=== PATIENT | male | born 1955 | race Caucasian/White ===

== ENCOUNTER 2024-07-17 09:21 | Outpatient (AMB) | payer MEDICARE, MEDICAID, SELFPAY ==
--- NOTE | 2024-07-17 09:32 | A.OFFVIS_ITS ---
Vital Signs 07/17/24 09:33 Height 6 ft Weight 195 lb BMI 26.4 Pulse 67 Pulse Source Pulse Oximeter Pulse Oximetry (%) 98 Oxygen Delivery Method Room Air Intake Visit Reasons: arthritis Intake Note: Patient presents for follow up with Radha Allergies olanzapine [From Zyprexa] Allergy (Unknown, Verified 07/17/24 09:38) Unknown HPI HPI arthritis: Details: He has been doing well since being off of Actemra 01/23/2024. He reports that he only experiencing headache 2-3 days ago lasting an hour. He did not self medicate. He denies jaw pain, vision changes, new joint pain, scalp tenderness. No recent infections. Physical Exam Vital Signs: Last Vital Signs Pulse 67 07/17/24 09:33 Pulse Ox 98 07/17/24 09:33 Oxygen Delivery Method Room Air 07/17/24 09:33 BMI result Body Mass Index 26.4 Const Other: General: Comfortable CVS: RRR Respiratory: clear to auscultation bilaterally. Good respiratory effort Skin: No lesions seen MSK: No tenderness of any joint. Right arm range of motion is normal. 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 He is able to abduct left shoulder 60 degrees. Limited full extension of right knee with crepitus and bony hypertrophy noted. He has right knee flexion 120 degrees. Left knee flexion 90 degrees with increase muscle tone due to stroke. Assessment & Plan Assessment & Plan (1) Temporal giant cell arteritis: Comment: Presenting with cerebrovascular occlusive disease and stroke 06/2021 to [facility] with headaches, right temporal pain and scalp tenderness 10/2021. Bilateral temporal artery biopsy with vascular inflammation suggesting GCA. Axillary artery inflammation on CTA chest at [facility] 2021. 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 Subsequently, he developed right eye blindness detected on eye exam 05/[address] Ospina. He developed jaw claudication 07/2022 and prednisone was increased. Actemra subcutaneous injection 01/2022 was changed to IV monthly infusion 10/19/2022 then back to subcutaneous injection for convenience being administered at patient's residents at [facility] with last dose administered 01/2024. Clinically he has remained in remission off of Actemra. He had headache 2-3 days ago lasting it hour, self-limited without recurrence. I am checking inflammatory markers this visit. He has had chronic mild elevation of ESR last year with most recent labs from December 2023 showing normal CRP. Code(s): M31.6 - Other giant cell arteritis Category: Medical Plan: Inflammatory markers ordered Monitor clinically off of Actemra Follow-up with Dr. Ospina support specialist Return to clinic in 3 months (2) Compression fx, lumbar spine: Comment: He had presented to [facility] 11/2022 with back pain and found to have lumbar spine compression fracture, which healed on its own. Likely related to glue corticosteroid use at the time for treatment of GCA. Code(s): S32.000A - Wedge compression fracture of unspecified lumbar vertebra, initial encounter for closed fracture Category: Medical Qualifiers: Encounter type: initial encounter Lumbar vertebra fracture level: unspecified lumbar vertebra Qualified Code(s): S32.000A - Wedge compression fracture of unspecified lumbar vertebra, initial encounter for closed fracture Plan: Requesting lumbar spine x-ray report 11/22/2022 from [facility] Bone density ordered (3) Osteoarthritis of right knee: Comment: Clinical diagnosis. Limiting mobility. We discussed conservative management with physical therapy to improve range of motion and lower extremity strengthening. Code(s): M17.11 - Unilateral primary osteoarthritis, right knee Category: Medical Qualifiers: Osteoarthritis type: primary Qualified Code(s): M17.11 - Unilateral primary osteoarthritis, right knee Plan: X-ray right knee report requested from [facility] PT ordered for patient to have done at care home facility [facility] Return to clinic in 3 months Orders: Orders XR DEXA appendicular skeleton Today S32.000A - Wedge compression fracture of unspecified lumbar vertebra, initial encounter for closed fracture XR DEXA axial skeleton Today S32.000A - Wedge compression fracture of unspecified lumbar vertebra, initial encounter for closed fracture Erythrocyte Sedimentation Rate Today M31.6 - Other giant cell arteritis C Reactive Protein Today M31.6 - Other giant cell arteritis PT Evaluation and Treatment Today M17.11 - Unilateral primary osteoarthritis, right knee Coding Level of Care Code Est Pt Level 4 (29322) Complex EM visit Add On G2211 Diagnoses Temporal giant cell arteritis M31.6 Compression fracture of lumbar vertebra, unspecified lumbar vertebral level, initial encounter S32.000A Encounter type: initial encounter Lumbar vertebra fracture level: unspecified lumbar vertebra Primary osteoarthritis of right knee M17.11 Osteoarthritis type: primary
[2024-07-17 09:33] VITALS: PULSE 67; O2SAT 98; BMI 26.4
--- OUTSIDE RECORDS SUMMARY | 2024-07-17 10:30 | XMS_ITS | Continuity of Care Document ---
[facility] Address [address] [place] [address] Care Team Providers Care Bingo Attendant Name Role Phone MARLENE PISANO Primary Care Provider [facility] Assessment Encounter Date Assessment Date Assessment LastModified by Organization Details LastModified Time 06/26/2024 06/26/2024 Labs 04/21- wbc 3.2, hb 11.1, hct 35.3, plt 172, na 142, k 3.7, chl 106, co2 28, bun 9, creat 0.6 Labs 10/03- wbc 4.3, hb 11.3, hct 36.1, plt 184, na 142, k 4.3, chl 105, co2 30, bun 19, creat 0.7, TSH 0.79 Labs 12/05- ESR 49, CRP 0.5, TC 128, trig 137, HDL 43, LDL 57 Labs 02/26- wbc 4.1, hb 11.5, hct 35.4, plt 151, CRP 0.7, ESR 26, creat 0.7 [place] Not available 06/26/2024 10:38:11 Plan of Treatment Reminders Order Date Submit Date Provider Last Modified By Organization Details Last Modified Time Details Appointments None record ed. Lab None record ed. Referral None record ed. Procedures None record ed. Surgeries None record ed. Imaging None record ed. Medication Orders None record ed. Patient TargetsNo targets recorded. Patient InstructionsNo instructions recorded. Reason for Referral None Reported. Problems Name Problem SNOMED Code Status Onset Date Resolution Date Notes Provider Name and Address Organization Details Recorded Time Cerebrovas cular accident 393856384 Active 2021 Not Available [facility] 4 02:39:41 Aphasia 47446963 Active 2021 Not Available [facility] 4 02:39:43 Left hemiparesi s 589313621 Active 2021 Not Available [facility] 4 02:39:42 Chronic obstructiv e pulmonary disease 67136962 Active 2021 Not Available [facility] 4 02:39:41 Dysphagia 41536535 Active 2021 Not Available [facility] 4 02:39:42 Glaucoma 62585889 Active 2021 Not Available [facility] 4 02:39:41 Essential hypertensi on 88997027 Active 2021 Not Available [facility] 4 02:39:43 Alcohol dependence 61713747 Active 2021 Not Available [facility] 4 02:39:43 Wernicke's disease 49331261 Active 2021 Not Available [facility] 4 02:39:41 Pain of bilateral knee regions 4826712922476 02 Active 2021 Not Available [facility] 4 02:39:42 Gastroesop hageal reflux disease without esophagiti s 408513009 Active 2021 Not Available [facility] 4 02:39:41 Anemia 642885521 Active 2021 Not Available [facility] 4 02:39:41 SARS-CoV-2 Active 2021 Not Available [facility] 4 02:39:43 History of cerebrovas cular accident 214132536 Active 2021 Not Available [facility] 4 02:39:41 Glaucoma 46473999 Active 2021 Not Available [facility] 4 02:39:41 Nonalcohol ic steatohepa titis 241166846 Active 2021 Not Available [facility] 4 02:39:42 History of giant cell arteritis 2580644882051 09 Active 2021 Not Available [facility] 4 02:39:42 Recurrent falls 774265782 Active 2021 Not Available [facility] 4 02:39:42 Edema of foot 632017769 Active 2021 Not Available [facility] 4 02:39:41 Insomnia 992678881 Active 2021 Not Available [facility] 4 02:39:41 Sinusitis 12293672 Active 2021 Not Available [facility] 4 02:39:42 Seborrheic dermatitis 60595373 Active 2022 Not Available [facility] 4 02:39:42 Swelling 05146746 Active 2022 Not Available [facility] 4 02:39:43 Cough 20744254 Active 2022 Not Available [facility] 4 02:39:42 Candidiasi s of mouth 67262648 Active 2022 Not Available [facility] 4 02:39:43 Chronic pain 42357497 Active 2022 Not Available [facility] 4 02:39:43 Cerebellar ataxia 44638770 Active 2022 Not Available [facility] 4 02:39:43 Asthenia 43831643 Active 2022 Not Available [facility] 4 02:39:41 Bacteremia 6214425 Active 2022 Not Available [facility] 4 02:39:42 Sepsis due to urinary tract infection 554285749 Active 2022 Not Available [facility] 4 02:39:43 Thyroid stimulatin g hormone level below reference range 088235322 Active 2022 Not Available [facility] 4 02:39:41 Swollen abdomen 63330621 Active 2022 Not Available [facility] 4 02:39:43 Urinary tract infectious disease 11027277 Active 2022 Not Available [facility] 4 02:39:43 Compressio n fracture Active 2022 Not Available [facility] 4 02:39:41 Itching of skin 899749665 Active 2022 Not Available [facility] 4 02:39:42 Forgetful 66162731 Active 2022 Not Available [facility] 4 02:39:42 Conjunctiv itis 0905176 Active 2022 Not Available [facility] 4 02:39:43 Subconjunc tival hemorrhage 59868271 Active 2022 Not Available [facility] 4 02:39:43 Impaired cognition 787543116 Active 2022 Not Available [facility] 4 02:39:42 Swelling of left upper limb 1892287381469 9109 Active 2022 Not Available [facility] 4 02:39:41 Toothache 13460428 Active 2022 Not Available [facility] 4 02:39:41 Pain of right shoulder region Active 2023 KOMAL Olsen [address] , [address], [place], [address] , [facility] 4 10:03:50 Dementia with behavioral disturbanc e 0523800203421 Active 2023 Maricel Bearden MD [address] , [address], [place], [address] , [facility] 4 10:56:57 Fall Active 2023 KOMAL Olsen [address], [address], [place], [address] , [facility] 4 09:55:12 Subconjunc tival hemorrhage 78100104 Active 2024 KOMAL Olsen [address], [address], [place], [address] , [facility] 5 10:43:28 Problem Notes None recorded. Medical Equipment None Reported. Allergies Allergen ID Allergen Name Allergen Category Reaction Reaction Severity Criticality Documentation Date Start Date Code Code System Note Provider Name and Address Organization Details Recorded Time 71480 Zyprexa medicatio n Not available Not available Not available 01/14/2022 31988 3 RxNorm Not Available Not Available Not Available Medications Name Sig Start Date Stop Date Status Note LastModified by Organization Details LastModified Time tramadol 50 mg tablet 2 tab PO BID; 1 tab PO q 6 hours PRN 025 active Not Available Not Available Not Avai lable Vitals Date Recorded Body height Heart rate Systolic blood pressure Diastolic blood pressure Provider Name and Address Organization Details Last Updated DateTime 06/26/2024 185.42 cm 62 /min 126 mm[Hg] 72 mm[Hg] PHUONG OlsenC [address] [facility], [address], [place], [address] , [facility] 06/26/2024 10:32:43 Social History Question Answer Notes LastModified by Organizat ion Details LastModified Time Tobacco Smoking Status Former Smoker Aguila Villegas MD [address] [facility], [address], [place], [address], [facility] 08/23/2021 13:07:17 Do You Have An Advance Directive? Yes Information not available 08/23/2021 What Is Your Level Of Alcohol Consumption? None Heavy In Past Information not available 09/15/2022 What Is Your Code Status? Full Code Information not available 08/23/2021 Where Do You Live? [facility] Information not available 09/15/2022 Legal Guardian? No Informati on not available 09/15/2022 Do You Have A Medical Power Of Figure Clerk? Yes Information not available 09/15/2022 What Was The Date Of Your Most Recent Tobacco Screening? 09/15/2022 Information not available 09/15/2022 Do You Have An Out Of Hospital DNR? No Information not available 09/15/2022 What Is Your Relationship Status? Information not available 09/15/2022 Has Tobacco Cessation Counseling Been Provided? No N/a As Pt No Longer Smokes Information not available 09/15/2022 Do You Or Have You Ever Used Any Other Forms Of Tobacco Or Nicotine? No Information not available 09/15/2022 Sex: Unknown Functional Status None recorded. Mental Status None recorded. Family History Nothing Reported Notes:N/C Medical History No medical history recorded. Immunizations Vaccine Type Date Status Note Provider Nam e and Address Organization Details Recorded Time COVID-19, mRNA, LNP-S, PF, 100 mcg/0.5mL dose or 50 mcg/0.25mL dose 2 completed Not Available [facility] 06/27/2023 02:39:44 COVID-19, mRNA, LNP-S, PF, 30 mcg/0.3 mL dose 1 completed Not Available [facility] 06/27/2023 02:39:44 COVID-19, mRNA, LNP-S, PF, 30 mcg/0.3 mL dose 1 completed Not Available [facility] 06/27/2023 02:39:44 pneumococcal polysaccharide PPV23 7 completed Not Available [facility] 06/27/2023 02:39:44 Tdap 0 completed Not Available [facility] 06/27/2023 02:39:44 COVID-19, mRNA, LNP-S, PF, 30 mcg/0.3 mL dose 2 completed Not Available [facility] 06/27/2023 02:39:44 Influenza, adjuvanted, quadrivalent, PF 3 completed Misty carver [place] - [facility] 07/04/2023 12:25:04 Past Encounters Encounter ID Performer Location Encounter Start Date Encounter Closed Date Diagnosis/Indication Diagnosis SNOMED-CT Code Diagnosis ICD10 Code Diagnosis Note [id number] [place] [address] 06/17/2024 10:41:05 06/18/2024 13:32:46 Subconjunctival hemorrhage 24173680 H11.31 No pain, or change in vision. Monitor to resolution . [id number] [place] [address] 06/26/2024 10:32:06 06/27/2024 15:12:42 Vascular dementia 615197813 F01.53 On seroquel 25 mg at - GDR underway. Supportive care. Expect decline. History of cerebrovascular accident 565509927 I63.89 I69.354 With left hemiparesi s, expressive aphagia, ataxia. Followed by neuro. On ASA, statin. Compression fracture 219 37587 T14.8XXD On tramadol 50 mg TID and PRN. History of giant cell arteritis 8903230090 60902 M31.6 Presumed diagnosis October 2021. Followed by Dr. Curtis at [facility]. Followed by neurology and rheum. Essential hypertension 38105910 I10 On amlodipine . SBPs 120s. Follow BP and labs. Insomnia 497274526 G47.0 9 On melatonin 3 mg daily at . Wernicke's disease 56596 002 E51.2 On depakote, melatonin, lexapro, seroquel- GDR. Psych following here. Alcohol dependence 17335 003 F10.20 Hx of. Anemia 211794431 D64.89 Stable. Follow labs. Chronic ob structive pulmonary disease 89899974 J44.9 Stable. Gastroesop hageal reflux disease without esophagitis 161894981 K21.9 Monitor for symptoms. Glaucoma 04858823 H40.9 Gtts as ordered. Nonalcohol ic steatohepatitis 914169671 K75.81 Added to hx. Health Concerns Section Related Observation LastModified by Organization Detai ls LastModified Time None Recorded Concern Status LastModified by Organization Details LastModified Time None Recorded Payers Encounter Date Sequence Insurance Name Policy Number Policy Bocanegra Covered Member ID Bocanegra Member ID Guarantor Name 06/26/2024 1 [place] [employer] Elías Matute [id number] Elías Matute 06/26/2024 2 [place] [facility] Dimitrios Matute [id number] Elías Matute Notes Date Note Type Note Provider Name and Address Organization Details Recorded Time 06/26/2024 text/html 68-year-old male with PMH of glaucoma, anemia, COPD, GERD, HTN, ETOH use disorder, Wernicke's syndrome, PERSAUD, 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 Patient seen today for routine 60-day visit. No concerns per nursing. DorysPHUONG PeralesC [address] [facility], [address], [place], [address], [facility] - [facility] 06/26/2024 10:40:18
--- OUTSIDE RECORDS SUMMARY | 2024-07-17 10:30 | XMS_ITS | Data Portability ---
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 During his rehabilitation stay the following medical conditions were managed: Giant Cell Arteritis (per d/c summary he was scheduled to see Dr. 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 Has fair VNA, ST OT wants ativan PRN for agitation wants handicap preet alarcon Not available 12/24/2021 12:21:57 Plan of Treatment Reminders Order Date Submit Date Provider Last Modified By Organization Details Last Modified Time Details Appointments None recorded. Lab None recorded. Referral psychiatri st referral 2021 022 JUAN CARLOS Dhaliwal MD, [address] [place] [address], [id number], 11:11:06 Procedures None recorded. Surgeries None recorded. Imaging CT, chest, w/ contrast - follow cavitary lesion seen on CT chest performed [facility] [place] October [id number] 022 JUAN CARLOS Not available 2 15:21:07 Medication Orders sildenafil 100 mg tablet 2019 020 [id number], [address] [place] [address], [address], 0 11:15:32 Advair Diskus 500 mcg-50 mcg/dose powder for inhalation 2020 021 [id number], [address] [place] [address], [address], 2 11:34:36 ibuprofen 600 mg tablet 2020 021 [facility] #[id number], [address] [place] [address], [address], 1 13:01:13 escitalopr am 10 mg tablet 2021 022 [facility] #[id number], [address] [place], [address], 2 12:17:49 lorazepam 0.5 mg tablet 2021 022 [facility] #[id number], [address] [place], [address], 2 12:17:50 Patient TargetsNo targets recorded. Patient Instructions Encounter Date Encounter Id Patient Instructions Last Modified By Organization Details Last Modified Time 08/13/2019 [id number] Counseling done Pmoved by surgery or radiation treatments and 60-70 of those will suffer incontinence or impotence. There is also ow up visit {{adding exercise regular meals stress management improv ing sleep therapist identifying sponsor}} {{adding exercise regular meals stress management improv ing sleep therapist identifying sponsor}} {{adding exercise regular meals stress management improv ing sleep therapist identifying sponsor}} My Health To Do List {{go to Startupi or call si gn up for natan text 2 quit or other stop smoking natan contact [employer].gov}} {{go to quitNetviewer or call si gn up for natan text 2 quit or other stop smoking natan contact smokeHMT Technology.gov}} {{go to quitNetviewer or call si gn up for natan text 2 quit or other stop smoking natan contact [employer].gov}} dorian Not available 08/13/2019 11:14:34 11/04/2020 [id number] Counseling done {{Patient not ready to quit Contemplatin g quitting Tapering Cigarettes signed up for support prescript ion for stop smoking medication given}} {{Patient not ready to quit Contemplatin g quitting Tapering Cigarettes signed up for support prescript ion for stop smoking medication given}} Goal for follow up visit {{adding exercise regular meals stress management improv ing sleep therapist identifying sponsor}} {{adding exercise regular meals stress management improv ing sleep therapist identifying sponsor}} {{adding exercise regular meals stress management improv ing sleep therapist identifying sponsor}} My Health To Do List {{go to quitNetviewer or call si gn up for natan text 2 quit or other stop smoking natan contact [employer].gov}} {{go to quitNetviewer or call si gn up for natan text 2 quit or other stop smoking natan contact smokeHMT [employer].gov}} {{go to quitNetviewer or call si gn up for natan text 2 quit or other stop smoking natan contact [employer].gov}} Counseling done Pmoved by surgery or radiation treatments and 60-70 of those will suffer incontinence or impotence. There is also ow up visit {{adding exercise regular meals stress management improv ing sleep therapist identifying sponsor}} {{adding exercise regular meals stress management improv ing sleep therapist identifying sponsor}} {{adding exercise regular meals stress management improv ing sleep therapist identifying sponsor}} My Health To Do List {{go to Startupi or call si gn up for natan text 2 quit or other stop smoking natan contact [employer].gov}} {{go to quitNetviewer or call si gn up for natan text 2 quit or other stop smoking natan contact smokeH[employer].gov}} {{go to quitNetviewer or call si gn up for natan text 2 quit or other stop smoking natan contact [employer].gov}} [email or web address] Not available 11/04/2020 09:40:08 02/23/2021 [id number] Counseling done {{Patient not ready to quit Contemplatin g quitting Tapering Cigarettes signed up for support prescript ion for stop smoking medication given}} {{Patient not ready to quit Contemplatin g quitting Tapering Cigarettes signed up for support prescript ion for stop smoking medication given}} Goal for follow up visit {{adding exercise regular meals stress management improv ing sleep therapist identifying sponsor}} {{adding exercise regular meals stress management improv ing sleep therapist identifying sponsor}} {{adding exercise regular meals stress management improv ing sleep therapist identifying sponsor}} My Health To Do List {{go to quitNetviewer or call si gn up for natan text 2 quit or other stop smoking natan contact smokeHMT [employer].gov}} {{go to quitNetviewer or call si gn up for natan text 2 quit or other stop smoking natan contact [employer].gov}} {{go to Startupi or call si gn up for natan text 2 quit or other stop smoking natan contact [employer]}} Counseling done Pmoved by surgery or radiation treatments and 60-70 of those will suffer incontinence or impotence. There is also ow up visit {{adding exercise regular meals stress management improv ing sleep therapist identifying sponsor}} {{adding exercise regular meals stress management improv ing sleep therapist identifying sponsor}} {{adding exercise regular meals stress management improv ing sleep therapist identifying sponsor}} My Health To Do List {{go to Startupi or call si gn up for natan text 2 quit or other stop smoking natan contact [employer]}} {{go to Startupi or call si gn up for natan text 2 quit or other stop smoking natan contact [employer].gov}} {{go to Startupi or call si gn up for natan text 2 quit or other stop smoking natan contact [employer].gov}} [email or web address] Not available 02/23/2021 12:52:46 12/24/2021 [id number] I am aware of [facility] inpatient facility discharge medications, the medication list above has been reconciled with those medications and reflects my understanding of an up to date medication list for this patient. [email or web address] Not available 12/24/2021 12:04:10 Reason for Referral Psychiatrist Referral for Maggy abdul depression, melancholic type Referring Physician: Marlene Villa, Family Medicine, Encounter Date: 12/24/2021 Results Created Date Observation Date Name Description Value Unit Range Abnormal Flag Note LastModifiedBy Organization Detail LastModifiedTime 08/06/19 20 08/06/2019 BMP, serum or plasm a glucose 112 mg/dL 70-100 high Not Available [address], [address], 08/06/2019 11:24:11 08/06/19 20 08/06/2019 BMP, serum or plasm a BUN 23 mg/dL 7-18 high Not Available [address], [address], 08/06/2019 11:24:11 08/06/19 20 08/06/2019 BMP, serum or plasm a creatinine 1.1 mg/dL 0.8-1. 3 Not Available [address], [address], 08/06/2019 11:24:11 08/06/19 20 08/06/2019 BMP, serum or plasm a B/C 20.9 ratio Not Available [address], [address], 08/06/2019 11:24:11 08/06/19 20 08/06/2019 BMP, serum or plasm a GFR -non 71.6 mL/mi n Recom maría d GFR by the Natio nal Kidne y Found ation >60 mL/mi n/1.7 3m2 - Mary Grace l <60 mL/mi n/1.7 3m2 - Chron ic Kidne y Disea se <15 mL/mi n/1.7 3m2 - Kidne y Failu re Not Available [address], [address], 08/06/2019 11:24:11 08/06/19 20 08/06/2019 BMP, serum or plasm a GFR - if 86.7 mL/mi n For Afric an Ameri can patie nts: Resul ts Multi plied by 1.21 Not Available [address], [address], 08/06/2019 11:24:11 08/06/19 20 08/06/2019 BMP, serum or plasm a sodium 140 mmol/ L 136-14 5 Not Available [address], [address], 08/06/2019 11:24:11 08/06/19 20 08/06/2019 BMP, serum or plasm a potassium 4.2 mmol/ L 3.5-5. 1 Not Available [address], [address], 08/06/2019 11:24:11 08/06/19 20 08/06/2019 BMP, serum or plasm a chloride 99 mmol/ L 96-107 Not Available [address], [address], 08/06/2019 11:24:11 08/06/19 20 08/06/2019 BMP, serum or plasm a anion gap 9.7 5.0-15 .0 Not Available [address], [address], 08/06/2019 11:24:11 08/06/19 20 08/06/2019 BMP, serum or plasm a CO2 31 mmol/ L 21-32 Not Available [address], [address], 08/06/2019 11:24:11 08/06/19 20 08/06/2019 BMP, serum or plasm a calcium 9.1 mg/dL 8.5-10 .3 Not Available [address], [address], 08/06/2019 11:24:11 02/13/20 20 02/13/2020 BMP, serum or plasm a glucose 103 mg/dL 70-100 high Not Available [address], [address], 02/13/2020 13:11:35 02/13/20 20 02/13/2020 BMP, serum or plasm a BUN 22 mg/dL 7-18 high Not Available [address], [address], 02/13/2020 13:11:35 02/13/20 20 02/13/2020 BMP, serum or plasm a creatinine 1.2 mg/dL 0.8-1. 3 Not Available [address], [address], 02/13/2020 13:11:35 02/13/20 20 02/13/2020 BMP, serum or plasm a B/C 18.3 ratio Not Available [address], [address], 02/13/2020 13:11:35 02/13/20 20 02/13/2020 BMP, serum or plasm a GFR -non 64.6 mL/mi n Recom maría d GFR by the Natio nal Kidne y Found ation >60 mL/mi n/1.7 3m2 - Mary Grace l <60 mL/mi n/1.7 3m2 - Chron ic Kidne y Disea se <15 mL/mi n/1.7 3m2 - Kidne y Failu re Not Available [address], [address], 02/13/2020 13:11:35 02/13/20 20 02/13/2020 BMP, serum or plasm a GFR - if 78.1 mL/mi n For Afric an Ameri can patie nts: Resul ts Multi plied by 1.21 Not Available [address], [address], 02/13/2020 13:11:35 02/13/20 20 02/13/2020 BMP, serum or plasm a sodium 141 mmol/ L 136-14 5 Not Available [address], [address], 02/13/2020 13:11:35 02/13/20 20 02/13/2020 BMP, serum or plasm a potassium 4.2 mmol/ L 3.5-5. 1 Not Available [address], [address], 02/13/2020 13:11:35 02/13/2002/13/2020 BMP, serum or plasm a chloride 100 mmol/ L 96-107 Not Available [address], [address], 02/13/2020 13:11:35 02/13/2002/13/2020 BMP, serum or plasm a anion gap 9.7 5.0-15 .0 Not Available [address], [address], 02/13/2020 13:11:35 02/13/20 20 02/13/2020 BMP, serum or plasm a CO2 31 mmol/ L 21-32 Not Available [address], [address], 02/13/2020 13:11:35 02/13/20 20 02/13/2020 BMP, serum or plasm a calcium 8.7 mg/dL 8.5-10 .3 Not Available [address], [address], 02/13/2020 13:11:35 08/31/19 22 08/30/2021 CBC AND DIFFE RENTI AL WBC 7.94 K/uL 4.00-1 1.00 Not Available [facility] (Out[facility] [address] [place] [address], [address], 08/30/2021 12:26:15 08/31/19 22 08/30/2021 CBC AND DIFFE RENTI AL RBC 3.71 M/uL 3.90-5 .69 low Not Available [facility] ([facility]) [address] [place] [address], [address], 08/30/2021 12:26:15 08/31/19 22 08/30/2021 CBC AND DIFFE RENTI AL HGB 11.9 g/dL 12.4-1 7.3 low Not Available [facility] (Out[facility]) [address] [place] [address], [address], 08/30/2021 12:26:15 08/31/19 22 08/30/2021 CBC AND DIFFE RENTI AL HCT 35.6 % 37.0-5 1.0 low Not Available [facility] ([facility]) [address] [place] [address], [address], 08/30/2021 12:26:15 08/31/19 22 08/30/2021 CBC AND DIFFE RENTI AL plt 357 K/uL 140-43 0 Not Available [facility] ([facility]) [address] [place], [address], 08/30/2021 12:26:15 08/31/19 22 08/30/2021 CBC AND DIFFE RENTI AL MCV 96.0 fL 78.0-9 7.0 Not Available [facility] ([facility]) [address] [place], [address], 08/30/2021 12:26:15 08/31/19 22 08/30/2021 CBC AND DIFFE RENTI AL MCH 32.1 pg 25.0-3 3.0 Not Available [facility] ([facility]) [address] [place], [address], 08/30/2021 12:26:15 08/31/19 22 08/30/2021 CBC AND DIFFE RENTI AL MCHC 33.4 g/dL 32.0-3 6.0 Not Available [facility] ([facility]) [address] [place], [address], 08/30/2021 12:26:15 08/31/19 22 08/30/2021 CBC AND DIFFE RENTI AL RDW 12.8 % 11.0-1 5.0 Not Available [facility] ([facility] [address] [place], [address], 08/30/2021 12:26:15 08/31/19 22 08/30/2021 CBC AND DIFFE RENTI AL MPV 10.8 fL 8.4-12 .8 Not Available [facility] ([facility] [address] [place], [address], 08/30/2021 12:26:15 08/31/19 22 08/30/2021 CBC AND DIFFE RENTI AL NRBC 0.00 /100_ WBCs 0 Not Available [facility] ([facility] [address] [place], [address], 08/30/2021 12:26:15 08/31/19 22 08/30/2021 CBC AND DIFFE RENTI AL absolute NRBC 0.00 K/uL 0 Not Available [facility] ([facility] [address] [place], [address], 08/30/2021 12:26:15 08/31/19 22 08/30/2021 CBC AND DIFFE RENTI AL diff method AUTO Not Available [facility] [address] [place], [address], 08/30/2021 12:26:15 08/31/19 22 08/30/2021 CBC AND DIFFE RENTI AL neuts 75.3 % 43.0-7 5.0 high Not Available [facility] ([facility]) [address] [place] [address], [address], 08/30/2021 12:26:15 08/31/19 22 08/30/2021 CBC AND DIFFE RENTI AL lymphs 10.3 % 18.2-4 7.4 low Not Available [facility] [address] [place], [address], 08/30/2021 12:26:15 08/31/19 22 08/30/2021 CBC AND DIFFE RENTI AL monos 10.8 % 4.00-1 1.00 Not Available [facility] ([facility] [address] [place], [address], 08/30/2021 12:26:15 08/31/19 22 08/30/2021 CBC AND DIFFE RENTI AL eos 3.0 % 0.0-8. 0 Not Available [facility] ([facility] [address] [place], [address], 08/30/2021 12:26:15 08/31/19 22 08/30/2021 CBC AND DIFFE RENTI AL basos 0.3 % 0.0-2. 0 Not Available [facility] ([facility] [address] [place], [address], 08/30/2021 12:26:15 08/31/19 22 08/30/2021 CBC AND DIFFE RENTI AL granulocytes , immature (%) 0.3 % 0.0-0. 9 Not Available [facility] ([facility] [address] [place], [address], 08/30/2021 12:26:15 08/31/19 22 08/30/2021 CBC AND DIFFE RENTI AL absolute neuts 5.98 K/uL 1.80-7 .70 Not Available [facility] [address] [place], [address], 08/30/2021 12:26:15 08/31/19 22 08/30/2021 CBC AND DIFFE RENTI AL absolute lymphs 0.82 K/uL 1.00-3 .10 low Not Available [facility] [address] [place], [address], 08/30/2021 12:26:15 08/31/19 22 08/30/2021 CBC AND DIFFE RENTI AL absolute monos 0.86 K/uL 0.20-0 .80 high Not Available [facility] [address] [place], [address], 08/30/2021 12:26:15 08/31/19 22 08/30/2021 CBC AND DIFFE RENTI AL absolute eos 0.24 K/uL 0.00-0 .80 Not Available [facility] [address] [place], [address], 08/30/2021 12:26:15 08/31/19 22 08/30/2021 CBC AND DIFFE RENTI AL absolute basos 0.02 K/uL 0.00-0 .09 Not Available [facility] [address] [place], [address], 08/30/2021 12:26:15 08/31/19 22 08/30/2021 CBC AND DIFFE RENTI AL granulocytes , immature 0.02 K/uL 0.00-0 .05 Not Available [facility] [address] [place], [address], 08/30/2021 12:26:15 08/31/19 22 08/30/2021 URINA LYSIS W/REF FLORIN URINE CULTU RE color YELLOW yellow Not Available [facility] [address] [place], [address], 08/30/2021 12:30:14 08/31/19 22 08/30/2021 URINA LYSIS W/REF FLORIN URINE CULTU RE clarity HAZY Not Available [facility] [address] [place], [address], 08/30/2021 12:30:14 08/31/19 22 08/30/2021 URINA LYSIS W/REF FLORIN URINE CULTU RE glucose NEGATI VE negati ve Not Available [facility] [address] [place], [address], 08/30/2021 12:30:14 08/31/19 22 08/30/2021 URINA LYSIS W/REF FLORIN URINE CULTU RE bili NEGATI VE negati ve Not Available [facility] [address] [place], [address], 08/30/2021 12:30:14 08/31/19 22 08/30/2021 URINA LYSIS W/REF FLORIN URINE CULTU RE ketones NEGATI VE negati ve Not Available [facility] [address] [place], [address], 08/30/2021 12:30:14 08/31/19 22 08/30/2021 URINA LYSIS W/REF FLORIN URINE CULTU RE specific gravity 1.015 1.005- 1.030 Not Available [facility] [address] [place], [address], 08/30/2021 12:30:14 08/31/19 22 08/30/2021 URINA LYSIS W/REF FLORIN URINE CULTU RE blood NEGATI VE negati ve Not Available [facility] ([facility] [address] [place], [address], 08/30/2021 12:30:14 08/31/19 22 08/30/2021 URINA LYSIS W/REF FLORIN URINE CULTU RE pH 8.0 5.0-8. 0 Not Available [facility] [address] [place], [address], 08/30/2021 12:30:14 08/31/19 22 08/30/2021 URINA LYSIS W/REF FLORIN URINE CULTU RE protein NEGATI VE negati ve Not Available [facility] [address] [place], [address], 08/30/2021 12:30:14 08/31/19 22 08/30/2021 URINA LYSIS W/REF FLORIN URINE CULTU RE nitrite NEGATI VE negati ve Not Available [facility] [address] [place], [address], 08/30/2021 12:30:14 08/31/19 22 08/30/2021 URINA LYSIS W/REF FLORIN URINE CULTU RE leukocyte esterase, ur NEGATI VE negati ve Not Available [facility] ([facility] [address] [place], [address], 08/30/2021 12:30:14 08/31/19 22 08/30/2021 TROPO DEVAN troponin-T, hs gen5 8 NG/L 0-14 Not Available [facility] ([facility] [address] [place], [address], 08/30/2021 12:37:31 08/31/19 22 08/30/2021 PT-IN R PT 11.4 sec 10.2-1 2.9 Not Available [facility] ([facility] [address] [place], [address], 08/30/2021 12:45:46 08/31/19 22 08/30/2021 PT-IN R INR 1.0 0.9-1. 1 Thera peuti c range for oral Vitam in K antag onist s: 2.0-3 .5 Not Available [facility] ([facility] [address] [place], [address], 08/30/2021 12:45:46 08/31/19 22 08/30/2021 COVID JOSELUIS SIVAKUMAR RESPI RATOR Y VIRAL ORDER (PRO) test ordered RAPID COVID, FLU HAS BEEN ORDERE D Not Available [facility] [address] [place], [address], 08/30/2021 12:49:12 08/31/19 22 08/30/2021 COVID JOSELUIS SIVAKUMAR RESPI RATOR Y VIRAL ORDER (PRO) specimen source/descr iption NASOPH ARYNGE AL SWAB Not Available [facility] ([facility] [address] [place], [address], 08/30/2021 12:49:12 08/31/19 22 08/30/2021 COVID JOSELUIS SIVAKUMAR RESPI RATOR Y VIRAL ORDER (PRO) influenza A PCR NOT DETECT ED not detect ed Not Available [facility] ([facility] [address] [place], [address], 08/30/2021 12:49:12 08/31/19 22 08/30/2021 COVID JOSELUIS SIVAKUMAR RESPI RATOR Y VIRAL ORDER (PRO) influenza B PCR NOT DETECT ED not detect ed Not Available [facility] [address] [place], [address], 08/30/2021 12:49:12 08/31/19 22 08/30/2021 COVID JOSELUIS SIVAKUMAR RESPI RATOR Y VIRAL ORDER (PRO) sars-cov 2 (covid-19) PCR NOT DETECT ED not detect ed SARS- CoV-2 not detec geovanna Negat marbin resul ts do not precl ude SARS- CoV-2 infec tion and shoul d not be used as the sole basis for patie nt manag ement decis ions. Negat marbin resul ts must be combi yana with clini nidia obser vatio ns, patie nt histo ry, and epide miolo gical infor matio n. This test has been autho rized by the FDA under an Emerg ency Use Autho rizat ion (EUA) for use by autho rized labor atori es. Not Available [facility] [address] [place], [address], 08/30/2021 12:49:12 08/31/19 22 08/30/2021 BASIC METAB OLIC PANEL sodium 139 mmol/ L 133-14 6 Not Available [facility] ([facility] [address] [place], [address], 08/30/2021 12:56:07 08/31/19 22 08/30/2021 BASIC METAB OLIC PANEL chloride 100 mmol/ L 96-108 Not Available [facility] ([facility] [address] [place], [address], 08/30/2021 12:56:07 08/31/19 22 08/30/2021 BASIC METAB OLIC PANEL potassium 4.0 mmol/ L 3.3-5. 1 Not Available [facility] ([facility] [address] [place], [address], 08/30/2021 12:56:07 08/31/19 22 08/30/2021 BASIC METAB OLIC PANEL CO2 28 mmol/ L 21-35 Not Available [facility] ([facility] [address] [place], [address], 08/30/2021 12:56:07 08/31/19 22 08/30/2021 BASIC METAB OLIC PANEL BUN 12 mg/dL 6-19 Not Available [facility] ([facility]) [address] [place] [address], [address], 08/30/2021 12:56:07 08/31/19 22 08/30/2021 BASIC METAB OLIC PANEL creatinine 0.60 mg/dL 0.5-1. 5 Not Available [facility] ([facility]) [address] [place] [address], [address], 08/30/2021 12:56:07 08/31/19 22 08/30/2021 BASIC METAB OLIC PANEL glucose 141 mg/dL 70-99 high Not Available [facility] [address] [place] [address], [address], 08/30/2021 12:56:07 08/31/19 22 08/30/2021 BASIC METAB OLIC PANEL calcium 10.1 mg/dL 8.4-10 .3 Not Available [facility] [address] [place] [address], [address], 08/30/2021 12:56:07 08/31/19 22 08/30/2021 BASIC METAB OLIC PANEL eGFR 106 mL/mi n/1.7 3m2 >59 Estim ated glome rular filtr ation rate calcu lated using the CKD-E PI refit equat ion. Not Available [facility] ([facility]) [address] [place] [address], [address], 08/30/2021 12:56:07 08/31/19 22 08/30/2021 BASIC METAB OLIC PANEL anion gap 15 mmol/ L 10-20 Not Available [facility] [address] [place] [address], [address], 08/30/2021 12:56:07 08/31/19 22 08/30/2021 LFTS (HEPA TIC PANEL ) alkaline phosphatase 106 U/L 39-117 Not Available [facility] ([facility] [address] [place], [address], 08/30/2021 12:56:09 08/31/19 22 08/30/2021 LFTS (HEPA TIC PANEL ) total bilirubin 0.3 mg/dL 0.0-1. 2 Not Available [facility] [address] [place], [address], 08/30/2021 12:56:09 08/31/19 22 08/30/2021 LFTS (HEPA TIC PANEL ) direct bilirubin <0.2 mg/dL 0-0.3 Not Available [facility] [address] [place], [address], 08/30/2021 12:56:09 08/31/19 22 08/30/2021 LFTS (HEPA TIC PANEL ) bilirubin (indirect) NOT CALCUL ATED mg/dL 0-1.5 Not Available [facility] ([facility] [address] [place], [address], 08/30/2021 12:56:09 08/31/19 22 08/30/2021 LFTS (HEPA TIC PANEL ) AST 21 U/L 0-37 Not Available [facility] [address] [place], [address], 08/30/2021 12:56:09 08/31/19 22 08/30/2021 LFTS (HEPA TIC PANEL ) ALT 25 U/L 0-40 Not Available [facility] [address] [place], [address], 08/30/2021 12:56:09 08/31/19 22 08/30/2021 LFTS (HEPA TIC PANEL ) total protein 8.4 g/dL 6.5-8. 0 high Not Available [facility] (Outpatient) [address] [place], [address], 08/30/2021 12:56:09 08/31/19 22 08/30/2021 LFTS (HEPA TIC PANEL ) albumin 3.9 g/dL 3.9-4. 8 Not Available [facility] (Outpatient) [address] [place], [address], 08/30/2021 12:56:09 08/31/19 22 08/30/2021 LFTS (HEPA TIC PANEL ) globulin 4.5 g/dL 1-4.8 Not Available [facility] (Outpatient) [address] [place], [address], 08/30/2021 12:56:09 08/31/19 22 08/30/2021 LFTS (HEPA TIC PANEL ) A/G ratio 0.87 ratio 1.00-4 .80 low Not Available [facility] (Outpatient) [address] [place], [address], 08/30/2021 12:56:09 08/31/19 22 08/30/2021 MAGNE SIUM magnesium 2.0 mg/dL 1.6-2. 6 Not Available [facility] (Outpatient) [address] [place], [address], 08/30/2021 12:56:10 08/31/19 22 08/30/2021 VALPR OIC ACID valproic acid <2.8 ug/mL 50.0-1 00.0 low Not Available [facility] (Outpatient) [address] [place], [address], 08/30/2021 13:01:59 08/31/19 22 08/30/2021 TROPO DEVAN troponin-T, hs gen5 8 NG/L 0-14 Not Available [facility] (Outpatient) [address] [place], [address], 08/30/2021 13:31:01 09/04/19 22 09/03/2021 CBC WBC 6.08 K/uL 4.00-1 1.00 Not Available [facility] (Outpatient) [address] [place], [address], 09/03/2021 08:34:43 09/04/19 22 09/03/2021 CBC RBC 3.35 M/uL 3.90-5 .69 low Not Available [facility] (Outpatient) [address] [place] [address], [address], 09/03/2021 08:34:43 09/04/19 22 09/03/2021 CBC HGB 10.3 g/dL 12.4-1 7.3 low Not Available [facility] (Outpatient) [address] [place] [address], [address], 09/03/2021 08:34:43 09/04/19 22 09/03/2021 CBC HCT 31.9 % 37.0-5 1.0 low Not Available [facility] (Outpatient) [address] [place] [address], [id number], 09/03/2021 08:34:43 09/04/19 22 09/03/2021 CBC plt 309 K/uL 140-43 0 Not Available [facility] (Outpatient) [address] [place] [address], [address], 09/03/2021 08:34:43 09/04/19 22 09/03/2021 CBC MCV 95.2 fL 78.0-9 7.0 Not Available [facility] (Outpatient) [address] [place] [address], [id number], 09/03/2021 08:34:43 09/04/19 22 09/03/2021 CBC MCH 30.7 pg 25.0-3 3.0 Not Available [facility] (Outpatient) [address] [place] [address], [id number], 09/03/2021 08:34:43 09/04/19 22 09/03/2021 CBC MCHC 32.3 g/dL 32.0-3 6.0 Not Available [facility] (Out[facility]) [address] [place], [address], 09/03/2021 08:34:43 09/04/19 22 09/03/2021 CBC RDW 12.7 % 11.0-1 5.0 Not Available [facility] (Outpatient) [address] [place], [address], 09/03/2021 08:34:43 09/04/19 22 09/03/2021 CBC MPV 11.5 fL 8.4-12 .8 Not Available [facility] (Outpatient) [address] [place], [address], 09/03/2021 08:34:43 09/04/19 22 09/03/2021 CBC NRBC 0.00 /100_ WBCs 0 Not Available [facility] (Outpatient) [address] [place], [address], 09/03/2021 08:34:43 09/04/19 22 09/03/2021 CBC absolute NRBC 0.00 K/uL 0 Not Available [facility] (Outpatient) [address] [place], [address], 09/03/2021 08:34:43 09/04/19 22 09/03/2021 BASIC METAB OLIC PANEL sodium 137 mmol/ L 133-14 6 Not Available [facility] (Out[facility]) [address] [place], [address], 09/03/2021 09:31:10 09/04/19 22 09/03/2021 BASIC METAB OLIC PANEL chloride 98 mmol/ L 96-108 Not Available [facility] (Outpatient) [address] [place], [address], 09/03/2021 09:31:10 09/04/19 22 09/03/2021 BASIC METAB OLIC PANEL potassium 4.6 mmol/ L 3.3-5. 1 Speci men sligh tly hemol yzed, resul t may be false ly eleva geovanna. Not Available [facility] (Outpatient) [address] [place], [address], 09/03/2021 09:31:10 09/04/19 22 09/03/2021 BASIC METAB OLIC PANEL CO2 25 mmol/ L 21-35 Not Available [facility] ([facility]) [address] [place], [address], 09/03/2021 09:31:10 09/04/19 22 09/03/2021 BASIC METAB OLIC PANEL BUN 17 mg/dL 6-19 Not Available [facility] ([facility]) [address] [place], [address], 09/03/2021 09:31:10 09/04/19 22 09/03/2021 BASIC METAB OLIC PANEL creatinine 0.60 mg/dL 0.5-1. 5 Not Available [facility] (Out[facility]) [address] [place], [address], 09/03/2021 09:31:10 09/04/19 22 09/03/2021 BASIC METAB OLIC PANEL glucose 127 mg/dL 70-99 high Not Available [facility] (Outpatient) [address] [place], [address], 09/03/2021 09:31:10 09/04/19 22 09/03/2021 BASIC METAB OLIC PANEL calcium 9.2 mg/dL 8.4-10 .3 Not Available [facility] (Outpatient) [address] [place], [address], 09/03/2021 09:31:10 09/04/19 22 09/03/2021 BASIC METAB OLIC PANEL eGFR 106 mL/mi n/1.7 3m2 >59 Estim ated glome rular filtr ation rate calcu lated using the CKD-E PI refit equat ion. Not Available [facility] (Outpatient) [address] [place], [address], 09/03/2021 09:31:10 09/04/19 22 09/03/2021 BASIC METAB OLIC PANEL anion gap 19 mmol/ L 10-20 Not Available [facility] (Out[facility]) [address] [place], [address], 09/03/2021 09:31:10 09/09/19 22 09/08/2021 CBC WBC 6.48 K/uL 4.00-1 1.00 Not Available [facility] ([facility]) [address] [place], [address], 09/08/2021 09:36:20 09/09/19 22 09/08/2021 CBC RBC 3.33 M/uL 3.90-5 .69 low Not Available [facility] (Out[facility]) [address] [place], [address], 09/08/2021 09:36:20 09/09/19 22 09/08/2021 CBC HGB 10.3 g/dL 12.4-1 7.3 low Not Available [facility] ([facility]) [address] [place], [address], 09/08/2021 09:36:20 09/09/19 22 09/08/2021 CBC HCT 31.6 % 37.0-5 1.0 low Not Available [facility] (Out[facility]) [address] [place], [address], 09/08/2021 09:36:20 09/09/19 22 09/08/2021 CBC plt 312 K/uL 140-43 0 Not Available [facility] ([facility]) [address] [place], [address], 09/08/2021 09:36:20 09/09/19 22 09/08/2021 CBC MCV 94.9 fL 78.0-9 7.0 Not Available [facility] ([facility]) [address] [place], [address], 09/08/2021 09:36:20 09/09/19 22 09/08/2021 CBC MCH 30.9 pg 25.0-3 3.0 Not Available [facility] ([facility]) [address] [place], [address], 09/08/2021 09:36:20 09/09/19 22 09/08/2021 CBC MCHC 32.6 g/dL 32.0-3 6.0 Not Available [facility] ([facility]) [address] [place] [address], [address], 09/08/2021 09:36:20 09/09/19 22 09/08/2021 CBC RDW 12.6 % 11.0-1 5.0 Not Available [facility] ([facility]) [address] [place] [address], [address], 09/08/2021 09:36:20 09/09/19 22 09/08/2021 CBC MPV 11.3 fL 8.4-12 .8 Not Available [facility] ([facility]) [address] [place] [address], [address], 09/08/2021 09:36:20 09/09/19 22 09/08/2021 CBC NRBC 0.00 /100_ WBCs 0 Not Available [facility] (Out[facility]) [address] [place] [address], [address], 09/08/2021 09:36:20 09/09/19 22 09/08/2021 CBC absolute NRBC 0.00 K/uL 0 Not Available [facility] (Outpatient) [address] [place] [address], [address], 09/08/2021 09:36:20 09/09/19 22 09/08/2021 COMPR EHENS MARBIN METAB OLIC PANEL sodium 136 mmol/ L 133-14 6 Not Available [facility] (Out[facility]) [address] [place], [address], 09/08/2021 10:14:53 09/09/19 22 09/08/2021 COMPR EHENS MARBIN METAB OLIC PANEL potassium 4.1 mmol/ L 3.3-5. 1 Not Available [facility] (Out[facility]) [address] [place], [address], 09/08/2021 10:14:53 09/09/19 22 09/08/2021 COMPR EHENS MARBIN METAB OLIC PANEL chloride 97 mmol/ L 96-108 Not Available [facility] (Outpatient) [address] [place], [address], 09/08/2021 10:14:53 09/09/19 22 09/08/2021 COMPR EHENS MARBIN METAB OLIC PANEL CO2 26 mmol/ L 21-35 Not Available [facility] (Out[facility]) [address] [place], [address], 09/08/2021 10:14:53 09/09/19 22 09/08/2021 COMPR EHENS MARBIN METAB OLIC PANEL BUN 13 mg/dL 6-19 Not Available [facility] (Outpatient) [address] [place], [address], 09/08/2021 10:14:53 09/09/19 22 09/08/2021 COMPR EHENS MARBIN METAB OLIC PANEL creatinine 0.60 mg/dL 0.5-1. 5 Not Available [facility] (Outpatient) [address] [place], [address], 09/08/2021 10:14:53 09/09/19 22 09/08/2021 COMPR EHENS MARBIN METAB OLIC PANEL glucose 126 mg/dL 70-99 high Not Available [facility] (Outpatient) [address] [place], [address], 09/08/2021 10:14:53 09/09/19 22 09/08/2021 COMPR EHENS MARBIN METAB OLIC PANEL albumin 3.6 g/dL 3.9-4. 8 low Not Available [facility] (Out[facility]) [address] [place], [address], 09/08/2021 10:14:53 09/09/19 22 09/08/2021 COMPR EHENS MARBIN METAB OLIC PANEL total protein 6.8 g/dL 6.5-8. 0 Not Available [facility] (Outpatient) [address] [place], [address], 09/08/2021 10:14:53 09/09/19 22 09/08/2021 COMPR EHENS MARBIN METAB OLIC PANEL calcium 9.4 mg/dL 8.4-10 .3 Not Available [facility] (Outpatient) [address] [place], [address], 09/08/2021 10:14:53 09/09/19 22 09/08/2021 COMPR EHENS MARBIN METAB OLIC PANEL alkaline phosphatase 87 U/L 39-117 Not Available [facility] (Outpatient) [address] [place], [address], 09/08/2021 10:14:53 09/09/19 22 09/08/2021 COMPR EHENS MARBIN METAB OLIC PANEL total bilirubin 0.4 mg/dL 0.0-1. 2 Not Available [facility] (Outpatient) [address] [place], [address], 09/08/2021 10:14:53 09/09/19 22 09/08/2021 COMPR EHENS MARBIN METAB OLIC PANEL AST 17 U/L 0-37 Not Available [facility] (Outpatient) [address] [place], [address], 09/08/2021 10:14:53 09/09/19 22 09/08/2021 COMPR EHENS MARBIN METAB OLIC PANEL ALT 20 U/L 0-40 Not Available [facility] (Outpatient) [address] [place], [address], 09/08/2021 10:14:53 09/09/19 22 09/08/2021 COMPR EHENS MARBIN METAB OLIC PANEL globulin 3.2 g/dL 1-4.8 Not Available [facility] (Outpatient) [address] [place], [address], 09/08/2021 10:14:53 09/09/19 22 09/08/2021 COMPR EHENS MARBIN METAB OLIC PANEL eGFR 106 mL/mi n/1.7 3m2 >59 Estim ated glome rular filtr ation rate calcu lated using the CKD-E PI refit equat ion. Not Available [facility] (Outpatient) [address] [place], [address], 09/08/2021 10:14:53 09/09/19 22 09/08/2021 COMPR EHENS MARBIN METAB OLIC PANEL anion gap 17 mmol/ L 10-20 Not Available [facility] (Out[facility]) [address] [place], [address], 09/08/2021 10:14:53 09/14/19 22 09/13/2021 CBC AND DIFFE RENTI AL WBC 7.59 K/uL 4.00-1 1.00 Not Available [facility] (Out[facility]) [address] [place], [address], 09/13/2021 09:07:06 09/14/19 22 09/13/2021 CBC AND DIFFE RENTI AL RBC 3.84 M/uL 3.90-5 .69 low Not Available [facility] (Outpatient) [address] [place], [address], 09/13/2021 09:07:06 09/14/19 22 09/13/2021 CBC AND DIFFE RENTI AL HGB 11.7 g/dL 12.4-1 7.3 low Not Available [facility] (Outpatient) [address] [place], [address], 09/13/2021 09:07:06 09/14/19 22 09/13/2021 CBC AND DIFFE RENTI AL HCT 36.9 % 37.0-5 1.0 low Not Available [facility] (Outpatient) [address] [place], [address], 09/13/2021 09:07:06 09/14/19 22 09/13/2021 CBC AND DIFFE RENTI AL plt 349 K/uL 140-43 0 Not Available [facility] (Outpatient) [address] [place], [address], 09/13/2021 09:07:06 09/14/19 22 09/13/2021 CBC AND DIFFE RENTI AL MCV 96.1 fL 78.0-9 7.0 Not Available [facility] (Outpatient) [address] [place], [address], 09/13/2021 09:07:06 09/14/19 22 09/13/2021 CBC AND DIFFE RENTI AL MCH 30.5 pg 25.0-3 3.0 Not Available [facility] (Outpatient) [address] [place], [address], 09/13/2021 09:07:06 09/14/19 22 09/13/2021 CBC AND DIFFE RENTI AL MCHC 31.7 g/dL 32.0-3 6.0 low Not Available [facility] (Outpatient) [address] [place], [address], 09/13/2021 09:07:06 09/14/19 22 09/13/2021 CBC AND DIFFE RENTI AL RDW 12.5 % 11.0-1 5.0 Not Available [facility] (Outpatient) [address] [place], [address], 09/13/2021 09:07:06 09/14/19 22 09/13/2021 CBC AND DIFFE RENTI AL MPV 11.3 fL 8.4-12 .8 Not Available [facility] (Outpatient) [address] [place], [address], 09/13/2021 09:07:06 09/14/19 22 09/13/2021 CBC AND DIFFE RENTI AL NRBC 0.00 /100_ WBCs 0 Not Available [facility] (Outpatient) [address] [place], [address], 09/13/2021 09:07:06 09/14/19 22 09/13/2021 CBC AND DIFFE RENTI AL absolute NRBC 0.00 K/uL 0 Not Available [facility] (Outpatient) [address] [place], [address], 09/13/2021 09:07:06 09/14/19 22 09/13/2021 CBC AND DIFFE RENTI AL diff method AUTO Not Available [facility] (Outpatient) [address] [place], [address], 09/13/2021 09:07:06 09/14/19 22 09/13/2021 CBC AND DIFFE RENTI AL neuts 69.0 % 43.0-7 5.0 Not Available [facility] ([facility]) [address] [place], [address], 09/13/2021 09:07:06 09/14/19 22 09/13/2021 CBC AND DIFFE RENTI AL lymphs 14.0 % 18.2-4 7.4 low Not Available [facility] (Outpatient) [address] [place], [address], 09/13/2021 09:07:06 09/14/19 22 09/13/2021 CBC AND DIFFE RENTI AL monos 10.9 % 4.00-1 1.00 Not Available [facility] ([facility]) [address] [place], [address], 09/13/2021 09:07:06 09/14/19 22 09/13/2021 CBC AND DIFFE RENTI AL eos 5.3 % 0.0-8. 0 Not Available [facility] (Outpatient) [address] [place], [address], 09/13/2021 09:07:06 09/14/19 22 09/13/2021 CBC AND DIFFE RENTI AL basos 0.5 % 0.0-2. 0 Not Available [facility] (Outpatient) [address] [place], [address], 09/13/2021 09:07:06 09/14/19 22 09/13/2021 CBC AND DIFFE RENTI AL granulocytes , immature (%) 0.3 % 0.0-0. 9 Not Available [facility] (Outpatient) [address] [place], [address], 09/13/2021 09:07:06 09/14/19 22 09/13/2021 CBC AND DIFFE RENTI AL absolute neuts 5.24 K/uL 1.80-7 .70 Not Available [facility] (Outpatient) [address] [place], [address], 09/13/2021 09:07:06 09/14/19 22 09/13/2021 CBC AND DIFFE RENTI AL absolute lymphs 1.06 K/uL 1.00-3 .10 Not Available [facility] (Outpatient) [address] [place], [address], 09/13/2021 09:07:06 09/14/19 22 09/13/2021 CBC AND DIFFE RENTI AL absolute monos 0.83 K/uL 0.20-0 .80 high Not Available [facility] (Outpatient) [address] [place], [address], 09/13/2021 09:07:06 09/14/19 22 09/13/2021 CBC AND DIFFE RENTI AL absolute eos 0.40 K/uL 0.00-0 .80 Not Available [facility] (Outpatient) [address] [place], [address], 09/13/2021 09:07:06 09/14/19 22 09/13/2021 CBC AND DIFFE RENTI AL absolute basos 0.04 K/uL 0.00-0 .09 Not Available [facility] (Outpatient) [address] [place], [address], 09/13/2021 09:07:06 09/14/19 22 09/13/2021 CBC AND DIFFE RENTI AL granulocytes , immature 0.02 K/uL 0.00-0 .05 Not Available [facility] ([facility]) [address] [place], [address], 09/13/2021 09:07:06 09/14/19 22 09/13/2021 COMPR EHENS MARBIN METAB OLIC PANEL sodium 139 mmol/ L 133-14 6 Not Available [facility] (Outpatient) [address] [place], [address], 09/13/2021 09:36:49 09/14/19 22 09/13/2021 COMPR EHENS MARBIN METAB OLIC PANEL potassium 4.7 mmol/ L 3.3-5. 1 Not Available [facility] (Outpatient) [address] [place], [address], 09/13/2021 09:36:49 09/14/19 22 09/13/2021 COMPR EHENS MARBIN METAB OLIC PANEL chloride 98 mmol/ L 96-108 Not Available [facility] (Outpatient) [address] [place], [address], 09/13/2021 09:36:49 09/14/19 22 09/13/2021 COMPR EHENS MARBIN METAB OLIC PANEL CO2 28 mmol/ L 21-35 Not Available [facility] (Outpatient) [address] [place], [address], 09/13/2021 09:36:49 09/14/19 22 09/13/2021 COMPR EHENS MARBIN METAB OLIC PANEL BUN 11 mg/dL 6-19 Not Available [facility] (Outpatient) [address] [place], [address], 09/13/2021 09:36:49 09/14/19 22 09/13/2021 COMPR EHENS MARBIN METAB OLIC PANEL creatinine 0.50 mg/dL 0.5-1. 5 Not Available [facility] (Outpatient) [address] [place], [address], 09/13/2021 09:36:49 09/14/19 22 09/13/2021 COMPR EHENS MARBIN METAB OLIC PANEL glucose 106 mg/dL 70-99 high Not Available [facility] (Outpatient) [address] [place], [address], 09/13/2021 09:36:49 09/14/19 22 09/13/2021 COMPR EHENS MARBIN METAB OLIC PANEL albumin 3.9 g/dL 3.9-4. 8 Not Available [facility] (Outpatient) [address] [place], [address], 09/13/2021 09:36:49 09/14/19 22 09/13/2021 COMPR EHENS MARBIN METAB OLIC PANEL total protein 7.3 g/dL 6.5-8. 0 Not Available [facility] (Outpatient) [address] [place], [address], 09/13/2021 09:36:49 09/14/19 22 09/13/2021 COMPR EHENS MARBIN METAB OLIC PANEL calcium 9.6 mg/dL 8.4-10 .3 Not Available [facility] (Outpatient) [address] [place], [address], 09/13/2021 09:36:49 09/14/19 22 09/13/2021 COMPR EHENS MARBIN METAB OLIC PANEL alkaline phosphatase 91 U/L 39-117 Not Available [facility] (Outpatient) [address] [place], [address], 09/13/2021 09:36:49 09/14/19 22 09/13/2021 COMPR EHENS MARBIN METAB OLIC PANEL total bilirubin 0.3 mg/dL 0.0-1. 2 Not Available [facility] (Outpatient) [address] [place] [address], [address], 09/13/2021 09:36:49 09/14/19 22 09/13/2021 COMPR EHENS MARBIN METAB OLIC PANEL AST 25 U/L 0-37 Not Available [facility] (Outpatient) [address] [place] [address], [address], 09/13/2021 09:36:49 09/14/19 22 09/13/2021 COMPR EHENS MARBIN METAB OLIC PANEL ALT 32 U/L 0-40 Not Available [facility] (Outpatient) [address] [place] [address], [address], 09/13/2021 09:36:49 09/14/19 22 09/13/2021 COMPR EHENS MARBIN METAB OLIC PANEL globulin 3.4 g/dL 1-4.8 Not Available [facility] (Outpatient) [address] [place] [address], [address], 09/13/2021 09:36:49 09/14/19 22 09/13/2021 COMPR EHENS MARBIN METAB OLIC PANEL eGFR 112 mL/mi n/1.7 3m2 >59 Estim ated glome rular filtr ation rate calcu lated using the CKD-E PI refit equat ion. Not Available [facility] (Outpatient) [address] [place] [address], [address], 09/13/2021 09:36:49 09/14/19 22 09/13/2021 COMPR EHENS MARBIN METAB OLIC PANEL anion gap 18 mmol/ L 10-20 Not Available [facility] (Outpatient) [address] [place], [address], 09/13/2021 09:36:49 09/22/19 22 09/21/2021 CBC WBC 6.44 K/uL 4.00-1 1.00 Not Available [facility] (Outpatient) [address] [place], [address], 09/21/2021 09:07:51 09/22/19 22 09/21/2021 CBC RBC 3.81 M/uL 3.90-5 .69 low Not Available [facility] (Outpatient) [address] [place] [address], [address], 09/21/2021 09:07:51 09/22/19 22 09/21/2021 CBC HGB 11.4 g/dL 12.4-1 7.3 low Not Available [facility] (Outpatient) [address] [place] [address], [address], 09/21/2021 09:07:51 09/22/19 22 09/21/2021 CBC HCT 35.7 % 37.0-5 1.0 low Not Available [facility] (Outpatient) [address] [place] [address], [id number], 09/21/2021 09:07:51 09/22/19 22 09/21/2021 CBC plt 354 K/uL 140-43 0 Not Available [facility] (Outpatient) [address] [place] [address], [id number], 09/21/2021 09:07:51 09/22/19 22 09/21/2021 CBC MCV 93.7 fL 78.0-9 7.0 Not Available [facility] (Outpatient) [address] [place] [address], [id number], 09/21/2021 09:07:51 09/22/19 22 09/21/2021 CBC MCH 29.9 pg 25.0-3 3.0 Not Available [facility] (Outpatient) [address] [place], [address], 09/21/2021 09:07:51 09/22/19 22 09/21/2021 CBC MCHC 31.9 g/dL 32.0-3 6.0 low Not Available [facility] (Outpatient) [address] [place], [address], 09/21/2021 09:07:51 09/22/19 22 09/21/2021 CBC RDW 12.7 % 11.0-1 5.0 Not Available [facility] (Outpatient) [address] [place], [address], 09/21/2021 09:07:51 09/22/19 22 09/21/2021 CBC MPV 11.5 fL 8.4-12 .8 Not Available [facility] (Outpatient) [address] [place], [address], 09/21/2021 09:07:51 09/22/19 22 09/21/2021 CBC NRBC 0.00 /100_ WBCs 0 Not Available [facility] (Outpatient) [address] [place], [address], 09/21/2021 09:07:51 09/22/19 22 09/21/2021 CBC absolute NRBC 0.00 K/uL 0 Not Available [facility] (Outpatient) [address] [place], [address], 09/21/2021 09:07:51 09/22/19 22 09/21/2021 BASIC METAB OLIC PANEL sodium 135 mmol/ L 133-14 6 Not Available [facility] (Outpatient) [address] [place], [address], 09/21/2021 09:37:35 09/22/19 22 09/21/2021 BASIC METAB OLIC PANEL chloride 97 mmol/ L 96-108 Not Available [facility] (Outpatient) [address] [place], [address], 09/21/2021 09:37:35 09/22/19 22 09/21/2021 BASIC METAB OLIC PANEL potassium 4.5 mmol/ L 3.3-5. 1 Not Available [facility] (Outpatient) [address] [place], [address], 09/21/2021 09:37:35 09/22/19 22 09/21/2021 BASIC METAB OLIC PANEL CO2 25 mmol/ L 21-35 Not Available [facility] (Outpatient) [address] [place], [address], 09/21/2021 09:37:35 09/22/19 22 09/21/2021 BASIC METAB OLIC PANEL BUN 14 mg/dL 6-19 Not Available [facility] (Outpatient) [address] [place], [address], 09/21/2021 09:37:35 09/22/19 22 09/21/2021 BASIC METAB OLIC PANEL creatinine 0.50 mg/dL 0.5-1. 5 Not Available [facility] (Outpatient) [address] [place], [address], 09/21/2021 09:37:35 09/22/19 22 09/21/2021 BASIC METAB OLIC PANEL glucose 110 mg/dL 70-99 high Not Available [facility] (Outpatient) [address] [place], [address], 09/21/2021 09:37:35 09/22/19 22 09/21/2021 BASIC METAB OLIC PANEL calcium 9.4 mg/dL 8.4-10 .3 Not Available [facility] (Outpatient) [address] [place], [address], 09/21/2021 09:37:35 09/22/19 22 09/21/2021 BASIC METAB OLIC PANEL eGFR 112 mL/mi n/1.7 3m2 >59 Estim ated glome rular filtr ation rate calcu lated using the CKD-E PI refit equat ion. Not Available [facility] (Outpatient) [address] [place] [address], [id number], 09/21/2021 09:37:35 09/22/19 22 09/21/2021 BASIC METAB OLIC PANEL anion gap 18 mmol/ L 10-20 Not Available [facility] (Outpatient) [address] [place] [address], [id number], 09/21/2021 09:37:35 09/29/19 22 09/28/2021 CBC WBC 6.66 K/uL 4.00-1 1.00 Not Available [facility] (Out[facility]) [address] [place], [address], 09/28/2021 08:26:46 09/29/19 22 09/28/2021 CBC RBC 3.87 M/uL 3.90-5 .69 low Not Available [facility] (Outpatient) [address] [place] [address], [id number], 09/28/2021 08:26:46 09/29/19 22 09/28/2021 CBC HGB 11.5 g/dL 12.4-1 7.3 low Not Available [facility] (Out[facility]) [address] [place] [address], [id number], 09/28/2021 08:26:46 09/29/19 22 09/28/2021 CBC HCT 36.1 % 37.0-5 1.0 low Not Available [facility] (Outpatient) [address] [place], [address], 09/28/2021 08:26:46 09/29/19 22 09/28/2021 CBC plt 311 K/uL 140-43 0 Not Available [facility] (Outpatient) [address] [place], [address], 09/28/2021 08:26:46 09/29/19 22 09/28/2021 CBC MCV 93.3 fL 78.0-9 7.0 Not Available [facility] (Out[facility]) [address] [place], [address], 09/28/2021 08:26:46 09/29/19 22 09/28/2021 CBC MCH 29.7 pg 25.0-3 3.0 Not Available [facility] (Outpatient) [address] [place], [address], 09/28/2021 08:26:46 09/29/19 22 09/28/2021 CBC MCHC 31.9 g/dL 32.0-3 6.0 low Not Available [facility] (Outpatient) [address] [place], [address], 09/28/2021 08:26:46 09/29/19 22 09/28/2021 CBC RDW 12.7 % 11.0-1 5.0 Not Available [facility] (Outpatient) [address] [place], [address], 09/28/2021 08:26:46 09/29/19 22 09/28/2021 CBC MPV 11.7 fL 8.4-12 .8 Not Available [facility] (Outpatient) [address] [place], [address], 09/28/2021 08:26:46 09/29/19 22 09/28/2021 CBC NRBC 0.00 /100_ WBCs 0 Not Available [facility] (Outpatient) [address] [place], [address], 09/28/2021 08:26:46 09/29/19 22 09/28/2021 CBC absolute NRBC 0.00 K/uL 0 Not Available [facility] (Outpatient) [address] [place], [address], 09/28/2021 08:26:46 09/29/19 22 09/28/2021 BASIC METAB OLIC PANEL sodium 138 mmol/ L 133-14 6 Not Available [facility] (Outpatient) [address] [place], [address], 09/28/2021 11:33:25 09/29/19 22 09/28/2021 BASIC METAB OLIC PANEL chloride 98 mmol/ L 96-108 Not Available [facility] (Outpatient) [address] [place], [address], 09/28/2021 11:33:25 09/29/19 22 09/28/2021 BASIC METAB OLIC PANEL potassium 4.8 mmol/ L 3.3-5. 1 Not Available [facility] (Outpatient) [address] [place], [address], 09/28/2021 11:33:25 09/29/19 22 09/28/2021 BASIC METAB OLIC PANEL CO2 28 mmol/ L 21-35 Not Available [facility] (Outpatient) [address] [place], [address], 09/28/2021 11:33:25 09/29/19 22 09/28/2021 BASIC METAB OLIC PANEL BUN 14 mg/dL 6-19 Not Available [facility] (Outpatient) [address] [place], [address], 09/28/2021 11:33:25 09/29/19 22 09/28/2021 BASIC METAB OLIC PANEL creatinine 0.60 mg/dL 0.5-1. 5 Not Available [facility] (Outpatient) [address] [place], [address], 09/28/2021 11:33:25 09/29/19 22 09/28/2021 BASIC METAB OLIC PANEL glucose 95 mg/dL 70-99 Not Available [facility] (Outpatient) [address] [place], [address], 09/28/2021 11:33:25 09/29/19 22 09/28/2021 BASIC METAB OLIC PANEL calcium 9.7 mg/dL 8.4-10 .3 Not Available [facility] (Out[facility]) [address] [place] [address], [address], 09/28/2021 11:33:25 09/29/19 22 09/28/2021 BASIC METAB OLIC PANEL eGFR 106 mL/mi n/1.7 3m2 >59 Estim ated glome rular filtr ation rate calcu lated using the CKD-E PI refit equat ion. Not Available [facility] (Outpatient) [address] [place], [address], 09/28/2021 11:33:25 09/29/19 22 09/28/2021 BASIC METAB OLIC PANEL anion gap 17 mmol/ L 10-20 Not Available [facility] (Outpatient) [address] [place] [address], [address], 09/28/2021 11:33:25 10/05/19 22 10/04/2021 CBC WBC 6.85 K/uL 4.00-1 1.00 Not Available [facility] (Out[facility]) [address] [place] [address], [address], 10/04/2021 09:55:49 10/05/19 22 10/04/2021 CBC RBC 3.70 M/uL 3.90-5 .69 low Not Available [facility] (Outpatient) [address] [place] [address], [address], 10/04/2021 09:55:49 10/05/19 22 10/04/2021 CBC HGB 11.2 g/dL 12.4-1 7.3 low Not Available [facility] (Outpatient) [address] [place], [address], 10/04/2021 09:55:49 10/05/19 22 10/04/2021 CBC HCT 34.8 % 37.0-5 1.0 low Not Available [facility] (Outpatient) [address] [place], [address], 10/04/2021 09:55:49 10/05/19 22 10/04/2021 CBC plt 288 K/uL 140-43 0 Not Available [facility] (Out[facility]) [address] [place], [address], 10/04/2021 09:55:49 10/05/19 22 10/04/2021 CBC MCV 94.1 fL 78.0-9 7.0 Not Available [facility] (Outpatient) [address] [place], [address], 10/04/2021 09:55:49 10/05/19 22 10/04/2021 CBC MCH 30.3 pg 25.0-3 3.0 Not Available [facility] (Outpatient) [address] [place], [address], 10/04/2021 09:55:49 10/05/19 22 10/04/2021 CBC MCHC 32.2 g/dL 32.0-3 6.0 Not Available [facility] ([facility]) [address] [place], [address], 10/04/2021 09:55:49 10/05/19 22 10/04/2021 CBC RDW 13.1 % 11.0-1 5.0 Not Available [facility] ([facility]) [address] [place], [address], 10/04/2021 09:55:49 10/05/19 22 10/04/2021 CBC MPV 11.8 fL 8.4-12 .8 Not Available [facility] (Out[facility]) [address] [place], [address], 10/04/2021 09:55:49 10/05/19 22 10/04/2021 CBC NRBC 0.00 /100_ WBCs 0 Not Available [facility] ([facility]) [address] [place], [address], 10/04/2021 09:55:49 10/05/19 22 10/04/2021 CBC absolute NRBC 0.00 K/uL 0 Not Available [facility] ([facility]) [address] [place], [address], 10/04/2021 09:55:49 10/05/19 22 10/04/2021 BASIC METAB OLIC PANEL sodium 136 mmol/ L 133-14 6 Not Available [facility] ([facility]) [address] [place], [address], 10/04/2021 11:14:40 10/05/19 22 10/04/2021 BASIC METAB OLIC PANEL chloride 97 mmol/ L 96-108 Not Available [facility] ([facility]) [address] [place], [address], 10/04/2021 11:14:40 10/05/19 22 10/04/2021 BASIC METAB OLIC PANEL potassium 4.3 mmol/ L 3.3-5. 1 Not Available [facility] ([facility]) [address] [place], [address], 10/04/2021 11:14:40 10/05/19 22 10/04/2021 BASIC METAB OLIC PANEL CO2 25 mmol/ L 21-35 Not Available [facility] ([facility]) [address] [place], [address], 10/04/2021 11:14:40 10/05/19 22 10/04/2021 BASIC METAB OLIC PANEL BUN 15 mg/dL 6-19 Not Available [facility] ([facility]) [address] [place], [address], 10/04/2021 11:14:40 10/05/19 22 10/04/2021 BASIC METAB OLIC PANEL creatinine 0.50 mg/dL 0.5-1. 5 Not Available [facility] ([facility]) [address] [place], [address], 10/04/2021 11:14:40 10/05/19 22 10/04/2021 BASIC METAB OLIC PANEL glucose 100 mg/dL 70-99 high Not Available [facility] ([facility]) [address] [place], [address], 10/04/2021 11:14:40 10/05/19 22 10/04/2021 BASIC METAB OLIC PANEL calcium 9.0 mg/dL 8.4-10 .3 Not Available [facility] (Out[facility]) [address] [place], [address], 10/04/2021 11:14:40 10/05/19 22 10/04/2021 BASIC METAB OLIC PANEL eGFR 112 mL/mi n/1.7 3m2 >59 Estim ated glome rular filtr ation rate calcu lated using the CKD-E PI refit equat ion. Not Available [facility] (Out[facility]) [address] [place], [address], 10/04/2021 11:14:40 10/05/19 22 10/04/2021 BASIC METAB OLIC PANEL anion gap 18 mmol/ L 10-20 Not Available [facility] ([facility]) [address] [place], [address], 10/04/2021 11:14:40 10/13/19 22 10/12/2021 CBC WBC 6.24 K/uL 4.00-1 1.00 Not Available [facility] ([facility]) [address] [place], [address], 10/12/2021 08:32:50 10/13/19 22 10/12/2021 CBC RBC 3.67 M/uL 3.90-5 .69 low Not Available [facility] ([facility]) [address] [place], [address], 10/12/2021 08:32:50 10/13/19 22 10/12/2021 CBC HGB 10.8 g/dL 12.4-1 7.3 low Not Available [facility] ([facility]) [address] [place], [address], 10/12/2021 08:32:50 10/13/19 22 10/12/2021 CBC HCT 34.5 % 37.0-5 1.0 low Not Available [facility] ([facility]) [address] [place], [address], 10/12/2021 08:32:50 10/13/19 22 10/12/2021 CBC plt 298 K/uL 140-43 0 Not Available [facility] ([facility]) [address] [place], [address], 10/12/2021 08:32:50 10/13/19 22 10/12/2021 CBC MCV 94.0 fL 78.0-9 7.0 Not Available [facility] ([facility]) [address] [place], [address], 10/12/2021 08:32:50 10/13/19 22 10/12/2021 CBC MCH 29.4 pg 25.0-3 3.0 Not Available [facility] ([facility]) [address] [place], [address], 10/12/2021 08:32:50 10/13/19 22 10/12/2021 CBC MCHC 31.3 g/dL 32.0-3 6.0 low Not Available [facility] ([facility]) [address] [place], [address], 10/12/2021 08:32:50 10/13/19 22 10/12/2021 CBC RDW 13.0 % 11.0-1 5.0 Not Available [facility] ([facility]) [address] [place], [address], 10/12/2021 08:32:50 10/13/19 22 10/12/2021 CBC MPV 11.6 fL 8.4-12 .8 Not Available [facility] ([facility]) [address] [place], [address], 10/12/2021 08:32:50 10/13/19 22 10/12/2021 CBC NRBC 0.00 /100_ WBCs 0 Not Available [facility] ([facility]) [address] [place], [address], 10/12/2021 08:32:50 10/13/19 22 10/12/2021 CBC absolute NRBC 0.00 K/uL 0 Not Available [facility] ([facility]) [address] [place], [address], 10/12/2021 08:32:50 10/13/19 22 10/12/2021 COMPR EHENS MARBIN METAB OLIC PANEL sodium 139 mmol/ L 133-14 6 Not Available [facility] ([facility]) [address] [place], [address], 10/12/2021 08:41:11 10/13/19 22 10/12/2021 COMPR EHENS MARBIN METAB OLIC PANEL potassium 4.6 mmol/ L 3.3-5. 1 Not Available [facility] ([facility]) [address] [place], [address], 10/12/2021 08:41:11 10/13/19 22 10/12/2021 COMPR EHENS MARBIN METAB OLIC PANEL chloride 101 mmol/ L 96-108 Not Available [facility] (Out[facility]) [address] [place] [address], [address], 10/12/2021 08:41:11 10/13/19 22 10/12/2021 COMPR EHENS MARBIN METAB OLIC PANEL CO2 27 mmol/ L 21-35 Not Available [facility] ([facility]) [address] [place], [address], 10/12/2021 08:41:11 10/13/19 22 10/12/2021 COMPR EHENS MARBIN METAB OLIC PANEL BUN 10 mg/dL 6-19 Not Available [facility] ([facility]) [address] [place], [address], 10/12/2021 08:41:11 10/13/19 22 10/12/2021 COMPR EHENS MARBIN METAB OLIC PANEL creatinine 0.60 mg/dL 0.5-1. 5 Not Available [facility] (Outpatient) [address] [place], [address], 10/12/2021 08:41:11 10/13/19 22 10/12/2021 COMPR EHENS MARBIN METAB OLIC PANEL glucose 79 mg/dL 70-99 Not Available [facility] ([facility]) [address] [place] [address], [address], 10/12/2021 08:41:11 10/13/19 22 10/12/2021 COMPR EHENS MARBIN METAB OLIC PANEL albumin 3.7 g/dL 3.9-4. 8 low Not Available [facility] (Outpatient) [address] [place], [address], 10/12/2021 08:41:11 10/13/19 22 10/12/2021 COMPR EHENS MARBIN METAB OLIC PANEL total protein 6.7 g/dL 6.5-8. 0 Not Available [facility] ([facility]) [address] [place] [address], [address], 10/12/2021 08:41:11 10/13/19 22 10/12/2021 COMPR EHENS MARBIN METAB OLIC PANEL calcium 9.3 mg/dL 8.4-10 .3 Not Available [facility] ([facility]) [address] [place], [address], 10/12/2021 08:41:11 10/13/19 22 10/12/2021 COMPR EHENS MARBIN METAB OLIC PANEL alkaline phosphatase 67 U/L 39-117 Not Available [facility] (Outpatient) [address] [place] [address], [address], 10/12/2021 08:41:11 10/13/19 22 10/12/2021 COMPR EHENS MARBIN METAB OLIC PANEL total bilirubin 0.3 mg/dL 0.0-1. 2 Not Available [facility] (Outpatient) [address] [place] [address], [address], 10/12/2021 08:41:11 10/13/19 22 10/12/2021 COMPR EHENS MARBIN METAB OLIC PANEL AST 15 U/L 0-37 Not Available [facility] ([facility]) [address] [place], [address], 10/12/2021 08:41:11 10/13/19 22 10/12/2021 COMPR EHENS MARBIN METAB OLIC PANEL ALT 17 U/L 0-40 Not Available [facility] ([facility]) [address] [place] [address], [address], 10/12/2021 08:41:11 10/13/19 22 10/12/2021 COMPR EHENS MARBIN METAB OLIC PANEL globulin 3.0 g/dL 1-4.8 Not Available [facility] (Out[facility]) [address] [place] [address], [address], 10/12/2021 08:41:11 10/13/19 22 10/12/2021 COMPR EHENS MARBIN METAB OLIC PANEL eGFR 106 mL/mi n/1.7 3m2 >59 Estim ated glome rular filtr ation rate calcu lated using the CKD-E PI refit equat ion. Not Available [facility] (Outpatient) [address] [place], [address], 10/12/2021 08:41:11 10/13/19 22 10/12/2021 COMPR EHENS MARBIN METAB OLIC PANEL anion gap 16 mmol/ L 10-20 Not Available [facility] ([facility]) [address] [place], [address], 10/12/2021 08:41:11 10/27/19 22 10/26/2021 CBC WBC 7.83 K/uL 4.00-1 1.00 Not Available [facility] ([facility]) [address] [place] [address], [address], 10/26/2021 09:50:15 10/27/19 22 10/26/2021 CBC RBC 3.79 M/uL 3.90-5 .69 low Not Available [facility] ([facility]) [address] [place] [address], [address], 10/26/2021 09:50:15 10/27/19 22 10/26/2021 CBC HGB 11.1 g/dL 12.4-1 7.3 low Not Available [facility] ([facility]) [address] [place], [address], 10/26/2021 09:50:15 10/27/19 22 10/26/2021 CBC HCT 34.9 % 37.0-5 1.0 low Not Available [facility] ([facility]) [address] [place] [address], [address], 10/26/2021 09:50:15 10/27/19 22 10/26/2021 CBC plt 324 K/uL 140-43 0 Not Available [facility] ([facility]patient) [address] [place] [address], [address], 10/26/2021 09:50:15 10/27/19 22 10/26/2021 CBC MCV 92.1 fL 78.0-9 7.0 Not Available [facility] ([facility]) [address] [place], [address], 10/26/2021 09:50:15 10/27/19 22 10/26/2021 CBC MCH 29.3 pg 25.0-3 3.0 Not Available [facility] ([facility]) [address] [place], [address], 10/26/2021 09:50:15 10/27/19 22 10/26/2021 CBC MCHC 31.8 g/dL 32.0-3 6.0 low Not Available [facility] ([facility]) [address] [place], [address], 10/26/2021 09:50:15 10/27/19 22 10/26/2021 CBC RDW 12.6 % 11.0-1 5.0 Not Available [facility] ([facility]) [address] [place] [address], [address], 10/26/2021 09:50:15 10/27/19 22 10/26/2021 CBC MPV 11.6 fL 8.4-12 .8 Not Available [facility] ([facility]) [address] [place], [address], 10/26/2021 09:50:15 10/27/19 22 10/26/2021 CBC NRBC 0.00 /100_ WBCs 0 Not Available [facility] ([facility]) [address] [place], [address], 10/26/2021 09:50:15 10/27/19 22 10/26/2021 CBC absolute NRBC 0.00 K/uL 0 Not Available [facility] ([facility]) [address] [place], [address], 10/26/2021 09:50:15 10/27/19 22 10/26/2021 COMPR EHENS MARBIN METAB OLIC PANEL sodium 135 mmol/ L 133-14 6 Not Available [facility] ([facility]) [address] [place], [address], 10/26/2021 10:21:27 10/27/19 22 10/26/2021 COMPR EHENS MARBIN METAB OLIC PANEL potassium 4.5 mmol/ L 3.3-5. 1 Not Available [facility] ([facility]) [address] [place], [address], 10/26/2021 10:21:27 10/27/19 22 10/26/2021 COMPR EHENS MARBIN METAB OLIC PANEL chloride 99 mmol/ L 96-108 Not Available [facility] ([facility]) [address] [place], [address], 10/26/2021 10:21:27 10/27/19 22 10/26/2021 COMPR EHENS MARBIN METAB OLIC PANEL CO2 29 mmol/ L 21-35 Not Available [facility] ([facility]) [address] [place], [address], 10/26/2021 10:21:27 10/27/19 22 10/26/2021 COMPR EHENS MARBIN METAB OLIC PANEL BUN 14 mg/dL 6-19 Not Available [facility] ([facility]) [address] [place], [address], 10/26/2021 10:21:27 10/27/19 22 10/26/2021 COMPR EHENS MARBIN METAB OLIC PANEL creatinine 0.50 mg/dL 0.5-1. 5 Not Available [facility] ([facility]) [address] [place], [address], 10/26/2021 10:21:27 10/27/19 22 10/26/2021 COMPR EHENS MARBIN METAB OLIC PANEL glucose 67 mg/dL 70-99 low Not Available [facility] ([facility]) [address] [place], [address], 10/26/2021 10:21:27 10/27/19 22 10/26/2021 COMPR EHENS MARBIN METAB OLIC PANEL albumin 3.7 g/dL 3.9-4. 8 low Not Available [facility] ([facility]patient) [address] [place], [address], 10/26/2021 10:21:27 10/27/19 22 10/26/2021 COMPR EHENS MARBIN METAB OLIC PANEL total protein 6.8 g/dL 6.5-8. 0 Not Available [facility] ([facility]) [address] [place], [address], 10/26/2021 10:21:27 10/27/19 22 10/26/2021 COMPR EHENS MARBIN METAB OLIC PANEL calcium 8.7 mg/dL 8.4-10 .3 Not Available [facility] ([facility]) [address] [place], [address], 10/26/2021 10:21:27 10/27/19 22 10/26/2021 COMPR EHENS MARBIN METAB OLIC PANEL alkaline phosphatase 83 U/L 39-117 Not Available [facility] (Outpatient) [address] [place], [address], 10/26/2021 10:21:27 10/27/19 22 10/26/2021 COMPR EHENS MARBIN METAB OLIC PANEL total bilirubin 0.2 mg/dL 0.0-1. 2 Not Available [facility] ([facility]) [address] [place], [address], 10/26/2021 10:21:27 10/27/19 22 10/26/2021 COMPR EHENS MARBIN METAB OLIC PANEL AST 17 U/L 0-37 Not Available [facility] ([facility]) [address] [place], [address], 10/26/2021 10:21:27 10/27/19 22 10/26/2021 COMPR EHENS MARBIN METAB OLIC PANEL ALT 14 U/L 0-40 Not Available [facility] ([facility]) [address] [place], [address], 10/26/2021 10:21:27 10/27/19 22 10/26/2021 COMPR EHENS MARBIN METAB OLIC PANEL globulin 3.1 g/dL 1-4.8 Not Available [facility] (Outpatient) [address] [place] [address], [address], 10/26/2021 10:21:27 10/27/19 22 10/26/2021 COMPR EHENS MARBIN METAB OLIC PANEL eGFR 112 mL/mi n/1.7 3m2 >59 Estim ated glome rular filtr ation rate calcu lated using the CKD-E PI refit equat ion. Not Available [facility] (Out[facility]) [address] [place], [address], 10/26/2021 10:21:27 10/27/19 22 10/26/2021 COMPR EHENS MARBIN METAB OLIC PANEL anion gap 12 mmol/ L 10-20 Not Available [facility] ([facility]) [address] [place], [address], 10/26/2021 10:21:27 10/29/19 22 10/28/2021 VITAM IN B12 vitamin B12 890 pg/mL 232-12 45 Not Available [facility] ([facility]) [address] [place], [address], 10/28/2021 17:08:11 10/29/19 22 10/28/2021 FOLAT E folic acid 19.3 NG/mL 4.2-19 .9 Not Available [facility] ([facility]) [address] [place], [address], 10/28/2021 17:08:13 10/29/19 22 10/28/2021 DANIEL TIN ferritin 87 ug/L 30-400 Not Available [facility] ([facility]) [address] [place], [address], 10/28/2021 17:48:28 10/29/19 22 10/28/2021 IRON AND IRON DINORA NG CAPAC ITY iron 21 ug/dL 45-160 low Not Available [facility] ([facility]) [address] [place], [address], 10/28/2021 17:48:30 10/29/19 22 10/28/2021 IRON AND IRON DINORA NG CAPAC ITY iron binding capacity 330 ug/dL 228-42 8 Not Available [facility] (Out[facility]) [address] [place] [address], [address], 10/28/2021 17:48:30 10/29/19 22 10/28/2021 IRON AND IRON DINORA NG CAPAC ITY transferrin saturat. 6 % 20-55 low Not Available [facility] ([facility]) [address] [place], [address], 10/28/2021 17:48:30 10/30/19 22 10/29/2021 POCT GLUCO SE whole blood glucose 87 mg/dL 70-99 Not Available [facility] ([facility]) [address] [place], [address], 10/29/2021 14:30:57 10/30/19 22 10/29/2021 CBC AND DIFFE RENTI AL WBC 13.47 K/uL 4.00-1 1.00 high Not Available [facility] (Outpatient) [address] [place] [address], [address], 10/29/2021 15:52:55 10/30/19 22 10/29/2021 CBC AND DIFFE RENTI AL RBC 3.85 M/uL 3.90-5 .69 low Not Available [facility] (Outpatient) [address] [place] [address], [address], 10/29/2021 15:52:55 10/30/19 22 10/29/2021 CBC AND DIFFE RENTI AL HGB 11.2 g/dL 12.4-1 7.3 low Not Available [facility] (Out[facility]) [address] [place], [address], 10/29/2021 15:52:55 10/30/19 22 10/29/2021 CBC AND DIFFE RENTI AL HCT 35.1 % 37.0-5 1.0 low Not Available [facility] ([facility]) [address] [place], [address], 10/29/2021 15:52:55 10/30/19 22 10/29/2021 CBC AND DIFFE RENTI AL plt 355 K/uL 140-43 0 Not Available [facility] ([facility]) [address] [place], [address], 10/29/2021 15:52:55 10/30/19 22 10/29/2021 CBC AND DIFFE RENTI AL MCV 91.2 fL 78.0-9 7.0 Not Available [facility] (Outpatient) [address] [place], [address], 10/29/2021 15:52:55 10/30/19 22 10/29/2021 CBC AND DIFFE RENTI AL MCH 29.1 pg 25.0-3 3.0 Not Available [facility] (Outpatient) [address] [place], [address], 10/29/2021 15:52:55 10/30/19 22 10/29/2021 CBC AND DIFFE RENTI AL MCHC 31.9 g/dL 32.0-3 6.0 low Not Available [facility] (Outpatient) [address] [place], [address], 10/29/2021 15:52:55 10/30/19 22 10/29/2021 CBC AND DIFFE RENTI AL RDW 12.8 % 11.0-1 5.0 Not Available [facility] ([facility]) [address] [place], [address], 10/29/2021 15:52:55 10/30/19 22 10/29/2021 CBC AND DIFFE RENTI AL MPV 11.3 fL 8.4-12 .8 Not Available [facility] ([facility]) [address] [place], [address], 10/29/2021 15:52:55 10/30/19 22 10/29/2021 CBC AND DIFFE RENTI AL NRBC 0.00 /100_ WBCs 0 Not Available [facility] ([facility]) [address] [place], [address], 10/29/2021 15:52:55 10/30/19 22 10/29/2021 CBC AND DIFFE RENTI AL absolute NRBC 0.00 K/uL 0 Not Available [facility] (Out[facility]) [address] [place], [address], 10/29/2021 15:52:55 10/30/19 22 10/29/2021 CBC AND DIFFE RENTI AL diff method AUTO Not Available [facility] ([facility]) [address] [place], [address], 10/29/2021 15:52:55 10/30/19 22 10/29/2021 CBC AND DIFFE RENTI AL neuts 74.8 % 43.0-7 5.0 Not Available [facility] ([facility]) [address] [place], [address], 10/29/2021 15:52:55 10/30/19 22 10/29/2021 CBC AND DIFFE RENTI AL lymphs 9.4 % 18.2-4 7.4 low Not Available [facility] (Out[facility]) [address] [place], [address], 10/29/2021 15:52:55 10/30/19 22 10/29/2021 CBC AND DIFFE RENTI AL monos 13.7 % 4.00-1 1.00 high Not Available [facility] (Outpatient) [address] [place] [address], [id number], 10/29/2021 15:52:55 10/30/19 22 10/29/2021 CBC AND DIFFE RENTI AL eos 1.6 % 0.0-8. 0 Not Available [facility] (Outpatient) [address] [place] [address], [id number], 10/29/2021 15:52:55 10/30/19 22 10/29/2021 CBC AND DIFFE RENTI AL basos 0.1 % 0.0-2. 0 Not Available [facility] (Outpatient) [address] [place] [address], [id number], 10/29/2021 15:52:55 10/30/19 22 10/29/2021 CBC AND DIFFE RENTI AL granulocytes , immature (%) 0.4 % 0.0-0. 9 Not Available [facility] (Outpatient) [address] [place] [address], [id number], 10/29/2021 15:52:55 10/30/19 22 10/29/2021 CBC AND DIFFE RENTI AL absolute neuts 10.08 K/uL 1.80-7 .70 high Not Available [facility] (Outpatient) [address] [place] [address], [id number], 10/29/2021 15:52:55 10/30/19 22 10/29/2021 CBC AND DIFFE RENTI AL absolute lymphs 1.26 K/uL 1.00-3 .10 Not Available [facility] (Outpatient) [address] [place] [address], [id number], 10/29/2021 15:52:55 10/30/19 22 10/29/2021 CBC AND DIFFE RENTI AL absolute monos 1.84 K/uL 0.20-0 .80 high Not Available [facility] (Outpatient) [address] [place], [id number], 10/29/2021 15:52:55 10/30/19 22 10/29/2021 CBC AND DIFFE RENTI AL absolute eos 0.21 K/uL 0.00-0 .80 Not Available [facility] (Out[facility]) [address] [place], [id number], 10/29/2021 15:52:55 10/30/19 22 10/29/2021 CBC AND DIFFE RENTI AL absolute basos 0.02 K/uL 0.00-0 .09 Not Available [facility] (Out[facility]) [address] [place], [id number], 10/29/2021 15:52:55 10/30/19 22 10/29/2021 CBC AND DIFFE RENTI AL granulocytes , immature 0.06 K/uL 0.00-0 .05 high Not Available [facility] (Out[facility]) [address] [place], [id number], 10/29/2021 15:52:55 10/30/19 22 10/29/2021 PT-IN R PT 11.5 sec 10.2-1 2.9 Not Available [facility] (Out[facility]) [address] [place], [id number], 10/29/2021 15:59:24 10/30/19 22 10/29/2021 PT-IN R INR 1.0 0.9-1. 1 Thera peuti c range for oral Vitam in K antag onist s: 2.0-3 .5 Not Available [facility] (Out[facility]) [address] [place], [address], 10/29/2021 15:59:24 10/30/19 22 10/29/2021 ERIN OL, BLOOD ethanol <10 mg/dL <10 Not Available [facility] [facility] [address] [place], [address], 10/29/2021 16:08:02 10/30/19 22 10/29/2021 BASIC METAB OLIC PANEL sodium 135 mmol/ L 133-14 6 Not Available [facility] [address] [place], [address], 10/29/2021 16:14:34 10/30/19 22 10/29/2021 BASIC METAB OLIC PANEL chloride 98 mmol/ L 96-108 Not Available [facility] [address] [place], [address], 10/29/2021 16:14:34 10/30/19 22 10/29/2021 BASIC METAB OLIC PANEL potassium 4.3 mmol/ L 3.3-5. 1 Not Available [facility] [address] [place], [address], 10/29/2021 16:14:34 10/30/19 22 10/29/2021 BASIC METAB OLIC PANEL CO2 26 mmol/ L 21-35 Not Available [facility] [address] [place], [address], 10/29/2021 16:14:34 10/30/19 22 10/29/2021 BASIC METAB OLIC PANEL BUN 13 mg/dL 6-19 Not Available [facility] [address] [place], [address], 10/29/2021 16:14:34 10/30/19 22 10/29/2021 BASIC METAB OLIC PANEL creatinine 0.50 mg/dL 0.5-1. 5 Not Available [facility] [address] [place], [address], 10/29/2021 16:14:34 10/30/19 22 10/29/2021 BASIC METAB OLIC PANEL glucose 91 mg/dL 70-99 Not Available [facility] [address] [place], [address], 10/29/2021 16:14:34 10/30/19 22 10/29/2021 BASIC METAB OLIC PANEL calcium 9.2 mg/dL 8.4-10 .3 Not Available [facility] [address] [place], [address], 10/29/2021 16:14:34 10/30/19 22 10/29/2021 BASIC METAB OLIC PANEL eGFR 112 mL/mi n/1.7 3m2 >59 Estim ated glome rular filtr ation rate calcu lated using the CKD-E PI refit equat ion. Not Available [facility] [address] [place], [address], 10/29/2021 16:14:34 10/30/19 22 10/29/2021 BASIC METAB OLIC PANEL anion gap 15 mmol/ L 10-20 Not Available [facility] [address] [place], [address], 10/29/2021 16:14:34 10/30/19 22 10/29/2021 LFTS (HEPA TIC PANEL ) alkaline phosphatase 82 U/L 39-117 Not Available [facility] [address] [place], [address], 10/29/2021 16:14:35 10/30/19 22 10/29/2021 LFTS (HEPA TIC PANEL ) total bilirubin 0.3 mg/dL 0.0-1. 2 Not Available [facility] [address] [place], [address], 10/29/2021 16:14:35 10/30/19 22 10/29/2021 LFTS (HEPA TIC PANEL ) direct bilirubin <0.2 mg/dL 0-0.3 Not Available [facility] [address] [place], [address], 10/29/2021 16:14:35 10/30/19 22 10/29/2021 LFTS (HEPA TIC PANEL ) bilirubin (indirect) NOT CALCUL ATED mg/dL 0-1.5 Not Available [facility] [address] [place], [address], 10/29/2021 16:14:35 10/30/19 22 10/29/2021 LFTS (HEPA TIC PANEL ) AST 14 U/L 0-37 Not Available [facility] [address] [place], [address], 10/29/2021 16:14:35 10/30/19 22 10/29/2021 LFTS (HEPA TIC PANEL ) ALT 13 U/L 0-40 Not Available [facility] [address] [place], [address], 10/29/2021 16:14:35 10/30/19 22 10/29/2021 LFTS (HEPA TIC PANEL ) total protein 7.9 g/dL 6.5-8. 0 Not Available [facility] [address] [place], [address], 10/29/2021 16:14:35 10/30/19 22 10/29/2021 LFTS (HEPA TIC PANEL ) albumin 3.8 g/dL 3.9-4. 8 low Not Available [facility] [address] [place], [address], 10/29/2021 16:14:35 10/30/19 22 10/29/2021 LFTS (HEPA TIC PANEL ) globulin 4.1 g/dL 1-4.8 Not Available [facility] [address] [place] [address], [address], 10/29/2021 16:14:35 10/30/19 22 10/29/2021 LFTS (HEPA TIC PANEL ) A/G ratio 0.93 ratio 1.00-4 .80 low Not Available [facility] [address] [place], [address], 10/29/2021 16:14:35 10/30/19 22 10/29/2021 MAGNE SIUM magnesium 1.9 mg/dL 1.6-2. 6 Not Available [facility] [address] [place], [address], 10/29/2021 16:14:37 10/30/19 22 10/29/2021 COVID JOSELUIS SIVAKUMAR RESPI RATOR Y VIRAL ORDER (PRO) test ordered RAPID COVID HAS BEEN ORDERE D Not Available [facility] [address] [place], [address], 10/29/2021 19:34:35 10/30/19 22 10/29/2021 COVID JOSELUIS SIVAKUMAR RESPI RATOR Y VIRAL ORDER (PRO) specimen source/descr iption NEGATI VE Not Available [facility] [address] [place], [address], 10/29/2021 19:34:35 10/30/19 22 10/29/2021 COVID JOSELUIS SIVAKUMAR RESPI RATOR Y VIRAL ORDER (PRO) sars-cov 2 (covid-19) PCR NOT DETECT ED not detect ed SARS- CoV-2 not detec geovanna Negat marbin resul ts do not precl ude SARS- CoV-2 infec tion and shoul d not be used as the sole basis for patie nt manag ement decis ions. Negat marbin resul ts must be combi yana with clini nidia obser vatio ns, patie nt histo ry, and epide miolo gical infor matio n. This test has been autho rized by the FDA under an Emerg ency Use Autho rizat ion (EUA) for use by autho rized labor atori es. Not Available [facility] [address] [place], [address], 10/29/2021 19:34:35 10/31/19 22 10/30/2021 LIPID PANEL HDL 42 mg/dL Inter preta tion <40 mg/dL : Low HDL holly stero l (aaron r risk facto r for CHD) Great er than or equal to 60 mg/dL : High HDL holly stero l ( neg ative risk facto r for CHD) HDL - holly stero l is affec geovanna by a numbe r of facto rs, e.g. chantal allen, danieler ismarleny, hormo melony, sex and age. Not Available [facility] [address] [place], [address], 10/30/2021 08:15:04 10/31/19 22 10/30/2021 LIPID PANEL cholesterol 104 mg/dL 0-240 Not Available [facility] [address] [place] [address], [address], 10/30/2021 08:15:04 10/31/19 22 10/30/2021 LIPID PANEL triglyceride s 95 mg/dL 30-160 Not Available [facility] [address] [place], [address], 10/30/2021 08:15:04 10/31/19 22 10/30/2021 LIPID PANEL LDL 43 mg/dL 50-129 low LDL level s in terms of risk for coron shannon heart disea se: <100 mg/dL : Optim al 100-1 29 mg/dL : Near or above optim al 130-1 59 mg/dL : Borde darienine high 160-1 89 mg/dL : High >190 mg/dL : Very High Not Available [facility] [address] [place], [address], 10/30/2021 08:15:04 10/31/19 22 10/30/2021 LIPID PANEL cardiac risk ratio 2.5 3.4-5. 0 low Not Available [facility] [address] [place], [address], 10/30/2021 08:15:04 10/31/19 22 10/30/2021 PT-IN R PT 12.0 sec 10.2-1 2.9 Not Available [facility] [address] [place], [address], 10/30/2021 08:18:13 10/31/19 22 10/30/2021 PT-IN R INR 1.0 0.9-1. 1 Thera peuti c range for oral Vitam in K antag onist s: 2.0-3 .5 Not Available [facility] [address] [place], [address], 10/30/2021 08:18:13 10/31/19 22 10/30/2021 PTT APTT 32.5 sec 25.1-3 6.5 APTT respo nse to unfra ction ated hepar in live ntrat ions betwe en 0.3 and 0.7 IU/mL is typic ally 54.0- 94.0 secon ds in uncom plica geovanna cases . The Anti- Xa assay is the prefe raquel hanson Not Available [facility] [address] [place], [address], 10/30/2021 08:18:15 10/31/1910/30/2021 TSH TSH 0.11 uIU/m L 0.27-4 .20 low Not Available [facility] [address] [place], [address], 10/30/2021 08:23:39 10/31/1910/30/2021 HEMOG LOBIN A1C hemoglobin A1C 5.5 % 4.3-5. 8 Not Available [facility] [address] [place], [address], 10/30/2021 08:32:11 10/31/1910/30/2021 CBC AND DIFFE RENTI AL WBC 11.29 K/uL 4.00-1 1.00 high Not Available [facility] [address] [place] [address], [address], 10/30/2021 08:40:56 10/31/19 22 10/30/2021 CBC AND DIFFE RENTI AL RBC 3.67 M/uL 3.90-5 .69 low Not Available [facility] [address] [place] [address], [address], 10/30/2021 08:40:56 10/31/19 22 10/30/2021 CBC AND DIFFE RENTI AL HGB 10.8 g/dL 12.4-1 7.3 low Not Available [facility] [address] [place] [address], [address], 10/30/2021 08:40:56 10/31/19 22 10/30/2021 CBC AND DIFFE RENTI AL HCT 33.2 % 37.0-5 1.0 low Not Available [facility] [address] [place] [address], [address], 10/30/2021 08:40:56 10/31/19 22 10/30/2021 CBC AND DIFFE RENTI AL plt 326 K/uL 140-43 0 Not Available [facility] [address] [place] [address], [address], 10/30/2021 08:40:56 10/31/19 22 10/30/2021 CBC AND DIFFE RENTI AL MCV 90.5 fL 78.0-9 7.0 Not Available [facility] [address] [place] [address], [address], 10/30/2021 08:40:56 10/31/19 22 10/30/2021 CBC AND DIFFE RENTI AL MCH 29.4 pg 25.0-3 3.0 Not Available [facility] [address] [place], [address], 10/30/2021 08:40:56 10/31/19 22 10/30/2021 CBC AND DIFFE RENTI AL MCHC 32.5 g/dL 32.0-3 6.0 Not Available [facility] [address] [place], [address], 10/30/2021 08:40:56 10/31/19 22 10/30/2021 CBC AND DIFFE RENTI AL RDW 13.1 % 11.0-1 5.0 Not Available [facility] [address] [place] [address], [address], 10/30/2021 08:40:56 10/31/19 22 10/30/2021 CBC AND DIFFE RENTI AL MPV 11.7 fL 8.4-12 .8 Not Available [facility] [address] [place] [address], [address], 10/30/2021 08:40:56 10/31/19 22 10/30/2021 CBC AND DIFFE RENTI AL NRBC 0.00 /100_ WBCs 0 Not Available [facility] [address] [place], [address], 10/30/2021 08:40:56 10/31/19 22 10/30/2021 CBC AND DIFFE RENTI AL absolute NRBC 0.00 K/uL 0 Not Available [facility] [address] [place] [address], [address], 10/30/2021 08:40:56 10/31/19 22 10/30/2021 CBC AND DIFFE RENTI AL diff method AUTO Not Available [facility] [address] [place], [address], 10/30/2021 08:40:56 10/31/19 22 10/30/2021 CBC AND DIFFE RENTI AL neuts 72.9 % 43.0-7 5.0 Not Available [facility] [address] [place], [address], 10/30/2021 08:40:56 10/31/19 22 10/30/2021 CBC AND DIFFE RENTI AL lymphs 9.6 % 18.2-4 7.4 low Not Available [facility] [address] [place] [address], [address], 10/30/2021 08:40:56 10/31/19 22 10/30/2021 CBC AND DIFFE RENTI AL monos 15.7 % 4.00-1 1.00 high Not Available [facility] [address] [place] [address], [address], 10/30/2021 08:40:56 10/31/19 22 10/30/2021 CBC AND DIFFE RENTI AL eos 1.1 % 0.0-8. 0 Not Available [facility] [address] [place], [address], 10/30/2021 08:40:56 10/31/19 22 10/30/2021 CBC AND DIFFE RENTI AL basos 0.2 % 0.0-2. 0 Not Available [facility] [address] [place] [address], [address], 10/30/2021 08:40:56 10/31/19 22 10/30/2021 CBC AND DIFFE RENTI AL granulocytes , immature (%) 0.5 % 0.0-0. 9 Not Available [facility] [address] [place] [address], [address], 10/30/2021 08:40:56 10/31/19 22 10/30/2021 CBC AND DIFFE RENTI AL absolute neuts 8.24 K/uL 1.80-7 .70 high Not Available [facility] [address] [place], [address], 10/30/2021 08:40:56 10/31/19 22 10/30/2021 CBC AND DIFFE RENTI AL absolute lymphs 1.08 K/uL 1.00-3 .10 Not Available [facility] [address] [place], [address], 10/30/2021 08:40:56 10/31/19 22 10/30/2021 CBC AND DIFFE RENTI AL absolute monos 1.77 K/uL 0.20-0 .80 high Not Available [facility] [address] [place], [address], 10/30/2021 08:40:56 10/31/19 22 10/30/2021 CBC AND DIFFE RENTI AL absolute eos 0.12 K/uL 0.00-0 .80 Not Available [facility] [address] [place], [address], 10/30/2021 08:40:56 10/31/19 22 10/30/2021 CBC AND DIFFE RENTI AL absolute basos 0.02 K/uL 0.00-0 .09 Not Available [facility] [address] [place], [address], 10/30/2021 08:40:56 10/31/19 22 10/30/2021 CBC AND DIFFE RENTI AL granulocytes , immature 0.06 K/uL 0.00-0 .05 high Not Available [facility] [address] [place], [address], 10/30/2021 08:40:56 10/31/19 22 10/30/2021 SEDIM ENTAT ION RATE (ESR) ESR 116 mm/h 0-20 high Not Available [facility] [address] [place], [address], 10/30/2021 09:43:56 10/31/19 22 10/30/2021 C-WALKER CTIVE PROTE IN, HIGH SENSI TIVIT Y CRP, high sensitivity 121.7 mg/L 0.0-5. 0 high Inter preta tion: hsCRP level (mg/L ) Relat marbin Risk <1.0 Low 1.0 - 3.0 [place] >3.0 High Neona jhon (0-3 weeks ): 0.1 - 4.1 mg/L Child mauri (2 month s - 15 years ): 0.1 - 2.8 mg/L Not Available [facility] [address] [place], [address], 10/30/2021 10:55:30 10/31/19 22 10/30/2021 URINA LYSIS color YELLOW yellow Not Available [facility] [address] [place], [address], 10/30/2021 20:59:10 10/31/19 22 10/30/2021 URINA LYSIS clarity CLEAR Not Available [facility] [address] [place], [address], 10/30/2021 20:59:10 10/31/19 22 10/30/2021 URINA LYSIS glucose NEGATI VE negati ve Not Available [facility] [address] [place], [address], 10/30/2021 20:59:10 10/31/19 22 10/30/2021 URINA LYSIS bili NEGATI VE negati ve Not Available [facility] [address] [place], [address], 10/30/2021 20:59:10 10/31/19 22 10/30/2021 URINA LYSIS ketones TRACE negati ve abnormal Not Available [facility] [address] [place], [address], 10/30/2021 20:59:10 10/31/19 22 10/30/2021 URINA LYSIS specific gravity 1.015 1.005- 1.030 Not Available [facility] [address] [place], [address], 10/30/2021 20:59:10 10/31/19 22 10/30/2021 URINA LYSIS blood NEGATI VE negati ve Not Available [facility] [address] [place], [address], 10/30/2021 20:59:10 10/31/19 22 10/30/2021 URINA LYSIS pH 6.0 5.0-8. 0 Not Available [facility] [address] [place], [address], 10/30/2021 20:59:10 10/31/19 22 10/30/2021 URINA LYSIS protein NEGATI VE negati ve Not Available [facility] [address] [place], [address], 10/30/2021 20:59:10 10/31/19 22 10/30/2021 URINA LYSIS nitrite NEGATI VE negati ve Not Available [facility] [address] [place], [address], 10/30/2021 20:59:10 10/31/19 22 10/30/2021 URINA LYSIS leukocyte esterase, ur NEGATI VE negati ve Not Available [facility] [address] [place], [address], 10/30/2021 20:59:10 10/31/19 22 10/30/2021 TOXIC OLOGY SCREE N, URINE urine cannabinoids NONE DETECT ED none detect ed Cutof f: 50 ng/mL Not Available [facility] [address] [place], [address], 10/30/2021 21:31:21 10/31/19 22 10/30/2021 TOXIC OLOGY SCREE N, URINE urine cocaine metab NONE DETECT ED none detect ed Cutof f: 300 ng/mL Not Available [facility] [address] [place], [address], 10/30/2021 21:31:21 10/31/19 22 10/30/2021 TOXIC OLOGY SCREE N, URINE urine amphetamines NONE DETECT ED none detect ed Cutof f: 1000 ng/mL Not Available [facility] [address] [place], [address], 10/30/2021 21:31:21 10/31/19 22 10/30/2021 TOXIC OLOGY SCREE N, URINE urine methadone NONE DETECT ED none detect ed Cutof f: 300 ng/mL Not Available [facility] [address] [place], [address], 10/30/2021 21:31:21 10/31/19 22 10/30/2021 TOXIC OLOGY SCREE N, URINE urine opiates NONE DETECT ED none detect ed Cutof f: 300 ng/mL Not Available [facility] ([facility] [address] [place], [address], 10/30/2021 21:31:21 10/31/19 22 10/30/2021 TOXIC OLOGY SCREE N, URINE urine phencyclidin e NONE DETECT ED none detect ed Cutof f: 25 ng/mL Not Available [facility] ([facility] [address] [place], [address], 10/30/2021 21:31:21 10/31/19 22 10/30/2021 TOXIC OLOGY SCREE N, URINE urine oxycodone NONE DETECT ED none detect ed Cutof f: 300 ng/ml Not Available [facility] ([facility] [address] [place], [address], 10/30/2021 21:31:21 10/31/19 22 10/30/2021 TOXIC OLOGY SCREE N, URINE urine barbiturates NONE DETECT ED none detect ed Cutof f: 200 ng/mL Not Available [facility] ([facility] [address] [place], [address], 10/30/2021 21:31:21 10/31/19 22 10/30/2021 TOXIC OLOGY SCREE N, URINE urine benzodiazepi ne NONE DETECT ED none detect ed Cutof f: 200 ng/mL Not Available [facility] ([facility] [address] [place], [address], 10/30/2021 21:31:21 10/31/19 22 10/30/2021 TOXIC OLOGY SCREE N, URINE urine buprenorphin e NONE DETECT ED none detect ed Cutof f: 5 ng/mL INTER PRETA TION FOR TOXIC OLOGY PANEL : Thes e resul ts are uncon firme d and shoul d be used for Medic al Treat ment purpo ses only. Not Available [facility] ([facility] [address] [place], [address], 10/30/2021 21:31:21 11/12/19 22 11/11/2021 BASIC METAB OLIC PANEL sodium 136 mmol/ L 133-14 6 Not Available [facility] ([facility] [address] [place], [address], 11/11/2021 07:44:04 11/12/19 22 11/11/2021 BASIC METAB OLIC PANEL chloride 99 mmol/ L 96-108 Not Available [facility] ([facility] [address] [place], [address], 11/11/2021 07:44:04 11/12/19 22 11/11/2021 BASIC METAB OLIC PANEL potassium 4.2 mmol/ L 3.3-5. 1 Not Available [facility] ([facility] [address] [place], [address], 11/11/2021 07:44:04 11/12/19 22 11/11/2021 BASIC METAB OLIC PANEL CO2 28 mmol/ L 21-35 Not Available [facility] ([facility] [address] [place], [address], 11/11/2021 07:44:04 11/12/19 22 11/11/2021 BASIC METAB OLIC PANEL BUN 15 mg/dL 6-19 Not Available [facility] ([facility] [address] [place], [address], 11/11/2021 07:44:04 11/12/19 22 11/11/2021 BASIC METAB OLIC PANEL creatinine 0.50 mg/dL 0.5-1. 5 Not Available [facility] ([facility] [address] [place], [address], 11/11/2021 07:44:04 11/12/19 22 11/11/2021 BASIC METAB OLIC PANEL glucose 75 mg/dL 70-99 Not Available [facility] ([facility] [address] [place], [address], 11/11/2021 07:44:04 11/12/19 22 11/11/2021 BASIC METAB OLIC PANEL calcium 9.5 mg/dL 8.4-10 .3 Not Available [facility] ([facility] [address] [place], [address], 11/11/2021 07:44:04 11/12/19 22 11/11/2021 BASIC METAB OLIC PANEL eGFR 112 mL/mi n/1.7 3m2 >59 Estim ated glome rular filtr ation rate calcu lated using the CKD-E PI refit equat ion. Not Available [facility] ([facility] [address] [place], [address], 11/11/2021 07:44:04 11/12/19 22 11/11/2021 BASIC METAB OLIC PANEL anion gap 13 mmol/ L 10-20 Not Available [facility] ([facility] [address] [place], [address], 11/11/2021 07:44:04 11/12/19 22 11/11/2021 MAGNE SIUM magnesium 2.1 mg/dL 1.6-2. 6 Not Available [facility] ([facility] [address] [place], [address], 11/11/2021 07:44:06 11/12/19 22 11/11/2021 PHOSP HORUS phosphorus 3.5 mg/dL 2.7-4. 5 Not Available [facility] ([facility] [address] [place], [address], 11/11/2021 07:44:07 11/12/19 22 11/11/2021 COVID JOSELUIS SIVAKUMAR RESPI RATOR Y VIRAL ORDER (PRO) test ordered COVID HAS BEEN ORDERE D Not Available [facility] [address] [place], [address], 11/11/2021 19:00:56 11/12/19 22 11/11/2021 COVID JOSELUIS SIVAKUMAR RESPI RATOR Y VIRAL ORDER (PRO) specimen source/descr iption NASAL Not Available [facility] ([facility] [address] [place], [address], 11/11/2021 19:00:56 11/12/19 22 11/11/2021 COVID JOSELUIS SIVAKUMAR RESPI RATOR Y VIRAL ORDER (PRO) sars-cov 2 (covid-19) PCR POSITI VE negati ve abnormal SARS- CoV-2 detec geovanna This test has been autho rized by the FDA under an Emerg ency Use Autho rizat ion (EUA) for use by autho rized labor atori es. Not Available [facility] ([facility] [address] [place], [address], 11/11/2021 19:00:56 11/12/19 22 11/11/2021 COVID JOSELUIS SIVAKUMAR RESPI RATOR Y VIRAL ORDER (PRO) test ordered COVID HAS BEEN ORDERE D Not Available [facility] ([facility] [address] [place], [address], 11/11/2021 19:01:37 11/12/19 22 11/11/2021 COVID JOSELUIS SIVAKUMAR RESPI RATOR Y VIRAL ORDER (PRO) specimen source/descr iption NASAL (NOTE ) Bety sorto to Judy Hanson N3. 1901. TJG Not Available [facility] ([facility] [address] [place], [address], 11/11/2021 19:01:37 11/12/19 22 11/11/2021 COVID JOSELUIS SIVAKUMAR RESPI RATOR Y VIRAL ORDER (PRO) sars-cov 2 (covid-19) PCR POSITI VE negati ve abnormal SARS- CoV-2 detec geovanna This test has been autho rized by the FDA under an Emerg ency Use Autho rizat ion (EUA) for use by autho rized labor atori es. Not Available [facility] ([facility] [address] [place], [address], 11/11/2021 19:01:37 11/13/19 22 11/12/2021 CBC WBC 11.53 K/uL 4.00-1 1.00 high Not Available [facility] ([facility] [address] [place], [address], 11/12/2021 07:02:18 11/13/19 22 11/12/2021 CBC RBC 3.90 M/uL 3.90-5 .69 Not Available [facility] ([facility]) [address] [place] [address], [address], 11/12/2021 07:02:18 11/13/19 22 11/12/2021 CBC HGB 11.5 g/dL 12.4-1 7.3 low Not Available [facility] ([facility] [address] [place], [address], 11/12/2021 07:02:18 11/13/19 22 11/12/2021 CBC HCT 35.1 % 37.0-5 1.0 low Not Available [facility] (Outpatient) [address] [place], [address], 11/12/2021 07:02:18 11/13/19 22 11/12/2021 CBC plt 439 K/uL 140-43 0 high Not Available [facility] (Outpatient) [address] [place], [address], 11/12/2021 07:02:18 11/13/19 22 11/12/2021 CBC MCV 90.0 fL 78.0-9 7.0 Not Available [facility] (Outpatient) [address] [place], [address], 11/12/2021 07:02:18 11/13/19 22 11/12/2021 CBC MCH 29.5 pg 25.0-3 3.0 Not Available [facility] (Outpatient) [address] [place], [address], 11/12/2021 07:02:18 11/13/19 22 11/12/2021 CBC MCHC 32.8 g/dL 32.0-3 6.0 Not Available [facility] (Outpatient) [address] [place], [address], 11/12/2021 07:02:18 11/13/19 22 11/12/2021 CBC RDW 14.3 % 11.0-1 5.0 Not Available [facility] (Outpatient) [address] [place], [address], 11/12/2021 07:02:18 11/13/19 22 11/12/2021 CBC MPV 10.6 fL 8.4-12 .8 Not Available [facility] (Outpatient) [address] [place], [address], 11/12/2021 07:02:18 11/13/19 22 11/12/2021 CBC NRBC 0.00 /100_ WBCs 0 Not Available [facility] (Outpatient) [address] [place], [address], 11/12/2021 07:02:18 11/13/19 22 11/12/2021 CBC absolute NRBC 0.00 K/uL 0 Not Available [facility] (Outpatient) [address] [place], [address], 11/12/2021 07:02:18 11/15/19 22 11/14/2021 BASIC METAB OLIC PANEL sodium 138 mmol/ L 133-14 6 Not Available [facility] (Out[facility]) [address] [place], [address], 11/14/2021 07:15:29 11/15/19 22 11/14/2021 BASIC METAB OLIC PANEL chloride 99 mmol/ L 96-108 Not Available [facility] (Outpatient) [address] [place], [address], 11/14/2021 07:15:29 11/15/19 22 11/14/2021 BASIC METAB OLIC PANEL potassium 4.3 mmol/ L 3.3-5. 1 Not Available [facility] (Outpatient) [address] [place], [address], 11/14/2021 07:15:29 11/15/19 22 11/14/2021 BASIC METAB OLIC PANEL CO2 27 mmol/ L 21-35 Not Available [facility] (Outpatient) [address] [place], [address], 11/14/2021 07:15:29 11/15/19 22 11/14/2021 BASIC METAB OLIC PANEL BUN 14 mg/dL 6-19 Not Available [facility] (Outpatient) [address] [place], [address], 11/14/2021 07:15:29 11/15/19 22 11/14/2021 BASIC METAB OLIC PANEL creatinine 0.50 mg/dL 0.5-1. 5 Not Available [facility] (Outpatient) [address] [place], [address], 11/14/2021 07:15:29 11/15/19 22 11/14/2021 BASIC METAB OLIC PANEL glucose 70 mg/dL 70-99 Not Available [facility] (Outpatient) [address] [place], [address], 11/14/2021 07:15:29 11/15/19 22 11/14/2021 BASIC METAB OLIC PANEL calcium 9.9 mg/dL 8.4-10 .3 Not Available [facility] (Outpatient) [address] [place], [address], 11/14/2021 07:15:29 11/15/19 22 11/14/2021 BASIC METAB OLIC PANEL eGFR 112 mL/mi n/1.7 3m2 >59 Estim ated glome rular filtr ation rate calcu lated using the CKD-E PI refit equat ion. Not Available [facility] (Outpatient) [address] [place], [address], 11/14/2021 07:15:29 11/15/19 22 11/14/2021 BASIC METAB OLIC PANEL anion gap 16 mmol/ L 10-20 Not Available [facility] (Outpatient) [address] [place], [address], 11/14/2021 07:15:29 11/15/19 22 11/14/2021 MAGNE SIUM magnesium 2.1 mg/dL 1.6-2. 6 Not Available [facility] (Outpatient) [address] [place], [address], 11/14/2021 07:15:31 06/12/20 22 11/14/2021 PHOSP HORUS phosphorus 3.9 mg/dL 2.7-4. 5 Not Available [facility] (Outpatient) [address] [place], [address], 11/14/2021 07:15:32 11/17/19 22 11/16/2021 CBC WBC 11.73 K/uL 4.00-1 1.00 high Not Available [facility] (Outpatient) [address] [place], [address], 11/16/2021 08:33:22 11/17/19 22 11/16/2021 CBC RBC 4.50 M/uL 3.90-5 .69 Not Available [facility] (Outpatient) [address] [place], [address], 11/16/2021 08:33:22 11/17/19 22 11/16/2021 CBC HGB 12.9 g/dL 12.4-1 7.3 Not Available [facility] (Outpatient) [address] [place], [address], 11/16/2021 08:33:22 11/17/19 22 11/16/2021 CBC HCT 39.9 % 37.0-5 1.0 Not Available [facility] (Outpatient) [address] [place], [address], 11/16/2021 08:33:22 11/17/19 22 11/16/2021 CBC plt 378 K/uL 140-43 0 Not Available [facility] (Outpatient) [address] [place], [address], 11/16/2021 08:33:22 11/17/19 22 11/16/2021 CBC MCV 88.7 fL 78.0-9 7.0 Not Available [facility] (Outpatient) [address] [place], [address], 11/16/2021 08:33:22 11/17/19 22 11/16/2021 CBC MCH 28.7 pg 25.0-3 3.0 Not Available [facility] (Outpatient) [address] [place], [address], 11/16/2021 08:33:22 11/17/19 22 11/16/2021 CBC MCHC 32.3 g/dL 32.0-3 6.0 Not Available [facility] (Outpatient) [address] [place], [address], 11/16/2021 08:33:22 11/17/19 22 11/16/2021 CBC RDW 14.3 % 11.0-1 5.0 Not Available [facility] (Outpatient) [address] [place], [address], 11/16/2021 08:33:22 11/17/19 22 11/16/2021 CBC MPV 11.7 fL 8.4-12 .8 Not Available [facility] (Outpatient) [address] [place], [address], 11/16/2021 08:33:22 11/17/19 22 11/16/2021 CBC NRBC 0.00 /100_ WBCs 0 Not Available [facility] (Outpatient) [address] [place], [address], 11/16/2021 08:33:22 11/17/19 22 11/16/2021 CBC absolute NRBC 0.00 K/uL 0 Not Available [facility] (Out[facility]) [address] [place], [address], 11/16/2021 08:33:22 11/17/19 22 11/16/2021 BASIC METAB OLIC PANEL sodium 136 mmol/ L 133-14 6 Not Available [facility] ([facility]) [address] [place], [address], 11/16/2021 08:56:09 11/17/19 22 11/16/2021 BASIC METAB OLIC PANEL chloride 98 mmol/ L 96-108 Not Available [facility] (Outpatient) [address] [place], [address], 11/16/2021 08:56:09 11/17/19 22 11/16/2021 BASIC METAB OLIC PANEL potassium 4.2 mmol/ L 3.3-5. 1 Not Available [facility] (Out[facility]) [address] [place], [address], 11/16/2021 08:56:09 11/17/19 22 11/16/2021 BASIC METAB OLIC PANEL CO2 25 mmol/ L 21-35 Not Available [facility] (Outpatient) [address] [place], [address], 11/16/2021 08:56:09 11/17/19 22 11/16/2021 BASIC METAB OLIC PANEL BUN 15 mg/dL 6-19 Not Available [facility] (Outpatient) [address] [place], [address], 11/16/2021 08:56:09 11/17/19 22 11/16/2021 BASIC METAB OLIC PANEL creatinine 0.50 mg/dL 0.5-1. 5 Not Available [facility] (Outpatient) [address] [place], [address], 11/16/2021 08:56:09 11/17/19 22 11/16/2021 BASIC METAB OLIC PANEL glucose 66 mg/dL 70-99 low Not Available [facility] (Outpatient) [address] [place], [address], 11/16/2021 08:56:09 11/17/19 22 11/16/2021 BASIC METAB OLIC PANEL calcium 9.5 mg/dL 8.4-10 .3 Not Available [facility] (Out[facility]) [address] [place], [address], 11/16/2021 08:56:09 11/17/19 22 11/16/2021 BASIC METAB OLIC PANEL eGFR 112 mL/mi n/1.7 3m2 >59 Estim ated glome rular filtr ation rate calcu lated using the CKD-E PI refit equat ion. Not Available [facility] (Outpatient) [address] [place], [address], 11/16/2021 08:56:09 11/17/19 22 11/16/2021 BASIC METAB OLIC PANEL anion gap 17 mmol/ L 10-20 Not Available [facility] (Outpatient) [address] [place], [address], 11/16/2021 08:56:09 11/17/19 22 11/16/2021 MAGNE SIUM magnesium 2.1 mg/dL 1.6-2. 6 Not Available [facility] (Outpatient) [address] [place], [address], 11/16/2021 08:56:11 11/17/19 22 11/16/2021 PHOSP HORUS phosphorus 4.0 mg/dL 2.7-4. 5 Not Available [facility] ([facility]patient) [address] [place], [address], 11/16/2021 08:56:13 11/19/19 22 11/18/2021 CBC WBC 10.33 K/uL 4.00-1 1.00 Not Available [facility] ([facility]) [address] [place], [address], 11/18/2021 06:55:55 11/19/19 22 11/18/2021 CBC RBC 4.12 M/uL 3.90-5 .69 Not Available [facility] ([facility]) [address] [place], [address], 11/18/2021 06:55:55 11/19/19 22 11/18/2021 CBC HGB 11.9 g/dL 12.4-1 7.3 low Not Available [facility] ([facility]) [address] [place], [address], 11/18/2021 06:55:55 11/19/19 22 11/18/2021 CBC HCT 37.3 % 37.0-5 1.0 Not Available [facility] ([facility]) [address] [place], [address], 11/18/2021 06:55:55 11/19/19 22 11/18/2021 CBC plt 339 K/uL 140-43 0 Not Available [facility] ([facility]) [address] [place], [address], 11/18/2021 06:55:55 11/19/19 22 11/18/2021 CBC MCV 90.5 fL 78.0-9 7.0 Not Available [facility] ([facility]) [address] [place], [address], 11/18/2021 06:55:55 11/19/19 22 11/18/2021 CBC MCH 28.9 pg 25.0-3 3.0 Not Available [facility] ([facility]patient) [address] [place], [address], 11/18/2021 06:55:55 11/19/19 22 11/18/2021 CBC MCHC 31.9 g/dL 32.0-3 6.0 low Not Available [facility] (Out[facility]) [address] [place], [address], 11/18/2021 06:55:55 11/19/19 22 11/18/2021 CBC RDW 14.8 % 11.0-1 5.0 Not Available [facility] (Outpatient) [address] [place], [address], 11/18/2021 06:55:55 11/19/19 22 11/18/2021 CBC MPV 11.5 fL 8.4-12 .8 Not Available [facility] ([facility]) [address] [place], [address], 11/18/2021 06:55:55 11/19/19 22 11/18/2021 CBC NRBC 0.00 /100_ WBCs 0 Not Available [facility] ([facility]) [address] [place], [address], 11/18/2021 06:55:55 11/19/19 22 11/18/2021 CBC absolute NRBC 0.00 K/uL 0 Not Available [facility] ([facility]) [address] [place], [address], 11/18/2021 06:55:55 11/19/19 22 11/18/2021 BASIC METAB OLIC PANEL sodium 140 mmol/ L 133-14 6 Not Available [facility] (Out[facility]) [address] [place], [address], 11/18/2021 07:32:04 11/19/19 22 11/18/2021 BASIC METAB OLIC PANEL chloride 101 mmol/ L 96-108 Not Available [facility] (Outpatient) [address] [place], [address], 11/18/2021 07:32:04 11/19/19 22 11/18/2021 BASIC METAB OLIC PANEL potassium 3.9 mmol/ L 3.3-5. 1 Not Available [facility] (Outpatient) [address] [place], [address], 11/18/2021 07:32:04 11/19/19 22 11/18/2021 BASIC METAB OLIC PANEL CO2 30 mmol/ L 21-35 Not Available [facility] (Outpatient) [address] [place], [address], 11/18/2021 07:32:04 11/19/19 22 11/18/2021 BASIC METAB OLIC PANEL BUN 13 mg/dL 6-19 Not Available [facility] (Out[facility]) [address] [place], [address], 11/18/2021 07:32:04 11/19/19 22 11/18/2021 BASIC METAB OLIC PANEL creatinine 0.70 mg/dL 0.5-1. 5 Not Available [facility] (Outpatient) [address] [place], [address], 11/18/2021 07:32:04 11/19/19 22 11/18/2021 BASIC METAB OLIC PANEL glucose 78 mg/dL 70-99 Not Available [facility] (Outpatient) [address] [place], [address], 11/18/2021 07:32:04 11/19/19 22 11/18/2021 BASIC METAB OLIC PANEL calcium 9.7 mg/dL 8.4-10 .3 Not Available [facility] (Outpatient) [address] [place], [address], 11/18/2021 07:32:04 11/19/19 22 11/18/2021 BASIC METAB OLIC PANEL eGFR 101 mL/mi n/1.7 3m2 >59 Estim ated glome rular filtr ation rate calcu lated using the CKD-E PI refit equat ion. Not Available [facility] (Outpatient) [address] [place], [address], 11/18/2021 07:32:04 11/19/19 22 11/18/2021 BASIC METAB OLIC PANEL anion gap 13 mmol/ L 10-20 Not Available [facility] ([facility]) [address] [place], [address], 11/18/2021 07:32:04 11/21/19 22 11/20/2021 BASIC METAB OLIC PANEL sodium 139 mmol/ L 133-14 6 Not Available [facility] (Outpatient) [address] [place], [address], 11/20/2021 10:12:41 11/21/19 22 11/20/2021 BASIC METAB OLIC PANEL chloride 99 mmol/ L 96-108 Not Available [facility] (Outpatient) [address] [place], [address], 11/20/2021 10:12:41 11/21/19 22 11/20/2021 BASIC METAB OLIC PANEL potassium 3.9 mmol/ L 3.3-5. 1 Not Available [facility] (Outpatient) [address] [place], [address], 11/20/2021 10:12:41 11/21/19 22 11/20/2021 BASIC METAB OLIC PANEL CO2 31 mmol/ L 21-35 Not Available [facility] (Outpatient) [address] [place], [address], 11/20/2021 10:12:41 11/21/19 22 11/20/2021 BASIC METAB OLIC PANEL BUN 14 mg/dL 6-19 Not Available [facility] (Outpatient) [address] [place], [address], 11/20/2021 10:12:41 11/21/19 22 11/20/2021 BASIC METAB OLIC PANEL creatinine 0.60 mg/dL 0.5-1. 5 Not Available [facility] (Out[facility]) [address] [place], [address], 11/20/2021 10:12:41 11/21/19 22 11/20/2021 BASIC METAB OLIC PANEL glucose 76 mg/dL 70-99 Not Available [facility] (Outpatient) [address] [place], [address], 11/20/2021 10:12:41 11/21/19 22 11/20/2021 BASIC METAB OLIC PANEL calcium 9.7 mg/dL 8.4-10 .3 Not Available [facility] (Out[facility]) [address] [place], [address], 11/20/2021 10:12:41 11/21/19 22 11/20/2021 BASIC METAB OLIC PANEL eGFR 106 mL/mi n/1.7 3m2 >59 Estim ated glome rular filtr ation rate calcu lated using the CKD-E PI refit equat ion. Not Available [facility] (Outpatient) [address] [place], [address], 11/20/2021 10:12:41 11/21/19 22 11/20/2021 BASIC METAB OLIC PANEL anion gap 13 mmol/ L 10-20 Not Available [facility] (Outpatient) [address] [place], [address], 11/20/2021 10:12:41 11/21/19 22 11/20/2021 MAGNE SIUM magnesium 2.2 mg/dL 1.6-2. 6 Not Available [facility] (Outpatient) [address] [place], [address], 11/20/2021 10:12:44 11/21/19 22 11/20/2021 PHOSP HORUS phosphorus 3.9 mg/dL 2.7-4. 5 Not Available [facility] (Outpatient) [address] [place], [address], 11/20/2021 10:12:50 11/22/19 22 11/21/2021 BASIC METAB OLIC PANEL sodium 137 mmol/ L 133-14 6 Not Available [facility] (Outpatient) [address] [place], [address], 11/21/2021 06:21:10 11/22/19 22 11/21/2021 BASIC METAB OLIC PANEL chloride 98 mmol/ L 96-108 Not Available [facility] (Out[facility]) [address] [place], [address], 11/21/2021 06:21:10 11/22/19 22 11/21/2021 BASIC METAB OLIC PANEL potassium 4.0 mmol/ L 3.3-5. 1 Not Available [facility] (Out[facility]) [address] [place], [address], 11/21/2021 06:21:10 11/22/19 22 11/21/2021 BASIC METAB OLIC PANEL CO2 31 mmol/ L 21-35 Not Available [facility] (Outpatient) [address] [place], [address], 11/21/2021 06:21:10 11/22/19 22 11/21/2021 BASIC METAB OLIC PANEL BUN 16 mg/dL 6-19 Not Available [facility] (Outpatient) [address] [place], [address], 11/21/2021 06:21:10 11/22/19 22 11/21/2021 BASIC METAB OLIC PANEL creatinine 0.60 mg/dL 0.5-1. 5 Not Available [facility] (Outpatient) [address] [place], [address], 11/21/2021 06:21:10 11/22/19 22 11/21/2021 BASIC METAB OLIC PANEL glucose 81 mg/dL 70-99 Not Available [facility] (Outpatient) [address] [place], [address], 11/21/2021 06:21:10 11/22/19 22 11/21/2021 BASIC METAB OLIC PANEL calcium 9.6 mg/dL 8.4-10 .3 Not Available [facility] ([facility]) [address] [place], [address], 11/21/2021 06:21:10 11/22/19 22 11/21/2021 BASIC METAB OLIC PANEL eGFR 106 mL/mi n/1.7 3m2 >59 Estim ated glome rular filtr ation rate calcu lated using the CKD-E PI refit equat ion. Not Available [facility] (Outpatient) [address] [place], [address], 11/21/2021 06:21:10 11/22/19 22 11/21/2021 BASIC METAB OLIC PANEL anion gap 12 mmol/ L 10-20 Not Available [facility] (Outpatient) [address] [place], [address], 11/21/2021 06:21:10 11/22/19 22 11/21/2021 MAGNE SIUM magnesium 2.1 mg/dL 1.6-2. 6 Not Available [facility] (Out[facility]) [address] [place], [address], 11/21/2021 06:21:13 11/22/19 22 11/21/2021 PHOSP HORUS phosphorus 4.0 mg/dL 2.7-4. 5 Not Available [facility] (Outpatient) [address] [place], [address], 11/21/2021 06:21:14 11/22/19 22 11/21/2021 CBC AND DIFFE RENTI AL WBC 8.39 K/uL 4.00-1 1.00 Not Available [facility] ([facility]) [address] [place], [address], 11/21/2021 15:50:27 11/22/19 22 11/21/2021 CBC AND DIFFE RENTI AL RBC 4.48 M/uL 3.90-5 .69 Not Available [facility] (Outpatient) [address] [place], [address], 11/21/2021 15:50:27 11/22/19 22 11/21/2021 CBC AND DIFFE RENTI AL HGB 12.8 g/dL 12.4-1 7.3 Not Available [facility] (Outpatient) [address] [place], [address], 11/21/2021 15:50:27 11/22/19 22 11/21/2021 CBC AND DIFFE RENTI AL HCT 40.4 % 37.0-5 1.0 Not Available [facility] (Out[facility]) [address] [place], [address], 11/21/2021 15:50:27 11/22/19 22 11/21/2021 CBC AND DIFFE RENTI AL plt 282 K/uL 140-43 0 Not Available [facility] (Outpatient) [address] [place], [address], 11/21/2021 15:50:27 11/22/19 22 11/21/2021 CBC AND DIFFE RENTI AL MCV 90.2 fL 78.0-9 7.0 Not Available [facility] ([facility]) [address] [place], [address], 11/21/2021 15:50:27 11/22/19 22 11/21/2021 CBC AND DIFFE RENTI AL MCH 28.6 pg 25.0-3 3.0 Not Available [facility] (Outpatient) [address] [place], [address], 11/21/2021 15:50:27 11/22/19 22 11/21/2021 CBC AND DIFFE RENTI AL MCHC 31.7 g/dL 32.0-3 6.0 low Not Available [facility] (Outpatient) [address] [place], [address], 11/21/2021 15:50:27 11/22/19 22 11/21/2021 CBC AND DIFFE RENTI AL RDW 15.2 % 11.0-1 5.0 high Not Available [facility] (Outpatient) [address] [place], [address], 11/21/2021 15:50:27 11/22/19 22 11/21/2021 CBC AND DIFFE RENTI AL MPV 11.3 fL 8.4-12 .8 Not Available [facility] (Outpatient) [address] [place], [address], 11/21/2021 15:50:27 11/22/19 22 11/21/2021 CBC AND DIFFE RENTI AL NRBC 0.00 /100_ WBCs 0 Not Available [facility] (Outpatient) [address] [place], [address], 11/21/2021 15:50:27 11/22/19 22 11/21/2021 CBC AND DIFFE RENTI AL absolute NRBC 0.00 K/uL 0 Not Available [facility] ([facility]) [address] [place], [address], 11/21/2021 15:50:27 11/22/19 22 11/21/2021 CBC AND DIFFE RENTI AL diff method AUTO Not Available [facility] (Outpatient) [address] [place], [address], 11/21/2021 15:50:27 11/22/19 22 11/21/2021 CBC AND DIFFE RENTI AL neuts 88.5 % 43.0-7 5.0 high Not Available [facility] (Outpatient) [address] [place], [address], 11/21/2021 15:50:27 11/22/19 22 11/21/2021 CBC AND DIFFE RENTI AL lymphs 7.9 % 18.2-4 7.4 low Not Available [facility] (Outpatient) [address] [place], [address], 11/21/2021 15:50:27 11/22/19 22 11/21/2021 CBC AND DIFFE RENTI AL monos 3.0 % 4.00-1 1.00 low Not Available [facility] (Outpatient) [address] [place], [address], 11/21/2021 15:50:27 11/22/19 22 11/21/2021 CBC AND DIFFE RENTI AL eos 0.0 % 0.0-8. 0 Not Available [facility] (Outpatient) [address] [place], [address], 11/21/2021 15:50:27 11/22/19 22 11/21/2021 CBC AND DIFFE RENTI AL basos 0.0 % 0.0-2. 0 Not Available [facility] (Outpatient) [address] [place], [address], 11/21/2021 15:50:27 11/22/19 22 11/21/2021 CBC AND DIFFE RENTI AL granulocytes , immature (%) 0.6 % 0.0-0. 9 Not Available [facility] (Outpatient) [address] [place], [address], 11/21/2021 15:50:27 11/22/19 22 11/21/2021 CBC AND DIFFE RENTI AL absolute neuts 7.43 K/uL 1.80-7 .70 Not Available [facility] (Outpatient) [address] [place], [address], 11/21/2021 15:50:27 11/22/19 22 11/21/2021 CBC AND DIFFE RENTI AL absolute lymphs 0.66 K/uL 1.00-3 .10 low Not Available [facility] (Outpatient) [address] [place] [address], [address], 11/21/2021 15:50:27 11/22/19 22 11/21/2021 CBC AND DIFFE RENTI AL absolute monos 0.25 K/uL 0.20-0 .80 Not Available [facility] (Outpatient) [address] [place] [address], [address], 11/21/2021 15:50:27 11/22/19 22 11/21/2021 CBC AND DIFFE RENTI AL absolute eos 0.00 K/uL 0.00-0 .80 Not Available [facility] (Outpatient) [address] [place], [address], 11/21/2021 15:50:27 11/22/19 22 11/21/2021 CBC AND DIFFE RENTI AL absolute basos 0.00 K/uL 0.00-0 .09 Not Available [facility] (Outpatient) [address] [place], [address], 11/21/2021 15:50:27 11/22/19 22 11/21/2021 CBC AND DIFFE RENTI AL granulocytes , immature 0.05 K/uL 0.00-0 .05 Not Available [facility] (Outpatient) [address] [place], [address], 11/21/2021 15:50:27 11/23/19 22 11/22/2021 CBC WBC 7.89 K/uL 4.00-1 1.00 Not Available [facility] (Outpatient) [address] [place], [address], 11/22/2021 06:00:44 11/23/19 22 11/22/2021 CBC RBC 4.22 M/uL 3.90-5 .69 Not Available [facility] (Outpatient) [address] [place], [address], 11/22/2021 06:00:44 11/23/19 22 11/22/2021 CBC HGB 12.3 g/dL 12.4-1 7.3 low Not Available [facility] (Outpatient) [address] [place], [address], 11/22/2021 06:00:44 11/23/19 22 11/22/2021 CBC HCT 37.8 % 37.0-5 1.0 Not Available [facility] (Outpatient) [address] [place], [address], 11/22/2021 06:00:44 11/23/19 22 11/22/2021 CBC plt 258 K/uL 140-43 0 Not Available [facility] (Outpatient) [address] [place], [address], 11/22/2021 06:00:44 11/23/19 22 11/22/2021 CBC MCV 89.6 fL 78.0-9 7.0 Not Available [facility] (Outpatient) [address] [place], [address], 11/22/2021 06:00:44 11/23/19 22 11/22/2021 CBC MCH 29.1 pg 25.0-3 3.0 Not Available [facility] (Outpatient) [address] [place], [address], 11/22/2021 06:00:44 11/23/19 22 11/22/2021 CBC MCHC 32.5 g/dL 32.0-3 6.0 Not Available [facility] (Outpatient) [address] [place], [address], 11/22/2021 06:00:44 11/23/19 22 11/22/2021 CBC RDW 15.3 % 11.0-1 5.0 high Not Available [facility] (Outpatient) [address] [place], [address], 11/22/2021 06:00:44 11/23/19 22 11/22/2021 CBC MPV 11.2 fL 8.4-12 .8 Not Available [facility] (Outpatient) [address] [place], [address], 11/22/2021 06:00:44 11/23/19 22 11/22/2021 CBC NRBC 0.00 /100_ WBCs 0 Not Available [facility] (Outpatient) [address] [place], [address], 11/22/2021 06:00:44 11/23/19 22 11/22/2021 CBC absolute NRBC 0.00 K/uL 0 Not Available [facility] (Outpatient) [address] [place], [address], 11/22/2021 06:00:44 11/23/19 22 11/22/2021 BASIC METAB OLIC PANEL sodium 137 mmol/ L 133-14 6 Not Available [facility] (Outpatient) [address] [place], [address], 11/22/2021 06:26:40 11/23/19 22 11/22/2021 BASIC METAB OLIC PANEL chloride 98 mmol/ L 96-108 Not Available [facility] (Outpatient) [address] [place], [address], 11/22/2021 06:26:40 11/23/19 22 11/22/2021 BASIC METAB OLIC PANEL potassium 3.8 mmol/ L 3.3-5. 1 Speci men sligh tly hemol yzed, resul t may be false ly eleva geovanna. Not Available [facility] (Outpatient) [address] [place], [address], 11/22/2021 06:26:40 11/23/19 22 11/22/2021 BASIC METAB OLIC PANEL CO2 29 mmol/ L 21-35 Not Available [facility] (Outpatient) [address] [place], [address], 11/22/2021 06:26:40 11/23/19 22 11/22/2021 BASIC METAB OLIC PANEL BUN 16 mg/dL 6-19 Not Available [facility] (Outpatient) [address] [place], [address], 11/22/2021 06:26:40 11/23/19 22 11/22/2021 BASIC METAB OLIC PANEL creatinine 0.60 mg/dL 0.5-1. 5 Not Available [facility] (Outpatient) [address] [place], [id number], 11/22/2021 06:26:40 11/23/19 22 11/22/2021 BASIC METAB OLIC PANEL glucose 80 mg/dL 70-99 Not Available [facility] (Outpatient) [address] [place] [address], [id number], 11/22/2021 06:26:40 11/23/19 22 11/22/2021 BASIC METAB OLIC PANEL calcium 9.6 mg/dL 8.4-10 .3 Not Available [facility] (Outpatient) [address] [place] [address], [id number], 11/22/2021 06:26:40 11/23/19 22 11/22/2021 BASIC METAB OLIC PANEL eGFR 106 mL/mi n/1.7 3m2 >59 Estim ated glome rular filtr ation rate calcu lated using the CKD-E PI refit equat ion. Not Available [facility] (Outpatient) [address] [place] [address], [id number], 11/22/2021 06:26:40 11/23/19 22 11/22/2021 BASIC METAB OLIC PANEL anion gap 14 mmol/ L 10-20 Not Available [facility] (Outpatient) [address] [place] [address], [id number], 11/22/2021 06:26:40 11/23/19 22 11/22/2021 MAGNE SIUM magnesium 2.0 mg/dL 1.6-2. 6 Not Available [facility] (Out[facility]) [address] [place], [address], 11/22/2021 06:26:42 11/23/19 22 11/22/2021 PHOSP HORUS phosphorus 3.8 mg/dL 2.7-4. 5 Not Available [facility] (Out[facility]) [address] [place] [address], [id number], 11/22/2021 06:26:43 11/24/19 22 11/23/2021 CBC AND DIFFE RENTI AL WBC 7.65 K/uL 4.00-1 1.00 Not Available [facility] (Out[facility]) [address] [place] [address], [id number], 11/23/2021 06:44:55 11/24/19 22 11/23/2021 CBC AND DIFFE RENTI AL RBC 4.41 M/uL 3.90-5 .69 Not Available [facility] (Outpatient) [address] [place] [address], [id number], 11/23/2021 06:44:55 11/24/19 22 11/23/2021 CBC AND DIFFE RENTI AL HGB 12.9 g/dL 12.4-1 7.3 Not Available [facility] (Outpatient) [address] [place] [address], [id number], 11/23/2021 06:44:55 11/24/19 22 11/23/2021 CBC AND DIFFE RENTI AL HCT 39.6 % 37.0-5 1.0 Not Available [facility] (Outpatient) [address] [place] [address], [id number], 11/23/2021 06:44:55 11/24/19 22 11/23/2021 CBC AND DIFFE RENTI AL plt 239 K/uL 140-43 0 Not Available [facility] (Outpatient) [address] [place] [address], [id number], 11/23/2021 06:44:55 11/24/19 22 11/23/2021 CBC AND DIFFE RENTI AL MCV 89.8 fL 78.0-9 7.0 Not Available [facility] (Outpatient) [address] [place] [address], [id number], 11/23/2021 06:44:55 11/24/19 22 11/23/2021 CBC AND DIFFE RENTI AL MCH 29.3 pg 25.0-3 3.0 Not Available [facility] (Outpatient) [address] [place] [address], [address], 11/23/2021 06:44:55 11/24/19 22 11/23/2021 CBC AND DIFFE RENTI AL MCHC 32.6 g/dL 32.0-3 6.0 Not Available [facility] (Outpatient) [address] [place], [address], 11/23/2021 06:44:55 11/24/19 22 11/23/2021 CBC AND DIFFE RENTI AL RDW 15.3 % 11.0-1 5.0 high Not Available [facility] (Outpatient) [address] [place] [address], [address], 11/23/2021 06:44:55 11/24/19 22 11/23/2021 CBC AND DIFFE RENTI AL MPV 11.1 fL 8.4-12 .8 Not Available [facility] (Outpatient) [address] [place] [address], [address], 11/23/2021 06:44:55 11/24/19 22 11/23/2021 CBC AND DIFFE RENTI AL NRBC 0.00 /100_ WBCs 0 Not Available [facility] (Outpatient) [address] [place] [address], [address], 11/23/2021 06:44:55 11/24/19 22 11/23/2021 CBC AND DIFFE RENTI AL absolute NRBC 0.00 K/uL 0 Not Available [facility] (Outpatient) [address] [place] [address], [address], 11/23/2021 06:44:55 11/24/19 22 11/23/2021 CBC AND DIFFE RENTI AL diff method AUTO Not Available [facility] (Outpatient) [address] [place] [address], [address], 11/23/2021 06:44:55 11/24/19 22 11/23/2021 CBC AND DIFFE RENTI AL neuts 61.0 % 43.0-7 5.0 Not Available [facility] (Outpatient) [address] [place], [address], 11/23/2021 06:44:55 11/24/19 22 11/23/2021 CBC AND DIFFE RENTI AL lymphs 26.5 % 18.2-4 7.4 Not Available [facility] (Outpatient) [address] [place] [address], [address], 11/23/2021 06:44:55 11/24/19 22 11/23/2021 CBC AND DIFFE RENTI AL monos 11.6 % 4.00-1 1.00 high Not Available [facility] (Outpatient) [address] [place] [address], [address], 11/23/2021 06:44:55 11/24/19 22 11/23/2021 CBC AND DIFFE RENTI AL eos 0.5 % 0.0-8. 0 Not Available [facility] (Outpatient) [address] [place], [address], 11/23/2021 06:44:55 11/24/19 22 11/23/2021 CBC AND DIFFE RENTI AL basos 0.0 % 0.0-2. 0 Not Available [facility] (Outpatient) [address] [place] [address], [address], 11/23/2021 06:44:55 11/24/19 22 11/23/2021 CBC AND DIFFE RENTI AL granulocytes , immature (%) 0.4 % 0.0-0. 9 Not Available [facility] (Outpatient) [address] [place] [address], [address], 11/23/2021 06:44:55 11/24/19 22 11/23/2021 CBC AND DIFFE RENTI AL absolute neuts 4.66 K/uL 1.80-7 .70 Not Available [facility] (Outpatient) [address] [place] [address], [address], 11/23/2021 06:44:55 11/24/19 22 11/23/2021 CBC AND DIFFE RENTI AL absolute lymphs 2.03 K/uL 1.00-3 .10 Not Available [facility] (Outpatient) [address] [place], [address], 11/23/2021 06:44:55 11/24/19 22 11/23/2021 CBC AND DIFFE RENTI AL absolute monos 0.89 K/uL 0.20-0 .80 high Not Available [facility] (Outpatient) [address] [place], [address], 11/23/2021 06:44:55 11/24/19 22 11/23/2021 CBC AND DIFFE RENTI AL absolute eos 0.04 K/uL 0.00-0 .80 Not Available [facility] (Outpatient) [address] [place], [address], 11/23/2021 06:44:55 11/24/19 22 11/23/2021 CBC AND DIFFE RENTI AL absolute basos 0.00 K/uL 0.00-0 .09 Not Available [facility] (Outpatient) [address] [place], [address], 11/23/2021 06:44:55 11/24/19 22 11/23/2021 CBC AND DIFFE RENTI AL granulocytes , immature 0.03 K/uL 0.00-0 .05 Not Available [facility] (Outpatient) [address] [place], [address], 11/23/2021 06:44:55 11/24/19 22 11/23/2021 BASIC METAB OLIC PANEL sodium 130 mmol/ L 133-14 6 low Not Available [facility] (Outpatient) [address] [place], [address], 11/23/2021 06:58:31 11/24/19 22 11/23/2021 BASIC METAB OLIC PANEL chloride 93 mmol/ L 96-108 low Not Available [facility] (Outpatient) [address] [place], [address], 11/23/2021 06:58:31 11/24/19 22 11/23/2021 BASIC METAB OLIC PANEL potassium 4.2 mmol/ L 3.3-5. 1 Speci men sligh tly hemol yzed, resul t may be false ly eleva geovanna. Not Available [facility] (Outpatient) [address] [place], [address], 11/23/2021 06:58:31 11/24/19 22 11/23/2021 BASIC METAB OLIC PANEL CO2 28 mmol/ L 21-35 Not Available [facility] (Outpatient) [address] [place], [address], 11/23/2021 06:58:31 11/24/19 22 11/23/2021 BASIC METAB OLIC PANEL BUN 15 mg/dL 6-19 Not Available [facility] (Outpatient) [address] [place], [address], 11/23/2021 06:58:31 11/24/19 22 11/23/2021 BASIC METAB OLIC PANEL creatinine 0.60 mg/dL 0.5-1. 5 Not Available [facility] (Outpatient) [address] [place], [address], 11/23/2021 06:58:31 11/24/19 22 11/23/2021 BASIC METAB OLIC PANEL glucose 90 mg/dL 70-99 Not Available [facility] (Outpatient) [address] [place], [address], 11/23/2021 06:58:31 11/24/19 22 11/23/2021 BASIC METAB OLIC PANEL calcium 9.5 mg/dL 8.4-10 .3 Not Available [facility] (Outpatient) [address] [place], [address], 11/23/2021 06:58:31 11/24/19 22 11/23/2021 BASIC METAB OLIC PANEL eGFR 106 mL/mi n/1.7 3m2 >59 Estim ated glome rular filtr ation rate calcu lated using the CKD-E PI refit equat ion. Not Available [facility] (Outpatient) [address] [place], [address], 11/23/2021 06:58:31 11/24/19 22 11/23/2021 BASIC METAB OLIC PANEL anion gap 13 mmol/ L 10-20 Not Available [facility] (Outpatient) [address] [place], [address], 11/23/2021 06:58:31 11/24/19 22 11/23/2021 C. DIFFI CILE PCR C.difficile PCR NEGATI VE negati ve Not Available [facility] (Outpatient) [address] [place], [address], 11/23/2021 07:20:56 11/24/19 22 11/23/2021 C. DIFFI CILE PCR C.difficile strain PRESUM PTIVE NEGATI VE presum ptive negati ve Not Available [facility] (Outpatient) [address] [place], [address], 11/23/2021 07:20:56 11/25/19 22 11/24/2021 BASIC METAB OLIC PANEL sodium 138 mmol/ L 133-14 6 Not Available [facility] (Outpatient) [address] [place], [address], 11/24/2021 07:00:23 11/25/19 22 11/24/2021 BASIC METAB OLIC PANEL chloride 99 mmol/ L 96-108 Not Available [facility] (Outpatient) [address] [place], [address], 11/24/2021 07:00:23 11/25/1924 1111/24/2021 BASIC METAB OLIC PANEL potassium 4.0 mmol/ L 3.3-5. 1 Not Available [facility] (Outpatient) [address] [place], [address], 11/24/2021 07:00:23 11/25/19 22 11/24/2021 BASIC METAB OLIC PANEL CO2 30 mmol/ L 21-35 Not Available [facility] (Outpatient) [address] [place], [address], 11/24/2021 07:00:23 11/25/19 22 11/24/2021 BASIC METAB OLIC PANEL BUN 13 mg/dL 6-19 Not Available [facility] (Outpatient) [address] [place] [address], [address], 11/24/2021 07:00:23 11/25/19 22 11/24/2021 BASIC METAB OLIC PANEL creatinine 0.60 mg/dL 0.5-1. 5 Not Available [facility] (Outpatient) [address] [place], [address], 11/24/2021 07:00:23 11/25/19 22 11/24/2021 BASIC METAB OLIC PANEL glucose 88 mg/dL 70-99 Not Available [facility] (Outpatient) [address] [place] [address], [address], 11/24/2021 07:00:23 11/25/19 22 11/24/2021 BASIC METAB OLIC PANEL calcium 9.2 mg/dL 8.4-10 .3 Not Available [facility] (Outpatient) [address] [place] [address], [address], 11/24/2021 07:00:23 11/25/19 22 11/24/2021 BASIC METAB OLIC PANEL eGFR 106 mL/mi n/1.7 3m2 >59 Estim ated glome rular filtr ation rate calcu lated using the CKD-E PI refit equat ion. Not Available [facility] (Outpatient) [address] [place], [address], 11/24/2021 07:00:23 11/25/19 22 11/24/2021 BASIC METAB OLIC PANEL anion gap 13 mmol/ L 10-20 Not Available [facility] (Outpatient) [address] [place], [address], 11/24/2021 07:00:23 11/25/19 22 11/24/2021 MAGNE SIUM magnesium 2.1 mg/dL 1.6-2. 6 Not Available [facility] (Outpatient) [address] [place], [address], 11/24/2021 07:00:25 11/25/19 22 11/24/2021 PHOSP HORUS phosphorus 3.5 mg/dL 2.7-4. 5 Not Available [facility] (Outpatient) [address] [place], [address], 11/24/2021 07:00:26 11/27/19 22 11/26/2021 CBC WBC 7.74 K/uL 4.00-1 1.00 Not Available [facility] (Outpatient) [address] [place], [address], 11/26/2021 06:51:00 11/27/19 22 11/26/2021 CBC RBC 4.31 M/uL 3.90-5 .69 Not Available [facility] (Outpatient) [address] [place], [address], 11/26/2021 06:51:00 11/27/19 22 11/26/2021 CBC HGB 12.8 g/dL 12.4-1 7.3 Not Available [facility] (Outpatient) [address] [place], [address], 11/26/2021 06:51:00 11/27/19 22 11/26/2021 CBC HCT 39.1 % 37.0-5 1.0 Not Available [facility] (Outpatient) [address] [place], [address], 11/26/2021 06:51:00 11/27/19 22 11/26/2021 CBC plt 199 K/uL 140-43 0 Not Available [facility] (Outpatient) [address] [place], [address], 11/26/2021 06:51:00 11/27/19 22 11/26/2021 CBC MCV 90.7 fL 78.0-9 7.0 Not Available [facility] (Outpatient) [address] [place], [address], 11/26/2021 06:51:00 11/27/19 22 11/26/2021 CBC MCH 29.7 pg 25.0-3 3.0 Not Available [facility] (Outpatient) [address] [place] [address], [address], 11/26/2021 06:51:00 11/27/19 22 11/26/2021 CBC MCHC 32.7 g/dL 32.0-3 6.0 Not Available [facility] (Outpatient) [address] [place] [address], [address], 11/26/2021 06:51:00 11/27/19 22 11/26/2021 CBC RDW 16.2 % 11.0-1 5.0 high Not Available [facility] (Outpatient) [address] [place], [address], 11/26/2021 06:51:00 11/27/19 22 11/26/2021 CBC MPV 12.1 fL 8.4-12 .8 Not Available [facility] (Outpatient) [address] [place] [address], [address], 11/26/2021 06:51:00 11/27/19 22 11/26/2021 CBC NRBC 0.00 /100_ WBCs 0 Not Available [facility] (Outpatient) [address] [place], [address], 11/26/2021 06:51:00 11/27/19 22 11/26/2021 CBC absolute NRBC 0.00 K/uL 0 Not Available [facility] (Outpatient) [address] [place], [address], 11/26/2021 06:51:00 11/27/19 22 11/26/2021 BASIC METAB OLIC PANEL sodium 139 mmol/ L 133-14 6 Not Available [facility] (Outpatient) [address] [place], [address], 11/26/2021 08:42:44 11/27/19 22 11/26/2021 BASIC METAB OLIC PANEL chloride 101 mmol/ L 96-108 Not Available [facility] (Outpatient) [address] [place], [address], 11/26/2021 08:42:44 11/27/19 22 11/26/2021 BASIC METAB OLIC PANEL potassium 4.2 mmol/ L 3.3-5. 1 Not Available [facility] (Outpatient) [address] [place], [address], 11/26/2021 08:42:44 11/27/19 22 11/26/2021 BASIC METAB OLIC PANEL CO2 31 mmol/ L 21-35 Not Available [facility] (Outpatient) [address] [place], [address], 11/26/2021 08:42:44 11/27/19 22 11/26/2021 BASIC METAB OLIC PANEL BUN 14 mg/dL 6-19 Not Available [facility] (Outpatient) [address] [place], [address], 11/26/2021 08:42:44 11/27/19 22 11/26/2021 BASIC METAB OLIC PANEL creatinine 0.50 mg/dL 0.5-1. 5 Not Available [facility] (Outpatient) [address] [place], [address], 11/26/2021 08:42:44 11/27/19 22 11/26/2021 BASIC METAB OLIC PANEL glucose 112 mg/dL 70-99 high Not Available [facility] (Outpatient) [address] [place], [address], 11/26/2021 08:42:44 11/27/19 22 11/26/2021 BASIC METAB OLIC PANEL calcium 9.3 mg/dL 8.4-10 .3 Not Available [facility] (Outpatient) [address] [place], [address], 11/26/2021 08:42:44 11/27/19 22 11/26/2021 BASIC METAB OLIC PANEL eGFR 112 mL/mi n/1.7 3m2 >59 Estim ated glome rular filtr ation rate calcu lated using the CKD-E PI refit equat ion. Not Available [facility] (Outpatient) [address] [place], [address], 11/26/2021 08:42:44 11/27/19 22 11/26/2021 BASIC METAB OLIC PANEL anion gap 11 mmol/ L 10-20 Not Available [facility] (Outpatient) [address] [place], [address], 11/26/2021 08:42:44 12/01/19 22 11/30/2021 BASIC METAB OLIC PANEL sodium 139 mmol/ L 133-14 6 Not Available [facility] (Outpatient) [address] [place], [address], 11/30/2021 07:19:26 12/01/19 22 11/30/2021 BASIC METAB OLIC PANEL chloride 102 mmol/ L 96-108 Not Available [facility] (Outpatient) [address] [place], [address], 11/30/2021 07:19:26 12/01/19 22 11/30/2021 BASIC METAB OLIC PANEL potassium 4.2 mmol/ L 3.3-5. 1 Not Available [facility] (Outpatient) [address] [place], [address], 11/30/2021 07:19:26 12/01/19 22 11/30/2021 BASIC METAB OLIC PANEL CO2 30 mmol/ L 21-35 Not Available [facility] (Outpatient) [address] [place], [address], 11/30/2021 07:19:26 12/01/19 22 11/30/2021 BASIC METAB OLIC PANEL BUN 15 mg/dL 6-19 Not Available [facility] (Outpatient) [address] [place], [address], 11/30/2021 07:19:26 12/01/19 22 11/30/2021 BASIC METAB OLIC PANEL creatinine 0.50 mg/dL 0.5-1. 5 Not Available [facility] (Outpatient) [address] [place], [address], 11/30/2021 07:19:26 12/01/19 22 11/30/2021 BASIC METAB OLIC PANEL glucose 84 mg/dL 70-99 Not Available [facility] (Outpatient) [address] [place], [address], 11/30/2021 07:19:26 12/01/19 22 11/30/2021 BASIC METAB OLIC PANEL calcium 9.3 mg/dL 8.4-10 .3 Not Available [facility] (Outpatient) [address] [place], [address], 11/30/2021 07:19:26 12/01/19 22 11/30/2021 BASIC METAB OLIC PANEL eGFR 112 mL/mi n/1.7 3m2 >59 Estim ated glome rular filtr ation rate calcu lated using the CKD-E PI refit equat ion. Not Available [facility] (Outpatient) [address] [place], [address], 11/30/2021 07:19:26 12/01/19 22 11/30/2021 BASIC METAB OLIC PANEL anion gap 11 mmol/ L 10-20 Not Available [facility] (Outpatient) [address] [place], [address], 11/30/2021 07:19:26 12/01/19 22 11/30/2021 MAGNE SIUM magnesium 2.0 mg/dL 1.6-2. 6 Not Available [facility] (Outpatient) [address] [place], [address], 11/30/2021 07:19:28 12/01/19 22 11/30/2021 PHOSP HORUS phosphorus 3.6 mg/dL 2.7-4. 5 Not Available [facility] (Outpatient) [address] [place], [address], 11/30/2021 07:19:29 12/02/19 22 12/01/2021 CBC WBC 7.33 K/uL 4.00-1 1.00 Not Available [facility] (Outpatient) [address] [place], [address], 12/01/2021 06:02:39 12/02/19 22 12/01/2021 CBC RBC 3.88 M/uL 3.90-5 .69 low Not Available [facility] (Outpatient) [address] [place], [address], 12/01/2021 06:02:39 12/02/19 22 12/01/2021 CBC HGB 11.4 g/dL 12.4-1 7.3 low Not Available [facility] (Outpatient) [address] [place], [address], 12/01/2021 06:02:39 12/02/19 22 12/01/2021 CBC HCT 36.0 % 37.0-5 1.0 low Not Available [facility] (Outpatient) [address] [place] [address], [address], 12/01/2021 06:02:39 12/02/19 22 12/01/2021 CBC plt 160 K/uL 140-43 0 Not Available [facility] (Outpatient) [address] [place], [address], 12/01/2021 06:02:39 12/02/19 22 12/01/2021 CBC MCV 92.8 fL 78.0-9 7.0 Not Available [facility] (Outpatient) [address] [place] [address], [address], 12/01/2021 06:02:39 12/02/19 22 12/01/2021 CBC MCH 29.4 pg 25.0-3 3.0 Not Available [facility] (Outpatient) [address] [place] [address], [address], 12/01/2021 06:02:39 12/02/19 22 12/01/2021 CBC MCHC 31.7 g/dL 32.0-3 6.0 low Not Available [facility] (Outpatient) [address] [place] [address], [address], 12/01/2021 06:02:39 12/02/19 22 12/01/2021 CBC RDW 17.2 % 11.0-1 5.0 high Not Available [facility] (Outpatient) [address] [place] [address], [address], 12/01/2021 06:02:39 12/02/19 22 12/01/2021 CBC MPV 11.4 fL 8.4-12 .8 Not Available [facility] (Outpatient) [address] [place] [address], [address], 12/01/2021 06:02:39 12/02/19 22 12/01/2021 CBC NRBC 0.00 /100_ WBCs 0 Not Available [facility] (Outpatient) [address] [place] [address], [address], 12/01/2021 06:02:39 12/02/19 22 12/01/2021 CBC absolute NRBC 0.00 K/uL 0 Not Available [facility] (Outpatient) [address] [place] [address], [address], 12/01/2021 06:02:39 12/27/19 22 12/26/2021 CBC AND DIFFE RENTI AL WBC 9.32 K/uL 4.00-1 1.00 Not Available [facility] (Outpatient) [address] [place] [address], [address], 12/26/2021 16:02:15 12/27/19 22 12/26/2021 CBC AND DIFFE RENTI AL RBC 3.82 M/uL 3.90-5 .69 low Not Available [facility] (Outpatient) [address] [place] [address], [address], 12/26/2021 16:02:15 12/27/19 22 12/26/2021 CBC AND DIFFE RENTI AL HGB 11.2 g/dL 12.4-1 7.3 low Not Available [facility] (Outpatient) [address] [place] [address], [address], 12/26/2021 16:02:15 12/27/19 22 12/26/2021 CBC AND DIFFE RENTI AL HCT 36.6 % 37.0-5 1.0 low Not Available [facility] (Outpatient) [address] [place] [address], [address], 12/26/2021 16:02:15 12/27/19 22 12/26/2021 CBC AND DIFFE RENTI AL plt 277 K/uL 140-43 0 Not Available [facility] (Outpatient) [address] [place] [address], [address], 12/26/2021 16:02:15 12/27/19 22 12/26/2021 CBC AND DIFFE RENTI AL MCV 95.8 fL 78.0-9 7.0 Not Available [facility] (Outpatient) [address] [place], [address], 12/26/2021 16:02:15 12/27/19 22 12/26/2021 CBC AND DIFFE RENTI AL MCH 29.3 pg 25.0-3 3.0 Not Available [facility] (Outpatient) [address] [place], [address], 12/26/2021 16:02:15 12/27/19 22 12/26/2021 CBC AND DIFFE RENTI AL MCHC 30.6 g/dL 32.0-3 6.0 low Not Available [facility] (Outpatient) [address] [place] [address], [address], 12/26/2021 16:02:15 12/27/19 22 12/26/2021 CBC AND DIFFE RENTI AL RDW 17.2 % 11.0-1 5.0 high Not Available [facility] (Outpatient) [address] [place] [address], [address], 12/26/2021 16:02:15 12/27/19 22 12/26/2021 CBC AND DIFFE RENTI AL MPV 10.0 fL 8.4-12 .8 Not Available [facility] (Outpatient) [address] [place], [address], 12/26/2021 16:02:15 12/27/19 22 12/26/2021 CBC AND DIFFE RENTI AL NRBC 0.00 /100_ WBCs 0 Not Available [facility] (Outpatient) [address] [place], [address], 12/26/2021 16:02:15 12/27/19 22 12/26/2021 CBC AND DIFFE RENTI AL absolute NRBC 0.00 K/uL 0 Not Available [facility] (Outpatient) [address] [place], [address], 12/26/2021 16:02:15 12/27/19 22 12/26/2021 CBC AND DIFFE RENTI AL diff method AUTO Not Available [facility] (Outpatient) [address] [place], [address], 12/26/2021 16:02:15 12/27/19 22 12/26/2021 CBC AND DIFFE RENTI AL neuts 84.1 % 43.0-7 5.0 high Not Available [facility] (Outpatient) [address] [place], [address], 12/26/2021 16:02:15 12/27/19 22 12/26/2021 CBC AND DIFFE RENTI AL lymphs 11.5 % 18.2-4 7.4 low Not Available [facility] (Outpatient) [address] [place], [address], 12/26/2021 16:02:15 12/27/19 22 12/26/2021 CBC AND DIFFE RENTI AL monos 2.8 % 4.00-1 1.00 low Not Available [facility] (Outpatient) [address] [place], [address], 12/26/2021 16:02:15 12/27/19 22 12/26/2021 CBC AND DIFFE RENTI AL eos 0.0 % 0.0-8. 0 Not Available [facility] (Outpatient) [address] [place], [address], 12/26/2021 16:02:15 12/27/19 22 12/26/2021 CBC AND DIFFE RENTI AL basos 0.1 % 0.0-2. 0 Not Available [facility] (Outpatient) [address] [place], [address], 12/26/2021 16:02:15 12/27/19 22 12/26/2021 CBC AND DIFFE RENTI AL granulocytes , immature (%) 1.5 % 0.0-0. 9 high Not Available [facility] (Outpatient) [address] [place], [address], 12/26/2021 16:02:15 12/27/19 22 12/26/2021 CBC AND DIFFE RENTI AL absolute neuts 7.84 K/uL 1.80-7 .70 high Not Available [facility] (Outpatient) [address] [place], [address], 12/26/2021 16:02:15 12/27/19 22 12/26/2021 CBC AND DIFFE RENTI AL absolute lymphs 1.07 K/uL 1.00-3 .10 Not Available [facility] (Outpatient) [address] [place], [address], 12/26/2021 16:02:15 12/27/19 22 12/26/2021 CBC AND DIFFE RENTI AL absolute monos 0.26 K/uL 0.20-0 .80 Not Available [facility] (Outpatient) [address] [place], [address], 12/26/2021 16:02:15 12/27/19 22 12/26/2021 CBC AND DIFFE RENTI AL absolute eos 0.00 K/uL 0.00-0 .80 Not Available [facility] (Outpatient) [address] [place], [address], 12/26/2021 16:02:15 12/27/19 22 12/26/2021 CBC AND DIFFE RENTI AL absolute basos 0.01 K/uL 0.00-0 .09 Not Available [facility] (Outpatient) [address] [place], [address], 12/26/2021 16:02:15 12/27/19 22 12/26/2021 CBC AND DIFFE RENTI AL granulocytes , immature 0.14 K/uL 0.00-0 .05 high Not Available [facility] (Outpatient) [address] [place], [address], 12/26/2021 16:02:15 12/27/19 22 12/26/2021 BASIC METAB OLIC PANEL sodium 139 mmol/ L 133-14 6 Not Available [facility] (Outpatient) [address] [place], [address], 12/26/2021 16:25:04 12/27/19 22 12/26/2021 BASIC METAB OLIC PANEL chloride 102 mmol/ L 96-108 Not Available [facility] (Outpatient) [address] [place], [address], 12/26/2021 16:25:04 12/27/19 22 12/26/2021 BASIC METAB OLIC PANEL potassium 3.9 mmol/ L 3.3-5. 1 Not Available [facility] (Outpatient) [address] [place], [address], 12/26/2021 16:25:04 12/27/19 22 12/26/2021 BASIC METAB OLIC PANEL CO2 26 mmol/ L 21-35 Not Available [facility] (Outpatient) [address] [place], [address], 12/26/2021 16:25:04 12/27/19 22 12/26/2021 BASIC METAB OLIC PANEL BUN 17 mg/dL 6-19 Not Available [facility] (Outpatient) [address] [place], [address], 12/26/2021 16:25:04 12/27/19 22 12/26/2021 BASIC METAB OLIC PANEL creatinine 0.60 mg/dL 0.5-1. 5 Not Available [facility] (Outpatient) [address] [place], [address], 12/26/2021 16:25:04 12/27/19 22 12/26/2021 BASIC METAB OLIC PANEL glucose 178 mg/dL 70-99 high Not Available [facility] (Outpatient) [address] [place], [address], 12/26/2021 16:25:04 12/27/19 22 12/26/2021 BASIC METAB OLIC PANEL calcium 8.8 mg/dL 8.4-10 .3 Not Available [facility] (Out[facility]) [address] [place], [address], 12/26/2021 16:25:04 12/27/19 22 12/26/2021 BASIC METAB OLIC PANEL eGFR 106 mL/mi n/1.7 3m2 >59 Estim ated glome rular filtr ation rate calcu lated using the CKD-E PI refit equat ion. Not Available [facility] (Outpatient) [address] [place], [address], 12/26/2021 16:25:04 12/27/19 22 12/26/2021 BASIC METAB OLIC PANEL anion gap 15 mmol/ L 10-20 Not Available [facility] (Out[facility]) [address] [place], [address], 12/26/2021 16:25:04 12/27/19 22 12/26/2021 LFTS (HEPA TIC PANEL ) alkaline phosphatase 65 U/L 39-117 Not Available [facility] (Outpatient) [address] [place], [address], 12/26/2021 16:25:06 12/27/19 22 12/26/2021 LFTS (HEPA TIC PANEL ) total bilirubin 0.3 mg/dL 0.0-1. 2 Not Available [facility] (Outpatient) [address] [place], [address], 12/26/2021 16:25:06 12/27/19 22 12/26/2021 LFTS (HEPA TIC PANEL ) direct bilirubin <0.2 mg/dL 0-0.3 Not Available [facility] (Outpatient) [address] [place], [address], 12/26/2021 16:25:06 12/27/19 22 12/26/2021 LFTS (HEPA TIC PANEL ) bilirubin (indirect) NOT CALCUL ATED mg/dL 0-1.5 Not Available [facility] (Outpatient) [address] [place], [address], 12/26/2021 16:25:06 12/27/19 22 12/26/2021 LFTS (HEPA TIC PANEL ) AST 17 U/L 0-37 Not Available [facility] (Outpatient) [address] [place], [address], 12/26/2021 16:25:06 12/27/19 22 12/26/2021 LFTS (HEPA TIC PANEL ) ALT 23 U/L 0-40 Not Available [facility] (Outpatient) [address] [place], [address], 12/26/2021 16:25:06 12/27/19 22 12/26/2021 LFTS (HEPA TIC PANEL ) total protein 7.2 g/dL 6.5-8. 0 Not Available [facility] (Outpatient) [address] [place], [address], 12/26/2021 16:25:06 12/27/19 22 12/26/2021 LFTS (HEPA TIC PANEL ) albumin 3.4 g/dL 3.9-4. 8 low Not Available [facility] (Outpatient) [address] [place], [address], 12/26/2021 16:25:06 12/27/19 22 12/26/2021 LFTS (HEPA TIC PANEL ) globulin 3.8 g/dL 1-4.8 Not Available [facility] (Outpatient) [address] [place], [address], 12/26/2021 16:25:06 12/27/19 22 12/26/2021 LFTS (HEPA TIC PANEL ) A/G ratio 0.89 ratio 1.00-4 .80 low Not Available [facility] (Outpatient) [address] [place], [address], 12/26/2021 16:25:06 12/27/19 22 12/26/2021 MAGNE SIUM magnesium 1.9 mg/dL 1.6-2. 6 Not Available [facility] (Outpatient) [address] [place], [address], 12/26/2021 16:25:07 12/27/19 22 12/26/2021 URINA LYSIS W/REF FLORIN URINE CULTU RE color YELLOW yellow Not Available [facility] (Outpatient) [address] [place], [address], 12/26/2021 19:09:51 12/27/19 22 12/26/2021 URINA LYSIS W/REF FLORIN URINE CULTU RE clarity HAZY Not Available [facility] (Outpatient) [address] [place], [address], 12/26/2021 19:09:51 12/27/19 22 12/26/2021 URINA LYSIS W/REF FLORIN URINE CULTU RE glucose NEGATI VE negati ve Not Available [facility] (Outpatient) [address] [place], [address], 12/26/2021 19:09:51 12/27/19 22 12/26/2021 URINA LYSIS W/REF FLORIN URINE CULTU RE bili NEGATI VE negati ve Not Available [facility] (Outpatient) [address] [place], [address], 12/26/2021 19:09:51 12/27/19 22 12/26/2021 URINA LYSIS W/REF FLORIN URINE CULTU RE ketones TRACE negati ve abnormal Not Available [facility] (Outpatient) [address] [place], [address], 12/26/2021 19:09:51 12/27/19 22 12/26/2021 URINA LYSIS W/REF FLORIN URINE CULTU RE specific gravity >1.030 1.005- 1.030 Not Available [facility] (Outpatient) [address] [place], [address], 12/26/2021 19:09:51 12/27/19 22 12/26/2021 URINA LYSIS W/REF FLORIN URINE CULTU RE blood TRACE negati ve abnormal Not Available [facility] (Outpatient) [address] [place], [address], 12/26/2021 19:09:51 12/27/19 22 12/26/2021 URINA LYSIS W/REF FLORIN URINE CULTU RE pH 6.0 5.0-8. 0 Not Available [facility] (Outpatient) [address] [place], [address], 12/26/2021 19:09:51 12/27/19 22 12/26/2021 URINA LYSIS W/REF FLORIN URINE CULTU RE protein TRACE negati ve abnormal Not Available [facility] (Outpatient) [address] [place], [address], 12/26/2021 19:09:51 12/27/19 22 12/26/2021 URINA LYSIS W/REF FLORIN URINE CULTU RE nitrite NEGATI VE negati ve Not Available [facility] (Outpatient) [address] [place], [address], 12/26/2021 19:09:51 12/27/19 22 12/26/2021 URINA LYSIS W/REF FLORIN URINE CULTU RE leukocyte esterase, ur NEGATI VE negati ve Not Available [facility] (Outpatient) [address] [place], [address], 12/26/2021 19:09:51 12/29/19 22 12/28/2021 CBC WBC 8.14 K/uL 4.00-1 1.00 Not Available [facility] (Outpatient) [address] [place], [address], 12/28/2021 06:07:43 12/29/19 22 12/28/2021 CBC RBC 3.81 M/uL 3.90-5 .69 low Not Available [facility] (Outpatient) [address] [place], [address], 12/28/2021 06:07:43 12/29/19 22 12/28/2021 CBC HGB 11.1 g/dL 12.4-1 7.3 low Not Available [facility] (Out[facility]) [address] [place] [address], [id number], 12/28/2021 06:07:43 12/29/19 22 12/28/2021 CBC HCT 35.6 % 37.0-5 1.0 low Not Available [facility] (Outpatient) [address] [place] [address], [address], 12/28/2021 06:07:43 12/29/19 22 12/28/2021 CBC plt 264 K/uL 140-43 0 Not Available [facility] (Outpatient) [address] [place] [address], [address], 12/28/2021 06:07:43 12/29/19 22 12/28/2021 CBC MCV 93.4 fL 78.0-9 7.0 Not Available [facility] (Outpatient) [address] [place] [address], [address], 12/28/2021 06:07:43 12/29/19 22 12/28/2021 CBC MCH 29.1 pg 25.0-3 3.0 Not Available [facility] (Outpatient) [address] [place], [address], 12/28/2021 06:07:43 12/29/19 22 12/28/2021 CBC MCHC 31.2 g/dL 32.0-3 6.0 low Not Available [facility] (Outpatient) [address] [place], [address], 12/28/2021 06:07:43 12/29/19 22 12/28/2021 CBC RDW 17.2 % 11.0-1 5.0 high Not Available [facility] (Outpatient) [address] [place], [address], 12/28/2021 06:07:43 12/29/19 22 12/28/2021 CBC MPV 10.2 fL 8.4-12 .8 Not Available [facility] (Outpatient) [address] [place] [address], [address], 12/28/2021 06:07:43 12/29/19 22 12/28/2021 CBC NRBC 0.00 /100_ WBCs 0 Not Available [facility] ([facility]) [address] [place] [address], [address], 12/28/2021 06:07:43 12/29/19 22 12/28/2021 CBC absolute NRBC 0.00 K/uL 0 Not Available [facility] ([facility]) [address] [place] [address], [address], 12/28/2021 06:07:43 12/29/19 22 12/28/2021 COMPR EHENS MRABIN METAB OLIC PANEL sodium 141 mmol/ L 133-14 6 Not Available [facility] ([facility]) [address] [place] [address], [address], 12/28/2021 06:20:26 12/29/19 22 12/28/2021 COMPR EHENS MARBIN METAB OLIC PANEL potassium 3.7 mmol/ L 3.3-5. 1 Not Available [facility] (Outpatient) [address] [place], [address], 12/28/2021 06:20:26 12/29/19 22 12/28/2021 COMPR EHENS MARBIN METAB OLIC PANEL chloride 105 mmol/ L 96-108 Not Available [facility] (Outpatient) [address] [place], [address], 12/28/2021 06:20:26 12/29/19 22 12/28/2021 COMPR EHENS MARBIN METAB OLIC PANEL CO2 26 mmol/ L 21-35 Not Available [facility] (Outpatient) [address] [place], [address], 12/28/2021 06:20:26 12/29/19 22 12/28/2021 COMPR EHENS MARBIN METAB OLIC PANEL BUN 12 mg/dL 6-19 Not Available [facility] (Outpatient) [address] [place], [address], 12/28/2021 06:20:26 12/29/19 22 12/28/2021 COMPR EHENS MARBIN METAB OLIC PANEL creatinine 0.50 mg/dL 0.5-1. 5 Not Available [facility] (Outpatient) [address] [place], [address], 12/28/2021 06:20:26 12/29/19 22 12/28/2021 COMPR EHENS MARBIN METAB OLIC PANEL glucose 100 mg/dL 70-99 high Not Available [facility] (Outpatient) [address] [place], [address], 12/28/2021 06:20:26 12/29/19 22 12/28/2021 COMPR EHENS MARBIN METAB OLIC PANEL albumin 3.2 g/dL 3.9-4. 8 low Not Available [facility] (Outpatient) [address] [place], [address], 12/28/2021 06:20:26 12/29/19 22 12/28/2021 COMPR EHENS MARBIN METAB OLIC PANEL total protein 7.0 g/dL 6.5-8. 0 Not Available [facility] (Outpatient) [address] [place], [address], 12/28/2021 06:20:26 12/29/19 22 12/28/2021 COMPR EHENS MARBIN METAB OLIC PANEL calcium 8.6 mg/dL 8.4-10 .3 Not Available [facility] (Outpatient) [address] [place], [address], 12/28/2021 06:20:26 12/29/19 22 12/28/2021 COMPR EHENS MARBIN METAB OLIC PANEL alkaline phosphatase 62 U/L 39-117 Not Available [facility] (Outpatient) [address] [place] [address], [address], 12/28/2021 06:20:26 12/29/19 22 12/28/2021 COMPR EHENS MARBIN METAB OLIC PANEL total bilirubin 0.3 mg/dL 0.0-1. 2 Not Available [facility] (Outpatient) [address] [place], [address], 12/28/2021 06:20:26 12/29/19 22 12/28/2021 COMPR EHENS MARBIN METAB OLIC PANEL AST 12 U/L 0-37 Not Available [facility] (Outpatient) [address] [place], [address], 12/28/2021 06:20:26 12/29/19 22 12/28/2021 COMPR EHENS MARBIN METAB OLIC PANEL ALT 21 U/L 0-40 Not Available [facility] (Outpatient) [address] [place] [address], [address], 12/28/2021 06:20:26 12/29/19 22 12/28/2021 COMPR EHENS MARBIN METAB OLIC PANEL globulin 3.8 g/dL 1-4.8 Not Available [facility] (Outpatient) [address] [place], [address], 12/28/2021 06:20:26 12/29/19 22 12/28/2021 COMPR EHENS MARBIN METAB OLIC PANEL eGFR 112 mL/mi n/1.7 3m2 >59 Estim ated glome rular filtr ation rate calcu lated using the CKD-E PI refit equat ion. Not Available [facility] (Outpatient) [address] [place], [address], 12/28/2021 06:20:26 12/29/19 22 12/28/2021 COMPR EHENS MARBIN METAB OLIC PANEL anion gap 14 mmol/ L 10-20 Not Available [facility] (Outpatient) [address] [place], [address], 12/28/2021 06:20:26 12/29/19 22 12/28/2021 MAGNE SIUM magnesium 2.1 mg/dL 1.6-2. 6 Not Available [facility] (Outpatient) [address] [place], [address], 12/28/2021 06:20:28 12/29/19 22 12/28/2021 PHOSP HORUS phosphorus 3.7 mg/dL 2.7-4. 5 Not Available [facility] (Outpatient) [address] [place], [address], 12/28/2021 06:20:29 01/01/20 22 12/31/2021 CBC WBC 7.84 K/uL 4.00-1 1.00 Not Available [facility] (Outpatient) [address] [place], [address], 12/31/2021 07:06:31 01/01/20 22 12/31/2021 CBC RBC 4.13 M/uL 3.90-5 .69 Not Available [facility] (Outpatient) [address] [place], [address], 12/31/2021 07:06:31 01/01/20 22 12/31/2021 CBC HGB 12.3 g/dL 12.4-1 7.3 low Not Available [facility] (Outpatient) [address] [place], [address], 12/31/2021 07:06:31 01/01/20 22 12/31/2021 CBC HCT 39.0 % 37.0-5 1.0 Not Available [facility] (Outpatient) [address] [place], [address], 12/31/2021 07:06:31 01/01/20 22 12/31/2021 CBC plt 237 K/uL 140-43 0 Not Available [facility] (Outpatient) [address] [place], [address], 12/31/2021 07:06:31 01/01/20 22 12/31/2021 CBC MCV 94.4 fL 78.0-9 7.0 Not Available [facility] (Outpatient) [address] [place], [address], 12/31/2021 07:06:31 01/01/20 22 12/31/2021 CBC MCH 29.8 pg 25.0-3 3.0 Not Available [facility] ([facility]patient) [address] [place], [address], 12/31/2021 07:06:31 01/01/20 22 12/31/2021 CBC MCHC 31.5 g/dL 32.0-3 6.0 low Not Available [facility] (Outpatient) [address] [place], [address], 12/31/2021 07:06:31 01/01/20 22 12/31/2021 CBC RDW 17.1 % 11.0-1 5.0 high Not Available [facility] (Outpatient) [address] [place], [address], 12/31/2021 07:06:31 01/01/20 22 12/31/2021 CBC MPV 10.9 fL 8.4-12 .8 Not Available [facility] (Outpatient) [address] [place], [address], 12/31/2021 07:06:31 01/01/20 22 12/31/2021 CBC NRBC 0.00 /100_ WBCs 0 Not Available [facility] ([facility]) [address] [place], [address], 12/31/2021 07:06:31 01/01/20 22 12/31/2021 CBC absolute NRBC 0.00 K/uL 0 Not Available [facility] (Outpatient) [address] [place], [address], 12/31/2021 07:06:31 01/01/20 22 12/31/2021 BASIC METAB OLIC PANEL sodium 142 mmol/ L 133-14 6 Not Available [facility] ([facility]patient) [address] [place], [address], 12/31/2021 07:27:45 01/01/20 22 12/31/2021 BASIC METAB OLIC PANEL chloride 101 mmol/ L 96-108 Not Available [facility] (Outpatient) [address] [place], [address], 12/31/2021 07:27:45 01/01/20 22 12/31/2021 BASIC METAB OLIC PANEL potassium 4.1 mmol/ L 3.3-5. 1 Not Available [facility] (Outpatient) [address] [place], [address], 12/31/2021 07:27:45 01/01/20 22 12/31/2021 BASIC METAB OLIC PANEL CO2 31 mmol/ L 21-35 Not Available [facility] ([facility]patient) [address] [place], [address], 12/31/2021 07:27:45 01/01/20 22 12/31/2021 BASIC METAB OLIC PANEL BUN 19 mg/dL 6-19 Not Available [facility] (Outpatient) [address] [place], [address], 12/31/2021 07:27:45 01/01/20 22 12/31/2021 BASIC METAB OLIC PANEL creatinine 0.70 mg/dL 0.5-1. 5 Not Available [facility] (Outpatient) [address] [place], [address], 12/31/2021 07:27:45 01/01/20 22 12/31/2021 BASIC METAB OLIC PANEL glucose 91 mg/dL 70-99 Not Available [facility] (Outpatient) [address] [place], [address], 12/31/2021 07:27:45 01/01/20 22 12/31/2021 BASIC METAB OLIC PANEL calcium 9.3 mg/dL 8.4-10 .3 Not Available [facility] (Outpatient) [address] [place], [address], 12/31/2021 07:27:45 01/01/20 22 12/31/2021 BASIC METAB OLIC PANEL eGFR 101 mL/mi n/1.7 3m2 >59 Estim ated glome rular filtr ation rate calcu lated using the CKD-E PI refit equat ion. Not Available [facility] (Outpatient) [address] [place], [address], 12/31/2021 07:27:45 01/01/20 22 12/31/2021 BASIC METAB OLIC PANEL anion gap 14 mmol/ L 10-20 Not Available [facility] (Outpatient) [address] [place], [address], 12/31/2021 07:27:45 01/03/20 22 01/02/2022 COMPR EHENS MARBIN METAB OLIC PANEL sodium 139 mmol/ L 133-14 6 Not Available [facility] ([facility]) [address] [place], [address], 01/02/2022 06:34:21 01/03/20 22 01/02/2022 COMPR EHENS MARBIN METAB OLIC PANEL potassium 4.3 mmol/ L 3.3-5. 1 Not Available [facility] (Outpatient) [address] [place], [address], 01/02/2022 06:34:21 01/03/20 22 01/02/2022 COMPR EHENS MARBIN METAB OLIC PANEL chloride 101 mmol/ L 96-108 Not Available [facility] ([facility]patient) [address] [place], [address], 01/02/2022 06:34:21 01/03/20 22 01/02/2022 COMPR EHENS MARBIN METAB OLIC PANEL CO2 28 mmol/ L 21-35 Not Available [facility] ([facility]patient) [address] [place], [address], 01/02/2022 06:34:21 01/03/20 22 01/02/2022 COMPR EHENS MARBIN METAB OLIC PANEL BUN 18 mg/dL 6-19 Not Available [facility] ([facility]patient) [address] [place], [address], 01/02/2022 06:34:21 01/03/20 22 01/02/2022 COMPR EHENS MARBIN METAB OLIC PANEL creatinine 0.60 mg/dL 0.5-1. 5 Not Available [facility] (Outpatient) [address] [place], [address], 01/02/2022 06:34:21 01/03/20 22 01/02/2022 COMPR EHENS MARBIN METAB OLIC PANEL glucose 114 mg/dL 70-99 high Not Available [facility] (Outpatient) [address] [place], [address], 01/02/2022 06:34:21 01/03/20 22 01/02/2022 COMPR EHENS MARBIN METAB OLIC PANEL albumin 3.4 g/dL 3.9-4. 8 low Not Available [facility] (Outpatient) [address] [place], [address], 01/02/2022 06:34:21 01/03/20 22 01/02/2022 COMPR EHENS MARBIN METAB OLIC PANEL total protein 7.5 g/dL 6.5-8. 0 Not Available [facility] (Outpatient) [address] [place], [address], 01/02/2022 06:34:21 01/03/20 22 01/02/2022 COMPR EHENS MARBIN METAB OLIC PANEL calcium 9.5 mg/dL 8.4-10 .3 Not Available [facility] ([facility]patient) [address] [place], [address], 01/02/2022 06:34:21 01/03/20 22 01/02/2022 COMPR EHENS MARBIN METAB OLIC PANEL alkaline phosphatase 64 U/L 39-117 Not Available [facility] (Outpatient) [address] [place], [address], 01/02/2022 06:34:21 01/03/20 22 01/02/2022 COMPR EHENS MARBIN METAB OLIC PANEL total bilirubin 0.4 mg/dL 0.0-1. 2 Not Available [facility] (Outpatient) [address] [place], [address], 01/02/2022 06:34:21 01/03/20 22 01/02/2022 COMPR EHENS MARBIN METAB OLIC PANEL AST 10 U/L 0-37 Not Available [facility] (Outpatient) [address] [place], [address], 01/02/2022 06:34:21 01/03/20 22 01/02/2022 COMPR EHENS MARBIN METAB OLIC PANEL ALT 15 U/L 0-40 Not Available [facility] (Outpatient) [address] [place], [address], 01/02/2022 06:34:21 01/03/20 22 01/02/2022 COMPR EHENS MARBIN METAB OLIC PANEL globulin 4.1 g/dL 1-4.8 Not Available [facility] (Outpatient) [address] [place], [address], 01/02/2022 06:34:21 01/03/20 22 01/02/2022 COMPR EHENS MARBIN METAB OLIC PANEL eGFR 106 mL/mi n/1.7 3m2 >59 Estim ated glome rular filtr ation rate calcu lated using the CKD-E PI refit equat ion. Not Available [facility] (Outpatient) [address] [place], [address], 01/02/2022 06:34:21 01/03/20 22 01/02/2022 COMPR EHENS MARBIN METAB OLIC PANEL anion gap 14 mmol/ L 10-20 Not Available [facility] (Outpatient) [address] [place], [address], 01/02/2022 06:34:21 01/05/20 22 01/04/2022 CBC WBC 8.34 K/uL 4.00-1 1.00 Not Available [facility] ([facility]) [address] [place], [address], 01/04/2022 06:59:31 01/05/20 22 01/04/2022 CBC RBC 3.85 M/uL 3.90-5 .69 low Not Available [facility] (Outpatient) [address] [place], [address], 01/04/2022 06:59:31 01/05/20 22 01/04/2022 CBC HGB 11.4 g/dL 12.4-1 7.3 low Not Available [facility] ([facility]) [address] [place], [address], 01/04/2022 06:59:31 01/05/20 22 01/04/2022 CBC HCT 36.6 % 37.0-5 1.0 low Not Available [facility] (Outpatient) [address] [place], [address], 01/04/2022 06:59:31 01/05/20 22 01/04/2022 CBC plt 223 K/uL 140-43 0 Not Available [facility] ([facility]) [address] [place], [address], 01/04/2022 06:59:31 01/05/20 22 01/04/2022 CBC MCV 95.1 fL 78.0-9 7.0 Not Available [facility] (Outpatient) [address] [place], [address], 01/04/2022 06:59:31 01/05/20 22 01/04/2022 CBC MCH 29.6 pg 25.0-3 3.0 Not Available [facility] (Outpatient) [address] [place], [address], 01/04/2022 06:59:31 01/05/20 22 01/04/2022 CBC MCHC 31.1 g/dL 32.0-3 6.0 low Not Available [facility] (Outpatient) [address] [place], [address], 01/04/2022 06:59:31 01/05/20 22 01/04/2022 CBC RDW 16.7 % 11.0-1 5.0 high Not Available [facility] (Outpatient) [address] [place], [address], 01/04/2022 06:59:31 01/05/20 22 01/04/2022 CBC MPV 11.3 fL 8.4-12 .8 Not Available [facility] (Outpatient) [address] [place], [address], 01/04/2022 06:59:31 01/05/20 22 01/04/2022 CBC NRBC 0.00 /100_ WBCs 0 Not Available [facility] (Outpatient) [address] [place], [address], 01/04/2022 06:59:31 01/05/20 22 01/04/2022 CBC absolute NRBC 0.00 K/uL 0 Not Available [facility] (Outpatient) [address] [place], [address], 01/04/2022 06:59:31 01/05/20 22 01/04/2022 BASIC METAB OLIC PANEL sodium 142 mmol/ L 133-14 6 Not Available [facility] (Outpatient) [address] [place], [address], 01/04/2022 07:08:43 01/05/20 22 01/04/2022 BASIC METAB OLIC PANEL chloride 102 mmol/ L 96-108 Not Available [facility] (Outpatient) [address] [place], [address], 01/04/2022 07:08:43 01/05/20 22 01/04/2022 BASIC METAB OLIC PANEL potassium 4.6 mmol/ L 3.3-5. 1 Not Available [facility] (Outpatient) [address] [place], [address], 01/04/2022 07:08:43 01/05/20 22 01/04/2022 BASIC METAB OLIC PANEL CO2 31 mmol/ L 21-35 Not Available [facility] (Outpatient) [address] [place], [address], 01/04/2022 07:08:43 01/05/20 22 01/04/2022 BASIC METAB OLIC PANEL BUN 21 mg/dL 6-19 high Not Available [facility] (Outpatient) [address] [place], [address], 01/04/2022 07:08:43 01/05/20 22 01/04/2022 BASIC METAB OLIC PANEL creatinine 0.70 mg/dL 0.5-1. 5 Not Available [facility] (Outpatient) [address] [place], [address], 01/04/2022 07:08:43 01/05/20 22 01/04/2022 BASIC METAB OLIC PANEL glucose 79 mg/dL 70-99 Not Available [facility] (Outpatient) [address] [place], [address], 01/04/2022 07:08:43 01/05/20 22 01/04/2022 BASIC METAB OLIC PANEL calcium 9.6 mg/dL 8.4-10 .3 Not Available [facility] (Outpatient) [address] [place], [address], 01/04/2022 07:08:43 01/05/20 22 01/04/2022 BASIC METAB OLIC PANEL eGFR 101 mL/mi n/1.7 3m2 >59 Estim ated glome rular filtr ation rate calcu lated using the CKD-E PI refit equat ion. Not Available [facility] (Outpatient) [address] [place], [address], 01/04/2022 07:08:43 01/05/20 22 01/04/2022 BASIC METAB OLIC PANEL anion gap 14 mmol/ L 10-20 Not Available [facility] (Outpatient) [address] [place], [address], 01/04/2022 07:08:43 01/11/20 22 01/10/2022 CBC WBC 7.59 K/uL 4.00-1 1.00 Not Available [facility] (Outpatient) [address] [place], [address], 01/10/2022 09:13:40 01/11/20 22 01/10/2022 CBC RBC 3.78 M/uL 3.90-5 .69 low Not Available [facility] (Outpatient) [address] [place], [address], 01/10/2022 09:13:40 01/11/20 22 01/10/2022 CBC HGB 11.5 g/dL 12.4-1 7.3 low Not Available [facility] (Outpatient) [address] [place], [address], 01/10/2022 09:13:40 01/11/20 22 01/10/2022 CBC HCT 36.3 % 37.0-5 1.0 low Not Available [facility] (Outpatient) [address] [place], [address], 01/10/2022 09:13:40 01/11/20 22 01/10/2022 CBC plt 221 K/uL 140-43 0 Not Available [facility] (Outpatient) [address] [place], [address], 01/10/2022 09:13:40 01/11/20 22 01/10/2022 CBC MCV 96.0 fL 78.0-9 7.0 Not Available [facility] (Outpatient) [address] [place], [address], 01/10/2022 09:13:40 01/11/20 22 01/10/2022 CBC MCH 30.4 pg 25.0-3 3.0 Not Available [facility] (Outpatient) [address] [place], [address], 01/10/2022 09:13:40 01/11/20 22 01/10/2022 CBC MCHC 31.7 g/dL 32.0-3 6.0 low Not Available [facility] (Outpatient) [address] [place], [address], 01/10/2022 09:13:40 01/11/20 22 01/10/2022 CBC RDW 16.6 % 11.0-1 5.0 high Not Available [facility] (Outpatient) [address] [place], [address], 01/10/2022 09:13:40 01/11/20 22 01/10/2022 CBC MPV 11.3 fL 8.4-12 .8 Not Available [facility] (Outpatient) [address] [place], [address], 01/10/2022 09:13:40 01/11/20 22 01/10/2022 CBC NRBC 0.00 /100_ WBCs 0 Not Available [facility] (Outpatient) [address] [place], [address], 01/10/2022 09:13:40 01/11/20 22 01/10/2022 CBC absolute NRBC 0.00 K/uL 0 Not Available [facility] (Outpatient) [address] [place], [address], 01/10/2022 09:13:40 01/11/20 22 01/10/2022 CREAT ININE /EGFR creatinine 0.70 mg/dL 0.5-1. 5 Not Available [facility] (Outpatient) [address] [place], [address], 01/10/2022 09:21:15 01/11/20 22 01/10/2022 CREAT ININE /EGFR eGFR 101 mL/mi n/1.7 3m2 >59 Estim ated glome rular filtr ation rate calcu lated using the CKD-E PI refit equat ion. Not Available [facility] (Outpatient) [address] [place], [address], 01/10/2022 09:21:15 07/02/19 22 07/02/2021 trans -thor acic echoc ardio gram (TTE) (PROC ) No observ ation record ed. [facility] (Pulmonary Lab) [address] [place], [address], 07/11/2021 15:07:57 07/05/19 22 07/02/2021 elect ridge ephal ogram No observ ation record ed. [place] [id number] Not Available 07/06 12:05:35 07/05/19 22 07/05/2021 left ventr icula r eject ion fract ion No observ ation record ed. [email or web address] (Pulmonary Lab) [address] [place], [address], 07/06/2021 12:05:35 07/24/19 22 07/24/2021 CT, brain , w/o contr ast No observ ation record ed. [facility] [address] [place], [address], 07/26/2021 17:09:56 07/24/19 22 07/24/2021 CT, brain , w/wo contr ast No observ ation record ed. [facility] [address] [place], [address], 07/26/2021 17:09:57 07/24/19 CT, angio gram, head No observ ation [facility] ed. [email or web address] 07/26 17:09:57 07/24/19 22 07/24/2021 MRI, brain , w/wo contr ast No observ ation record ed. [facility] Diagnosit Imaging Dept [address] [place], [address], 07/26/2021 17:09:57 07/29/19 22 07/29/2021 XR, knee, 1 or 2 view No observ ation record ed. [email or web address] [facility] Diagnosit Imaging Dept [address] [place], [address], 07/29/2021 15:27:06 07/29/19 22 07/29/2021 US, duple x, venou s, extre mity No observ ation record ed. [address] Diagnosit Imaging Dept [address] [place], [address], 07/30/2021 10:07:57 08/05/19 22 08/04/2021 CT, brain , w/o contr ast No observ ation record ed. [address] Diagnosit Imaging Dept [address] [place], [address], 08/05/2021 13:45:40 08/10/19 22 08/09/2021 XR, chest , 2 view No observ ation record ed. [address] Diagnosit Imaging Dept [address] [place], [address], 08/10/2021 08:48:06 08/31/19 22 08/30/2021 XR, chest XR CHEST PORTAB LE COMPAR DAVIAN: None. FINDIN GS: Device s/Tube s/Line s: Cathet er/christina in is seen over the heart. Lungs: Patien t is lordot ic. No focal consol idatio n or pulmon shannon edema. Pleura : No pleura l effusi on or pneumo thorax . Heart/ Medias tinum: Normal heart and medias tinum. IMPRES JANE: No acute proces s. Electr onical ly Signed by: Dieter Perez on 022 1:13 PM Interp reted by: Dieter Perez MD Signed by: Dieter Perez MD 2 Final result PT c/o fatigu e MARLENE MEDEL [facility] Diagnostic Imaging [address] [facility], [place], [address], 08/30/2021 16:05:57 08/31/19 22 08/30/2021 CT, head, w/o contr ast CT HEAD WITHOU T CONTRA ST TECHNI QUE: Multid etecto r-row CT of the head was perfor med withou t intrav enous contra st using tailor ed dose modula tion techni ques. Images were recons tructe d in the axial, briscoe l, and sagitt al planes . COMPAR DAVIAN: None FINDIN GS: Brain Parenc hyma: No midlin e shift, mass effect , parenc hymal hemorr vivien, or eviden ce of acute territ orial infarc t. There are areas of hypode nsity in the perive ntricu lar white matter , likely a manife statio n of chroni c small vessel diseas e. Ventri cular System and Extra- Axial Spaces : The ventri cles and sulci are enlarg ed propor tional to involu tional change . No extra- axial fluid collec tions. Basila r cister ns are patent . No hydroc ephalu s. Osseou s and Extrac ranial Struct ures: Right maxill shannon sinus mucus retent ion cysts. Frothy secret ions in the left spheno id sinus. No orbita l abnorm ality. IMPRES JANE: 1.No acute intrac ranial findin gs. ATTEST ATION: I, Melody vitale as teachi ng physic kevin, have review ed the images for this case and if necess shannon edited the report origin praanv guan d by Pepito Rivera . Electr onical ly Signed by: Melody vitale on 022 1:36 PM Interp reted by: Tyrone vitale MD, MPH Pepito Rivera MD Signed by: Tyrone vitale MD, MPH 2 Final result MARLENE [email or web address] [facility] Diagnostic Imaging [address] [facility], [place], [address], 08/31/2021 12:26:08 10/30/19 22 10/29/2021 XR, chest , 1 view XR CHEST 1 VIEW COMPAR DAVIAN: XR CHEST PORTAB LE FINDIN GS: Lines/ tubes: None. Lungs: The lungs are well inflat ed and clear. There is no eviden ce of pneumo jeff or pulmon shannon edema. Pleura : There is no pleura l effusi on or pneumo thorax . Heart and medias tinum: The heart and the medias tinum are unchan ged. Bones: The thorac ic skelet on is unchan ged. IMPRES JANE: No radiog raphic eviden ce of pneumo jeff or pulmon shannon edema. Electr onical ly Signed by: Dr. Silvia Shirley on 022 3:21 PM Interp reted by: Silvia Shirley MD Signed by: Silvia Shirley MD 2 Final result P.S. COUGH MARLENE MEDEL MAN [facility] Diagnostic Imaging [address] [facility], [place], [address], 10/29/2021 17:49:32 10/30/19 22 10/29/2021 CT angio head with contr ast, CT angio neck with contr ast CT HEAD WITHOU T CONTRA ST, CT ANGIO HEAD WITH CONTRA ST, CT ANGIO NECK WITH CONTRA ST TECHNI QUE: Multid etecto r-row CTA of the head was perfor med with admini strati on of intrav enous contra st using tailor ed dose modula tion techni ques. Images were recons tructe d in the axial, briscoe l, and sagitt al planes , includ ing angiog raphic image post-p rocess ing. 3D angiog raphic images with reform atting and post-p rocess ing recons tructi ons were perfor med and interp reted. Multid etecto r-row CTA of neck was also perfor med after admini strati on of intrav enous contra st using tailor ed dose modula tion techni ques. Images were recons tructe d in the axial, briscoe l, and sagitt al planes . 3D angiog raphic images with reform atting and post-p rocess ing recons tructi ons were perfor med and interp reted. COMPAR DAVIAN: CT HEAD WITHOU T CONTRA ST - FINDIN GS: HEAD CT: Brain Parenc hyma: No midlin e shift, mass effect , parenc hymal hemorr vivien, or eviden ce of acute territ orial infarc t. No enhanc ing abnorm ality. There are areas of hypode nsity in the perive ntricu lar white matter , likely a manife statio n of chroni c small vessel diseas e. Simila r areas of hypode nsity within the bilate ral cerebe llar hemisp heres, right middle cerebe llar pedunc le, right nataliia and right cerebr al pedunc le, likely reflec ting sequel a of prior infarc tion. Intrac ranial vascul ar calcif icatio ns. Ventri cular System and Extra- Axial Spaces : No extra- axial fluid collec tions. Basal cister ns are patent . No hydroc ephalu s. Osseou s and Extrac ranial Struct ures: Mild mucosa l thicke cullen of parana mike sinuse s. Bilate ral maxill shannon sinuse s retent ion cysts. No orbita l abnorm ality. No calvar ial lesion is identi fied. Bilate ral TMJ degene ration , right greate r than left. CTA HEAD: Anteri or Circul ation: No aneury sm, arteri ovenou s malfor mation or thromb osis. The intrac ranial internet consultant al caroti d arteri es are patent . The anteri or and middle cerebr al arteri es are patent . An anteri or commun icatin g artery is presen t. Modera te to severe stenos is along the cavern ous and suprac linoid along the bilate ral ICAs, right greate r than left. Soils Engineer ior Circul ation: No aneury sm, arteri ovenou s malfor mation or thromb osis. The intrac ranial verteb ral arteri es and the basila r are patent . The auction block clerk ior cerebr al arteri es are patent bilate rally. Soils Engineer ior commun icatin g arteri es are presen t bilate rally. Long segmen t severe stenos is and subtot al occlus ion of the intrad ural left verteb ral artery with the sugges tion of wall thicke cullen (3; 253). Diminu tive and irregu lar appear ance of the V3 and proxim al intrad ural right verteb ral artery with severe stenos is and the sugges tion of wall thicke cullen (3; 254) Venous Struct ures: No thromb osis. CTA NECK: Aortic arch was exclud ed from the field of imagin g. Right Common Caroti d Artery : No stenos is, occlus ion or dissec tion. Right Granite Polisher al Caroti d Artery : No occlus ion or dissec tion. Left Common Caroti d Artery : No stenos is, occlus ion or dissec tion. Left Granite Polisher al Caroti d Artery : No occlus ion or dissec tion. Elevator Adjuster al Caroti d Arteri es: No stenos is, occlus ion or dissec tion. Right Verteb ral Artery : No stenos is, occlus ion or dissec tion. Left Verteb ral Artery : No stenos is, occlus ion or dissec tion. NON-VA SCULAR FINDIN GS Thyroi d: No thyroi d nodule s. Lines/ tubes: None. Lungs and Airway s: No mass in the imaged lung apices and centra l airway s. Soft tissue s: No adenop athy. Bones: Straig htenin g of normal cervic al lordos is. Multil evel degene rative change s. IMPRES JANE: 1.No acute intrac ranial abnorm ality. Multif ocal auction block clerk ior fossa enceph alomal acia, likely repres enting sequel a of prior infarc tion. 2.Long segmen t subtot al occlus ion of the left intrad ural verteb ral artery with distal recons tituti on at the level of the verteb robasi lar conflu ence, likely retrog rade from the right. Diminu tive and irregu lar appear ance of the V3/V4 segmen t right verteb ral artery with severe stenos is. Appare nt associ ated wall thicke cullen of both distal verteb ral arteri es may reflec t sequel a of prior dissec tion or underl irene vascul itis/v asculo mary. 3.Mode rate to severe stenos is of the bilate ral cavern ous and suprac linoid ICAs, right greate r than left. Findin gs may be relate d to athero sclero sis, Brown-m oya or an underl irene vascul itis/v asculo mary. 4.Aort ic arch was exclud ed from the field of imagin g. A clinic ally signif icant result was commun icated and docume nted via a closed loop commun icatio n system . ATTEST ATION: I, Lucho Collazo as teachi ng physic kevin, have review ed the images for this case and if necess shannon edited the report origin pranav guan d by Ye light . Electr onical ly Signed by: Lucho Collazo on 022 4:24 PM Interp reted by: Lucho Collazo, DO Ye light MD, MPH Signed by: Lucho Collazo, 2 Final result [id number] Open Critic al AARON LIGHT [id number] MARLENE CROW [facility] Diagnostic Imaging [address] [place], [address], 10/29/2021 17:49:33 10/30/19 22 10/29/2021 CT, head, w/o contr ast CT HEAD WITHOU T CONTRA ST, CT ANGIO HEAD WITH CONTRA ST, CT ANGIO NECK WITH CONTRA ST TECHNI QUE: Multid etecto r-row CTA of the head was perfor med with admini strati on of intrav enous contra st using tailor ed dose modula tion techni ques. Images were recons tructe d in the axial, briscoe l, and sagitt al planes , includ ing angiog raphic image post-p rocess ing. 3D angiog raphic images with reform atting and post-p rocess ing recons tructi ons were perfor med and interp reted. Multid etecto r-row CTA of neck was also perfor med after admini strati on of intrav enous contra st using tailor ed dose modula tion techni ques. Images were recons tructe d in the axial, briscoe l, and sagitt al planes . 3D angiog raphic images with reform atting and post-p rocess ing recons tructi ons were perfor med and interp reted. COMPAR DAVIAN: CT HEAD WITHOU T CONTRA ST ar-28 FINDIN GS: HEAD CT: Brain Parenc hyma: No midlin e shift, mass effect , parenc hymal hemorr vivien, or eviden ce of acute territ orial infarc t. No enhanc ing abnorm ality. There are areas of hypode nsity in the perive ntricu lar white matter , likely a manife statio n of chroni c small vessel diseas e. Simila r areas of hypode nsity within the bilate ral cerebe llar hemisp heres, right middle cerebe llar pedunc le, right nataliia and right cerebr al pedunc le, likely reflec ting sequel a of prior infarc tion. Intrac ranial vascul ar calcif icatio ns. Ventri cular System and Extra- Axial Spaces : No extra- axial fluid collec tions. Basal cister ns are patent . No hydroc ephalu s. Osseou s and Extrac ranial Struct ures: Mild mucosa l thicke cullen of parana mike sinuse s. Bilate ral maxill shannon sinuse s retent ion cysts. No orbita l abnorm ality. No calvar ial lesion is identi fied. Bilate ral TMJ degene ration , right greate r than left. CTA HEAD: Anteri or Circul ation: No aneury sm, arteri ovenou s malfor mation or thromb osis. The intrac ranial internet consultant al caroti d arteri es are patent . The anteri or and middle cerebr al arteri es are patent . An anteri or commun icatin g artery is presen t. Modera te to severe stenos is along the cavern ous and suprac linoid along the bilate ral ICAs, right greate r than left. Soils Engineer ior Circul ation: No aneury sm, arteri ovenou s malfor mation or thromb osis. The intrac ranial verteb ral arteri es and the basila r are patent . The auction block clerk ior cerebr al arteri es are patent bilate rally. Soils Engineer ior commun icatin g arteri es are presen t bilate rally. Long segmen t severe stenos is and subtot al occlus ion of the intrad ural left verteb ral artery with the sugges tion of wall thicke cullen (3; 253). Diminu tive and irregu lar appear ance of the V3 and proxim al intrad ural right verteb ral artery with severe stenos is and the sugges tion of wall thicke cullen (3; 254) Venous Struct ures: No thromb osis. CTA NECK: Aortic arch was exclud ed from the field of lian ho. Right Common Caroti d Artery : No stenos is, occlus ion or dissec tion. Right Granite Polisher al Caroti d Artery : No occlus ion or dissec tion. Left Common Caroti d Artery : No stenos is, occlus ion or dissec tion. Left Granite Polisher al Caroti d Artery : No occlus ion or dissec tion. Elevator Adjuster al Caroti d Arteri es: No stenos is, occlus ion or dissec tion. Right Verteb ral Artery : No stenos is, occlus ion or dissec tion. Left Verteb ral Artery : No stenos is, occlus ion or dissec tion. NON-VA SCULAR FINDIN GS Thyroi d: No thyroi d nodule s. Lines/ tubes: None. Lungs and Airway s: No mass in the imaged lung apices and centra l airway s. Soft tissue s: No adenop athy. Bones: Straig htenin g of normal cervic al lordos is. Multil evel degene rative change s. IMPRES JANE: 1.No acute intrac ranial abnorm ality. Multif ocal auction block clerk ior fossa enceph alomal acia, likely repres enting sequel a of prior infarc tion. 2.Long segmen t subtot al occlus ion of the left intrad ural verteb ral artery with distal recons tituti on at the level of the verteb robasi lar conflu ence, likely retrog rade from the right. Diminu tive and irregu lar appear ance of the V3/V4 segmen t right verteb ral artery with severe stenos is. Appare nt associ ated wall thicke cullen of both distal verteb ral arteri es may reflec t sequel a of prior dissec tion or underl irene vascul itis/v asculo mary. 3.Mode rate to severe stenos is of the bilate ral cavern ous and suprac linoid ICAs, right greate r than left. Findin gs may be relate d to athero sclero sis, Brown-m oya or an underl irene vascul itis/v asculo mary. 4.Aort ic arch was exclud ed from the field of lian ho. A clinic ally signif icant result was commun icated and docume nted via a closed loop commun icatio n system . ATTEST ATION: Smith Terrell as teachi alejandro physic kevin, have review ed the images for this case and if necess shannon edited the report origin ally create d by Ye light . Electr onical ly Signed by: Lucho Collazo on 4:24 PM Interp reted by: Lucho Collazo, DO Ye light MD, MPH Signed by: Lucho Collazo DO Final result MARLENE CROW [facility] Diagnostic Imaging [address] [facility] [place], [address], 10/29/2021 17:49:33 11/01/19 22 10/31/2021 XR, chest XR CHEST PORTAB LE COMPAR DAVIAN: chest radiog raph. FINDIN GS: Device s/Tube s/Line s: None. Lungs: Ill-de fined nodula r opacit y is seen projec ting over the left hilum, better seen on curren t examin ation. Otherw ise, no focal consol idatio n or pulmon shannon edema. Pleura : No pleura l effusi on or pneumo thorax . Heart/ Medias tinum: Unchan ged in appear ance. Bones/ Soft Tissue s: Degene rative change s of the thorac ic spine. Healed fractu re of the left sixth left rib. Healed mid clavic le fractu re. IMPRES JANE: 1. Ill-de fined nodula r opacit y in the left perihi lar region . CT is recomm ended to exclud e underl irene neopla sm. 2. No signs overt edema. A clinic ally signif icant result was commun icated and docume nted via a closed loop commun icatio n system . Electr onical ly Signed by: Walter Holbrook uti on 10:23 AM Interp reted by: Estefany goncalves MD Signed by: Estefany goncalves MD Final result PT s/p worsen ing cough, fever; Cough [id number] Open Critic al TOREY HOLBROOK UTI [email or web address] [place] [address] Diagnostic Imaging [address] [facility], [place], [address], 11/01/2021 15:52:07 11/01/1910/31/2021 MRI, brain , w/o contr ast MRI BRAIN WITHOU T CONTRA ST TECHNI QUE: Multi- sequen ce, multi- planar MRI of the brain was perfor med withou t intrav enous contra st. COMPAR DAVIAN: CT October 29, 2021 FINDIN GS: Study is degrad ed due to motion artifa ct. Brain Parenc hyma: No eviden ce of acute infarc t, mass or hemorr vivien. There are scatte red foci of T2 hyperi ntensi ty in the white matter , likely a manife statio n of chroni c small vessel diseas e. Multif ocal enceph alomal acia involv ing both cerebe llar as well as right anteri or mid brain and nataliia; sequel ae of remote infarc ts. Ventri cular System and Extra- Axial Spaces : The ventri cles and cortic al sulci are promin ent, as common ly seen in patien ts of this age. No eviden ce of midlin e shift or hydroc ephalu s. Extrac ranial Struct ures: Arteri al flow voids in the skull base are presen t. IMPRES JANE: 1.No acute infarc t, mass lesion or hemorr vivien. 2.Mult ifocal enceph alomal acia involv ing both cerebe llar as well as right anteri or mid brain and ntaaliia; sequel ae of remote infarc ts. 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 Concer n for new stroke . Patien t was uncoop erativ e - utiliz ed PROPEL LER motion insens itive sequen cedric and repeat ed most sequen cedric - sent the best ones to PACS. MARLENE Sadia MEDEL TRISTIN [email or web address] [facility] Diagnostic Imaging [address] [facility], [place], [address], 11/01/2021 15:52:08 12/25/19 22 11/01/2021 XR, chest No observ ation record ed. [email or web address] Not Available 2021 12:39:42 12/27/19 22 12/26/2021 CT, cervi nidia spine , w/o contr ast CT HEAD WITHOU T CONTRA ST, CT CERVIC AL SPINE WITHOU T CONTRA ST Reason for exam (per EHR order) : * Head trauma , minor (Age >= 65y) TECHNI QUE: 1.Nonc ontras t head CT, includ ing multip lanar reform ations . 2.Nonc ontras t cervic al spine CT, includ ing multip lanar reform ations . COMPAR DAVIAN: October 2021 FINDIN GS: HEAD: Brain Parenc hyma: There are areas of hypode nsity in the perive ntricu lar white matter likely a manife statio n of chroni c small vessel diseas e. No midlin e shift, mass effect , parenc hymal hemorr vivien, or eviden ce of acute territ orial infarc t. Chroni c infarc ts involv ing the bilate ral cerebe llum and brains tem redemo nstrat ed. Mass Ventri cular System and Extra- Axial Spaces : The ventri cles and sulci are promin ent. No extra- axial fluid collec tions. Basila r cister ns are patent . No hydroc ephalu s. Calvar ium, Skull Base, and Sella: No calvar ial fractu re. No signif icant soft tissue hemato ma. Parana mike Sinuse s and Mastoi d Air Cells: Normal . Orbits : Normal . CERVIC AL SPINE: Cranio cervic al Juncti on: Normal atlant o-occi pital and atlant o-axia l relati onship s. Alignm ent and Curvat ure: No trauma tic malali gnment or pulmon shannon. Verteb barbara and disc spaces : No acute fractu re. Multil evel degene rative change s. Malign ant arteri al normal . Diffus e urinar y bladde r wall thicke cullen likely relate d to chroni c bladde r outlet obstru ction from enlarg ed prosta te versus cystit is. Sugges t correl ation with urinal ysis. Soft Tissue s: No prever tebral soft tissue swelli ng. Lung Apices : Normal . IMPRES JANE: 1.No acute intrac ranial abnorm ality. 2.No acute fractu re or trauma tic malali gnment involv ing the cervic al spine. Electr onical ly Signed by: Sanjana sorensen on 022 4:07 PM Interp reted by: Sanjana sorensen MD Signed by: Sanjana sorensen MD 2 Final result MARLENE CROW [email or web address] [facility] Diagnostic Imaging [address] [facility], [place], [address], 12/27/2021 10:46:20 12/27/19 22 12/26/2021 CT, head, w/o contr ast CT HEAD WITHOU T CONTRA ST, CT CERVIC AL SPINE WITHOU T CONTRA ST Reason for exam (per EHR order) : * Head trauma , minor (Age >= 65y) TECHNI QUE: 1.Nonc ontras t head CT, includ ing multip lanar reform ations . 2.Nonc ontras t cervic al spine CT, includ ing multip lanar reform ations . COMPAR DAVIAN: October 2021 FINDIN GS: HEAD: Brain Parenc hyma: There are areas of hypode nsity in the perive ntricu lar white matter likely a manife statio n of chroni c small vessel diseas e. No midlin e shift, mass effect , parenc hymal hemorr vivien, or eviden ce of acute territ orial infarc t. Chroni c infarc ts involv ing the bilate ral cerebe llum and brains tem redemo nstrat ed. Mass Ventri cular System and Extra- Axial Spaces : The ventri cles and sulci are promin ent. No extra- axial fluid collec tions. Basila r cister ns are patent . No hydroc ephalu s. Calvar ium, Skull Base, and Sella: No calvar ial fractu re. No signif icant soft tissue hemato ma. Parana mike Sinuse s and Mastoi d Air Cells: Normal . Orbits : Normal . CERVIC AL SPINE: Cranio cervic al Juncti on: Normal atlant o-occi pital and atlant o-axia l relati onship s. Alignm ent and Curvat ure: No trauma tic malali gnment or pulmon shannon. Verteb barbara and disc spaces : No acute fractu re. Multil evel degene rative change s. Malign ant arteri al normal . Diffus e urinar y bladde r wall thicke cullen likely relate d to chroni c bladde r outlet obstru ction from enlarg ed prosta te versus cystit is. Sugges t correl ation with urinal ysis. Soft Tissue s: No prever tebral soft tissue swelli ng. Lung Apices : Normal . IMPRES JANE: 1.No acute intrac ranial abnorm ality. 2.No acute fractu re or trauma tic malali gnment involv ing the cervic al spine. Electr onical ly Signed by: Sanjana sorensen on 022 4:07 PM Interp reted by: Sanjana sorensen MD Signed by: Sanjana sorensen MD 2 Final result MARLENE CROW [email or web address] [facility] Diagnostic Imaging [address] , [place], [address], 12/27/2021 10:46:20 12/28/19 22 12/26/2021 CT, cervi nidia spine , w/o contr ast ADDEND UM: The addend um was create d to jenifer t typogr aphica l errors in the body of report due to inadve rtent activa tion of dictat ion device . Please read the report as follow . CT HEAD WITHOU T CONTRA ST, CT CERVIC AL SPINE WITHOU T CONTRA ST Reason for exam (per EHR order) : * Head trauma , minor (Age >= 65y) TECHNI QUE: 1.Nonc ontras t head CT, includ ing multip lanar reform ations . 2.Nonc ontras t cervic al spine CT, includ ing multip lanar reform ations . COMPAR DAVIAN: October 2021 FINDIN GS: HEAD: Brain Parenc hyma: There are areas of hypode nsity in the perive ntricu lar white matter likely a manife statio n of chroni c small vessel diseas e. No midlin e shift, mass effect , parenc hymal hemorr vivien, or eviden ce of acute territ orial infarc t. Chroni c infarc ts involv ing the bilate ral cerebe llum and brains tem redemo nstrat ed. Ventri cular System and Extra- Axial Spaces : The ventri cles and sulci are promin ent. No extra- axial fluid collec tions. Basila r cister ns are patent . No hydroc ephalu s. Calvar ium, Skull Base, and Sella: No calvar ial fractu re. No signif icant soft tissue hemato ma. Parana mike Sinuse s and Mastoi d Air Cells: Normal . Orbits : Normal . CERVIC AL SPINE: Cranio cervic al Juncti on: Normal atlant o-occi pital and atlant o-axia l relati onship s. Alignm ent and Curvat ure: No trauma tic malali gnment or pulmon shannon. Verteb barbara and disc spaces : No acute fractu re. Multil evel degene rative change s. Soft Tissue s: No prever tebral soft tissue swelli ng. Lung Apices : Normal . IMPRES JANE: 1.No acute intrac ranial abnorm ality. 2.No acute fractu re or trauma tic malali gnment involv ing the cervic al spine. Electr onical ly Signed by: Sanjana sorensen on 022 7:21 AM Addend ed MonDec 27, 2021 7:21 AM by Sanjana sorensen MD CT HEAD WITHOU T CONTRA ST, CT CERVIC AL SPINE WITHOU T CONTRA ST Reason for exam (per EHR order) : * Head trauma , minor (Age >= 65y) TECHNI QUE: 1.Nonc ontras t head CT, includ ing multip lanar reform ations . 2.Nonc ontras t cervic al spine CT, includ ing multip lanar reform ations . COMPAR DAVIAN: October 2021 FINDIN GS: HEAD: Brain Parenc hyma: There are areas of hypode nsity in the perive ntricu lar white matter likely a manife statio n of chroni c small vessel diseas e. No midlin e shift, mass effect , parenc hymal hemorr vivien, or eviden ce of acute territ orial infarc t. Chroni c infarc ts involv ing the bilate ral cerebe llum and brains tem redemo nstrat ed. Mass Ventri cular System and Extra- Axial Spaces : The ventri cles and sulci are promin ent. No extra- axial fluid collec tions. Basila r cister ns are patent . No hydroc ephalu s. Calvar ium, Skull Base, and Sella: No calvar ial fractu re. No signif icant soft tissue hemato ma. Parana mike Sinuse s and Mastoi d Air Cells: Normal . Orbits : Normal . CERVIC AL SPINE: Cranio cervic al Juncti on: Normal atlant o-occi pital and atlant o-axia l relati onship s. Alignm ent and Curvat ure: No trauma tic malali gnment or pulmon shannon. Verteb barbara and disc spaces : No acute fractu re. Multil evel degene rative change s. Malign ant arteri al normal . Diffus e urinar y bladde r wall thicke cullen likely relate d to chroni c bladde r outlet obstru ction from enlarg ed prosta te versus cystit is. Sugges t correl ation with urinal ysis. Soft Tissue s: No prever tebral soft tissue swelli ng. Lung Apices : Normal . IMPRES JANE: 1.No acute intrac ranial abnorm ality. 2.No acute fractu re or trauma tic malali gnment involv ing the cervic al spine. Electr onical ly Signed by: Sanjana sorensen on 022 4:07 PM Interp reted by: Sanjana sorensen MD Signed by: Sanjana sorensen MD 2 Edited Result - FINAL MARLENE caicedo [facility] Diagnostic Imaging [address] [facility], [place], [address], 12/27/2021 10:46:21 12/28/19 22 12/26/2021 CT, head, w/o contr ast ADDEND UM: The addend um was create d to correc t typogr aphica l errors in the body of report due to inadve rtent activa tion of dictat ion device . Please read the report as follow . CT HEAD WITHOU T CONTRA ST, CT CERVIC AL SPINE WITHOU T CONTRA ST Reason for exam (per EHR order) : * Head trauma , minor (Age >= 65y) TECHNI QUE: 1.Nonc ontras t head CT, includ ing multip lanar reform ations . 2.Nonc ontras t cervic al spine CT, includ ing multip lanar reform ations . COMPAR DAVIAN: October 2021 FINDIN GS: HEAD: Brain Parenc hyma: There are areas of hypode nsity in the perive ntricu lar white matter likely a manife statio n of chroni c small vessel diseas e. No midlin e shift, mass effect , parenc hymal hemorr vivien, or eviden ce of acute territ orial infarc t. Chroni c infarc ts involv ing the bilate ral cerebe llum and brains tem redemo nstrat ed. Ventri cular System and Extra- Axial Spaces : The ventri cles and sulci are promin ent. No extra- axial fluid collec tions. Basila r cister ns are patent . No hydroc ephalu s. Calvar ium, Skull Base, and Sella: No calvar ial fractu re. No signif icant soft tissue hemato ma. Parana mike Sinuse s and Mastoi d Air Cells: Normal . Orbits : Normal . CERVIC AL SPINE: Cranio cervic al Juncti on: Normal atlant o-occi pital and atlant o-axia l relati onship s. Alignm ent and Curvat ure: No trauma tic malali gnment or pulmon shannon. Verteb barbara and disc spaces : No acute fractu re. Multil evel degene rative change s. Soft Tissue s: No prever tebral soft tissue swelli ng. Lung Apices : Normal . IMPRES JANE: 1.No acute intrac ranial abnorm ality. 2.No acute fractu re or trauma tic malali gnment involv ing the cervic al spine. Electr onical ly Signed by: Sanjana sorensen on 022 7:21 AM Addend ed MonDec 27, 2021 7:21 AM by Sanjana sorensen MD CT HEAD WITHOU T CONTRA ST, CT CERVIC AL SPINE WITHOU T CONTRA ST Reason for exam (per EHR order) : * Head trauma , minor (Age >= 65y) TECHNI QUE: 1.Nonc ontras t head CT, includ ing multip lanar reform ations . 2.Nonc ontras t cervic al spine CT, includ ing multip lanar reform ations . COMPAR DAVIAN: October 2021 FINDIN GS: HEAD: Brain Parenc hyma: There are areas of hypode nsity in the perive ntricu lar white matter likely a manife statio n of chroni c small vessel diseas e. No midlin e shift, mass effect , parenc hymal hemorr vivien, or eviden ce of acute territ orial infarc t. Chroni c infarc ts involv ing the bilate ral cerebe llum and brains tem redemo nstrat ed. Mass Ventri cular System and Extra- Axial Spaces : The ventri cles and sulci are promin ent. No extra- axial fluid collec tions. Basila r cister ns are patent . No hydroc ephalu s. Calvar ium, Skull Base, and Sella: No calvar ial fractu re. No signif icant soft tissue hemato ma. Parana mike Sinuse s and Mastoi d Air Cells: Normal . Orbits : Normal . CERVIC AL SPINE: Cranio cervic al Juncti on: Normal atlant o-occi pital and atlant o-axia l relati onship s. Alignm ent and Curvat ure: No trauma tic malali gnment or pulmon shannon. Verteb barbara and disc spaces : No acute fractu re. Multil evel degene rative change s. Malign ant arteri al normal . Diffus e urinar y bladde r wall thicke cullen likely relate d to chroni c bladde r outlet obstru ction from enlarg ed prosta te versus cystit is. Sugges t correl ation with urinal ysis. Soft Tissue s: No prever tebral soft tissue swelli ng. Lung Apices : Normal . IMPRES JANE: 1.No acute intrac ranial abnorm ality. 2.No acute fractu re or trauma tic malali gnment involv ing the cervic al spine. Electr onical ly Signed by: Sanjana sorensen on 022 4:07 PM Interp reted by: Sanjana sorensen MD Signed by: Sanjana sorensen MD 2 Edited Result - FINAL MARLENE [email or web address] [place] [address] Diagnostic Imaging [address] [facility], [place], [address], 12/27/2021 10:46:21 12/30/19 22 11/01/2021 CT, angio gram, chest , w/ contr ast No observ ation record ed. BARCODE Not Available 2021 12:44:34 12/31/19 22 12/30/2021 CT, chest , w/ contr ast CT CHEST WITH CONTRA ST TECHNI QUE: Multid etecto r CT of the chest was perfor med with intrav enous contra st using tailor ed dose modula tion techni ques. COMPAR DAVIAN: 022 FINDIN GS: Patien t respir atory motion artifa ct mildly degrad es severa l images . There is also streak artifa ct from the patien t's arms. Within these confin es: Device s/Tube s/Line s: None. Lungs: Resolu tion of the previo usly seen left lower lobe pneumo jeff with minima l residu al hazy depend ent opacit ies. No pulmon shannon masses or consol idatio n. 4 mm left lower lobe nodule is decrea sed in size (serie s 4, image 172), consid ered benign . No new or suspic ious nodule s The airway s are clear. Pleura : Trace right pleura l effusi on. Medias tinum: No thyroi d nodule s. Heart and perica rdium are normal . Mild amount of briscoe ry calcif icatio ns. Athero sclero tic calcif icatio ns of the thorac ic aorta are seen. Lymph Nodes: Normal . No enlarg ed suprac lavicu lar, axilla ry, medias tinal, or hilar lymph nodes. Upper Abdome n: Normal . No abnorm ality detect ed in the visual ized upper abdome n. Chest Wall: Normal . No chest wall mass. Bones: No suspic ious lytic or blasti c lesion s. Scatte red degene rative change s of the visual ized spine are noted. IMPRES JANE: 1.Reso lution of the previo usly seen left lower lobe pneumo jeff. 2.Trac e right pleura l effusi on. 3.Dory nary artery calcif icatio ns. Electr onical ly Signed by: Eligio farmer on 022 3:18 PM Interp reted by: Eliigo Joyce MD Signed by: Eligio Joyce MD 2 Final result MARLENE Sadia MEDEL TRISTIN [email or web address] Diagnostic Imaging [address] [facility], [place], [address], 12/31/2021 12:28:40 09/14/19 23 09/12/2022 CT angio head with and witho ut contr ast, CT angio neck with contr ast CT ANGIO HEAD WITH AND WITHOU T CONTRA ST, CT ANGIO NECK WITH CONTRA ST Histor y:*Oth er Anomal ies Or Syndro mes; GCA; WEAKNE SS AND WORSEN ING OF SPEECH TECHNI QUE: Multid etecto r-row CTA of the head was perfor med before and after admini strati on of intrav enous contra st using tailor ed dose modula tion techni ques. Images were recons tructe d in the axial, briscoe l, and sagitt al planes , includ ing angiog raphic image post-p rocess ing. 3D angiog raphic images with reform atting and post-p rocess ing recons tructi ons were perfor med and interp reted. Multid etecto r-row CTA of neck was also perfor med after admini strati on of intrav enous contra st using tailor ed dose modula tion techni ques. Images were recons tructe d in the axial, briscoe l, and sagitt al planes . 3D angiog raphic images with reform atting and post-p rocess ing recons tructi ons were perfor med and interp reted. COMPAR DAVIAN: Head CT on December 26, 2021.. CT angiog fadi of the head and neck on October 29, 2021 FINDIN GS: HEAD CT: Brain Parenc hyma: Multif ocal enceph alomal acia involv ing bilate ral cerebe llar hemisp heres, right middle cerebe llar pedunc le, right nataliia and the right cerebr al pedunc le, sequel a from prior infarc tions. No midlin e shift, mass effect , parenc hymal hemorr vivien, or eviden ce of acute territ orial infarc t. No enhanc ing abnorm ality. Ventri cular System and Extra- Axial Spaces : No extra- axial fluid collec tions. Basal cister ns are patent . No hydroc ephalu s. Osseou s and Extrac ranial Struct ures: Mucous retent ion cysts in the left maxill shannon sinus. No orbita l abnorm ality. No calvar ial lesion is identi fied. CTA HEAD: Ventri cular System and Extra- Axial Spaces : No extra- axial fluid collec tions. Basal cister ns are patent . No hydroc ephalu s. Osseou s and Extrac ranial Struct ures: Mild mucosa l thicke cullen of parana mike sinuse s. Bilate ral maxill shannon sinuse s retent ion cysts. No orbita l abnorm ality. No calvar ial lesion is identi fied. Bilate ral TMJ degene ration , right greate r than left. CTA HEAD: Anteri or Circul ation: No aneury sm, arteri ovenou s malfor mation or thromb osis. Athero sclero tic diseas e in bilate ral internet consultant al caroti d arteri es result ing in contou r irregu larity , multif ocal areas of modera te to severe stenos is, simila r to 2021. There is a focal area of appare nt long outpou steve along the auction block clerk ior wall of the right ICA (11:45 6), new from 2021. Severe stenos is at the origin of the A1 segmen t of the right interc erebra l artery , follow ed by long segmen t of the modera te lumina l narrow ing, simila r to 2021. The left anteri or and bilate ral middle cerebr al arteri es are patent . An anteri or commun icatin g artery is presen t. Soils Engineer ior Circul ation: No aneury sm, arteri ovenou s malfor mation or thromb osis. The intrac ranial verteb ral arteri es and the basila r are patent . The auction block clerk ior cerebr al arteri es are patent bilate rally. Soils Engineer ior commun icatin g arteri es are absent bilate rally. Long segmen t of contou r irregu larity and modera te narrow ing of the intrad ural left verteb ral artery , howeve r, with some improv ement of the lumina l contra st opacif icatio n compar ed to 2021 (16:25 ). Irregu lar appear ance and severe stenos is at the level of the V3 segmen t (11:27 6), simila r to 2021. Diminu tive and irregu lar appear ance of the V3 and proxim al intrad ural right verteb ral artery with severe stenos is, simila r to 2021 (11:27 0). Venous Struct ures: No thromb osis. CTA NECK: Aortic Arch and Origin of Major Cervic al Vessel s: Only partia lly includ ed. There is a left-s ided, three- vessel aortic arch. The brachi ocepha lic artery and bilate ral subcla vian arteri es are patent . Right Common Caroti d Artery : No stenos is, occlus ion or dissec tion. Right Granite Polisher al Caroti d Artery : No stenos is, occlus ion or dissec tion. Left Common Caroti d Artery : No stenos is, occlus ion or dissec tion. Left Granite Polisher al Caroti d Artery : No stenos is, occlus ion or dissec tion. Elevator Adjuster al Caroti d Arteri es: No stenos is, occlus ion or dissec tion. Right Verteb ral Artery : No stenos is, occlus ion or dissec tion. Left Verteb ral Artery : No stenos is, occlus ion or dissec tion. NON-VA SCULAR FINDIN GS Thyroi d: No thyroi d nodule s. Lines/ tubes: None. Lungs and Airway s: No mass in the imaged lung apices and centra l airway s. Soft tissue s: No adenop athy. Bones: Multil evel degene rative change s along the cervic al spine. ====== ====== ====== ====== ====== ==== CAROTI D STENOS IS REFERE NCE: -Dista l internet consultant al caroti d artery diamet er as the denomi nator for stenos is measur ement: MILD = <50% stenos is. MODERA TE = 50-69% stenos is. SEVERE = 70-89% stenos is. HAIRLI NE/CRI TICAL = 90-99% stenos is. OCCLUD ED = 100% stenos is. ====== ====== ====== ====== ====== ==== IMPRES JANE: 1. No acute intrac ranial abnorm ality. Simila r multif ocal areas of enceph alomal acia in the auction block clerk ior fossa, likely sequel a from prior infarc tions. 2. Multip le areas of modera te to severe narrow ing, includ ing bilate ral internet consultant al caroti d arteri es, right A1 segmen t, as well as V3 and V4 segmen ts of the bilate ral verteb ral arteri es, essent ially unchan ged from 2021. Howeve r, new short segmen t of abnorm ality involv ing the cavern ous right internet consultant al caroti d artery , most likely second shannon to progre ssive athero sclero tic diseas e, althou gh focal dissec tion not exclud ed. Recomm endati on: If clinic al concer n for acute stroke persis ts, consid er brain MRI study withou t intrav enous contra st if no contra indica tions. Neuros urgica l consul t or short- term follow -up CT angiog fadi of the head is recomm ended to reeval uate new area of vascul ar abnorm ality involv ing the right cavern ous internet consultant al caroti d artery . Electr onical ly Signed by: Stevenson narvaez on 023 3:42 PM Interp reted by: Stevenson narvaez MD Signed by: Stevenson narvaez MD 3 Final result GCA; WEAKNE SS AND WORSEN ING OF SPEECH ; Other Anomal ies Or Syndro mes MARLENE MEDEL [facility] [address] [place], [address], 10/05/2022 09:17:12 Result Notes None recorded. 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 Not Available [facility] 2 20:13:40 Contusio n 444924101 Completed 200304/24/2013 Not Available [facility] 3 02:02:46 Primary open angle glaucoma 56110285 Active 2006 Not Available [facility] 2 20:13:40 Sudden visual loss 14769182 Completed 200604/24/2013 Not Available [facility] 3 02:04:23 Precordi al pain 12548575 Completed 200504/24/2013 Not Available [facility] 3 02:02:30 Panic disorder without agorapho nikita 86425985 Active 2005 Not Available [facility] 2 20:13:40 Generali zed anxiety disorder 13987521 Completed 200603/16/2017 Larry Loco PA-C [address] [place], [address] , [facility] 7 08:47:52 Lumbar sprain 374682990 Completed 200304/24/2013 Not Available [facility] 3 02:03:36 Benign essentia l hyperten jane 7624533 Active 2005 Not Available [facility] 2 20:13:40 Low back pain 627764335 Completed 200303/16/2017 Larry Loco PA-C [address] [place], [address] , [facility] 7 08:47:57 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 Procedures Surgical History Date Name Laterality Status Provider Name and Address Organization Details Recorded Time 12/25/19 22 Post hospital/SNF follow-up/Trans itional Care completed Vida Bird CMA [facility] 12/24/2021 11:32:11 07/13/19 placement of gastrostomy tube completed Yoly Cannon LPN [facility] 12/23/2021 11:19:37 06/16/19 22 Asthma Control Test (12 + years old) cancelled Vida Bird [facility] 06/16/2021 13:15:17 02/25/20 21 Knee (Right) Injection completed Marlene Villa MD [address] [place] [address], [phone], [facility] 02/24/2021 10:56:23 08/13/19 20 Asthma Control Test (12 + years old) completed Vida Bird [facility] 08/13/2019 10:47:50 02/21/20 19 Asthma Control Test (12 + years old) completed Vida Bird [facility] 02/20/2019 10:47:31 11/29/19 19 Asthma Control Test (12 + years old) completed Marlene Villa MD [address] [place] [address], [phone], [facility] 11/28/2018 11:10:48 08/22/19 19 Asthma Control Test (12 + years old) completed Marlene Villa MD [address] [place] [address], [phone], [facility] 08/21/2018 11:00:28 02/09/20 18 20722: Therapeutic Exercise completed Misty Dykes [address] [place] [address], [address], [facility] 02/08/2018 11:41:58 01/17/20 18 16275: Therapeutic Exercise completed Misty Dykes [address] [place] [address], [phone], [facility] 01/16/2018 09:37:14 01/12/20 18 25154: Therapeutic Exercise completed Misty Dykes [address] [place] [address], [address], [facility] 01/11/2018 13:31:53 01/05/20 18 43209: Therapeutic Exercise completed Misty Dykes [address] [place] [address], [address], [facility] 01/04/2018 12:23:44 12/22/19 18 Physical Activity Counselling completed Misty Dykes [address] [place] [address], [address], [facility] 12/21/2017 08:44:30 12/22/19 18 94106: PT Eval, Moderate Complexity completed Misty Dykes [address] [place], [address], [facility] 12/21/2017 08:44:35 12/19/19 18 Smoking cessation counseling completed Sofia Sandhu MA [facility] 12/18/2017 15:20:56 12/19/19 18 Carbon Monoxide Testing completed Sofia Sandhu MA [facility] 12/18/2017 15:20:56 04/12/20 17 Smoking Cessation Counselling completed Bebeto Verma, PT [address] [place], [address], [facility] 04/12/2017 18:53:06 04/12/20 17 Physical Activity Counselling completed Bebeto Verma, PT [address] [place], [address], [facility] 04/12/2017 18:53:02 04/12/20 17 17441: PT Eval, Moderate Complexity completed Bebeto Verma, PT [address] [place], [address], [facility] 04/12/2017 18:52:58 03/16/20 17 Smoking cessation counseling completed Sofia Sandhu MA [facility] 03/16/2017 08:29:45 03/16/20 17 Carbon Monoxide Testing completed Sofia Sandhu MA [facility] 03/16/2017 08:29:45 03/16/20 17 Asthma Control Test (12 + years old) completed Sofia Sandhu MA [facility] 03/16/2017 08:37:33 04/22/20 14 Smoking cessation counseling completed Sfoia Sandhu MA [facility] 04/22/2014 09:17:47 07/06/19 13 Smoking cessation counseling completed Dalia Peraza MA [facility] 07/06/2012 08:01:35 06/07/19 13 Smoking cessation counseling completed Dalia Peraza MA [facility] 06/07/2012 15:21:17 10/19/19 12 Smoking cessation counseling completed Kristen Perera [facility] 10/19/2011 10:44:24 Imaging Results Imaging Date Name Status LastModified by Organization Details LastModified Time 07/02/2021 trans-thoracic echocardiogram (TTE) (PROC) completed [facility] (Pulmonary Lab) [address] [place], [address], 07/11/2021 15:07:57 07/02/2021 electroencephalogram [place] [id number] Info rmation not available 07/06/2021 12:05:35 07/05/2021 left ventricular ejection fraction completed [address] (Pulmonary Lab) [address] [place], [address], 07/06/2021 12:05:35 07/24/2021 CT[facility] w[facility] [address] [place] [address], [address], 07/26/2021 17:09:56 07/24/2021 CT, brain, w/wo [facility] [address] [place] [address], [address], 07/26/2021 17:09:57 07/24/2021 CT, angiogram, [facility] 07/26/2021 17:09:57 07/24/2021 MRI, brain, w/wo contrast completed [facility] Dept [address] [place] [address], [id number], 07/26/2021 17:09:57 07/29/2021 XR, knee, 1 or 2 view completed [address] [facility] [address] [place] [address], [address], 07/29/2021 15:27:06 07/29/2021 US, duplex, venous, extremity [facility] [address] [place] [address], [address], 07/30/2021 10:07:57 08/04/2021 CT, brain, w/o contrast completed [address] [facility] Imaging Dept [address] [place] [address], [address], 08/05/2021 13:45:40 08/09/2021 XR, chest, 2 view completed [address] [facility] Imaging Dept [address] [place] [address], [address], 08/10/2021 08:48:06 08/30/2021 XR, chest completed [facility] [address] [place] [address], [id number], 08/30/2021 16:05:57 08/30/2021 CT, head, w/o contrast completed [address] [facility] [address] [place] [address], [address], 08/31/2021 12:26:08 10/29/2021 XR, chest, 1 view completed [facility] [address] [place] [address], [address], 10/29/2021 17:49:32 10/29/2021 CT angio head with contrast, CT angio neck with contrast completed [facility] [address] [place] [address], [id number], 10/29/2021 17:49:33 10/29/2021 CT, head, w/o contrast completed [facility] [address] [place] [address], [id number], 10/29/2021 17:49:33 10/31/2021 XR, chest completed [address] [facility] [address] [place] [address], [id number], 11/01/2021 15:52:07 10/31/2021 MRI, brain, w/o contrast completed [address] [facility] [address] [place] [address], [address], 11/01/2021 15:52:08 11/01/2021 XR, chest completed [email or web address] Information not available 12/24/2021 12:39:42 12/26/2021 CT, cervical spine, w/o contrast completed [address] [facility] [address] [place] [address], [address], 12/27/2021 10:46:20 12/26/2021 CT, head, w/o contrast completed [address] [facility] [address] [place] [address], [id number], 12/27/2021 10:46:20 12/26/2021 CT, cervical spine, w/o contrast completed [address] [facility] [address] [place] [address], [address], 12/27/2021 10:46:21 12/26/2021 CT, head, w/o contrast completed [address] [facility] [address] [place] [address], [id number], 12/27/2021 10:46:21 11/01/2021 CT, angiogram, chest , w/ contrast completed [facility] Information not available 12/29/2021 12:44:34 12/30/2021 CT, chest, w/ contrast completed [address] [facility] [address] [place] [address], [id number], 12/31/2021 12:28:40 09/12/2022 CT angio head with a nd without contrast, CT angio neck with contrast completed [facility] [address] [place], [address], 10/05/2022 09:17:12 Procedure Notes None recorded. Medical Equipment None Reported. Allergies Allergen ID Allergen Name Allergen Category Reaction Reaction Severity Criticality Documentation Date Start Date Code Code System Note Provider Name and Address Organization Details Recorded Time 487993 olanzapin e medicatio n Not available Not available Not available 12/23/2021 94978 RxNorm Dysto jeff- per [facility] on rehab d/c summa ry Yoly Cannon LPN [facility] 2 10:07:08 Medications Name Sig Start Date Stop Date Status Note LastModified by Organization Details LastModified Time quetiapin e 25 mg tablet Take 0.5 tabet by mouth 2 times a day for 30 days to be given at 9 am and 3 pm. Addition al order to Take 12.5 mg (0.5 tablet) by mouth 3 times a day as needed. OK to give before shower (agitati on) active Not Available Not Available No t Available latanopro st 0.005 % eye drops INSTILL 1 DROP INTO RIGHT EYE BY OPHTHALM IC ROUTE ONCE DAILY INTHE EVENING active per [facility] d/c summary, not reconcil ed with patient 12/23/21 Not Available Not Available Not Available atorvasta tin 40 mg tablet Take 1 tablet every day by oral route. [facility] not reconcil [facility] with patient 12/23/21 Not Available Not Available Not Available prednison e 10 mg tablet Take 35 mg x 7 days and then decrease by 5 mg every 7 days (follow up with Rheumato logy for further recommen dations) [facility], not reconcil ed with patient 12/23/21 Not Available Not Available Not Available atenolol 100 mg-chlort halidone 25 mg tablet TAKE 1 TABLET BY MOUTH EVERY DAY 12/24 completed Not listed on [facility] summary, not reconcil ed with patient 12/23/21 Not Available Not Available Not Available ipratropi um 0.5 mg-albute rol 3 mg (2.5 mg base)/3 mL nebulizat ion soln INHALE 3 ML 4 TIMES A DAY NEEDED FOR WHEEZING /SHORTNE SS OF BREATH active Not Available Not Available No t Available albuterol sulfate 2.5 mg/3 mL (0.083 %) solution for nebulizat ion INHALE 1 VIAL VIA NEBULIZE R 3 TIMES A DAY NEEDED 02/20 completed Not Available Not Available Not Available trazodone 50 mg tablet Take 0.5 tablet (25 mg) by mouth daily at bedtime active per [facility] d/c summary, not reconcil ed with patient 12/23/21 Not Available Not Available Not Available azithromy lisette 250 mg tablet TAKE 2 TABLETS BY MOUTH TODAY, THEN TAKE 1 TABLET DAILY FOR 4 DAYS 03/16 completed Not Available Not Available Not Available atenolol 100 mg tablet TAKE 1 TABLET BY MOUTH EVERY DAY 03/16 completed Not Available Not Available Not Available cephalexi n 250 mg capsule TAKE ONE CAPSULE BY MOUTH 4 TIMES A DAY FOR 10 DAYS active Not Available Not Available No t Available senna 8.6 mg tablet TAKE 2 TABLETS (17.2 MG) BY ORAL ROUTE DAILY AT BEDTIME active per [facility] d/c summary, not reconcil ed with patient 12/23/21 Not Available Not Available Not Available prednison e 20 mg tablet TAKE 3 TABS ORALLY DAILY X 2 DAYS, 2 TABS X 2 DAYS, 1 TAB X 2 DAYS, 1/2 TAB X 2 DAYS 03/16 completed Not Available Not Available Not Available travopros t 0.004 % eye drops INSTILL 1 DROP INTO BOTH EYES AT BEDTIME 06/16 completed Not Available Not Available Not Available melatonin 3 mg tablet Take 1 tablet every day by oral route at bedtime. active per [facility] d/c summary, not reconcil ed with patient 12/23/21 Not Available Not Available Not Available chlorthal idone 25 mg tablet TAKE 1 TABLET BY MOUTH EVERY DAY 03/16 completed Not Available Not Available Not Available divalproe x 500 mg tablet,de layed release active Not Available Not Available Not Available sildenafi l 100 mg tablet TAKE 1 TABLET BY MOUTH EVERY DAY NEEDED active Not listed on [facility] summary, not reconcil ed with patient 12/23/21 Not Available Not Available Not Available lorazepam 0.5 mg tablet TAKE 1 TABLET BY MOUTH THREE TIMES A DAY NEEDED FOR AGITATIO N active Not Available Not Available No t Available codeine 10 mg-guaife nesin 100 mg/5 mL Syrup 5-10ml q4-6h prn 2013 active Not Available Not Available Not Avai lable Advair Diskus 500 mcg-50 mcg/dose powder for inhalatio n TAKE 1 PUFF BY MOUTH TWICE A DAY *RINSE MOUTH AFTER USE* 12/24 completed Not listed on [facility] summary, not reconcil ed with patient 12/23/21 Not Available Not Available Not Available Polytrim 10,000 unit-1 mg/mL eye drops Instill 1 drop every 6 hours by ophthalm ic route for 7 days. 02/14 completed Not Available Not Available Not Available docusate sodium 100 mg capsule 12/24 completed Not Available Not Available Not Available gabapenti n 300 mg capsule Take 1 capsule twice a day by oral route. active per [facility] d/c summary, not reconcil ed with patient 12/23/21 Not Available Not Available Not Available aspirin 81 mg chewable tablet Chew 1 tablet every day by oral route. active per [facility] d/c summary, not reconcil ed with patient 12/23/21 Not Available Not Available Not Available dorzolami de 22.3 mg-timolo l 6.8 mg/mL eye drops PUT 1 DROP INTO BOTH EYES TWICE A DAY 03/16 completed Not Available Not Available Not Available fluticaso ne 100 mcg-salme terol 50 mcg/dose blistr powdr for inhalatio n Please specify directio ns, refills and quantity active Not Available Not Available No t Available ibuprofen 600 mg tablet TAKE 1 TABLET 3 TIMES A DAY BY ORAL ROUTE. active Not listed on [facility] summary, not reconcil ed with patient 12/23/21 Not Available Not Available Not Available timolol maleate 0.5 % eye drops INSTILL 1 DROP INTO BOTH EYES TWICE A DAY active Not Available Not Available No t Available fluticaso ne propionat e 50 mcg/actua tion nasal spray,mundo pension 2 SPRAYS INTO EACH NOSTRIL DAILY active Not Available Not Available No t Available docusate sodium 100 mg tablet Take 1 tablet twice a day by oral route. active per [facility] d/c summary, not reconcil ed with patient 12/23/21 Not Available Not Available Not Available dorzolami de 2 % eye drops INSTILL 1 DROP INTO BOTH EYES BY OPHTHALM IC ROUTE 2 TIMES PER DAY active per [facility] d/c summary, not reconcil ed with patient 12/23/21 Not Available Not Available Not Available escitalop fadi 10 mg tablet TAKE 1 TABLET BY MOUTH EVERY DAY active Not Available Not Available No t Available quetiapin e Quetiapi ne 25 mg tablet. Take 2 tablets (50 mg) by mouth daily at bedtime 12/24 completed per [facility] d/c summary, not reconcil ed with patient 12/23/21 Not Available Not Available Not Available multivita min 1 daily active Not Available Not Available Not Available Divalproe x Sodium (Migraine ) Divalpro ex Sodium 500 mg enteric coated tablet. Take 500 mg by mouth 2 times a day active per [facility], not reconcil ed with patient 12/23/21 Not Available Not Available Not Available ProAir HFA 90 mcg/actua tion aerosol inhaler TAKE 2 PUFFS BY MOUTH 4 TIMES A DAY NEEDED FOR WHEEZE SHORTNES S OF BREATH active Not Available Not Available No t Available Simbrinza 1 %-0.2 % eye drops,mundo pension INSTILL 1 DROP IN BOTH EYES TWICE A DAY active Not Available Not Available No t Available Actemra 162 mg/0.9 mL subcutane ous syringe active Not Available Not Available Not Available Vitals Date Recorded Body height Body mass index (BMI) Body weight Heart rate Systolic blood pressure Diastolic blood pressure Provider Name and Address Organization Details Last Updated DateTime 0 178.44 cm 30.2 kg/m2 37931.5 8 g 72 /min 114 mm[Hg] 72 mm[Hg] Vida Bird [facility] 0 10:49:18 Date Recorded Body weight Body mass index (BMI) Body height Systolic blood pressure Diastolic blood pressure Provider Name and Address Organization Details Last Updated DateTime 11/04/2020 60239.84 g 31.1 kg/m2 178.44 cm 126 mm[Hg] 70 mm[Hg] Vida Bird [facility] 1 09:15:30 Date Recorded Body height Body mass index (BMI) Body weight Heart rate Systolic blood pressure Diastolic blood pressure Provider Name and Address Organization Details Last Updated DateTime 1 178.44 cm 29.9 kg/m2 24069.4 g 78 /min 130 mm[Hg] 80 mm[Hg] Vida Bird [facility] 1 12:39:39 Date Recorded Body height Body mass index (BMI) Body weight Systolic blood pressure Diastolic blood pressure Provider Name and Address Organization Details Last Updated DateTime 02/24/2021 178.44 cm 29.9 kg/m2 71133.4 g 124 mm[Hg] 74 mm[Hg] Vida Bird CMA [facility] 09:12:02 Date Recorded Body height Provider Name an d Address Organization Details Last Updated DateTime 06/16/2021 178.44 cm Vida Bird CMA [facility] 06/16/2021 13:17:59 Date Recorded Body height Systolic blood pressure Diastolic blood pressure Provider Name and Address Organization Details Last Updated DateTime 12/24/2021 178.44 cm 132 mm[Hg] 78 mm[Hg] Vida Bird [facility] 12/24/2021 11:38:31 Social History Question Answer Notes LastModified by Organizat ion Details LastModified Time Tobacco Smoking Status Former Smoker 2016 quit Maricel Le CMA [facility] 10/21/2010 14:02:41 Do You Have An Advance Directive? No Given At Visit 10/21/2010 [email or web address] Information not available 09/25/2009 What Is Your Level Of Alcohol Consumption? Heavy 4-5/day. Information not available 03/16/2017 Do You Wear A Helmet When Biking? No Information not available 03/16/2017 What Is Your Level Of Caffeine Consumption? Moderate 3/day Information not available 04/22/2014 How Much Tobacco Do You Chew? None Information not available 03/16/2017 What Type Of Diet Are You Following? REGULAR not Great . Lots Of Salty Food. 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 260 [email or web address] Information not available 02/07/2013 Are There Any Guns Present In Your Home? Yes Information not available 03/16/2017 Live Alone Or With Others? With Others /son- Autistic (23y/o [03/21]) At [facility]. Information not available 04/22/2014 Marital Status [id number] In formation not available 04/21/2011 Mosquito Repellent Used Routinely Yes Information not available 03/16/2017 What Was The Date Of Your Most Recent Tobacco Screening? 12/18/2017 [email or web address] Information n ot available 12/26/2018 How Many Children Do You Have? 2 1 Daughter 32y/o [03/21], 1 Son Information not available 04/22/2014 What Is Your Current Pack Years? 20-29packye ars [email or web address] Information not available 03/16/2017 Seat Belts Used Routinely Yes Information not available 04/22/2014 Are You Sexually Active? Yes [id number] Information n ot available 04/21/2011 Smoke Alarm In Home Yes [email or web address] Information not available 03/16/2017 At What Age Did You Start Smoking Tobacco? 18 Information not available 08/19/2014 General Stress Level Medium [email or web address] Information not available 02/20/2019 Do You Use Sunscreen Routinely? Yes [email or web address] Information not available 03/16/2017 Sex: Unknown Functional Status None recorded. Mental Status None recorded. Family History Nothing Reported Notes:MOM: d87y/o: fall-rela geovanna. vision problems/?alzheimers DAD: 95y/o: htn PGM: DM SIS: 0 BRO: 1: a&w RAFAL: 1: a&w SON: 1: autism Medical History No medical history recorded. Immunizations Vaccine Type Date Status Note Provider Nam e and Address Organization Details Recorded Time Influenza, split virus, quadrivalent, PF 4 completed Not Available [facility] 06/22/2019 02:19:21 Tdap 0 completed Not Available [facility] 06/22/2019 02:34:55 Influenza, split virus, quadrivalent, PF 7 completed Not Available [facility] 06/22/2019 02:28:50 pneumococcal polysaccharide PPV23 7 completed Not Available [facility] 06/22/2019 02:22:04 COVID-19, mRNA, LNP-S, PF, 30 mcg/0.3 mL dose 1 completed Not Available [facility] 11/09/2021 20:10:07 COVID-19, mRNA, LNP-S, PF, 30 mcg/0.3 mL dose 1 completed Not Available [facility] 11/09/2021 20:10:07 Past Encounters Encounter ID Performer Location Encounter Start Date Encounter Closed Date Diagnosis/Indication Diagnosis SNOMED-CT Code Diagnosis ICD10 Code Diagnosis Note [id number] SAL [facility], OFFICE [address] [place] [address] 04/14/2004 13:32:18 04/15/2004 09:07:58 [id number] Physical Therapy, [address] [place] [address] 04/15/2004 10:32:10 04/15/2004 13:33:03 [id number] Physical Therapy, [address] [place] [address] 04/16/2004 07:55:04 04/16/2004 08:00:33 [id number] Physical Therapy, [address] [place] [address] 04/21/2004 07:51:19 04/21/2004 08:02:59 [id number] [facility], OFFICE [address] [place] [address] 05/19/2004 10:58:21 05/21/2004 09:13:52 [id number] Radiology , [address] [place] [address] 05/19/2004 11:26:10 05/19/2004 13:24:45 [id number] Physical Therapy, [address] [place] [address] 06/28/2004 11:16:12 06/28/2004 14:05:56 [id number] Radiology , [address] [place] [address] 07/01/2004 13:54:00 07/01/2004 15:40:39 [id number] Physical Therapy, [address] [place] [address] 07/27/2004 08:00:17 07/27/2004 08:07:15 [id number] SAL [facility], OFFICE [address] [place] [address] 07/01/2004 13:36:44 06/25/2008 02:02:29 [id number] SAL [facility], OFFICE [address] [place] [address] 12/26/2005 10:12:13 12/29/2005 07:58:21 [id number] SAL [facility], OFFICE [address] [place] [address] 01/23/2006 12:07:45 01/23/2006 17:23:50 [id number] SAL [facility], OFFICE [address] [place] [address] 1 04/05/2006 10:07:44 04/05/2006 13:50:04 [id number] Physical Therapy, [facility] [address] [place] [address] 10/13/2006 12:23:14 10/13/2006 12:23:35 [id number] Physical Therapy, [facility] [address] 10/16/2006 12:29:05 10/16/2006 12:29:29 [id number] SAL [facility], OFFICE [address] [place] [address] 10/13/2006 11:31:27 06/25/2008 02:02:29 [id number] Physical Therapy, [facility] [address] [place] [address] 10/19/2006 23:43:52 10/19/2006 23:44:06 [id number] SAL [facility], OFFICE [address] [place] [address] 11/07/2006 13:33:49 11/08/2006 07:55:51 [id number] Eye Care, [facility] [address] [place] [address] 11/21/2006 14:36:16 11/22/2006 07:17:09 [id number] [facility], OFFICE [address] [place] [address] 02/20/2007 10:06:32 02/21/2007 07:42:58 [id number] SAL [facility], OFFICE [address] [place] [address] 03/08/2007 15:25:04 06/25/2008 02:02:29 [id number] SAL [facility], OFFICE [address] [place] [address] 03/23/2007 10:02:17 06/25/2008 02:02:29 [id number] [facility], OFFICE [address] [place] [address] [place] [address] 04/17/2007 10:04:53 06/25/2008 02:02:29 [id number] Eye Care, [address] [place] [address] 05/16/2007 14:26:25 05/16/2007 15:50:08 [id number] [facility], [address] [place] [address] 07/11/2007 15:07:14 06/25/2008 02:02:[id number] [place] [address] 1 10/13/2008 10:21:27 10/14/2008 08:57:[id number] [place] [address] 1 09/25/2009 11:07:30 09/28/2009 09:43:55 [id number] Radiology , [address] [place] [address] 09/25/2009 12:30:02 09/28/2009 11:22:31 [id number] Radiology , [address] [place] [address] 09/25/2009 12:30:56 09/28/2009 11:22:37 [id number] [facility], [address] [place] [address] 10/21/2010 13:45:31 10/21/2010 14:54:20 [id number] [place] [address] 1 12/09/2010 13:21:20 12/09/2010 14:18:[id number] [place] [address] 1 10/19/2011 10:27:37 10/19/2011 12:35:57 [id number] DIPAK Gonzalez [address] [place] [address] 06/07/2012 15:03:38 06/07/2012 15:48:38 [id number] DIPAK Gonzalez [address] [place] [address] 1 07/06/2012 07:47:19 07/06/2012 11:45:19 [id number] Tay Ovalle MD Radiology , [facility] [address] [place] [address] 07/06/2012 08:31:19 07/09/2012 09:40:35 [id number] Ashanti Faye Radiology , [facility] [address] [place] [address] 07/09/2012 14:52:39 07/10/2012 14:35:02 [id number] Dalia Peraza MA , [facility], OFFICE [address] [place] [address] 07/25/2012 10:30:38 07/25/2012 11:06:22 [id number] MAGGY Alicia, [facility], OFFICE [address] [place] [address] 02/07/2013 10:35:47 02/07/2013 11:21:22 Conjunctivitis [id number] no red flags. hx glaucoma but doubt this at this time. [id number] Sofia aSndhu MA , [facility], OFFICE [address] [place] [address] 09/19/2013 10:49:54 09/19/2013 11:10:55 Cough [id number] RAD. Pulmonolog ist gave some steroids and took it for 4 days with help then came back. Willrepeat with taper and codeine cough syrup [id number] Vangie mckenna , [facility], OFFICE [address] [place] [address] 04/22/2014 09:03:43 04/22/2014 09:39:06 Benign essential hypertension 4171929 Blood pressure at goal. Informed we absolutely need labs done before more refills and needs regular visits q6mos so we can extend rx Screening for malignant neoplasm of colon [id number] Referral for a DIRECT booked colonoscop y. This patient is a healthy ASA Class 1 or 2 patient (only mild systemic disease), or a STABLE, well controlled insulin dependent diabetic. They do not have serious cardiac disease ie OR/angiopl asty within 1 year, symptomati c CHF; renal failure with CKD 4 or 5; take Coumadin, Plavix, Aggrenox, etc; nor take chronic narcotics. [Patients who take chronic narcotics should be referred to [facility] for a propofol procedure due to possible inability to sedate adequately with conscious sedation.] Tobacco user [id number] e ncouraged to cut back/quit Dyspnea [id number] refill Influenza vaccine needed [id number] Flores Kaiden , [facility], OFFICE [address] [place] [address] 08/19/2014 11:21:48 08/19/2014 12:06:04 Benign essential hypertension 1552216 Blood pressure at goal continue meds and usual f/u/labs Adult heal th examination [id number] Exam done Counseling [id number] Screening for malignant neoplasm of colon 224777622 Referral for a DIRECT booked colonoscop y. This patient is a healthy ASA Class 1 or 2 patient (only mild systemic disease), or a STABLE, well controlled insulin dependent diabetic. They do not have serious cardiac disease ie OR/angiopl asty within 1 year, symptomati c CHF; renal failure with CKD 4 or 5; take Coumadin, Plavix, Aggrenox, etc; nor take chronic narcotics. [Patients who take chronic narcotics should be referred to [facility] for a propofol procedure due to possible inability to sedate adequately with conscious sedation.] Varicella vaccination 70508084 Asthma 946209000 Stable, Come for speedy to see if progressin g. If stable, consider decreasing advair to once daily. [id number] Jaxromel Interiano , [facility], OFFICE [address] [place] [address] 06/30/2015 10:50:21 07/01/2015 10:45:39 Acute exacerbation of chronic obstructive pulmonary disease 465451936 J44.1 ongong dyspnea despite helpful nebs will check cxr and dual treat with abx and steroids. seen with [id number] Larry Loco PA-C , [facility], OFFICE [address] [place] [address] 03/16/2017 08:26:33 03/17/2017 08:38:17 Adult health examination 953094722 Z00.00 Benign exam Counseling 720132262 Z71 .9 Benign ess ential hypertension 1410482 I10 Blood pressure at goal. Continue meds Asthma 182184169 J45.30 Stable Cigarette smoker 0309430 7 F17.210 Tobacco user 791034355 Z 72.0 encouraged to cut back/quit Screening for malignant neoplasm of colon 944922289 Z12.11 Referral for a DIRECT booked colonoscop y. This patient is a healthy ASA Class 1 or 2 patient (only mild systemic disease), or a STABLE, well controlled insulin dependent diabetic. They do not have serious cardiac disease ie OR/angiopl asty within 1 year, symptomati c CHF; renal failure with CKD 4 or 5; take Coumadin, Plavix, Aggrenox, etc. Anxiety state 544052225 F41.1 Seems to be ok Screening for disorder 213395651 Z11.59 Heavy drinker 78432122 F 10.10 Check CMP above. Encouraged to decrease Knee pain 68545145 M25.5 61 Observe. Seems like muscle contusion. Continue Active or passive immunization 671536036 Z23 [id number] Bebeto Pérez i, PT Physical Therapy, [facility] [address] [place] [address] 04/12/2017 10:00:16 04/13/2017 08:29:06 Pain in right knee 1535774250 29100 M25.715 [id number] Larry Loco PA-C , [facility], OFFICE [address] [place] [address] 12/18/2017 15:18:32 12/18/2017 16:54:35 Screening for malignant neoplasm of colon 698769125 Z12.11 Referred many times. Declines. Knee pain 23678714 M25.5 61 May be OA. With sudden and atraumatic nature, check lyme. Also to PT [id number] Misty Dykes Physical Therapy, [address] [place] [address] 12/21/2017 08:06:52 12/22/2017 08:35:03 Pain in left knee 4034897415 28863 M25.442 [id number] Mist[facility] Dykes [facility], [address] [place] [address] 01/04/2018 07:42:42 01/04/2018 13:05:07 Pain in left knee 0878203975 36561 M25.072 [id number] Misty Dykes [facility] Therapy, [address] [place] [address] 01/11/2018 13:29:31 01/11/2018 14:40:00 Pain in left knee 3053672970 48569 M25.217 [id number] Misty Dykes Physical Therapy, [address] [place] [address] 01/16/2018 09:24:33 01/16/2018 10:35:03 Pain in left knee 7126166880 87583 M25.643 [id number] Misty Dykes Physical Therapy, [address] [place] [address] 02/08/2018 11:22:30 02/08/2018 12:56:11 Pain in left knee 6528251397 58961 M25.020 [id number] Marlene Villa MD , [facility], OFFICE [address] [place] [address] 08/21/2018 10:33:57 08/21/2018 11:32:44 Screening for malignant neoplasm of colon 100227112 Z12.11 vials given , shown. retrieval technique, 08/2018 Referral for a DIRECT booked colonoscop y. This patient is a healthy ASA Class 1 or 2 patient (only mild systemic disease), or a STABLE, well controlled insulin dependent diabetic. They do not have serious cardiac disease ie OR/angiopl asty within 1 year, symptomati c CHF; renal failure with CKD 4 or 5; take Coumadin, Plavix, Aggrenox, etc. Benign ess ential hypertension 0403405 I10 149/88.Blo od pressure at goal. atenolol 100, chlorthali done 25 taken dailymay followup here or at [facility] exercise perhaps recumbent bike (bad knees) Asthma 700648483 J45.30 Stabletake s advair regularly for years, proven definitive treatmentg ets 3 months supply at [facility] needed dnebulizer since 2016 Heavy drinker 93366575 F 10.188 BP up as a result.. Encouraged to decrease Anxiety state 480187020 F41.1 Seems to be ok Glaucoma 50023642 H40.9 drops Weight increased 1431549 00 R63.5 9 lbsperhaps from cig cessation unable to use knees to exercisesp eaks of returning to exercise Ex-smoker 8395863 Z87.89 1 less phlegmtape rred to off 2018 Impotence 892132818 N52. 9 less opportunit y with his autistic son [id number] Marlene Villa MD , [facility], OFFICE [address] [place] [address] 11/28/2018 10:22:11 11/28/2018 11:33:46 Screening for malignant neoplasm of colon 421077406 Z12.11 has at home 11/2018 puting it off cause i really dont want to know. encouraged to submitvial s given , shown. retrieval technique, 08/2018 Referral for a DIRECT booked colonoscop y. This patient is a healthy ASA Class 1 or 2 patient (only mild systemic disease), or a STABLE, well controlled insulin dependent diabetic. They do not have serious cardiac disease ie OR/angiopl asty within 1 year, symptomati c CHF; renal failure with CKD 4 or 5; take Coumadin, Plavix, Aggrenox, etc. Benign ess ential hypertension 4325761 I10 126/84, he feels normalizat ion is due to exercise, 6 lb wt loss, cont aten -chlorthal .149/88.Bl ood pressure at goal. atenolol 100, chlorthali done 25 taken daily >10 yearsmay followup here or at [facility] exercise perhaps recumbent bike (bad knees) Asthma 943212507 J45.30 Stable. advair dependentt akes advair regularly for years, [facility] Heavy drinker 02489574 F 10.188 admits to 4-5 drinks a dayBP up as a result.. Encouraged to decrease Anxiety state 265133463 F41.1 Seems to be ok Glaucoma 26536280 H40.9 drops Weight increased 9478086 00 R63.5 9 lbs up then down, due to exercisepe rhaps from cig cessation, quit 2018 unable to use knees to exercisesp eaks of returning to exercise Ex-smoker 0120306 Z87.89 1 less phlegmtape rred to off 2018, over few years Impotence 434862577 N52. 9 less opportunit y with his autistic son Chronic bronchitis 37187 004 J42 less sputum with advair,req uired pred in [facility] ER 07/2012 Screening for malignant neoplasm of prostate 837532189 Z12.5 ordered for the first time 11/2018 [id number] Marlene Villa MD , [facility], OFFICE [address] [place] [address] 02/20/2019 10:11:10 02/20/2019 11:20:23 Adult health examination 559141613 Z00.00 Counseling 008658960 Z71 .9 Depression screening 171 135771 Z13.89 depression screening tool administer ed, entered into emr, scored and discussed, time greater than 7.5 minutes Screening for malignant neoplasm of colon 271379524 Z12.11 02/2019 he still has vials at home, encouraged to test, would be terrible , i told him to of colon ca, when is mostly preventabl e. vials given , shown. retrieval technique, 08/2018 Referral for a DIRECT booked colonoscop y. This patient is a healthy ASA Class 1 or 2 patient (only mild systemic disease), or a STABLE, well controlled insulin dependent diabetic. They do not have serious cardiac disease ie OR/angiopl asty within 1 year, symptomati c CHF; renal failure with CKD 4 or 5; take Coumadin, Plavix, Aggrenox, etc. Benign ess ential hypertension 9949803 I10 Blood pressure at goal. atenolol 100, chlorthali done 25 taken dailymay followup here or at [facility] exercise perhaps recumbent bike (bad knees) Heavy drinker 55186545 F 10.188 BP up as a result.. Encouraged to decrease Anxiety state 775431827 F41.1 Seems to be ok Glaucoma 19300312 H40.9 drops Ex-smoker 4841241 Z87.89 1 remains cig freeless phlegmtape rred to off 2018 Impotence 593766514 N52. 9 viagra 100 #4. less opportunit y with his autistic son Chronic ob structive pulmonary disease 96248239 J44.9 mod by PFT 2013advair recommende d by Pulmonary as an inpt at [facility] with exacerbati on from cold exposure compliant with advair Stable takes advair regularly for years, proven definitive treatment gets [facility] supply [facility] hasnt needed dnebulizer since 2015 [id number] Marlene Villa MD , [facility], OFFICE [address] [place] [address] 08/13/2019 10:17:42 08/13/2019 11:18:22 Screening for malignant neoplasm of colon 950519064 Z12.11 02/2019 he still has vials at home, encouraged to test, would be terrible , i told him to of colon ca, when is mostly preventabl e. vials given , shown. retrieval technique, 08/2018 Referral for a DIRECT booked colonoscop y. This patient is a healthy ASA Class 1 or 2 patient (only mild systemic disease), or a STABLE, well controlled insulin dependent diabetic. They do not have serious cardiac disease ie OR/angiopl asty within 1 year, symptomati c CHF; renal failure with CKD 4 or 5; take Coumadin, Plavix, Aggrenox, etc. Benign ess ential hypertension 6202182 I10 Blood pressure at goal. atenolol 100, chlorthali done 25 taken dailymay followup here or at [facility] exercise perhaps recumbent bike (bad knees) Heavy drinker 14259216 F 10.188 BP up as a result.. Encouraged to decrease Anxiety state 272536849 F41.1 Seems to be ok Glaucoma 47833175 H40.9 dropsstabl e for years Ex-smoker 1385422 Z87.89 1 remains cig freeless phlegmtape rred to off 2018 Impotence 624139855 N52. 9 viagra 100 #4. less opportunit y with his autistic son Chronic ob structive pulmonary disease 28420589 J44.9 mod by PFT 2013advair recommende d by Pulmonary as an inpt at [facility] with exacerbati on from cold exposure compliant with advair since 2012 Stable takes advair regularly for years, proven definitive treatment gets [facility] hasnt needed dnebulizer since 2015 [id number] Marlene Villa MD , [facility], OFFICE [address] [place] [address] 11/04/2020 08:41:47 11/04/2020 09:57:19 Screening for malignant neoplasm of colon 253594538 Z12.11 02/2019 he still has vials at home, encouraged to test, would be terrible , i told him to of colon ca, when is mostly preventabl e. vials given , shown. retrieval technique, 08/2018 Referral for a DIRECT booked colonoscop y. This patient is a healthy ASA Class 1 or 2 patient (only mild systemic disease), or a STABLE, well controlled insulin dependent diabetic. They do not have serious cardiac disease ie OR/angiopl asty within 1 year, symptomati c CHF; renal failure with CKD 4 or 5; take Coumadin, Plavix, Aggrenox, etc. Benign ess ential hypertension 9197178 I10 Blood pressure at goal. atenolol 100, chlorthali done 25 tolerates taken daily may followup here or at plans exercise perhaps recumbent bike (bad knees) Heavy drinker 91446938 F 10.188 BP up as a result. . Encouraged to decrease 4 a day Anxiety state 133178948 F41.1 Seems to be ok Glaucoma 87127704 H40.9 dropsstabl e for years Ex-smoker 0797173 Z87.89 1 remains cig freeless phlegmtape rred to off 2018 Impotence 710502272 N52. 9 viagra 100 #4. less opportunit y with his autistic son Chronic ob structive pulmonary disease 21641589 J44.9 admits to some SOB if he misses doses this is what compelled him to quit cigs. mod by PFT 2012 advair recommende d by Pulmonary as an inpt at [facility] with exacerbati on from cold exposure compliant with advair since 2012 Stable takes advair regularly for years, proven definitive treatment gets 3 [facility] supply at [facility] hasnt needed dnebulizer since 2015 Former lig ht tobacco smoker 8304330425 48880 Z87.891 quit 2017 [id number] Marlene Villa MD , [facility], OFFICE [address] [place] [address] 02/23/2021 12:05:50 02/24/2021 11:18:09 Screening for malignant neoplasm of colon 088749379 Z12.11 02/2019 he still has vials at home, encouraged to test, would be terrible , i told him to of colon ca, when is mostly preventabl e. vials given , shown. retrieval technique, 08/2018 Referral for a DIRECT booked colonoscop y. This patient is a healthy ASA Class 1 or 2 patient (only mild systemic disease), or a STABLE, well controlled insulin dependent diabetic. They do not have serious cardiac disease ie OR/angiopl asty within 1 year, symptomati c CHF; renal failure with CKD 4 or 5; take Coumadin, Plavix, Aggrenox, etc. Benign ess ential hypertension 3492119 I10 Blood pressure at goal. atenolol 100, chlorthali done 25 tolerates taken daily may followup here or at plans exercise perhaps recumbent bike (bad knees) Heavy drinker 29356684 F 10.188 BP up as a result. . Encouraged to decrease 4 a day Anxiety state 817438863 F41.1 Seems to be ok Glaucoma 59635123 H40.9 dropsstabl e for years Ex-smoker 9633425 Z87.89 1 remains cig freeless phlegmtape rred to off 2018 Impotence 055060893 N52. 9 viagra 100 #4. less opportunit y with his autistic son Chronic ob structive pulmonary disease 59477729 J44.9 admits to some SOB if he misses doses this is what compelled him to quit cigs. mod by PFT 2012 advair recommende d by Pulmonary as an inpt at [facility] with exacerbati on from cold exposure compliant with advair since 2012 Stable takes advair regularly for years, proven definitive treatment gets 3 [facility] supply at [facility] hasnt needed dnebulizer since 2016 Former lig ht tobacco smoker [id number] 72972 Z87.891 quit 2017 Pain in right knee 69597 45049 22467 M25.561 aches with use, mild daily paingets exacerbati onsrestric ts activities , eg golf.reque sting pain pill eg NSAID high strength the effected Rightknee is warm and swollen asked to schedule injection Low back pain 085607291 M54.5 walks antalgical lyhis episodic back pain has persistedr x ibuprofen 600 TID [id number] Marlene Villa MD , [facility], OFFICE [address] [place] [address] 02/24/2021 08:52:57 02/25/2021 10:16:07 Bursitis of knee 783718612 M70.51 longstandi ng pains that come and go- stress triggerred injected todayfollo w expectantl y [id number] Marlene Villa MD , [facility], OFFICE [address] [place] [address] 12/24/2021 11:17:14 12/24/2021 12:13:37 Cerebrovascular accident 029392038 I63.9 I63.011 cerebellar , midbrain and pontine 07/26/2021 ppears convincing ly due to Giant Cell arteritisw ill need placementC M on the case p/w right heparesis, Rfacial left sided neglect MRI 10/2021 encephalom alacia involving both cerebellar as well as right anterior mid brain and nataliia; sequelae of remote infarcts. 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 9 seen [facility] ology is awarewas to have had a repeat CTwe will order with contrast Cerebral a rteritis in giant cell arteritis 331638089 M31.6 likely cuplrit of his CVA*Giant Cell Arteritis (per d/c summary he was scheduled to see Dr. Curtis 12/22/21 and is on a Prednisone taper by 5 mg every week starting 12/20/21rhe umatologis t follow up on 12/28) Health Concerns Section Related Observation LastModified by Organization Detai ls LastModified Time None Recorded Concern Status LastModified by Organization Details LastModified Time None Recorded Advance Directives Directive N: given at visit 10/21/2010 Payers Encounter Date Sequence Insurance Name Policy Number Policy Bocanegra Covered Member ID Bocanegra Member ID Guarantor Name 08/13/2019 1 [facility] [id number] 1 Elías Matute [id number] Elías Matute 11/04/2020 1 [facility]) [id number] 1 Radha Matute [id number] Elías Matute 02/23/2021 1 [facility]) [id number] 1 Radha Matute [id number] Elías Matute 02/24/2021 1 [facility]) [id number] 1 Radha Matute [id number] Elías Matute 12/24/2021 1 [facility]) [id number] 1 Radha Matute [id number] Elías Matute Notes Date Note Type Note Provider Name and Address Organization Details Recorded Time 0 text/html Physical Exam/MaleReported bypatient.PHAPatient is here for a Wellness Visit. He describes his health status as good. Patient's health is the same as last year.Risk Assessment and Lifestyle Change Counseling-male 50-64Reported bypatient.Coronary Artery Disease Risk Assessment:No Family history of coronary artery disease; Regular exercise program; Eats a diet low in fats and high in fiber;Personal history of hypertension; Lipids in good range; No personal history of diabetes; No use of tobacco; No history of peripheral vascular disease, AAA, or carotid disease; No personal history of coronary artery disease Colon Cancer Risk Assessment:No family history of colon polyps or cancer; No history of adenomatous colon polyps Lung Cancer Risk Assessment:Never smoked; No asbestos exposure Risk for Sexually transmitted disease Assessment:No history of sexually transmitted disease; Monogamous relationship Cognitive/Behavioral Risk Assessment:No history of depression; No family history of depression Safety Risk Assessment:uses helmet for high velocity activities; uses seat belts; No evidence of abuse/neglectVMG HypertensionReported bypatient.Compliance:Comp liant with medications Barriers to CareNo identified barriers to carea/vmg-smoking [id number] bypatient.Notes:5/week. not intersted in quitting asthma/RAD.. Uses advair bid with albuterol userarely Marlene Villa MD [address] [place] [address], [phone], [facility] 08/13/2019 11:17:33 1 text/html Physical Exam/MaleReported bypatient.PHAPatient is here for a Wellness Visit. He describes his health status as good. Patient's health is the same as last year.Risk Assessment and Lifestyle Change Counseling-male 50-64Reported bypatient.Coronary Artery Disease Risk Assessment:No Family history of coronary artery disease; Regular exercise program; Eats a diet low in fats and high in fiber;Personal history of hypertension; Lipids in good range; No personal history of diabetes; No use of tobacco; No history of peripheral vascular disease, AAA, or carotid disease; No personal history of coronary artery disease Colon Cancer Risk Assessment:No family history of colon polyps or cancer; No history of adenomatous colon polyps Lung Cancer Risk Assessment:Never smoked; No asbestos exposure Risk for Sexually transmitted disease Assessment:No history of sexually transmitted disease; Monogamous relationship Cognitive/Behavioral Risk Assessment:No history of depression; No family history of depression Safety Risk Assessment:uses helmet for high velocity activities; uses seat belts; No evidence of abuse/neglectVMG HypertensionReported bypatient.Compliance:Comp liant with medications Barriers to CareNo identified barriers to carea/vmg-smoking [id number] bypatient.Notes:5/week. not intersted in quitting asthma/RAD.. Uses advair bid with albuterol userarekenton Villa MD [address] [place] [address], [phone], [facility] 11/04/2020 09:57:06 1 text/html Physical Exam/MaleReported bypatient.PHAPatient is here for a Wellness Visit. He describes his health status as good. Patient's health is the same as last year.Risk Assessment and Lifestyle Change Counseling-male 50-64Reported bypatient.Coronary Artery Disease Risk Assessment:No Family history of coronary artery disease; Regular exercise program; Eats a diet low in fats and high in fiber;Personal history of hypertension; Lipids in good range; No personal history of diabetes; No use of tobacco; No history of peripheral vascular disease, AAA, or carotid disease; No personal history of coronary artery disease Colon Cancer Risk Assessment:No family history of colon polyps or cancer; No history of adenomatous colon polyps Lung Cancer Risk Assessment:Never smoked; No asbestos exposure Risk for Sexually transmitted disease Assessment:No history of sexually transmitted disease; Monogamous relationship Cognitive/Behavioral Risk Assessment:No history of depression; No family history of depression Safety Risk Assessment:uses helmet for high velocity activities; uses seat belts; No evidence of abuse/neglectVMG HypertensionReported bypatient.Compliance:Comp liant with medications Barriers to CareNo identified barriers to carea/vmg-smoking [id number] bypatient.Notes:5/week. not intersted in quitting asthma/RAD.. Uses advair bid with albuterol eugenioarekenton Villa MD [address] [place] [address], [phone], [facility] 02/23/2021 14:39:47
== END 2024-07-17 10:16 | disposition home or self-care (01) ==
PROVIDERS: Visit Provider Internal Medicine Rheumatology
DX: M31.6 Other giant cell arteritis (principal); S32.000A Wedge compression fracture of unspecified lumbar vertebra, initial encounter for closed fracture; M17.11 Unilateral primary osteoarthritis, right knee
CPT/HCPCS: 99214; G2211

== ENCOUNTER 2024-07-17 09:21 | Outpatient (REF) | payer MEDICARE, SELFPAY ==
--- OUTSIDE RECORDS SUMMARY | 2024-07-17 12:13 | XMS_ITS | Continuity of Care Document ---
[facility] Address [address] [place] [address] Care Team Providers Care Plant Controller Name Role Phone MARLENE PISANO Primary Care Provider [facility] Assessment No assessment recorded. Plan of Treatment Reminders Order Date Submit [...] Organization Details Recorded Time Cerebrovas cular accident 734329417 Active 2021 Not Available [facility] 4 02:39:41 Aphasia 11847264 Active 2021 Not Available [facility] 4 02:39:43 Left hemiparesi s 579070987 Active 2021 Not Available [facility] 4 02:39:42 Chronic obstructiv e pulmonary disease 41987565 Active 2021 Not Available [facility] 4 02:39:41 Dysphagia 72899843 Active 2021 Not Available [facility] 4 02:39:42 Glaucoma 85182347 Active 2021 Not Available [facility] 4 02:39:41 Essential hypertensi on 86604760 Active 2021 Not Available [facility] 4 02:39:43 Alcohol dependence 79930208 Active 2021 Not Available [facility] 4 02:39:43 Wernicke's disease 31811946 Active 2021 Not Available [facility] 4 02:39:41 Pain of bilateral knee regions 8610142409364 02 Active 2021 Not Available [facility] 4 02:39:42 Gastroesop hageal reflux disease without esophagiti s 361937786 Active 2021 Not Available [facility] 4 02:39:41 Anemia 856016619 Active 2021 Not Available [facility] 4 02:39:41 SARS-CoV-2 Active 2021 Not Available [facility] 4 02:39:43 History of cerebrovas cular accident 054193830 Active 2021 Not Available [facility] 4 02:39:41 Glaucoma 16581265 Active 2021 Not Available [facility] 4 02:39:41 Nonalcohol ic steatohepa titis 341672184 Active 2021 Not Available [facility] 4 02:39:42 History of giant cell arteritis 0943724105199 09 Active 2021 Not Available [facility] 4 02:39:42 Recurrent falls 117463612 Active 2021 Not Available [facility] 4 02:39:42 Edema of foot 507579512 Active 2021 Not Available [facility] 4 02:39:41 Insomnia 737928880 Active 2021 Not Available [facility] 4 02:39:41 Sinusitis 50753036 Active 2021 Not Available [facility] 4 02:39:42 Seborrheic dermatitis 19795913 Active 2022 Not Available [facility] 4 02:39:42 Swelling 16528259 Active 2022 Not Available [facility] 4 02:39:43 Cough 73039418 Active 2022 Not Available [facility] 4 02:39:42 Candidiasi s of mouth 28599761 Active 2022 Not Available [facility] 4 02:39:43 Chronic pain 35964519 Active 2022 Not Available [facility] 4 02:39:43 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 Not Available [facility] 4 02:39:43 Asthenia 48929895 Active 2022 Not Available [facility] 4 02:39:41 Bacteremia 9470595 Active 2022 Not Available [facility] 4 02:39:42 Sepsis due to urinary tract infection 122112220 Active 2022 Not Available [facility] 4 02:39:43 Thyroid stimulatin g hormone level below reference range 910853675 Active 2022 Not Available [facility] 4 02:39:41 Swollen abdomen 36616946 Active 2022 Not Available [facility] 4 02:39:43 Urinary tract infectious disease 79627298 Active 2022 Not Available [facility] 4 02:39:43 Compressio n fracture Active 2022 Not Available [facility] 4 02:39:41 Itching of skin 316657504 Active 2022 Not Available [facility] 4 02:39:42 Forgetful 21009707 Active 2022 Not Available [facility] 4 02:39:42 Conjunctiv itis 2555104 Active 2022 Not Available [facility] 4 02:39:43 Subconjunc tival hemorrhage 94165478 Active 2022 Not Available [facility] 4 02:39:43 Impaired cognition 327874304 Active 2022 Not Available [facility] 4 02:39:42 Swelling of left upper limb 9686030459804 9109 Active 2022 Not Available [facility] 4 02:39:41 Toothache 04529819 Active 2022 Not Available [facility] 4 02:39:41 Pain of right shoulder region Active 2023 KOMAL Olsen [address] [facility], [address], [place], [address] , [facility] 4 10:03:50 Dementia with behavioral disturbanc e 4166691501055 Active 2023 Mraicel Bearden MD [address] [facility], [address], [place], [address] , [facility] 4 10:56:57 Fall Active 2023 KOMAL Olsen [address] [facility], [address], [place], [address] , [facility] 4 09:55:12 Subconjunc tival hemorrhage 62899690 Active 2024 KOMAL Olsen [address] [facility], [address], [place], [address] , [facility] 5 10:43:28 Problem Notes None recorded. Medical Equipment None Reported. Allergies Allergen ID Allergen Name Allergen Category Reaction Reaction Severity Criticality Documentation Date Start Date Code Code System Note Provider Name and Address Organization Details Recorded Time 33810 Zyprexa medicatio n Not available Not available Not available 01/14/2022 94847 3 RxNorm Not Available Not Available Not Available Medications Name Sig Start Date Stop Date Status Note LastModified by Organization Details LastModified Time tramadol 50 mg tablet 2 tab PO BID; 1 tab PO q 6 hours PRN 025 active Not Available Not Available Not Avai lable Vitals Date Recorded Body height Systolic blood pressure Diastolic blood pressure Provider Name and Address Organization Details Last Updated DateTime 06/17/2024 185.42 cm 129 mm[Hg] 88 mm[Hg] KOMAL Olsen [address] [facility], [address], [place], [address], [facility] 06/17/2024 10:41:48 Social History Question Answer Notes LastModified by Organizat ion Details LastModified Time Tobacco Smoking Status Former Smoker Aguila Villegas MD [address] [facility], [address], [place], [address], [facility] 08/23/2021 13:07:17 Do You Have An Advance Directive? Yes Information not available 08/23/2021 What Is Your Level Of Alcohol Consumption? None Heavy In Past Information not available 09/15/2022 What Is Your Code Status? Full Code Information not available 08/23/2021 Where Do You Live? [facility] Information not available 09/15/2022 Legal Guardian? No Informati on not available 09/15/2022 Do You Have A Medical Power Of Section Leader And Machine Setter? Yes Information not available 09/15/2022 What Was [...] 50 mcg/0.25mL dose 2 completed Not Available [facility] 06/27/2023 02:39:44 COVID-19, mRNA, LNP-S, PF, 30 mcg/0.3 mL dose 1 completed Not Available [facility] 06/27/2023 02:39:44 COVID-19, mRNA, LNP-S, PF, 30 mcg/0.3 mL dose 1 completed Not Available [facility] 06/27/2023 02:39:44 pneumococcal polysaccharide PPV23 7 completed Not Available [facility] 06/27/2023 02:39:44 Tdap 0 completed Not Available [facility] 06/27/2023 02:39:44 COVID-19, mRNA, LNP-S, PF, 30 mcg/0.3 mL dose 2 completed Not Available [facility] 06/27/2023 02:39:44 Influenza, adjuvanted, quadrivalent, PF 3 completed Misty carver, [facility] [employer] [facility] 07/04/2023 12:25:04 Past Encounters Encounter ID Performer Location Encounter Start Date Encounter Closed Date Diagnosis/Indication Diagnosis SNOMED-CT Code Diagnosis ICD10 Code Diagnosis Note [id number] KOMAL Olsen [address] [place] [address] 06/17/2024 10:41:05 06/18/2024 13:32:46 Subconjunctival hemorrhage 87724429 H11.31 No pain, or change in vision. Monitor to resolution . Health Concerns Section Related Observation LastModified by Organization Detai ls LastModified Time None Recorded Concern Status LastModified by Organization Details LastModified Time None Recorded Payers Encounter Date Sequence Insurance Name Policy Number Policy Bocanegra Covered Member ID Bocanegra Member ID Guarantor Name 06/17/2024 1 [place] [employer] Elías Matute [id number] Elías Matute 06/17/2024 2 MEDICAID-[place]: [facility] Dimitrios Matute [id number] Elías Matute Notes Date Note Type Note Provider Name and Address Organization Details Recorded Time 06/17/2024 text/html 68-year-old male with PMH of glaucoma, anemia, COPD, GERD, HTN, ETOH use disorder, Wernicke's syndrome, PERSAUD, 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 Patient seen today for report of red left eye. KOMAL Olsen [address] [facility], [address], [place], [address], [facility] [employer] 06/17/2024 10:44:18
--- OUTSIDE RECORDS SUMMARY | 2024-07-17 12:13 | XMS_ITS | Clinical Summary ---
Author Organization [facility] ity Address [address] [place] [address] Care Team Providers Care Policy Writer Sales Name Role Phone Unavailable Primary Care Provider Unavailabl e Social History Tobacco Use Types Packs/Day Years Used Date Smoking Tobacco: Never Assessed Sex and Gender Information Value Date Recorded Sex Assigned at Not on file Legal Sex Male 9:42 PM EST Gender Identity Not on file Sexual Orientation Not on file Plan of Treatment Health Maintenance Due Date Last Done Comments DTaP,Tdap,and Td Vaccines (1 - Tdap) 1973 Zoster Vaccines (1 of 2) 2004 Pneumococcal Vaccine: 50+ Ye ars (1 of 1 - PCV) 08/09/2019 Abdominal Aortic Aneurysm (A AA) Screen 05/07/2022 Cholesterol Screening (Lipid Panel) 05/07/2022 Colorectal Cancer Screening: Colonoscopy 05/07/2022 Depression Screening 05/07/2022 Falls Risk Assessment 05/07/2022 Hepatitis C Screening 05/07/2022 Social Influencers of Health Screening 05/07/2022 COVID-19 Vaccine ( - 2023-2 5 season) 2024 Influenza Vaccine (#1) 2024 RSV Immunization Patients 60 + Years Old (1 - 1-dose 75+ series) 2029 HIB Vaccines Aged Out No longer eligi ble based on patient's age to complete this topic HPV Vaccines Aged Out No longer eligi ble based on patient's age to complete this topic Hepatitis A Vaccines Aged Out No long er eligible based on patient's age to complete this topic Hepatitis B Vaccines Aged Out No long er eligible based on patient's age to complete this topic IPV Vaccines Aged Out No longer eligi ble based on patient's age to complete this topic MMR Vaccines Aged Out No longer eligi ble based on patient's age to complete this topic Meningococcal ACWY Vaccine Aged Out N o longer eligible based on patient's age to complete this topic RSV Immunization Patients Un segundo 20 months Aged Out No longer eligible b ased on patient's age to complete this topic Varicella Vaccines Aged Out No longer eligible based on patient's age to complete this topic Advance Directives Documents on File Type Date Recorded Patient Census Taker Expl anation Health Care Decision (hx) 07/21/2021 AD MADDEN DIRECTIVE Health Care Decision (hx) 07/21/2021 AD MADDEN DIRECTIVE
[2024-07-17 18:05] LABS: C Reactive Protein 0.35 mg/dL (< or = 0.50)
[2024-07-17 18:32] LABS: Erythrocyte Sedimentation Rate 74 MM/HR (0-15)
== END 2024-07-17 09:22 | disposition home or self-care (01) ==
LOC: HO.HKASLDS 09:21
PROVIDERS: Visit Provider Internal Medicine Rheumatology
DX: M31.6 Other giant cell arteritis (principal); S32.000A Wedge compression fracture of unspecified lumbar vertebra, initial encounter for closed fracture; M17.11 Unilateral primary osteoarthritis, right knee
CPT/HCPCS: 36415; 85652; 86140; 99212

== ENCOUNTER 2024-11-14 09:15 | Outpatient (REF) | payer MEDICARE, SELFPAY ==
[2024-11-14 17:46] LABS: C Reactive Protein 0.68 mg/dL (< or = 0.50)
[2024-11-14 18:15] LABS: Erythrocyte Sedimentation Rate 75 MM/HR (0-15)
== END 2024-11-14 09:16 | disposition home or self-care (01) ==
LOC: HO.HKASLDS 09:15
PROVIDERS: Visit Provider Internal Medicine Rheumatology
DX: S32.000A Wedge compression fracture of unspecified lumbar vertebra, initial encounter for closed fracture (principal); M31.6 Other giant cell arteritis; M17.11 Unilateral primary osteoarthritis, right knee; Z79.899 Other long term (current) drug therapy
CPT/HCPCS: 36415; 85652; 86140; 99212

== ENCOUNTER 2024-11-14 09:15 | Outpatient (AMB) | payer MEDICARE, MEDICAID, SELFPAY ==
--- NOTE | 2024-11-14 09:23 | A.OFFVIS_ITS ---
Vital Signs 11/14/24 09:33 Height 6 ft BP 120/86 Blood Pressure Location Rt brachial Position Sitting Pulse 64 Pulse Source Pulse Oximeter Pulse Oximetry (%) 94 Oxygen Delivery Method Room Air Intake Visit Reasons: arthritis Intake Note: Patient presents for follow up for arthritis. Allergies olanzapine [From Zyprexa] Allergy (Unknown, Verified 11/14/24 09:24) Unknown HPI HPI arthritis: Details: He feels well. No GCA or PMR symptoms. PT is not helping. They applying splints and braces to patient but are unable to transfer and pivot patient. Patient is unable to stand. Physical Exam Vital Signs: Last Vital Signs Pulse 64 11/14/24 09:33 BP 120/86 11/14/24 09:33 Pulse Ox 94 11/14/24 09:33 Oxygen Delivery Method Room Air 11/14/24 09:33 Const Other: General: Comfortable CVS: RRR Respiratory: clear to auscultation bilaterally. Good respiratory effort Skin: No lesions seen MSK: No tenderness of any joint. Right arm range of motion is normal. 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 He is able to abduct left shoulder 60 degrees. Limited full extension of right knee with crepitus and bony hypertrophy noted. He has right knee flexion 120 degrees. Left knee flexion 90 degrees with increase muscle tone due to stroke. 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 He has had elevation in ESR 07/2024 then rechecked on multiple occasions with reduction in level on August 08, 2019 10/22/2034 mm/hr, August 17, 2019 10/22/2038 mm/hr then increased 09/04/2024 to 60 mm/hr. CRP remain normal. He has had close follow-up with ophthalmology since last visit without ocular findings of GCA. No recent infections to attribute elevated ESR to. I will continue to monitor inflammatory markers and patient clinically. If he continues to have elevated inflammatory markers without a clear cause and without ocular GCA exam findings, I will need to consider discussing treating GCA with a course of prednisone to prevent left eye blindness. Discussed with patient in his . Rheumatology history: Presenting with cerebrovascular occlusive disease and stroke 06/2021 to [facility] with headaches, right temporal pain and scalp tenderness 10/2021. Bilateral temporal artery biopsy with vascular inflammation suggesting GCA. Axillary artery inflammation on CTA chest at [facility] 2021. 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 Subsequently, he developed right eye blindness detected on eye exam 05/[address] Ospina. He developed jaw claudication 07/2022 and prednisone was increased. Actemra subcutaneous injection 01/2022 was changed to IV monthly infusion 10/19/2022 then back to subcutaneous injection for convenience being administered at patient's residents at [facility] with last dose administered 01/2024. Clinically he has remained in remission off of Actemra. He experienced side effects on long-term prednisone including psychosis, agitation, multiple infections, compression fracture of lumbar spine. Code(s): M31.6 - Other giant cell arteritis Category: Medical Plan: Inflammatory markers ordered Monitor clinically off of Actemra Follow-up with Dr. Ospina studio operation engineer tomorrow Return to clinic in 3 months (2) Compression fx, lumbar spine: Comment: He had presented to [facility] 11/2022 with back pain and found to have lumbar spine compression fracture, which healed on its own. Likely related to glue corticosteroid use at the time for treatment of GCA. Code(s): S32.000A - Wedge compression fracture of unspecified lumbar vertebra, initial encounter for closed fracture Category: Medical Qualifiers: Encounter type: initial encounter Lumbar vertebra fracture level: unspecified lumbar vertebra Qualified Code(s): S32.000A - Wedge compression fracture of unspecified lumbar vertebra, initial encounter for closed fracture Plan: Bone density ordered Requesting x-ray results of lumbar spine from [facility] (3) Osteoarthritis of right knee: Comment: Clinical diagnosis. He is not experiencing knee pain. Limiting mobility. He was unable to get x-ray at [facility]. PT is not helping with improving his lower extremity strength. He is unable to stand on to feet and extend his leg while standing. Patient's is considering having external PT work with patient. Code(s): M17.11 - Unilateral primary osteoarthritis, right knee Category: Medical Qualifiers: Osteoarthritis type: primary Qualified Code(s): M17.11 - Unilateral primary osteoarthritis, right knee Plan: Continue PT Return to clinic in 3 months Orders: Orders Erythrocyte Sedimentation Rate Today Z79.899 - Other termination clerk (current) drug therapy C Reactive Protein Today Z79.899 - Other shelter (current) drug therapy Coding Level of Care Code Est Pt Level 4 (23888) Complex EM visit Add On G2211 Diagnoses Temporal giant cell arteritis M31.6 Compression fracture of lumbar vertebra, unspecified lumbar vertebral level, initial encounter S32.000A Encounter type: initial encounter Lumbar vertebra fracture level: unspecified lumbar vertebra Primary osteoarthritis of right knee M17.11 Osteoarthritis type: primary
[2024-11-14 09:33] VITALS: BP 120/86; PULSE 64; O2SAT 94
--- OUTSIDE RECORDS SUMMARY | 2024-11-14 09:59 | XMS_ITS | Data Portability ---
Author Organization [facility], Main Office Address [address] [place] [address] Care Team Providers Care Assistant Nurse Manager Name Role Phone ALIYAMARLENE Primary Care Provider [phone] [facility] [address] [facility] ER Assessment Encounter Date Assessment Date Assessment [...] creat 0.7 [place] Not available 06/26/2024 10:38:11 08/16/2024 08/16/2024 Labs 04/21- wbc 3.2, hb 11.1, hct [...] 151, CRP 0.7, ESR 26, creat 0.7 Labs 08/07- ESR 35, CRP 3.9 Labs 08/16- pending [place] Not available 08/16/2024 11:08:43 10/11/2024 10/11/2024 Labs 04/21- wbc 3.2, hb 11.1, hct [...] 151, CRP 0.7, ESR 26, creat 0.7 Labs 08/07- ESR 35, CRP 3.9 Labs 08/16- ESR 39, CRP 5.58 Labs 08/20- CRP 4.3 Labs 09/04- ESR 60 [place] Not available 10/11/2024 11:35:08 Plan of Treatment Reminders Order Date Submit [...] Organization Details Recorded Time Cerebrovas cular accident 374684112 Active 2021 Not Available [facility] 4 02:39:41 Aphasia 88576030 Active 2021 Not Available [facility] 4 02:39:43 Left hemiparesi s 642416360 Active 2021 Not Available [facility] 4 02:39:42 Chronic obstructiv e pulmonary disease 28003149 Active 2021 Not Available [facility] 4 02:39:41 Dysphagia 06787604 Active 2021 Not Available [facility] 4 02:39:42 Glaucoma 27598246 Active 2021 Not Available [facility] 4 02:39:41 Essential hypertensi on 42341443 Active 2021 Not Available [facility] 4 02:39:43 Alcohol dependence 03639611 Active 2021 Not Available [facility] 4 02:39:43 Wernicke's disease 42830062 Active 2021 Not Available [facility] 4 02:39:41 Pain of bilateral knee regions 1898522075989 02 Active 2021 Not Available [facility] 4 02:39:42 Gastroesop hageal reflux disease without esophagiti s 908365870 Active 2021 Not Available [facility] 4 02:39:41 Anemia 393889839 Active 2021 Not Available [facility] 4 02:39:41 SARS-CoV-2 Active 2021 Not Available [facility] 4 02:39:43 History of cerebrovas cular accident 355986978 Active 2021 Not Available [facility] 4 02:39:41 Glaucoma 69465713 Active 2021 Not Available [facility] 4 02:39:41 Metabolic dysfunctio n-associat ed steatohepa titis 598221293 Active 2021 Not Available [facility] 4 02:39:42 History of giant cell arteritis 4886674847764 09 Active 2021 Not Available [facility] 4 02:39:42 Recurrent falls 435640680 Active 2021 Not Available [facility] 4 02:39:42 Edema of foot 917765743 Active 2021 Not Available [facility] 4 02:39:41 Insomnia 342376008 Active 2021 Not Available [facility] 4 02:39:41 Sinusitis 26845747 Active 2021 Not Available [facility] 4 02:39:42 Seborrheic dermatitis 95827866 Active 2022 Not Available [facility] 4 02:39:42 Swelling 67743394 Active 2022 Not Available [facility] 4 02:39:43 Cough 39658263 Active 2022 Not Available [facility] 4 02:39:42 Candidiasi s of mouth 35565508 Active 2022 Not Available [facility] 4 02:39:43 Chronic pain 55967788 Active 2022 Not Available [facility] 4 02:39:43 Cerebellar ataxia 59351075 Active 2022 Not Available [facility] 4 02:39:43 Asthenia 83349826 Active 2022 Not Available [facility] 4 02:39:41 Bacteremia 9506382 Active 2022 Not Available [facility] 4 02:39:42 Sepsis due to urinary tract infection 914296024 Active 2022 Not Available [facility] 4 02:39:43 Thyroid stimulatin g hormone level below reference range 060511757 Active 2022 Not Available [facility] 4 02:39:41 Swollen abdomen 36673282 Active 2022 Not Available [facility] 4 02:39:43 Urinary tract infectious disease 58716106 Active 2022 Not Available [facility] 4 02:39:43 Compressio n fracture Active 2022 Not Available [facility] 4 02:39:41 Itching of skin 001503471 Active 2022 Not Available [facility] 4 02:39:42 Forgetful 33691980 Active 2022 Not Available [facility] 4 02:39:42 Conjunctiv itis 9928267 Active 2022 Not Available [facility] 4 02:39:43 Subconjunc tival hemorrhage 52935157 Active 2022 Not Available [facility] 4 02:39:43 Impaired cognition 252609300 Active 2022 Not Available [facility] 4 02:39:42 Swelling of left upper limb 7805643664929 9109 Active 2022 Not Available [facility] 4 02:39:41 Toothache 96603712 Active 2022 Not Available [facility] 4 02:39:41 Pain of right shoulder region Active 2023 KOMAL Olsen [address], [address], [place], [address] , [facility] 4 10:03:50 Dementia with behavioral disturbanc e 7556795323763 Active 2023 Maricel Bearden MD [address], [address], [place], [address] , [facility] 4 10:56:57 Fall Active 2023 KOMAL Olsen [address], [address], [place], [address] , [facility] 4 09:55:12 Subconjunc tival hemorrhage 20363104 Active 2024 KOMAL Olsen [address], [address], [place], [address] , [facility] 5 10:43:28 Edema of lower extremity 173524919 Active 2024 KOMAL Olsen [address], [address], [place], [address] , [facility] 5 11:41:06 Problem Notes None recorded. Medical Equipment None Reported. Allergies Allergen ID Allergen Name Allergen Category Reaction Reaction Severity Criticality Documentation Date Start Date Code Code System Note Provider Name and Address Organization Details Recorded Time 29900 Zyprexa medicatio n Not available Not available Not available 01/14/2022 87411 3 RxNorm KOMAL Olsen [address], [address], [place], [address], [facility] 2 11:19:52 Medications Name Sig Start Date Stop Date Status Note LastModified by Organization Details LastModified Time tramadol 50 mg tablet 2 tab PO BID 11/09/19 25 active Not Available Not Available Not Avai lable Vitals Date Recorded Body height Systolic blood pressure Diastolic blood pressure Provider Name and Address Organization Details Last Updated DateTime 06/17/2024 185.42 cm 129 mm[Hg] 88 mm[Hg] PHUONG OlsenC [address], [address], [place], [address], [facility] 06/17/2024 10:41:48 Date Recorded Body height Heart rate Systolic blood pressure Diastolic blood pressure Provider Name and Address Organization Details Last Updated DateTime 06/26/2024 185.42 cm 62 /min 126 mm[Hg] 72 mm[Hg] KOMAL Olsen [address], [place], [address] , [facility] 06/26/2024 10:32:43 Date Recorded Body height Heart rate Systolic blood pressure Diastolic blood pressure Provider Name and Address Organization Details Last Updated DateTime 08/16/2024 185.42 cm 68 /min 138 mm[Hg] 68 mm[Hg] PHUONG OlsenC [address], [address], [place], [address] , [facility] 08/16/2024 11:03:45 Date Recorded Body height Systolic blood pressure Diastolic blood pressure Provider Name and Address Organization Details Last Updated DateTime 10/11/2024 185.42 cm 133 mm[Hg] 66 mm[Hg] PHUONG OlsenC [address], [address], [place], [address], [facility] 10/11/2024 11:33:18 Date Recorded Body height Heart rate Systolic blood pressure Diastolic blood pressure Provider Name and Address Organization Details Last Updated DateTime 10/18/2024 185.42 cm 70 /min 131 mm[Hg] 88 mm[Hg] PHUONG OlsenC [address], [address], [place], [address] , [facility] 10/18/2024 11:39:01 Social History Question Answer Notes LastModified by Organizat ion Details LastModified Time Tobacco Smoking Status Former Smoker Aguila Villegas MD [address] [facility], [address], [place], [address], [facility] 08/23/2021 13:07:17 Do You Have An Advance Directive? Yes Information not available 08/23/2021 What Is Your Code Status? Full Code Information not available 08/23/2021 Where Do You Live? [facility] [place] Information not available 09/15/2022 Legal Guardian? No Informati on not available 09/15/2022 Do You Have A Medical Power Of Carpet Technician? Yes Information not available 09/15/2022 What Was The Date Of Your Most Recent Tobacco Screening? 09/15/2022 Information not available 09/15/2022 Do You Have An Out Of Hospital DNR? No Information not available 09/15/2022 What Is Your Relationship Status? Information not available 09/15/2022 Has Tobacco Cessation Counseling Been Provided? No N/a As Pt No Longer Smokes Information not available 09/15/2022 Sex: Unknown Functional Status Question Answer Note LastModified by Organizat ion Details LastModified Time Do you or have you ever used any other forms of tobacco or nicotine? No Information not available 09/15/2022 What is your level of alcohol consumption? None heavy in past Information not available 09/15/2022 Mental Status None recorded. Family History Nothing Reported Notes:N/C Medical History No medical history recorded. Immunizations Vaccine Type Date Status Note Provider Nam e and Address Organization Details Recorded Time COVID-19, mRNA, LNP-S, PF, 100 mcg/0.5mL dose or 50 mcg/0.25mL dose 2 completed Not Available [facility] 06/27/2023 02:39:44 COVID-19, mRNA, LNP-S, PF, 30 mcg/0.3 mL dose 1 completed Not Available [facility] 06/27/2023 02:39:44 COVID-19, mRNA, LNP-S, PF, 30 mcg/0.3 mL dose 1 completed Not Available [facility] 06/27/2023 02:39:44 pneumococcal polysaccharide PPV23 7 completed Not Available [facility] 06/27/2023 02:39:44 Tdap 0 completed Not Available [facility] 06/27/2023 02:39:44 COVID-19, mRNA, LNP-S, PF, 30 mcg/0.3 mL dose 2 completed Not Available [facility] 06/27/2023 02:39:44 Influenza, adjuvanted, quadrivalent, PF 3 completed Misty carver [place] [facility] 07/04/2023 12:25:04 Past Encounters Encounter ID Performer Location Encounter Start Date Encounter Closed Date Diagnosis/Indication Diagnosis SNOMED-CT Code Diagnosis ICD10 Code Diagnosis Note [id number] MONE Roberts at [facility] on [address] [place] [address] 08/19/2021 09:16:50 08/24/2021 10:37:27 Cerebrovascular accident 387232629 I63.9 see HPI, extensiveA SA 81 mg dailyplavi x 75 mg dailyatorv astatin 80 mg qhsPT/OT eval and treatfollo w up with neuro via telehealth on 08/24loveno x 40 mg daily until patient ambulatory Alcohol dependence 35048 003 F10.20 wernicke encephalop athy likelyenco urage abstinence thiamine 100 mg dailyfolic acid 1 mg dailyMVI dailymonit or ammonia level Left hemiparesis 4084851 00 G81.90 baclofen 10PT/OT eval and treat Wernicke's disease 63623 002 E51.2 with agitation and restlessne sscontinue gabapentin 100 mg in am and 300 mg qhszyprexa 2.5 mg daily at 2 pmlexapro 10 mg dailymonit or mood and consult psychpatie nt should be invoked due to extreme aphasia Dysphagia 37921396 R13.1 0 NPO with PEG in placeSLP evaljevity 1.5 and flush with 50 ml h20 before and after feed Glaucoma 26233477 H40.9 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 ydorzolami de/timolol 1 drop to both eyes BIDerythro mycin BIDmonitor for improvemen t Pain of bi lateral knee regions 1181086349 94610 M25.561 degenerati ve changes on xrayAPAP 1000 mg TIDmonitor pain control Chronic ob structive pulmonary disease 16903565 J44.9 advair dailymonit or resp status Essential hypertension 51333356 I10 amlodipine 10 mg dailylisin opril 5 mg dailymonit or bps daily Gastroesop hageal reflux disease without esophagitis 877141936 K21.9 esomeprazo le 40 mg BIDmonitor for reflux Anemia 070126871 D64.9 follow up with GI after discharge, PCP to set upcontinue MVI with iron dailyconti nue PPImonitor labs weekly [id number] Aguila Villegas MD [facility] [address] [place] [address] 08/23/2021 13:05:29 08/26/2021 12:28:21 Toxic metabolic encephalopathy 298685546 G92.8 see HPImultifa ctorialcon tinues with agitations ee belowmonit or behaviors and cbc, bmpinvoke HCP Alcohol wi thdrawal delirium 8315487 F10.231 delir[facility] with behaviorsm onitor need for services in communityc ontinue thiamine Cerebrovas cular accident 409381946 I63.343 see HPIbilater al cerebellar infarcts, with stenosis of bilateral ICAscontin ues with dysphagia tube feed dependent and weaknessno w onasa 81 mg qdplavix 75 mg qdlipitor 80 mg qdneuro f/u pendingfol low neuro recs and update with concernsPT OT Eval and treatmonit or fall risk Left hemiparesis 4460895 00 G81.04 baclofen 5 mg bid for spastic hemiplegia monitor for effect and need to titrate Wernicke's disease 11895 002 E51.2 see aboveconti nues with behaviorsd ischarged on gabapentin 100 mg qam 300 mg qhszyprexa 2.5 mg qdwill increase gabapentin am dose to 300 mgand will add zyprexa 2.5 mg qd for severe agitationm onitor for effectpsyc h to eval Dysphagia 59042645 I69.3 91 remains NPI and tube feed dependentm onitor aspiration riskspeech to eval and follow Glaucoma 88675869 H40.9 see HPIcontinu e out patient medsophtha lmology f/u in place Chronic ob structive pulmonary disease 66325821 J41.8 continue out patient medsmonito r respirator y statuspulm onary eval prn Essential hypertension 80989510 I10 norvasc 10 mg qdlisinopr il 5 mg qdmonitor bp and need to titrate Gastroesop hageal reflux disease without esophagitis 843085935 K21.9 esomeprazo le 40 mg bidmonitor for sx Asthenia 36323393 R53.1 PT OT eval and treatmonit or fall risk Dysarthria due to and following cerebrovascular accident 2318956272 80950 I69.322 continues to improve now more verbal [id number] MONE Roberts at [facility] on [address] [place] [address] 08/24/2021 09:05:52 08/26/2021 12:47:38 Toxic metabolic encephalopathy 797511709 G92.8 see HPImultifa ctorialcon tinues with agitation , waiting on cortext from neuro with planmonito r behaviors and cbc, bmpinvoke HCP Alcohol wi thdrawal delirium 0151670 F10.231 delirium tremens in [facility] with behaviorsm onitor need for services in communityc ontinue thiamine Wernicke's disease 78233 002 E51.2 see aboveconti nues with behaviorsd ischarged on gabapentin 300 mg qam 300 mg qhszyprexa 2.5 mg qd and prn dailymonit or for effectpsyc h to evalHCP does not like zyprexa but understand s we need to get his behaviors under control right now [id number] MONE Roberts at [facility] on [address] [place] [address] 09/01/2021 07:40:30 09/03/2021 15:42:43 Cerebrovascular accident 109887618 I63.9 see HPI, extensiveA SA 81 mg dailyplavi x 75 mg dailyatorv astatin 80 mg qhsPT/OT eval and treatloven ox 40 mg daily until patient ambulatory Alcohol dependence 50288 003 F10.20 wernicke encephalop athy likelyenco urage abstinence thiamine 100 mg dailyfolic acid 1 mg dailyMVI dailymonit or ammonia level Left hemiparesis 0238187 00 G81.90 baclofen 10PT/OT eval and treat Wernicke's disease 92558 002 E51.2 with agitation and restlessne sscontinue gabapentin 100 mg in am and 300 mg qhslexapro 10 mg dailySTOP zyprexa 2.5mg dailystart depakote 500mg dailymonit or mood and consult psych Dysphagia 03084968 R13.1 0 NPO with PEG in placeSLP evaljevity 1.5 and flush with 50 ml h20 before and after feed Glaucoma 21958392 H40.9 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 ydorzolami de/timolol 1 drop to both eyes BIDerythro mycin BIDmonitor for improvemen t Pain of bi lateral knee regions 3433123431 18958 M25.561 degenerati ve changes on xrayAPAP 1000 mg TIDmonitor pain control Chronic ob structive pulmonary disease 55069947 J44.9 advair dailymonit or resp status Essential hypertension 65551856 I10 amlodipine 10 mg dailylisin opril 5 mg dailymonit or bps daily Gastroesop hageal reflux disease without esophagitis 829513250 K21.9 esomeprazo le 40 mg BIDmonitor for reflux Anemia 716548977 D64.9 follow up with GI after discharge, PCP to set upcontinue MVI with iron dailyconti nue PPImonitor labs weekly [id number] Jose Terrazas MD [facility] on [address] [place] [address] 09/03/2021 13:14:40 09/06/2021 14:22:43 Cerebral infarction 710983736 I63.9 117/65; amlodipine ; lisinopril ; concern for ascending reticular activating syndrome and risk for seizure disorder; Monitor Depakote levels, liver function tests, and CBC with diff every 3-6 months. baclofen; gabapentin ; dual antiplatel et therapy; Essential hypertension 47094356 I10 asymptomat ic; hemodynami rahat stable; good rate; good sats; follow; Chronic ob structive pulmonary disease 21326463 J44.9 asymptomat ic; hemodynami rahat stable; good rate; clear lungs; good sats; follow; Hyperglycemia 45054147 R 73.9 noted on a couple blood tests; consider trending and / or checking hba1c; Anemia 573709793 D64.9 mild; (09/03/21) 10.3/31.9; Oropharyng eal dysphagia 78164218 R13.12 extant feeding tube; (07/11/21) xr Enteric tube tip and side-port project in the stomach. Medication monitoring 39 1672541 Z51.81 med /// senna; escitalopr am 10 mg/d; baclofen 5 mg bid; lipitor 80 mg/d; plavix 75 mg/d; amlodipine 10 mg/d; asa 81 mg/d; esomeprazo le 40 mg/d; folic acid 1 mg/d; lisinopril 5 mg/d; melatonin; thiamin 100 mg/d; gabapentin 300 mg bid; valproic 500 mg hs; ativan 1 mg hs; lovenox 40 mg/d;Monit or Depakote levels, liver function tests, and CBC with diff every 3-6 months. [id number] MONE Roberts [facility] on [address] [place] [address] 09/07/2021 08:43:56 09/09/2021 12:05:36 Cerebral infarction 194115577 I63.9 129/85; amlodipine ; lisinopril ; concern for ascending reticular activating syndrome and risk for seizure disorder; Monitor Depakote levels, liver function tests, and CBC with diff every 3-6 months.dioni lofen; gabapentin ; dual antiplatel et therapy;Se e HPI, would agree with 5 days consecutiv e of therapy Essential hypertension 06699242 I10 asymptomat ic; hemodynami rahat stable; good rate; good sats; follow;129 /85 Chronic ob structive pulmonary disease 37064003 J44.9 asymptomat ic; hemodynami rahat stable; good rate; clear lungs; good sats; follow; [id number] MONE Roberts [facility] on [address] [place] [address] 09/09/2021 13:33:14 09/13/2021 12:13:30 Left hemiparesis 243694865 G81.90 baclofen 5 mg BID via g tubeadd lidocaine patch to left shoulder joint off qhsPT/OT may come out at end of week due to lack of progress [id number] MONE Roberts at [facility] on [address] [place] [address] 09/13/2021 09:10:43 09/15/2021 14:55:58 Left hemiparesis 483275047 G81.90 baclofen 5 mg BID via g tubecontin ue lidocaine patch to left shoulder joint off qhsleft arm should be proped on pillow at all times while in bedconside r sling, would refer to PTPT/OT likely ending due to lack of progress, pt to stay [id number] MONE Roberts [facility] on [address] [place] [address] 09/29/2021 09:56:43 10/04/2021 09:47:23 Left hemiparesis 550046896 G81.90 baclofen 5 mg BID via g tubecontin ue lidocaine patch to left shoulder joint off qhsleft arm should be proped on pillow as neededPT/O T to continue- see HPI Cerebral infarction 4325 93946 I63.9 /; amlodipine ; lisinopril Monitor Depakote levels, liver function tests, and CBC with diff every 3-6 months.dioni lofen; gabapentin ; dual anti-plate let therapy Essential hypertension 97877932 I10 stable 124/66- continue meds Chronic ob structive pulmonary disease 82319420 J44.9 resp status stable [id number] MONE Roberts [facility] on [address] [place] [address] 10/05/2021 08:53:01 10/07/2021 11:02:45 Glaucoma 93128792 H40.9 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 ydorzolami de/timolol 1 drop to both eyes BIDerythro mycin BIDadd travatan 0.004% 1 gtt to right eye QHSmonitor for improvemen t [id number] MONE Roberts [facility] on [address] [place] [address] 10/12/2021 09:17:32 10/14/2021 09:58:36 Excessive salivation 51800913 K11.7 full review of meds with no contraindi cations notedconsu lted sport psychologist to confirmSLP will continue to do facial exercise, has already given things she can do with himlikely not a reversible situationi f there is concern with new stroke patient would need head CTSLP to continue today [id number] MONE Roberts at [facility] on [address] [place] [address] [place] [address] 10/18/2021 14:46:21 10/20/2021 11:04:07 SARS-CoV-2 085383754 U07.1 add paxlovid 1 dose BID x 5 dayspatien t on no medication s that would interact at this timemonito r side effects, resp rate [id number] MONE Roberts at [facility] on [address] [place] [address], [place] [address] 10/20/2021 12:38:11 10/22/2021 13:12:17 SARS-CoV-2 571408515 U07.1 continue paxlovid 1 dose BID x 5 daysno symptoms noted at this timewill retest on monday, if negative may come off precaution s, if positive will complete 10 days [id number] MONE Roberts at [facility] on [address] [place] [address], [place] [address] 10/27/2021 13:43:56 10/29/2021 11:04:48 Anemia 649764524 D64.9 follow up with GI after discharge, PCP to set upcontinue MVI with iron dailyconti nue PPIadd stool guaiac x 3add iron studiesmon itor labs weekly Cerebrovas cular accident 742690883 I63.9 see HPI, valeriea dd referral to [facility] for increased or changing behaviorsc ontinue: A 81 mg dailyplavi x 75 mg dailyatorv astatin 80 mg qhslovenox 40 mg daily until patient ambulatory [id number] MONE Roberts at [facility] on [address] [place] [address], [place] [address] 11/10/2021 14:17:48 11/12/2021 03:48:30 Cerebrovascular accident 299868842 I63.9 with concern for new CVA, patient sent to ED for urgent eval and not returning [id number] KOMAL Olsen [address] [place] [address] 01/14/2022 11:19:31 01/18/2022 10:44:27 History of cerebrovascular accident 463745247 Z86.73 With left hemiparesi s, expressive aphagia. With Wernicke's as below. PT/OT to maximize function. On ASA, statin. Monitor. Wernicke's disease 19519 002 E51.2 On depakote, melatonin, gabapentin , lexapro, seroquel. Psych consult here. Monitor. Alcohol dependence 36089 003 F10.20 With Wernicke's as above. Encourage abstinence . Monitor. Anemia 729145818 D64.89 Follow labs. Monitor. Chronic ob structive pulmonary disease 27912354 J44.9 Stable. Monitor. Essential hypertension 80764844 I10 No med treatment. Follow BP and labs. Monitor. Gastroesop hageal reflux disease without esophagitis 442196128 K21.9 On pantoprazo le. Monitor. Glaucoma 09067089 H40.9 Gtts as ordered. History of giant cell arteritis 2582628716 62699 Z86.October. Followed by Dr. Curtis at [facility]. On prednisone . To start prednisone taper 1 week after starting actemra - IF inflammato ry markers improved. Inflammato ry markers suggestive of high disease activity. Dr. Curtis is following closely and to be updated regularly. Metabolic dysfunction-associate d steatohepatitis 451038475 K75.81 With ETOH use disorder as above. Monitor. Recurrent falls 66863561 2 R29.6 PT/OT to maximize function. Monitor. [id number] KOMAL Olsen [address] [place] [address] 01/19/2022 09:25:08 01/24/2022 15:19:24 History of cerebrovascular accident 346963399 Z86.73 With left hemiparesi s, expressive aphagia. With Wernicke's as below. PT/OT to maximize function. On ASA, statin. Monitor. Wernicke's disease 002 E51.2 On depakote, melatonin, gabapentin , lexapro, seroquel. Psych to follow here. Monitor. History of giant cell arteritis 4022208541 10142 Z86.October. Followed by Dr. Curtis at [facility]. On prednisone . To start prednisone taper 1 week after starting actemra - IF inflammato ry markers improved. Inflammato ry markers suggestive of high disease activity. Labs pending today. Dr. Curtis is following closely and to be updated regularly. Essential hypertension 06400890 I10 No med treatment. SBPs 110-130s. Follow BP and labs. Monitor. [id number] MD TEENA Amado [address] [place], [place] [address] 01/20/2022 08:31:32 01/24/2022 15:47:14 Temporal arteritis 688462386 M31.6 [facility] if inflammato ry markers improve may start slow prednisone taper dropping 5 mg every other weekupdate s to Dr. Curtismonit or blood work and update rheumatolo gy with concernsof note patient has refused lab draws at [facility] w aware of importance of allowingpa tient now states will allow tomorrow History of cerebrovascular accident 628003226 Z86.73 s/p cerebellar and pontine CVAexpress heather aphagiaPT OT Eval and treatmonit or for changecont inued onlipitor 40 mg qdASA 81 mg qd Wernicke's disease 002 E51.2 with agitation and behaviorsc ontinue current medication spsych to eval and followmoni tor need for increased services in community vs need to transition to LTC Alcohol dependence 06068 003 F10.20 continue supportive carewill need support if returning to community Anemia 981924750 D64.89 monitor cbciron studies prn Chronic ob structive pulmonary disease 16929090 J41.1 carrying dxmonitor respirator y functionpn eumonia cleared on prior imaging Essential hypertension 12751081 I10 now off bp medscontin ue to monitor need to restart Gastroesop hageal reflux disease without esophagitis 531451247 K21.9 pantoprazo le 40 mg qdmonitor for sx control Metabolic dysfunction-associate d steatohepatitis 502267815 K75.81 carrying dx of PERSAUD and etohmonito r LFTsGI eval prn Recurrent falls 45915331 2 R29.6 PT OT eval and treatmonit or fall risk Asthenia 07035548 R53.1 patient currently 1 person pivot tx to wheelchair requires supervisio n with feeding and assist with ADLsmonito r need for increased support in communityp atient goal is home with services [id number] KOMAL Olsen [address] [place] [address] 01/25/2022 11:09:44 01/28/2022 14:18:32 History of cerebrovascular accident 801827447 Z86.73 With left hemiparesi s, expressive aphagia. PT/OT to maximize function. On ASA, statin. Monitor. History of giant cell arteritis 2458856309 Z86.October. Followed by Dr. Curtis at [facility]. On prednisone . To start prednisone taper 1 week after starting actemra - IF inflammato ry markers improved. Inflammato ry markers suggestive of high disease activity. Labs as above. Dr. Curtis updated and we are awaiting recs. Monitor. Essential hypertension 69812007 I10 No med treatment. SBPs 90-160s, mostly between 100-150s. Follow BP and labs. Monitor. Wernicke's disease 66950 002 E51.2 On depakote, melatonin, gabapentin , lexapro, seroquel. Psych to follow here. Monitor. [id number] KOMAL Olsen [address] [place] [address] 01/28/2022 10:03:23 01/31/2022 14:17:39 History of giant cell arteritis 0846182302 Z86.October. Followed by Dr. Curtis at [facility]. On prednisone 30 mg daily. Labs as above. Dr. Curtis updated 01/25. Prednisone increased to 50 mg daily, f/u in office next week. No further labs (inflam markers) at this time per Dr. Curtis. Monitor. History of cerebrovascular accident 204130580 Z86.73 With left hemiparesi s, expressive aphagia. PT/OT to maximize function. On ASA, statin. Monitor. Essential hypertension 13558107 I10 No med treatment. SBPs 90-160s, mostly between 100-140s. Follow BP and labs. Monitor. Wernicke's disease E51.2 On depakote, melatonin, gabapentin , lexapro, seroquel. Psych to follow here. Monitor. [id number] KOMAL Olsen [address] [place], [place] [address] 02/02/2022 09:28:42 02/08/2022 13:10:05 History of giant cell arteritis 6010699636 Z86.October. Followed by Dr. Curtis at [facility]. On prednisone 50 mg daily. Labs as above. Dr. Curtis updated 01/25- f/u in office 02/01 - awaiting note. No further labs (inflam markers) at this time per Dr. Curtis. Monitor. History of cerebrovascular accident 118105980 Z86.73 With left hemiparesi s, expressive aphagia. PT/OT to maximize function. On ASA, statin. Monitor. Wernicke's disease E51.2 On depakote, melatonin, gabapentin , lexapro, seroquel. Psych to follow here. Monitor. [id number] KOMAL Olsen [address] [place], [place] [address] 02/08/2022 11:20:37 02/10/2022 13:59:03 History of giant cell arteritis 5823964654 19109 Z86.October. Followed by Dr. Curtis at [facility]. On prednisone 50 mg daily. Labs as above. Dr. Curtis updated 01/25- f/u in office 02/01 - recs to start PCP prophylaxi s with bactrim DS MWF, will order, cont prednisone , increase omeprazole to 20 mg BID. Repeat ESR, CRP. Monitor. History of cerebrovascular accident 204614493 Z86.73 With left hemiparesi s, expressive aphagia. PT/OT to maximize function. On ASA, statin. Monitor. Wernicke's disease E51.2 On depakote, melatonin, gabapentin , lexapro, seroquel. Psych to follow here. Monitor. Essential hypertension 37454865 I10 No med treatment. SBPs 100-130s. Follow BP and labs. Monitor. Alcohol dependence 32517 003 F10.20 With Wernicke's as above. Encourage abstinence . Monitor. Anemia 635966976 D64.89 Follow labs. Monitor. Chronic ob structive pulmonary disease 23576734 J44.9 Stable. Monitor. Gastroesop hageal reflux disease without esophagitis 239538232 K21.9 On omeprazole BID. Monitor. Glaucoma 93618583 H40.9 Gtts as ordered. Metabolic dysfunction-associate d steatohepatitis 465383673 K75.81 With ETOH use disorder as above. Monitor. Recurrent falls 24893563 2 R29.6 PT/OT to maximize function. Monitor. [id number] KOMAL Olsen [address] [place] [address] 02/14/2022 09:58:02 02/16/2022 09:56:27 History of giant cell arteritis 6575865648 31700 Z86.October. Followed by Dr. Curtis at [facility]. On prednisone 50 mg daily. Labs as above. Dr. Curtis updated 01/25- f/u in office 02/01 - on bactrim DS MWF for PCP prophylaxi s, omeprazole 20 mg BID. Follow labs. Monitor. History of cerebrovascular accident 841659923 Z86.73 With left hemiparesi s, expressive aphagia. PT/OT to maximize function. On ASA, statin. Monitor. [id number] KOMAL Olsen [address] [place] [address] 02/21/2022 10:27:04 02/23/2022 14:03:22 History of giant cell arteritis 5743527201 26395 Z86.October. Followed by Dr. Curtis at [facility]. On prednisone 50 mg daily. Labs as above. Dr. Curtis following. Plan- cont prednisone 50 mg daily, labs 3 weeks. On bactrim DS MWF for PCP prophylaxi s, omeprazole 20 mg BID. Follow labs. Monitor. History of cerebrovascular accident 865330827 Z86.73 With left hemiparesi s, expressive aphagia. PT/OT to maximize function. On ASA, statin. Monitor. [id number] MD TEENA Phillips [address] [place] [address] 02/23/2022 06:32:16 03/01/2022 11:14:47 Asthenia 79598215 R53.1 PT/OT/SLPw ill monitor and support as needed History of cerebrovascular accident 241112069 Z86.73 PT/OT/SLPa trovastati n 40 mg dailyASA 81 mg dailywill monitor Essential hypertension 49391855 I10 no meds at this timewill monitor History of giant cell arteritis 6804989981 Z86.79 Actemra Actpen 162 mg dailypredn isone 50 mg daily through 03/10/22Ba ctrim DS M,W,F PCP prophylaxi sfu rheumatolo gy Wernicke's disease 29956 002 E51.2 will monitor and support as needed Mixed anxi ety and depressive disorder 459648310 F41.[address] 500 mg bidquetiap ine 25 mg tidgabapen tin 300 mg bidescital opram 10 mg dailywill monitor Chronic pain 97263944 G8 9.29 APAP 650 mg tidgabapen tin 300 mg tidPT/OTwi ll monitor Gastroesop hageal reflux disease without esophagitis 589310447 K21.9 omeprazole 20 mg bidwill monitor [id number] Dorys Kc, NURSE LEADER-C TEENA SIM [address] [place] [address] 03/07/2022 10:35:06 03/09/2022 10:20:32 History of giant cell arteritis 5804162121 20989 Z86.October. Followed by Dr. Curtis at [facility]. On prednisone 50 mg daily. Labs as above. Dr. Curtis following. Plan- cont prednisone 50 mg daily, labs 3 weeks- pending 03/10. On bactrim DS MWF for PCP prophylaxi s, omeprazole 20 mg BID. Follow labs. Monitor. Essential hypertension 46913142 I10 No med treatment. SBPs 100-130s. Follow BP and labs. Monitor. History of cerebrovascular accident 366586737 Z86.73 With left hemiparesi s, expressive aphagia. PT/OT to maximize function. On ASA, statin. Monitor. [id number] KOMAL Olsen [address] [place] [address] 03/14/2022 09:50:41 03/16/2022 12:20:16 History of giant cell arteritis 6127916745 Z86.October. Followed by Dr. Curtis at [facility]. On prednisone 45 mg daily. Labs as above. Dr. Curtis following, started slow pred taper 03/10 with f/u labs 3 weeks. On bactrim DS MWF for PCP prophylaxi s, omeprazole 20 mg BID. Follow labs. Monitor. History of cerebrovascular accident 936617317 Z86.73 With left hemiparesi s, expressive aphagia. PT/OT to maximize function. On ASA, statin. Monitor. Essential hypertension 99009257 I10 No med treatment. SBPs 100-130s. Follow BP and labs. Monitor. Wernicke's disease 70026 002 E51.2 On depakote, melatonin, gabapentin , lexapro, seroquel. Psych following here. Monitor. Alcohol dependence 20416 003 F10.20 With Wernicke's as above. Encourage abstinence . Monitor. Anemia 183115967 D64.89 Follow labs. Monitor. Chronic ob structive pulmonary disease 90516645 J44.9 Stable. Monitor. Gastroesop hageal reflux disease without esophagitis 178939654 K21.9 On omeprazole BID. Monitor. Glaucoma 67071215 H40.9 Gtts as ordered. Metabolic dysfunction-associate d steatohepatitis 038774642 K75.81 With ETOH use disorder as above. Monitor. Recurrent falls 44840069 2 R29.6 PT/OT to maximize function. Monitor. [id number] KOMAL Olsen [address] [place] [address] 03/21/2022 08:26:05 03/23/2022 11:51:19 Edema of foot 710507140 R60.0 No warmth, erythema, pain. Calf supple. LS- clear. Will monitor. History of giant cell arteritis 5979343307 19109 Z86.October. Followed by Dr. Curtis at [facility]. On prednisone 45 mg daily. Labs as above. Dr. Curtis following, on slow pred taper (started 03/10) with f/u labs. On bactrim DS MWF for PCP prophylaxi s, omeprazole 20 mg BID. Follow labs. Monitor. History of cerebrovascular accident 930934044 Z86.73 With left hemiparesi s, expressive aphagia. PT/OT to maximize function. On ASA, statin. Monitor. [id number] KOMAL Olsen [address] [place] [address] 03/23/2022 10:53:09 03/25/2022 12:29:46 Insomnia 528446761 G47.09 On melatonin 3 mg daily at HS. Will add trazodone 25 mg daily at HS PRN. Pt otherwise seems at baseline. PE unremarkab le. ROS negative aside from insomnia. Recurrent falls 39126509 2 R29.6 As above. PT/OT. [id number] KOMAL Olsen [address] [place] [address] 03/28/2022 10:22:49 03/30/2022 11:35:10 History of cerebrovascular accident 448540544 Z86.73 With left hemiparesi s, expressive aphagia. Therapy to re-eval today to see if rehab POC can be re-instate d. On ASA, statin. Monitor. [id number] MD TEENA Amado [address] [place] [address] 04/04/2022 10:04:00 04/06/2022 12:16:10 Cerebellar ataxia 70068010 G32.81 see HPIcontinu ed left hemiparesi sleft foot inversion would benefit from reposition ing of AFO and return to therapy with goal of having patient improve to 1 person assist with goal of returning homecall out to insurance med director to discuss awaiting return call History of cerebrovascular accident 101148237 Z86.73 see aboves/p cerebellar and pontine CVAexpress heather aphagia continuesd iscussed with therapy and nursing Asthenia 69692404 R53.1 goal is home with servicescu rrently requiring 2 person assist Recurrent falls 66084701 2 R29.6 see HPIspouse by report attempted 1 person transferha d to lower patient to floor [id number] KOMAL Olsen [address] [place] [address] 04/12/2022 11:26:50 04/14/2022 09:49:05 History of cerebrovascular accident 633367015 Z86.73 With left hemiparesi s, expressive aphagia, ataxia. Therapy re-eval denied by [facility], physician to physician denied. Reached out to insurance dept at as requesting further appeal. Appears as though pt could benefit from further therapy as his ability to participat e in therapy has been limited d/t inversion of left foot requiring AFO. AFO use was limited d/t skin breakdown. AFO has been re-fitted. Goal is to increase endurance with goal to be able to become one person squat-pivo t transfer so can eventually care for patient at home. On ASA, statin. Monitor. [id number] KOMAL Olsen [address] [place] [address] 04/18/2022 09:26:41 04/19/2022 16:27:33 History of cerebrovascular accident 191859990 Z86.73 With left hemiparesi s, expressive aphagia, ataxia. Pt could benefit from ongoing therapy, physician appeal in process. On ASA, statin. Monitor. [id number] MD TEENA John [address] [place] [address] 05/05/2022 18:01:11 05/09/2022 12:25:40 History of cerebrovascular accident 836439326 I63.89 I69.354 Continues to need 1 to 2 assist for transfers, not ambulating .Continues to need PT/OT for strengthen ing, balance, gait training, safety and function.C ontinue fall precaution s.Monitor for safety.Con tinue atorvastat in 40 mg qd and ASA 81 mg qd.Monitor sxs and improvemen t. Essential hypertension 34467962 I10 Remains in good control off meds.Monit or BP and labs. History of giant cell arteritis 9707142764 25221 M31.6 Inflammato ry markers improved on last check.Cont inue Actemra 162 mg qd.Continu e slow prednisone taper. Continue to monitor inflammato ry markers every 2 wks.Contin ue Bactrim DS M,W,F for PCP prophylaxi sF/U with rheum as planned. Wernicke's disease 52992 002 E51.2 Behaviors improved on current meds.Jeanie nue meds as above.Vandana tor. Mixed anxi ety and depressive disorder 307441613 F41.[address] 500 mg bid, quetiapine 25 mg tid, gabapentin 300 mg bid, and escitalopr am 10 mg qd.Monitor mood and behaviors. Consult psych prn Chronic pain 49044285 G8 9.29 Continue APAP 650 mg TID and gabapentin 300 mg TID.Monito r. Cerebellar ataxia 586374 08 G32.81 As above.With continued left hemiparesi sleft foot inversion would benefit from reposition ing of AFO and return to therapy with goal of having patient improve to 1 person assist with goal of returning homeAfo refitted and now not causing skin irritation . Alcohol dependence 74598 003 F10.20 With Wernicke's as above. Encourage abstinence . Monitor. Anemia 813643629 D64.89 Stable, not checked recently.O rder monthly labs. Chronic ob structive pulmonary disease 77434310 J43.8 No sxs on no meds.Monit or resp status. [id number] Dorys Kc, NURSE LEADER-C TEENA SIM [address] [place] [address] 05/11/2022 09:56:04 05/13/2022 12:04:06 Sinusitis 46215247 J32.8 Per , pt c/o cheek pain for some time. Per elfego Kern, ? sinus infection. Pt with tenderness right maxillary sinus. Will start augmentin 875/125 mg BID x 10 days. Probiotic. [id number] MD TEENA John [address] [place] [address] 06/03/2022 17:04:22 06/07/2022 14:42:24 Respiratory tract congestion and cough 570932179 R05.8 Not likely to be PNA, but will r/o with CXR.Start Mucinex ER 1200 mg BID and robitussin DM 10 ml q 4 hrs prn.Monito r resp status. [id number] KOMAL Olsen [address] [place], [place] [address] 06/10/2022 10:42:59 06/13/2022 12:59:10 Seborrheic dermatitis 70235874 L21.8 To right nasolabial fold. Will order hydrocorti sone topical BID x 10 days. KOMAL Olsen [address] [place], [place] [address] 06/24/2022 09:55:08 06/28/2022 09:22:09 Swelling 39131676 R60.0 Pt with mild swelling right cheek. Pt denies pain or tenderness . Treated for possible sinusitis last month. Does not present like infection, ? chronic change. Cont to monitor. [id number] KOMAL Olsen [address] [place] [address] 06/29/2022 10:26:35 07/01/2022 13:09:09 History of cerebrovascular accident 122074827 Z86.73 With left hemiparesi s, expressive aphagia, ataxia. Therapy reporting hypertonic ity left foot. Will order [facility] consult for possible botox. On ASA, statin. Insomnia 696973846 G47.0 9 On melatonin 3 mg daily at . Recurrent falls 06456162 2 R29.6 As above. PT/OT. History of giant cell arteritis 3560691552 21973 Z86.October. Followed by Dr. Curtis at [facility]. On prednisone 40 mg BID and on bactrim DS MWF for PCP prophylaxi s, omeprazole 20 mg BID. Follow labs. Essential hypertension 52048876 I10 No med treatment. SBPs 100-130s. Follow BP and labs. Wernicke's disease 16739 002 E51.2 On depakote, melatonin, gabapentin , lexapro, seroquel. Psych following here. Alcohol dependence 91731 003 F10.20 With Wernicke's as above. Anemia 424289137 D64.89 Follow labs. Chronic ob structive pulmonary disease 12401432 J44.9 Stable. Gastroesop hageal reflux disease without esophagitis 950535887 K21.9 On omeprazole BID. Glaucoma 84151652 H40.9 Gtts [place] [address] 07/15/2022 09:35:21 08/05/2022 10:08:03 Ataxia as sequela of cerebrovascular accident 8595613864 77356 I69.393 see HPIwill start baclofen 5 mg tidmonitor for change in contractur e and sedative side effectafte r discussion with HNE now cleared for 2 week trial of PT to determine if further treatment can effect level of needextend ed discussion as team towards goal of care with understand ing that if no progress is made it is highly likely insurance will not extended period of therapy [id number] [place] [address] 07/27/2022 12:46:01 07/29/2022 09:28:49 Dependent edema 192839707 R60.0 acute increase in LLE edemaminim al erythemapr obable dependent edema with hx CVA with left hemiparesi swill check UL to r/o DVT Ataxia as sequela of cerebrovascular accident 8364032405 40081 I69.393 see abovewill request reevaluati on from insurance to continue therapy as ultimate goal is home 1 person assistcont inue supportive carebaseli ne left hemiparesi s [id number] [place] [address] 08/02/2022 10:23:54 08/03/2022 18:12:40 Edema of foot 434123914 R60.0 No warmth, erythema, pain. Calf supple. US last week negative. Ankle/foot internally rotated. Will get xray to r/o fracture. [id number] [place] [address] 08/26/2022 10:29:12 08/29/2022 10:47:37 Cough 52483476 R05.1 Pt with congested cough. LS- few wheezes, mild rhonchi. No resp distress. No hypoxia. Pt reports mild SOB. Nursing reports some dysphagia. ? asp. Will get CXR. Pt on chronic steroids and on bacrtim for PCP prophylaxi s. Labs pending today. KOMAL Olsen [address] [place] [address] 08/29/2022 09:40:15 08/31/2022 09:23:20 Cough 25638625 R05.1 Resolved. CXR 08/26- negative. Cerebrovas cular accident 008240474 I63.89 On ASA, statin. Speech is variable, no acute changes noted. Will order neuro consult for continued care. [id number] KOMAL Olsen [address] [place] [address] 09/12/2022 09:45:07 09/14/2022 08:44:04 Candidiasis of mouth 93787375 B37.0 Pt reports right cheek and upper right tooth pain. No signs of infection of the upper teeth. ? thrush right cheek. Will order nystatin swish and swallow QID x 10 days. MD TEENA John [address] [place], [place] [address] 09/15/2022 13:31:14 09/19/2022 10:43:00 History of cerebrovascular accident 710836448 I63.89 I69.354 Continues to need 2 assist for transfers, not ambulating .Has plateaued per rehab, will restart rehab after botox injection in foot, when able to wear AFO again.Cont inue fall precaution s.Monitor for safety.Con tinue atorvastat in 40 mg qd and ASA 81 mg qd.Monitor sxs and improvemen t. History of giant cell arteritis 2523825462 82762 M31.6 Inflammato ry markers stable, normal or on low end of abnl.Jeanie nue Actemra 162 mg qd and prednisone 40 mg qd.Had been on taper, but increased by rheum after CTA on 09/12Contin ue Bactrim DS M,W,F for PCP prophylaxi sRheum planning neuro consult for abl. CTA of head. Essential hypertension 20524765 I10 Remains in good control off meds.Monit or BP and labs. Mixed anxi ety and depressive disorder 478260330 F41.[address] 500 mg bid, quetiapine 25 mg tid, gabapentin 300 mg bid, and escitalopr am 10 mg qd.Monitor mood and behaviors. Consult psych prn Wernicke's disease 73729 002 E51.2 Behaviors improved on current meds.Jeanie nue meds as above.Vandana tor. Chronic pain 40450466 G8 9.29 Continue APAP 650 mg TID and gabapentin 300 mg TID.Monito r. Cerebellar ataxia 983361 08 G32.81 As above.With continued left hemiparesi sWill be getting botox injection for left foot inversion to enable use of AFO and return to therapy with goal of having patient improve to 1 person assist to enable return to homeWill be able to restart rehab after botox injection. Alcohol dependence 43132 003 F10.20 With hx of heavy use.Has Wernicke's as above.Enco urage continued abstinence if pt returns home. Anemia 191820215 D64.89 WNL on last check.Vandana tor prn Chronic ob structive pulmonary disease 23044558 J43.8 No sxs on no meds.Monit or resp status. [id number] Dorys Kc, NURSE LEADER-C TEENA SIM [address] [place] [address] 09/20/2022 09:58:39 09/22/2022 10:42:53 History of giant cell arteritis 1963921117 48694 M31.08 Oct 2021. Followed by Dr. Curtis at [facility]. On prednisone 40 mg BID (increased again to BID on 09/15) and on bactrim DS MWF for PCP prophylaxi s, omeprazole 20 mg BID. Follow labs. F/U Dr. Curtis 09/14- recs to change acemra SC to IV monthly infusion. Neurology consult. CTA neck/head showed new short segment abnormalit y involving the cavernous right ICA. - neuro consult pending. History of cerebrovascular accident 253685603 I63.89 I69.354 With left hemiparesi s, expressive aphagia, ataxia. With increased global weakness as above. On ASA, statin. Asthenia 18579191 R53.1 Therapy reports increased weakness, now difficult 2-person transfer, they are parveen narvaez [place]. Aids report increased weakness over past 2 weeks. Neuros at baseline. Will get CBC, BMP tomorrow. No resp or urinary symptoms. [id number] KOMAL Olsen [address] [place] [address] 09/30/2022 10:33:18 10/03/2022 16:20:32 Asthenia 72459008 R53.1 Pt with continued decline over past 3 weeks. Pt now a full omaira life, unable to stand, incontinen t of bowel and bladder. Pt has neuro f/u next week and [facility] neurosurge ry the following week. Given rapid progressio n of decline, will send to acute care for further aretha.. History of giant cell arteritis 2239518099 79940 M31.08 Oct 2021. Followed by Dr. Curtis at [facility]. On prednisone 40 mg BID (increased again to BID on 09/15) and on bactrim DS MWF for PCP prophylaxi s, omeprazole 20 mg BID. Follow labs. F/U Dr. Curtis 09/14- recs to change acemra SC to IV monthly infusion. Neurology consult. CTA neck/head showed new short segment abnormalit y involving the cavernous right ICA. - neuro consult pending. Sending to acute care as above. History of cerebrovascular accident 969473064 I63.89 I69.354 With left hemiparesi s, expressive aphagia, ataxia. With increased global weakness as above. On ASA, statin. Sending to acute care as above. [id number] KOMAL Olsen [address] [place] [address] 10/04/2022 09:52:24 10/06/2022 10:14:11 Sepsis due to urinary tract infection 346542085 N39.0 Blood and urine cultures positive for Klebsiella pneumoniae , ESBL positive. Treated with meropenem in acute care. To complete course here with levaquin (10/15). Bacteremia 3569598 R78.8 1 As above. Asthenia 26114545 R53.1 In setting of UTI sepsis as above, chcf high dose steroids. PT/OT. History of giant cell arteritis 8105671706 10537 M31.08 Oct 2021. Followed by Dr. Curtis at [facility]. On prednisone 40 mg BID (increased again on 09/15) and on bactrim DS MWF for PCP prophylaxi s, omeprazole 20 mg BID. Follow labs. F/U Dr. Curtis 09/14- recs to change acemra SC to IV monthly infusion. Neurology consult. CTA neck/head showed new short segment abnormalit y involving the cavernous right ICA. - neuro consult pending 10/05. History of cerebrovascular accident 730252615 I63.89 I69.354 With left hemiparesi s, expressive aphagia, ataxia. With increased global weakness as above. On ASA, statin. Cerebrovas cular accident 252176342 I63.89 On ASA, statin. Neuro consult for continued care pending 10/05. Insomnia 125234392 G47.0 9 On melatonin 3 mg daily at HS. Essential hypertension 25414308 I10 No med treatment. Follow BP and labs. Wernicke's disease 08186 002 E51.2 On depakote, melatonin, gabapentin , lexapro, seroquel. Psych following here. Alcohol dependence 02465 003 F10.20 With Wernicke's as above. Anemia 650206882 D64.89 Follow labs. Chronic ob structive pulmonary disease 08561434 J44.9 Stable. Gastroesop hageal reflux disease without esophagitis [id number] K21.9 On omeprazole . Glaucoma 78662845 H40.9 Gtts as ordered. Metabolic dysfunction-associate d steatohepatitis 570304048 K75.81 With ETOH use disorder as above. Monitor. [id number] Dorys Kc, KOMAL SIM [address] [place], [place] [address] 10/07/2022 10:37:49 10/10/2022 14:17:13 Sepsis due to urinary tract infection 580660429 N39.0 Blood and urine cultures positive for Klebsiella pneumoniae , ESBL positive. Treated with meropenem in acute care. To complete course here with levaquin (10/15). Bacteremia 7378397 R78.8 1 As above. 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 PT/OT. History of giant cell arteritis 6054491561 M31.08 Oct 2021. Followed by Dr. Curtis at [facility]. On prednisone 40 mg BID (increased again on 09/15) and on bactrim DS MWF for PCP prophylaxi s, omeprazole 20 mg BID. Follow labs. F/U Dr. Curtis 09/14- recs to change actemra SC to IV monthly infusion. Neurology consult. CTA neck/head showed new short segment abnormalit y involving the cavernous right ICA. - neuro consult pending 10/05- extensive consult - see notes for details. Not clear GCA diagnosis - will defer to rheum for steroid management . Recs to d/c gabapentin - will taper to d/c. B12, f/u TSH. History of cerebrovascular accident 352324646 I63.89 I69.354 With left hemiparesi s, expressive aphagia, ataxia. With increased global weakness as above. Followed by neuro. On ASA, statin. Essential hypertension 58395915 I10 No med treatment. SBPs 90-140s. Follow BP and labs. Thyroid st imulating hormone level below reference range 074228369 R94.6 Repeat TSH and free T4. [id number] Dorys Kc, RACQUEL-Hue SIM [address] [place] [address] 10/11/2022 10:23:30 10/13/2022 14:55:35 Sepsis due to urinary tract infection 404898464 N39.0 Blood and urine cultures positive for Klebsiella pneumoniae , ESBL positive. Treated with meropenem in acute care. To complete course here with levaquin (10/15). Bacteremia 7610749 R78.8 1 As above. Asthenia 05410268 R53.1 In setting of UTI sepsis as above, exterminator termite high dose steroids. PT/OT. History of giant cell arteritis [id number] M31.08 Oct 2021. Followed by Dr. Curtis at [facility]. On prednisone 40 mg BID (increased on 09/15) and on bactrim DS MWF for PCP prophylaxi s, omeprazole 20 mg BID. Follow labs. F/U Dr. Curtis 09/14- recs to change actemra SC to IV monthly infusion. Neurology now following. CTA neck/head showed new short segment abnormalit y involving the cavernous right ICA. - neuro consult 10/05- extensive consult - see notes for details. Not clear GCA diagnosis - will defer to rheum for steroid management . Gabapentin taper in process. B12 WNL. TSH as below. History of cerebrovascular accident 384310096 I63.89 I69.354 With left hemiparesi s, expressive aphagia, ataxia. With increased global weakness as above. Followed by neuro. On ASA, statin. Essential hypertension 33228126 I10 No med treatment. SBPs 90-140s. Follow BP and labs. Thyroid st imulating hormone level below reference range 759032706 R94.6 With mildly depressed Free T4 - unclear significan ce. Reviewed case with Dr. Villegas. Endo consult ordered. [id number] Dorys Kc NP-C TEENA SIM [address] [place], [place] [address] 10/17/2022 08:57:05 10/19/2022 09:37:35 Swollen abdomen 40105225 R19.00 Moderate soft swelling left LQ. No pain. Pt moving bowels, had some diarrhea over the weekend. Will order CMP, CBC tomorrow. KUB pending today. Will add US left LQ. Sepsis due to urinary tract infection 158314374 N39.0 Blood and urine cultures positive for Klebsiella pneumoniae , ESBL positive. Treated with meropenem in acute care. Completed course here with levaquin on 10/15. Bacteremia 7988305 R78.8 1 As above. Asthenia 64203189 R53.1 In setting of UTI sepsis as above, chcf high dose steroids. PT/OT. History of giant cell arteritis [id number] 95972 M31.08 Oct 2021. Followed by Dr. Curtis at [facility]. On prednisone 35 mg BID (decreased on 10/14) and on bactrim DS MWF for PCP prophylaxi s, omeprazole 20 mg BID. Follow labs. F/U Dr. Curtis 09/14- recs to change actemra SC to IV monthly infusion. Neurology now following. F/U Dr. Curtis 10/14- recs for ca carb 600 mg BID, vit D, taper prednisone 5 mg q week. CTA neck/head showed new short segment abnormalit y involving the cavernous right ICA. - neuro consult 10/05- extensive consult - see notes for details. Not clear GCA diagnosis - will defer to rheum for steroid management . Gabapentin taper in process. B12 WNL. 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 PT/OT. History of giant cell arteritis [id number] 62703 M31.08 Oct 2021. Followed by Dr. Curtis at [facility]. On prednisone 35 mg BID (decreased on 10/14) and on bactrim DS MWF for PCP prophylaxi s, omeprazole 20 mg BID. Follow labs. F/U Dr. Curtis 09/14- recs to change actemra SC to IV monthly infusion. Neurology now following. F/U Dr. Curtis 10/14- recs for ca carb 600 mg BID, vit D, taper prednisone 5 mg q week. CTA neck/head showed new short segment abnormalit y involving the cavernous right ICA. - neuro consult 10/05- extensive consult - see notes for details. Not clear GCA diagnosis - will defer to rheum for steroid management . Gabapentin taper in process. Started on B12 per neuro. History of cerebrovascular accident 171742867 I63.89 I69.354 With left hemiparesi s, expressive aphagia, ataxia. With increased global weakness as above. Followed by neuro. On ASA, statin. Essential hypertension 48421551 I10 No med treatment. Follow BP and labs. Thyroid st imulating hormone level below reference range 987204613 R94.6 With mildly depressed Free T4 - unclear significan ce. Endo consult pending. Cerebrovas cular accident 004720293 I63.89 On ASA, statin. Neuro following. Insomnia 194861070 G47.0 9 On melatonin 3 mg daily at HS. Wernicke's disease 32465 002 E51.2 On depakote, melatonin, gabapentin , lexapro, seroquel. Psych following here. Alcohol dependence 43021 003 F10.20 With Wernicke's as above. Anemia 289122141 D64.89 Follow labs. Chronic ob structive pulmonary disease 57119316 J44.9 Stable. Gastroesop hageal reflux disease without esophagitis 708852195 K21.9 On omeprazole . Glaucoma 96259244 H40.9 Gtts as ordered. Metabolic dysfunction-associate d steatohepatitis 737460648 K75.81 With ETOH use disorder as above. Monitor. Urinary tr act infectious disease 98575912 N39.0 As per HPI. With recent UTI sepsis. Completed 7-day course of ertapenem. Follow labs. 471111 KOMAL OlsenOR [address] [place], [place] [address] 10/28/2022 08:25:32 11/01/2022 13:30:00 Urinary tract infectious disease 06674803 N39.0 As per HPI. With recent UTI sepsis. Completed 7-day course of ertapenem. Follow labs. PT/OT. Asthenia 52441311 R53.1 In setting of UTI, chcf high dose steroids. PT/OT. Essential hypertension 38952363 I10 No med treatment. SBPs 90-140s. Follow BP and labs. [id number] KOMAL Olsen [address] [place] [address] 11/02/2022 13:35:44 11/07/2022 10:29:19 Asthenia 82890053 R53.1 In setting of UTI, chcf high dose steroids. PT/OT. Essential hypertension 76347605 I10 No med treatment. SBPs 100-140s. Follow BP and labs. 774202 KOMAL Olsen [address] [place] [address] 11/07/2022 09:23:30 11/09/2022 08:29:46 Essential hypertension 41318161 I10 No med treatment. SBPs 90-140s. Follow BP and labs. History of giant cell arteritis 9580871316 82747 M31.6 Presumed diagnosis October 2021. Followed by Dr. Curtis at [facility]. On prednisone 30 mg BID (slow tapering dose per rheum as below) and on bactrim DS MWF for PCP prophylaxi s, omeprazole 20 mg BID. Follow labs. F/U Dr. Curtis 09/14- recs to change actemra SC to IV monthly infusion. Neurology now following. F/U Dr. Curtis 10/14- recs for ca carb 600 mg BID, vit D, taper prednisone 5 mg q week. CTA neck/head showed new short segment abnormalit y involving the cavernous right ICA. - neuro consult 10/05- extensive consult - see notes for details. Not clear GCA diagnosis - will defer to rheum for steroid management . Gabapentin taper in process. On B12 per neuro. History of cerebrovascular accident 356947763 I63.89 I69.354 With left hemiparesi s, expressive aphagia, ataxia. With global weakness as above. Followed by neuro. On ASA, statin. Thyroid st imulating hormone level below reference range 864427514 R94.6 With mildly depressed Free T4 - unclear significan ce. Endo consult pending- on admin list to be reviewed. Cerebrovas cular accident 297216126 I63.89 On ASA, statin. Neuro following. Insomnia 404180516 G47.0 9 On melatonin 3 mg daily at . Wernicke's disease 88048 002 E51.2 On depakote, melatonin, gabapentin , lexapro, seroquel. Psych following here. Alcohol dependence 98155 003 F10.20 With Wernicke's as above. Anemia 924786857 D64.89 Follow labs. Chronic ob structive pulmonary disease 73533210 J44.9 Stable. Gastroesop hageal reflux disease without esophagitis 382824255 K21.9 On omeprazole . Glaucoma 78875549 H40.9 Gtts as ordered. Metabolic dysfunction-associate d steatohepatitis 472042641 K75.81 With ETOH use disorder as above. Monitor. [id number] Dorys Kc, NURSE LEADER-C TEENA SIM [address] [place], [place] [address] 11/14/2022 08:16:23 11/16/2022 09:08:29 History of giant cell arteritis 7828358425 27631 M31.6 Presumed diagnosis October 2021. Followed by Dr. Curtis at [facility]. On prednisone 30 mg BID (slow tapering dose per rheum as below) and on bactrim DS MWF for PCP prophylaxi s, PPI. Follow labs. F/U Dr. Curtis 09/14- recs to change actemra SC to IV monthly infusion. Neurology following. F/U Dr. Curtis 10/14- recs for ca carb 600 mg BID, vit D, taper prednisone 5 mg q week - nursing to review orders as does not appear taper orders in place. CTA neck/head showed new short segment abnormalit y involving the cavernous right ICA. - neuro consult 10/05- extensive consult - see notes for details. Not clear GCA diagnosis - will defer to rheum for steroid management . Gabapentin taper in process. On B12 per neuro. [facility] Rheum consult pending 11/23. Thyroid st imulating hormone level below reference range 966086868 R94.6 With mildly depressed Free T4 - unclear significan ce. Endo consult pending- on admin list to be reviewed, appt still pending. Asthenia 66201748 R53.1 In setting of UTI, chcf high dose steroids. Unsure if conts to work with PT/OT. [id number] Dorys Kc, RACQUEL-C TEENA SIM [address] [place] [address] 11/21/2022 09:03:40 11/23/2022 15:43:32 Urinary tract infectious disease 00789534 N39.0 Patient sent to acute care 11/17-11/20 from infusion center with diaphoresi s and SOB. Found to have UTI. BCs positive for K. Pneumonia ESBL, treated with meropenem, to complete course with levaquin 750 mg daily x 7 days (end 11/25). Follow labs. PT/OT. Bacteremia 4666724 R78.8 1 As above. Asthenia 76275987 R53.1 In setting of UTI, chcf high dose steroids. PT/OT. History of giant cell arteritis 3089890275 61746 M31.6 Presumed diagnosis October 2021. Followed by Dr. Curtis at [facility]. On prednisone 30 mg BID (slow tapering dose per rheum as below) and on bactrim DS MWF for PCP prophylaxi s, PPI. Follow labs. F/U Dr. Curtis 09/14- recs to change actemra SC to IV monthly infusion. Neurology following. F/U Dr. Curtis 10/14- recs for ca carb 600 mg BID, vit D, taper prednisone 5 mg q week - nursing to confirm orders with rheum today. CTA neck/head showed new short segment abnormalit y involving the cavernous right ICA. - neuro consult 10/05- extensive consult - see notes for details. Not clear GCA diagnosis - will defer to rheum for steroid management . Gabapentin taper in process. On B12 per neuro. [facility] Rheum consult pending 11/23. Thyroid st imulating hormone level below reference range 797294729 R94.6 With mildly depressed Free T4 - unclear significan ce. Endo consult pending- on admin list to be reviewed, appt still pending. Essential hypertension 20734364 I10 No med treatment. SBPs 100-140s. Follow BP and labs. History of cerebrovascular accident 983999396 I63.89 I69.354 With left hemiparesi s, expressive aphagia, ataxia. With global weakness as above. Followed by neuro. On ASA, statin. Cerebrovas cular accident 291261390 I63.89 On ASA, statin. Neuro following. Insomnia 226698932 G47.0 9 On melatonin 3 mg daily at HS. Wernicke's disease 66803 002 E51.2 On depakote, melatonin, gabapentin , lexapro, seroquel. Psych following here. Alcohol dependence 19473 003 F10.20 With Wernicke's as above. Anemia 528150705 D64.89 Follow labs. Chronic ob structive pulmonary disease 80215280 J44.9 Stable. Gastroesop hageal reflux disease without esophagitis 659418174 K21.9 On omeprazole . Glaucoma 17560229 H40.9 Gtts as ordered. Metabolic dysfunction-associate d steatohepatitis 119871521 K75.81 With ETOH use disorder as above. Monitor. [id number] KOMAL Olsen [address] [place], [place] [address] 11/25/2022 08:00:07 12/05/2022 14:40:47 Urinary tract infectious disease 64266096 N39.0 Patient sent to acute care 11/17-11/20 from [facility] with diaphoresi s and SOB. Found to have UTI. BCs positive for K. Pneumonia ESBL, treated with meropenem, completes course with levaquin today. ID consult as below. Follow labs. PT/OT. Bacteremia 5287450 R78.8 1 As above. ID consult as below. 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 PT/OT. History of giant cell arteritis 3775893625 51314 M31.6 Presumed diagnosis October 2021. Followed by Dr. Curtis at [facility]. On prednisone 30 mg BID (slow tapering dose per rheum as below) and on bactrim DS MWF for PCP prophylaxi s, PPI. Follow labs. F/U Dr. Curtis 09/14- recs to change actemra SC to IV monthly infusion. Neurology following. F/U Dr. Curtis 10/14- recs for ca carb 600 mg BID, vit D, taper prednisone 5 mg q week - confirmed to start taper next week. CTA neck/head showed new short segment abnormalit y involving the cavernous right ICA. - neuro consult 10/05- extensive consult - see notes for details. Not clear GCA diagnosis - will defer to rheum for steroid management . Gabapentin taper in process. On B12 per neuro. Saw [facility] rheum and neuro 11/23- symptoms of weakness thought to be from recrudesce nce of old symptoms s/t recurrent infections . Lower concern for active GCA given normal ESR and CRP earlier in November. Recs for continued PT/OT, f/u rheum and neuro locally. ID consult for recurrent infections . MRI brain and vessel wall at [facility]. Rheum recs for prednisone taper which needs to be clarified. Essential hypertension 85558708 I10 No med treatment. SBPs 100-140s. Follow BP and labs. Compression fracture [address] showed mild compressio n deformitie s of superior endplates of T11, T12, and L1. Likely pathologic al s/t exterminator termite chronic high-dose steroid use. Tramadol 50 mg q 4 horus PRN. PT/OT. [id number] KOMAL Olsen [address] [place] [address] 11/29/2022 10:25:11 12/02/2022 10:37:24 Urinary tract infectious disease 68369228 N39.0 Patient sent to acute care 11/17-11/20 from [facility] with diaphoresi s and SOB. Found to have UTI. BCs positive for K. Pneumonia ESBL, treated with meropenem in acute care. Completed course of levaquin 11/25. ID consult as below. Follow labs. PT/OT. Bacteremia 6690053 R78.8 1 As above. ID consult as below. History of giant cell arteritis [id number] 53182 M31.6 Presumed diagnosis October 2021. Followed by Dr. Curtis at [facility]. On prednisone 30 mg BID (slow tapering dose per rheum as below) and on bactrim DS MWF for PCP prophylaxi s, PPI. Follow labs. F/U Dr. Curtis 09/14- recs to change actemra SC to IV monthly infusion. Neurology following. F/U Dr. Curtis 10/14- recs for ca carb 600 mg BID, vit D, taper prednisone 5 mg q week - confirmed to start taper next week. CTA neck/head showed new short segment abnormalit y involving the cavernous right ICA. - neuro consult 10/05- extensive consult - see notes for details. Not clear GCA diagnosis - will defer to rheum for steroid management . Gabapentin taper in process. On B12 per neuro. Saw [facility] rheum and neuro 11/23- symptoms of weakness thought to be from recrudesce nce of old symptoms s/t recurrent infections . Lower concern for active GCA given normal ESR and CRP earlier in November. Recs for continued PT/OT, f/u rheum and neuro locally. ID consult for recurrent infections . MRI brain and vessel wall at [facility]. Rheum recs for prednisone taper which needs to be clarified. Has actemra infusion tomorrow. Nursing to confirm they don't need a urine prior to. Compression fracture [address] showed mild compressio n deformitie s of superior endplates of T11, T12, and L1. Likely pathologic al s/t exterminator termite chronic high-dose steroid use. Pt c/o frequent back pain, not tolerating being up in w/c. Tramadol 50 mg q 4 hours PRN. Will schedule tramadol 50 mg TID, cont PRN. PT/OT. [id number] KOMAL Olsen [address] [place], [place] [address] 12/02/2022 08:59:17 12/06/2022 20:04:22 Itching of skin 154701681 L29.9 Pt reports itch, nursing reports compulsive picking. Will order triamcinol one topical to eyebrows and forehead lesions BID x 5 days. History of giant cell arteritis 3021751825 82152 M31.6 Presumed diagnosis October 2021. Followed by Dr. Curtis at [facility]. On prednisone 30 mg BID (slow tapering dose per rheum as below) and on bactrim DS MWF for PCP prophylaxi s, PPI. Follow labs. F/U Dr. Curtis 09/14- recs to change actemra SC to IV monthly infusion. Neurology following. F/U Dr. Curtis 10/14- recs for ca carb 600 mg BID, vit D, taper prednisone 5 mg q week - confirmed to start taper next week. CTA neck/head showed new short segment abnormalit y involving the cavernous right ICA. - neuro consult 10/05- extensive consult - see notes for details. Not clear GCA diagnosis - will defer to rheum for steroid management . Gabapentin taper in process. On B12 per neuro. Saw [facility] rheum and neuro 11/23- symptoms of weakness thought to be from recrudesce nce of old symptoms s/t recurrent infections . Lower concern for active GCA given normal ESR and CRP earlier in November. Recs for continued PT/OT, f/u rheum and neuro locally. ID consult for recurrent infections . MRI brain and vessel wall at [facility]. Rheum recs for prednisone taper which needs to be clarified. Had actemra infusion 11/30. Compression fracture [address] showed mild compressio n deformitie s of superior endplates of T11, T12, and L1. Likely pathologic al s/t chcf chronic high-dose steroid use. Pt c/o frequent back pain, not tolerating being up in w/c. On tramadol 50 mg TID, and q 4 hours PRN. PT/OT. Recurrent falls 98611997 2 R29.6 Cont PT/OT. [id number] KOMAL Olsen [address] [place] [address] 12/07/2022 08:11:46 12/12/2022 14:53:03 Itching of skin 798739760 L29.9 Pt reports itch, nursing reports compulsive picking. Improved with triamcinol one. History of giant cell arteritis 9906485809 45980 M31.6 Presumed diagnosis October 2021. Followed by Dr. Curtis at [facility]. On prednisone 30 mg BID (slow tapering dose per rheum as below) and on bactrim DS MWF for PCP prophylaxi s, PPI. Follow labs. F/U Dr. Curtis 09/14- recs to change actemra SC to IV monthly infusion. Neurology following. F/U Dr. Curtis 10/14- recs for ca carb 600 mg BID, vit D, taper prednisone 5 mg q week - confirmed to start taper next week. CTA neck/head showed new short segment abnormalit y involving the cavernous right ICA. - neuro consult 10/05- extensive consult - see notes for details. Not clear GCA diagnosis - will defer to rheum for steroid management . Gabapentin taper in process. On B12 per neuro. Saw [facility] rheum and neuro 11/23- symptoms of weakness thought to be from recrudesce nce of old symptoms s/t recurrent infections . Lower concern for active GCA given normal ESR and CRP earlier in November. Recs for continued PT/OT, f/u rheum and neuro locally. ID consult for recurrent infections . MRI brain and vessel wall at [facility]. Rheum recs for prednisone taper which has been confirmed and orders in place. Last actemra infusion 11/30- they are now d/c'd and he'll get SC injections here weekly on . Compression fracture [address] showed mild compressio n deformitie s of superior endplates of T11, T12, and L1. Likely pathologic al s/t chcf chronic high-dose steroid use. On tramadol 50 mg TID, and q 4 hours PRN - will increase tramadol to 100 mg TID. PT/OT. Recurrent falls 59500215 2 R29.6 Cont PT/OT. 231125 JACINTO Platt [address] [place] [address] 12/29/2022 10:51:31 01/02/2023 15:50:10 Bacteremia 6389907 R78.81 see hpiertapen em 1 gram IV qd till 01/12monito r labsbactri m ds q M-W-F for UTI prophylaxi s - [facility] History of giant cell arteritis 5468473971 15853 M31.6 Presumed diagnosis October [address]. [address] Curtis at [facility]. On prednisone 30 mg BID (slow tapering dose per rheum as below) and on bactrim DS MWF for PCP prophylaxi s, PPI. Follow labs. F/U Dr. Curtis 09/14- recs to change actemra SC to IV monthly infusion. Neurology following. F/U Dr. Curtis 10/14- recs for ca carb 600 mg BID, vit D, taper prednisone 5 mg q week - confirmed to start taper next week. CTA neck/head showed new short segment abnormalit y involving the cavernous right ICA. - neuro consult 10/05- extensive consult - see notes for details. Not clear GCA diagnosis - will defer to rheum for steroid management . Gabapentin taper in process. On B12 per neuro. Saw [facility] rheum and neuro 11/23- symptoms of weakness thought to be from recrudesce nce of old symptoms s/t recurrent infections . Lower concern for active GCA given normal ESR and CRP earlier in November. Recs for continued PT/OT, f/u rheum and neuro locally. ID consult for recurrent infections . MRI brain and vessel wall at [facility]. Rheum recs for prednisone taper which has been confirmed and orders in place. Last actemra infusion 11/30pt now on actemra 162 mg sq q week at facilityf/ u with rheumatolo gist Compression fracture [address] showed mild compressio n deformitie s of superior endplates of T11, T12, and L1. Likely pathologic al s/t chcf chronic high-dose steroid usept denies pain, doesn't want tramadol, will not resumecont inue prn tylenolref er to ortho for eval for back brace Essential hypertension 45666389 I10 bp normalstar geovanna on norvasc 10 mg qd in hospital [id number] JACINTO Platt [address] [place] [address] 01/02/2023 09:01:17 01/04/2023 14:38:59 Bacteremia 4736211 R78.81 continue ertapenem 1 gram IV qd till 01/12monito r labsbactri m ds q M-W- for UTI prophylaxi s - changed in hospital History of giant cell arteritis 5775371021 92706 M31.6 Presumed diagnosis October [address]. [address] Curtis at [facility]. On prednisone 30 mg BID (slow tapering dose per rheum as below) and on bactrim DS MWF for PCP prophylaxi s, PPI. Follow labs. F/U Dr. Curtis 09/14- recs to change actemra SC to IV monthly infusion. Neurology following. F/U Dr. Curtis 10/14- recs for ca carb 600 mg BID, vit D, taper prednisone 5 mg q week - confirmed to start taper next week. CTA neck/head showed new short segment abnormalit y involving the cavernous right ICA. - neuro consult 10/05- extensive consult - see notes for details. Not clear GCA diagnosis - will defer to rheum for steroid management . Gabapentin taper in process. On B12 per neuro. Saw [facility] rheum and neuro 11/23- symptoms of weakness thought to be from recrudesce nce of old symptoms s/t recurrent infections . Lower concern for active GCA given normal ESR and CRP earlier in November. Recs for continued PT/OT, f/u rheum and neuro locally. ID consult for recurrent infections . [place] brain [place] wall [place] [facility] Rheum recs for prednisone taper which has been confirmed and orders in place. Last actemra infusion 11/30pt now on actemra 162 mg sq q week at facilityf/ u with rheumatolo gist Compression fracture [address] showed mild compressio n deformitie s of superior endplates of T11, T12, and L1. Likely pathologic al s/t exterminator termite chronic high-dose steroid usecontinu e prn tylenolref erred to ortho for eval for back brace Essential hypertension 40398986 I10 bp normal todaystart ed on norvasc 10 mg qd in hospitalmo nitor bp and adjust med prn [id number] MD TEENA John [address] [place] [address] 01/06/2023 18:22:46 01/19/2023 15:07:25 Bacteremia 5595502 R78.81 Continue ertapenem 1 gm IV qd until 01/12Monito r labsContin ue Bactrim DS qd M-W- for UTI prophylaxi sMonitor for recurrent sxs. History of giant cell arteritis [id number] 07422 M31.6 Presumed diagnosis October 2021. Followed by Dr. Curtis at [facility].Contin ue slow prednisone taper as ordered.Ruth dodson actemra infusion 11/30Now on actemra 162 mg sq q weekF/U with rheum as planned. Compression fracture 219 38142 T14.8XXD To see ortho for eval for back braceMonit or sxs. Essential hypertension 51708826 I10 Good control on amlodipine 10 mg qdMonitor BP and labs. History of cerebrovascular accident 346038969 I63.89 I69.354 Continues to need 2 assist for transfers, not ambulating .Continue fall precaution s.Monitor for safety.Con tinue atorvastat in 40 mg qd and ASA 81 mg qd.Monitor sxs and improvemen t. Mixed anxi ety and depressive disorder 626708025 F41.[address] 500 mg bid, quetiapine 12.5 mg BID and 50 mg qhs, and escitalopr am 10 mg qd.Monitor mood and behaviors. Psych following. Wernicke's disease 96961 002 E51.2 Behaviors stableCont inue meds as above.Vandana tor. Chronic pain 04045073 G8 9.29 Continue APAP 650 mg q 6 hrs prn.Monito r. 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 Chronic ob structive pulmonary disease 78642416 J43.8 No sxs on no meds.Monit or resp status. [id number] Dorys Kc, NURSE LEADER-C TEENA SIM [address] [place] [address] 01/10/2023 11:15:56 01/12/2023 12:57:35 Bacteremia 5506360 R78.81 extensive w/u without identifiab le source of bacteremia . Tagged WBC negative. Unclear whether Klebsiella pneumonia ESBL recurrent UTI versus seeded infection versus inadequate abx course versus recurrent infection. Thought most likely d/t recurrence in setting of immunocomp romise and recurrent hospitaliz ations. To complete course of abx with IV ertapenem (01/12). F/U ID. Follow labs. History of giant cell arteritis [id number] 35641 M31.6 Presumed diagnosis October 2021. Followed by Dr. Curtis at [facility]. On prednisone 10 mg daily - faster taper and on bactrim DS MWF for PCP prophylaxi s, PPI. Follow labs. Followed by neurology and rheum. CTA neck/head showed new short segment abnormalit y involving the cavernous right ICA. - neuro consult 10/05- extensive consult - see notes for details. Not clear GCA diagnosis - will defer to rheum for steroid management . Gabapentin taper in process. On B12 per neuro. Saw [facility] rheum and neuro 11/23- symptoms of weakness thought to be from recrudesce nce of old symptoms s/t recurrent infections . Lower concern for active GCA given normal ESR and CRP earlier in November. Recs for continued PT/OT, f/u rheum and neuro locally. ID consult for recurrent infections . MRI brain and vessel wall at [facility]. Rheum recs for prednisone taper - now being managed by rheum. Last actemra infusion 11/30- now getting SC injections here weekly on . Compression fracture [address] showed mild compressio n deformitie s of superior endplates of T11, T12, and L1. Likely pathologic al s/t chcf chronic high-dose steroid use. Also found to have new compressio n fracutres L2, L3, L4 - may be amenable to vertebropl asty per acute care notes. On tramadol 50 mg PRN. PSS consult pending. PT/OT. Recurrent falls 27888746 2 R29.6 Cont PT/OT. Asthenia 82104613 R53.1 In setting of UTI, chcf high dose steroids. PT/OT. Thyroid st imulating hormone level below reference range 825226393 R94.6 With mildly depressed Free T4 - unclear significan ce. Endo consult pending- on admin list to be reviewed, appt still pending. Essential hypertension 78870873 I10 No med treatment. SBPs 100-140s. Follow BP and labs. History of cerebrovascular accident 011319822 I63.89 I69.354 With left hemiparesi s, expressive aphagia, ataxia. With global weakness as above. Followed by neuro. On ASA, statin. Cerebrovas cular accident 728575824 I63.89 On ASA, statin. Neuro following. Insomnia 966699218 G47.0 9 On melatonin 3 mg daily at HS. Wernicke's disease 21413 002 E51.2 On depakote, melatonin, lexapro, seroquel. Psych following here. Alcohol dependence 09390 003 F10.20 With Wernicke's as above. Anemia 661949934 D64.89 Follow labs. Chronic ob structive pulmonary disease 10299383 J44.9 Stable. Gastroesop hageal reflux disease without esophagitis 661149646 K21.9 On omeprazole . Glaucoma 22556244 H40.9 Gtts as ordered. Metabolic dysfunction-associate d steatohepatitis 302622389 K75.81 With ETOH use disorder as above. Monitor. [id number] Dorys Kc, NURSE LEADER-C TEENA SIM [address] [place], [place] [address] 01/13/2023 08:16:12 01/16/2023 11:38:12 Bacteremia 5017336 R78.81 extensive w/u without identifiab le source of bacteremia . Tagged WBC negative. Unclear whether Klebsiella pneumonia ESBL recurrent UTI versus seeded infection versus inadequate abx course versus recurrent infection. Thought most likely d/t recurrence in setting of immunocomp romise and recurrent hospitaliz ations. To complete course of abx with IV ertapenem on 01/16. F/U ID. Follow labs. History of giant cell arteritis [id number] 49199 M31.6 Presumed diagnosis October 2021. Followed by Dr. Curtis at [facility]. On prednisone 10 mg daily - faster taper and on bactrim DS MWF for PCP prophylaxi s, PPI. Follow labs. Followed by neurology and rheum. CTA neck/head showed new short segment abnormalit y involving the cavernous right ICA. - neuro consult 10/05- extensive consult - see notes for details. Not clear GCA diagnosis. Off gabapentin . On B12 per neuro. Saw [facility] rheum and neuro 11/23- symptoms of weakness thought to be from recrudesce nce of old symptoms s/t recurrent infections . Lower concern for active GCA given normal ESR and CRP earlier in November. Recs for continued PT/OT, f/u rheum and neuro locally. ID consult for recurrent infections . MRI brain and vessel wall at [facility]. Rheum recs for prednisone taper - now being managed by rheum - and now on rapid taper. Last actemra infusion 11/30- now getting SC injections here weekly on . Compression fracture [address] showed mild compressio n deformitie s of superior endplates of T11, T12, and L1. Likely pathologic al s/t chcf chronic high-dose steroid use. Also found to have new compressio n fracutres L2, L3, L4 - may be amenable to vertebropl asty per acute care notes. On tramadol 50 mg BID (started 01/11) and PRN. PSS consult pending. PT/OT. Recurrent falls 52493807 2 R29.6 Cont PT/OT. Asthenia 75742896 R53.1 In setting of UTI, chcf high dose steroids. PT/OT. Essential hypertension 05422076 I10 On amlodipine . SBPs 120-130s. Follow BP and labs. [id number] KOMAL Olsen [address] [place] [address] 01/17/2023 10:34:14 01/19/2023 15:22:35 Bacteremia 5533030 R78.81 extensive w/u without identifiab le source of bacteremia . Tagged WBC negative. Unclear whether Klebsiella pneumonia ESBL recurrent UTI versus seeded infection versus inadequate abx course versus recurrent infection. Thought most likely d/t recurrence in setting of immunocomp romise and recurrent hospitaliz ations. Completed course of abx with IV ertapenem on 01/16 - nursing to remove PICC. F/U ID 01/16- note pending. Follow labs. History of giant cell arteritis [id number] 08691 M31.6 Presumed diagnosis October 2021. Followed by Dr. Curtis at [facility]. On prednisone 7.5 mg daily - rapid taper and on bactrim DS MWF for PCP prophylaxi s, PPI. Follow labs. Followed by neurology and rheum. CTA neck/head showed new short segment abnormalit y involving the cavernous right ICA. - neuro consult 10/05- extensive consult - see notes for details. Not clear GCA diagnosis. Off gabapentin . On B12 per neuro. Saw [facility] rheum and neuro 11/23- symptoms of weakness thought to be from recrudesce nce of old symptoms s/t recurrent infections . Lower concern for active GCA given normal ESR and CRP earlier in November. Recs for continued PT/OT, f/u rheum and neuro locally. ID consult for recurrent infections . MRI brain and vessel wall at [facility]. Rheum recs for prednisone taper - now being managed by rheum - and now on rapid taper. Last actemra infusion 11/30- now getting SC injections here weekly on . Compression fracture [address] showed mild compressio n deformitie s of superior endplates of T11, T12, and L1. Likely pathologic al s/t chcf chronic high-dose steroid use. Also found to have new compressio n fracutres L2, L3, L4 - may be amenable to vertebropl asty per acute care notes. On tramadol 50 mg BID (started 01/11) and PRN. PSS consult pending. PT/OT. Asthenia 21943180 R53.1 Cont PT/OT. Essential hypertension 29898497 I10 On amlodipine . SBPs 120-130s. Follow BP and labs. [id number] Dorys Kc, NURSE LEADER-C TEENA SIM [address] [place], [place] [address] 01/20/2023 10:56:45 01/26/2023 12:37:21 Bacteremia 7887379 R78.81 extensive w/u without identifiab le source of bacteremia . Tagged WBC negative. Unclear whether Klebsiella pneumonia ESBL recurrent UTI versus seeded infection versus inadequate abx course versus recurrent infection. Thought most likely d/t recurrence in setting of immunocomp romise and recurrent hospitaliz ations. Completed course of abx with IV ertapenem on 01/16. F/U ID 01/16- note pending. Follow labs. History of giant cell arteritis 1425685185 07749 M31.6 Presumed diagnosis October 2021. Followed by Dr. Curtis at [facility]. On prednisone 7.5 mg daily - rapid taper and on bactrim DS MWF for PCP prophylaxi s, PPI. Follow labs. Followed by neurology and rheum. CTA neck/head showed new short segment abnormalit y involving the cavernous right ICA. - neuro consult 10/05- extensive consult - see notes for details. Not clear GCA diagnosis. Off gabapentin . On B12 per neuro. Saw [facility] rheum and neuro 11/23- symptoms of weakness thought to be from recrudesce nce of old symptoms s/t recurrent infections . Lower concern for active GCA given normal ESR and CRP earlier in November. Recs for continued PT/OT, f/u rheum and neuro locally. ID consult for recurrent infections . MRI brain and vessel wall at [facility]. Rheum recs for prednisone taper - now being managed by rheum - and now on rapid taper. Last actemra infusion 11/30- now getting SC injections here weekly on . Compression fracture [address] showed mild compressio n deformitie s of superior endplates of T11, T12, and L1. Likely pathologic al s/t chcf chronic high-dose steroid use. Also found to have new compressio n fracutres L2, L3, L4 - may be amenable to vertebropl asty per acute care notes. On tramadol 50 mg BID (started 01/11) and PRN. PSS consult pending. [facility]. PT/OT. Asthenia 53757198 R53.1 Cont PT/OT. History of cerebrovascular accident 582582310 I63.89 I69.354 With left hemiparesi s, expressive aphagia, ataxia. With global weakness as above. Followed by neuro. On ASA, statin. 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 As noted previously taper of steroids per lab and clinical(t o on CTA which seems to suggest Atheroses dz) and once he is out of rehab at home a MRA head could be considered (;perv vascular studies were at [facility] and side to side comparison not possible), asa stain for LDL goal<70 and BP control to normal as you are doing. Radha will callus once he is home to make [place] [facility] . He is advised to change urinals to avoid contaminat ion and to discuss about possible immunology consult and PCP for vaccine updates. [id number] Dorys Kc, RACQUEL-Hue SIM [address] [place], [place] [address] 01/23/2023 10:05:18 01/26/2023 12:52:20 Bacteremia 3932630 R78.81 extensive w/u without identifiab le source of bacteremia . Tagged WBC negative. Unclear whether Klebsiella pneumonia ESBL recurrent UTI versus seeded infection versus inadequate abx course versus recurrent infection. Thought most likely d/t recurrence in setting of immunocomp romise and recurrent hospitaliz ations. Completed course of abx with IV ertapenem on 01/16. F/U ID 01/16- note pending. One bottle of BCs positive for gram+ cocci in pairs and chain, the other bottle negative to date. Spoke with microbiolo gy - they reports it looks like alpha strep- likely a contaminan t. Will await final results. Pt looks well. Follow labs. History of cerebrovascular accident 285154103 I63.89 I69.354 With left hemiparesi s, expressive aphagia, ataxia. With global weakness as above. Followed by neuro. On ASA, statin. 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 As noted previously taper of steroids per lab and clinical(t o on CTA which seems to suggest Atheroses dz) and once he is out of rehab at home a MRA head could be considered (;perv vascular studies were at [facility] and side to side comparison not possible), asa stain for LDL goal<70 and BP control to normal as you are doing. Radha will callus once he is home to make the mAR arrangemen [place] [facility] [place] once [place] . He is advised to change urinals to avoid contaminat ion and to discuss about possible immunology consult and PCP for vaccine updates. History of giant cell arteritis [id number] 87637 M31.6 Presumed diagnosis October 2021. Followed by Dr. Curtis at [facility]. On prednisone 5 mg daily - rapid taper and on bactrim DS MWF for PCP prophylaxi s, PPI. Follow labs. Followed by neurology and rheum. CTA neck/head showed new short segment abnormalit y involving the cavernous right ICA. - neuro consult 10/05- extensive consult - see notes for details. Not clear GCA diagnosis. Off gabapentin . On B12 per neuro. Saw [facility] rheum and neuro 11/23- symptoms of weakness thought to be from recrudesce nce of old symptoms s/t recurrent infections . Lower concern for active GCA given normal ESR and CRP earlier in November. Recs for continued PT/OT, f/u rheum and neuro locally. ID consult for recurrent infections . MRI brain and vessel wall at [facility]. Rheum recs for prednisone taper - now being managed by rheum - and now on rapid taper- current dose 5 mg. Last actemra infusion 11/30- now getting SC injections here weekly on . Compression fracture [address] showed mild compressio n deformitie s of superior endplates of T11, T12, and L1. Likely pathologic al s/t exterminator termite chronic high-dose steroid use. Also found to have new compressio n fracutres L2, L3, L4 - may be amenable to vertebropl asty per acute care notes. On tramadol 50 mg TID and PRN. PSS consult pending 02/08. [facility]. PT/OT. Asthenia 13023662 R53.1 Cont PT/OT. Essential hypertension 34184985 I10 On amlodipine . SBPs 120-130s. Follow BP and labs. Recurrent falls 84950546 2 R29.6 Cont PT/OT. Thyroid st imulating hormone level below reference range 378144775 R94.6 With mildly depressed Free T4 - unclear significan ce. Endo consult pending- on admin list to be reviewed, appt still pending. Cerebrovas cular accident 200785549 I63.89 On ASA, statin. Neuro following. Insomnia 872586755 G47.0 9 On melatonin 3 mg daily at HS. Wernicke's disease 13917 002 E51.2 On depakote, melatonin, lexapro, seroquel. Psych following here. Alcohol dependence 32678 003 F10.20 With Wernicke's as above. Anemia 409929007 D64.89 Stable. Follow labs. Chronic ob structive pulmonary disease 77126223 J44.9 Stable. Gastroesop hageal reflux disease without esophagitis 927019112 K21.9 On omeprazole . Glaucoma 87553807 H40.9 Gtts as ordered. Metabolic dysfunction-associate d steatohepatitis 138473616 K75.81 With ETOH use disorder as above. [id number] Dorys Kc, NURSE LEADER-C TEENA SIM [address] [place] [address] 01/25/2023 08:14:40 01/31/2023 11:45:58 Bacteremia 3303663 R78.81 extensive w/u without identifiab le source of bacteremia . Tagged WBC negative. Unclear whether Klebsiella pneumonia ESBL recurrent UTI versus seeded infection versus inadequate abx course versus recurrent infection. Thought most likely d/t recurrence in setting of immunocomp romise and recurrent hospitaliz ations. Completed course of abx with IV ertapenem on 01/16. F/U ID 01/16- note pending. One bottle of BCs positive for gram+ cocci in pairs and chain, the other bottle negative to date. Spoke with microbiolo gy 01/23 - they reports it looks like alpha strep- likely a contaminan t. Will await final results. Pt conts to look well. Follow labs. Compression fracture [address] showed mild compressio n deformitie s of superior endplates of T11, T12, and L1. Likely pathologic al s/t exterminator termite chronic high-dose steroid use. Also found to have new compressio n fracutres L2, L3, L4 - may be amenable to vertebropl asty per acute care notes. On tramadol 50 mg TID and PRN. PSS consult pending 02/08. Pt toler[facility]. PT/OT. Asthenia 73557722 R53.1 Cont PT/OT. [id number] Dorys Kc, RACQUEL-C TEENA SIM [address] [place] [address] 01/31/2023 10:25:34 02/08/2023 21:05:40 Bacteremia 7648252 R78.81 extensive w/u without identifiab le source of bacteremia . Tagged WBC negative. Unclear whether Klebsiella pneumonia ESBL recurrent UTI versus seeded infection versus inadequate abx course versus recurrent infection. Thought most likely d/t recurrence in setting of immunocomp romise and recurrent hospitaliz ations. Completed course of abx with IV ertapenem on 01/16. F/U ID 01/27- impression is recurrent bacteremia s/t recurrent UTI; recs for repeat BCs 01/27, d/c bactrim prophylaxi s for PCP as on rapid prednisone taper. Asthenia 38399786 R53.1 Cont PT/OT. [id number] KOMAL Olsen [address] [place] [address] 02/03/2023 11:11:00 02/08/2023 21:25:12 Bacteremia 9816617 R78.81 extensive w/u without identifiab le source of bacteremia . Tagged WBC negative. Unclear whether Klebsiella pneumonia ESBL recurrent UTI versus seeded infection versus inadequate abx course versus recurrent infection. Thought most likely d/t recurrence in setting of immunocomp romise and recurrent hospitaliz ations. Completed course of abx with IV ertapenem on 01/16. F/U ID 01/27- impression is recurrent bacteremia s/t recurrent UTI; recs for repeat BCs 01/27, d/c bactrim prophylaxi s for PCP as on rapid prednisone taper. Repeat BCs 01/28- 5 days no growth. Asthenia 00810567 R53.1 Cont PT/OT. [id number] KOMAL Olsen [address] [place] [address] 02/07/2023 10:38:35 02/09/2023 10:10:31 Bacteremia 2937875 R78.81 extensive w/u without identifiab le source of bacteremia . Tagged WBC negative. Unclear whether Klebsiella pneumonia ESBL recurrent UTI versus seeded infection versus inadequate abx course versus recurrent infection. Thought most likely d/t recurrence in setting of immunocomp romise and recurrent hospitaliz ations. Completed course of abx with IV ertapenem on 01/16. F/U ID 01/27- impression is recurrent bacteremia s/t recurrent UTI; recs for repeat BCs 01/27, d/c bactrim prophylaxi s for PCP as on rapid prednisone taper. Repeat BCs 01/28- 5 days no growth. Asthenia 97756658 R53.1 Pt conts with make slow progress. Cont PT/OT. Cerebrovas cular accident 424852280 I63.89 On ASA, statin. Neuro following. Compression fracture [address] showed mild compressio n deformitie s of superior endplates of T11, T12, and L1. Likely pathologic al s/t exterminator termite chronic high-dose steroid use. Also found to have new compressio n fracutres L2, L3, L4 - may be amenable to vertebropl asty per acute care notes. On tramadol 50 mg TID and PRN. PSS consult pending 02/08. Cont PT/OT. [id number] KOMAL Olsen [address], [place] [address] 02/10/2023 10:10:16 02/14/2023 14:07:42 Asthenia 59896636 R53.1 Pt conts with make slow progress. Cont PT/OT. Cerebrovas cular accident 354540314 I63.89 On ASA, statin. Neuro following. Compression fracture [address] showed mild compressio n deformitie s of superior endplates of T11, T12, and L1. Likely pathologic al s/t exterminator termite chronic high-dose steroid use. Also found to have new compressio n fracutres L2, L3, L4 - may be amenable to vertebropl asty per acute care notes. On tramadol 50 mg TID and PRN. PSS consult 02/08 - awaiting consult note. Cont PT/OT. Forgetful 89926968 R41.3 reports increased forgetfuln ess. Labs pending today. has a call out to neuro. [id number] KOMAL Olsen [address] [place], [place] [address] 02/13/2023 09:14:32 02/16/2023 13:23:33 Asthenia 34874554 R53.1 Pt conts with make slow progress. Cont PT/OT. Compression fracture [address] showed mild compressio n deformitie s of superior endplates of T11, T12, and L1. Likely pathologic al s/t chcf chronic high-dose steroid use. Also found to have new compressio n fractures L2, L3, L4 - may be amenable to vertebropl asty per acute care notes. On tramadol 50 mg TID and PRN. PSS consult 02/08 - still awaiting consult note. Cont PT/OT. Forgetful 98689967 R41.3 reports increased forgetfuln ess. Labs WNL. Pt followed by neuro. [id number] KOMAL Olsen [address] [place], [place] [address] 02/17/2023 09:04:45 02/21/2023 12:38:13 Asthenia 84142196 R53.1 Pt conts with make slow progress. Cont PT/OT. Compression fracture [address] showed mild compressio n deformitie s of superior endplates of T11, T12, and L1. Likely pathologic al s/t exterminator termite chronic high-dose steroid use. Also found to have new compressio n fractures L2, L3, L4 - may be amenable to vertebropl asty per acute care notes. On tramadol 50 mg TID and PRN. PSS consult 9/6 - recs for MRI lumbar spine, if fractures are acute they will consider kyphoplast y. Cont PT/OT. Acute confusion 57238535 0 R41.0 Pt with increasing confusion. VSS. Will check CBC, CMP blood cultures given hx of recurrent bacteremia . Will also order neuro consult. Reviewed POC with . 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 Acute confusion 88793737 0 R41.0 Pt with increasing confusion. VSS. Labs ordered today not done, will re-order CBC, BMP, BCs x 2 for tomorrow. Asthenia 49225673 R53.1 Pt conts with make slow progress. Cont PT/OT. Compression fracture [address] showed mild compressio n deformitie s of superior endplates of T11, T12, and L1. Likely pathologic al s/t exterminator termite chronic high-dose steroid use. Also found to have new compressio n fractures L2, L3, L4 - may be amenable to vertebropl asty per acute care notes. On tramadol 50 mg TID and PRN. PSS consult 9/6 - recs for MRI lumbar spine, if fractures are acute they will consider kyphoplast y. Cont PT/OT. [id number] KOMAL Olsen [address] [place] [address] 02/27/2023 08:20:41 03/01/2023 16:23:47 Urinary tract infectious disease 10623856 N39.0 As per HPI. On levaquin (end 03/01). Follow labs. PT/OT. Asthenia 53790850 R53.1 In setting of recurrent infection, hx CVA. PT/OT. Compression fracture [address] showed mild compressio n deformitie s of superior endplates of T11, T12, and L1. Likely pathologic al s/t chcf chronic high-dose steroid use. Also found to have new compressio n fractures L2, L3, L4 - may be amenable to vertebropl asty per acute care notes. On tramadol 50 mg TID and PRN. PSS consult 02/08 - recs for MRI lumbar spine, if fractures are acute they will consider kyphoplast y. Cont PT/OT. Bacteremia 6917904 R78.8 1 extensive w/u without identifiab le source of bacteremia . Tagged WBC negative. Unclear whether Klebsiella pneumonia ESBL recurrent UTI versus seeded infection versus inadequate abx course versus recurrent infection. Thought most likely d/t recurrence in setting of immunocomp romise and recurrent hospitaliz ations. Completed course of abx with IV ertapenem on 01/16. F/U ID 01/27- impression is recurrent bacteremia s/t recurrent UTI. Treating for another UTI as above. BCs sterile in acute care. Cerebrovas cular accident 417267528 I63.89 On ASA, statin. Neuro following. History of cerebrovascular accident 566051890 I63.89 I69.354 With left hemiparesi s, expressive aphagia, ataxia. With global weakness as above. Followed by neuro. On ASA, statin. 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 As noted previously taper of steroids per lab and clinical(t o on CTA which seems to suggest Atheroses dz) and once he is out of rehab at home a MRA head could be considered (;perv vascular studies were at [facility] and side to side comparison not possible), asa stain for LDL goal<70 and BP control to normal as you are doing. Radha will call us once he is home to [place] [facility] [place] . He is advised to change urinals to avoid contaminat ion and to discuss about possible immunology consult and PCP for vaccine updates. History of giant cell arteritis [id number] 62575 M31.6 Presumed diagnosis October 2021. Followed by Dr. Curtis at [facility]. Now off prednisone , this was confirmed by nursing with Rheum. Follow labs. Followed by neurology and rheum. CTA neck/head showed new short segment abnormalit y involving the cavernous right ICA. - neuro consult 10/05- extensive consult - see notes for details. Not clear GCA diagnosis. Off gabapentin . On B12 per neuro. Saw [facility] rheum and neuro 11/23- symptoms of weakness thought to be from recrudesce nce of old symptoms s/t recurrent infections . Lower concern for active GCA given normal ESR and CRP earlier in November. Recs for continued PT/OT, f/u rheum and neuro locally. ID consult for recurrent infections . MRI brain and vessel wall at [facility]. Rheum recs for prednisone taper - now being managed by rheum - and now on rapid taper- current dose 5 mg. Conts on actemra SC injections weekly on . Essential hypertension 04183640 I10 On amlodipine . Follow BP and labs. Recurrent falls 17564643 2 R29.6 PT/OT. Thyroid st imulating hormone level below reference range 347078804 R94.6 With mildly depressed Free T4 - unclear significan ce. Endo consult pending- on admin list to be reviewed, appt still pending. Insomnia 669672582 G47.0 9 On melatonin 3 mg daily at HS. Wernicke's disease 67450 002 E51.2 On depakote, melatonin, lexapro, seroquel. Psych following here. Alcohol dependence 66800 003 F10.20 With Wernicke's as above. Anemia 765914783 D64.89 Stable. Follow labs. Chronic ob structive pulmonary disease 47141433 J44.9 Stable. Gastroesop hageal reflux disease without esophagitis 009361088 K21.9 On omeprazole . Glaucoma 33283063 H40.9 Gtts as ordered. Metabolic dysfunction-associate d steatohepatitis 934263916 K75.81 With ETOH use disorder as above. [id number] Dorys Kc, NURSE LEADER-[employer] SIM [address] [place] [address] 03/01/2023 10:15:25 03/08/2023 13:20:21 Urinary tract infectious disease 67688131 N39.0 As per HPI. On levaquin (ends today- 03/01). Follow labs. PT/OT. Asthenia 84582138 R53.1 In setting of recurrent infection, hx CVA. Cont PT/OT. Compression fracture [address] showed mild compressio n deformitie s of superior endplates of T11, T12, and L1. Likely pathologic al s/t exterminator termite chronic high-dose steroid use. Also found to have new compressio n fractures L2, L3, L4 - may be amenable to vertebropl asty per acute care notes. On tramadol 50 mg TID and PRN. PSS consult 02/08 - recs for MRI lumbar spine, if fractures are acute they will consider kyphoplast y. Cont PT/OT. Bacteremia 7571306 R78.8 1 extensive w/u without identifiab le source of bacteremia . Tagged WBC negative. Unclear whether Klebsiella pneumonia ESBL recurrent UTI versus seeded infection versus inadequate abx course versus recurrent infection. Thought most likely d/t recurrence in setting of immunocomp romise and recurrent hospitaliz ations. Completed course of abx with IV ertapenem on 01/16. F/U ID 01/27- impression is recurrent bacteremia s/t recurrent UTI. Treating for another UTI as above. BCs sterile in acute care. Cerebrovas cular accident 513942342 I63.89 On ASA, statin. Neuro following. History of cerebrovascular accident 265429124 I63.89 I69.354 With left hemiparesi s, expressive aphagia, ataxia. With global weakness as above. Followed by neuro. On ASA, statin. 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 As noted previously taper of steroids per lab and clinical(t o on CTA which seems to suggest Atheroses dz) and once he is out of rehab at home a MRA head could be considered (;perv vascular studies were at [facility] and side to side comparison not possible), asa stain for LDL goal<70 and BP control to normal as you are doing. Radha will call us once he is home to make [place] mAR arrangemen [place] [facility] [place] . He is advised to change urinals to avoid contaminat ion and to discuss about possible immunology consult and PCP for vaccine updates. History of giant cell arteritis [id number] 33172 M31.6 Presumed diagnosis October 2021. Followed by Dr. Curtis at [facility]. Now off prednisone , this was confirmed by nursing with Rheum. Follow labs. Followed by neurology and rheum. CTA neck/head showed new short segment abnormalit y involving the cavernous right ICA. - neuro consult 10/05- extensive consult - see notes for details. Not clear GCA diagnosis. Off gabapentin . On B12 per neuro. Saw [facility] rheum and neuro 11/23- symptoms of weakness thought to be from recrudesce nce of old symptoms s/t recurrent infections . Lower concern for active GCA given normal ESR and CRP earlier in November. Recs for continued PT/OT, f/u rheum and neuro locally. ID consult for recurrent infections . MRI brain and vessel wall at [facility]. Rheum recs for prednisone taper - now off. Conts on actemra SC injections weekly on . Essential hypertension 30573643 I10 On amlodipine . SBPs 110-130s. Follow BP and labs. Recurrent falls 78468255 2 R29.6 PT/OT. Thyroid st imulating hormone level below reference range 618332424 R94.6 With mildly depressed Free T4 - unclear significan ce. Endo consult pending- on admin list to be reviewed, appt still pending. Insomnia 857964494 G47.0 9 On melatonin 3 mg daily at . Wernicke's disease 58959 002 E51.2 On depakote, melatonin, lexapro, seroquel. Psych following here. Alcohol dependence 44399 003 F10.20 With Wernicke's as above. Anemia 449958790 D64.89 Stable. Follow labs. Chronic ob structive pulmonary disease 72233159 J44.9 Stable. Gastroesop hageal reflux disease without esophagitis 344530675 K21.9 On omeprazole . Glaucoma 60754292 H40.9 Gtts as ordered. Metabolic dysfunction-associate d steatohepatitis 427276297 K75.81 With ETOH use disorder as above. [id number] Dorys Kc, KOMAL SIM [address] [place] [address] 03/03/2023 09:41:03 03/08/2023 15:33:41 Conjunctivitis 3051533 H10.021 Erythromyc in ophthalmic right eye QID x 7 days. [id number] MD TEENA Amado [address] [place] [address] 03/06/2023 10:36:21 03/08/2023 16:09:02 Impaired cognition 216048668 R41.89 acute changeconc dao for underlying infectionp oor breath sounds lower ext bilatUA, CXR, CBC with diff, bmpto ED for acute decompensa tion [id number] KOMAL Olsen [address] [place] [address] 03/14/2023 09:46:39 03/15/2023 19:40:11 Subconjunctival hemorrhage 96911772 H11.31 Fully evaluated in ED by Dr. Baltazar. On erythromyc in ophthalmic . Monitor to resolution . Asthenia 24818060 R53.1 Cont PT/OT. Compression fracture [address] showed mild compressio n deformitie s of superior endplates of T11, T12, and L1. Likely pathologic al s/t chcf chronic high-dose steroid use. Also found to have new compressio n fractures L2, L3, L4 - may be amenable to vertebropl asty per acute care notes. On tramadol 50 mg TID and PRN. PSS consult 02/08 - recs for MRI lumbar spine, if fractures are acute they will consider kyphoplast y. Cont PT/OT. Impaired cognition 36734 6002 R41.89 Moderate and fluctuates . Seems to be some underlying dementia. Swelling o f left upper limb 9030137304 5120013 R22.32 No erythema, pain, warmth. Low suspicion for DVT. On stroke affected side. Cont to monitor. [id number] KOMAL Olsen [address] [place] [address] 03/17/2023 09:30:20 03/21/2023 11:08:14 Pain of bilateral knee regions 8532986371 07100 M25.561 Likely increased OA symptoms since being off chcf high dose prednisone . Xray 10/11 of left knee showed moderate OA. Will increase tramadol to 100 mg TID and add APAP 650 mg TID. Subconjunc tival hemorrhage 47771895 H11.31 Fully evaluated in ED by Dr. Baltazar. On erythromyc in ophthalmic . Monitor to resolution . Asthenia 10145310 R53.1 Cont PT/OT. Compression fracture [address] showed mild compressio n deformitie s of superior endplates of T11, T12, and L1. Likely pathologic al s/t exterminator termite chronic high-dose steroid use. Also found to have new compressio n fractures L2, L3, L4 - may be amenable to vertebropl asty per acute care notes. On tramadol 50 mg TID and PRN. PSS consult 9/6 - recs for MRI lumbar spine, if fractures are acute they will consider kyphoplast y. Nursing to f/u with PSS to see about ordering MRI and about recommende d brace. Cont PT/OT. [id number] Dorys Kc, RACQUEL-C TEENA SIM [address] [place] [address] 03/21/2023 09:32:53 03/23/2023 09:39:00 Pain of bilateral knee regions 0964913093 84924 M25.561 Xray 10/11 of left knee showed moderate OA. Improved on tramadol to 100 mg TID and APAP 650 mg TID. Subconjunc tival hemorrhage 19872587 H11.31 Fully evaluated in ED by Dr. Baltazar. On erythromyc in ophthalmic . Monitor to resolution . Asthenia 22781181 R53.1 Cont PT/OT. Compression fracture [address] showed mild compressio n deformitie s of superior endplates of T11, T12, and L1. Likely pathologic al s/t exterminator termite chronic high-dose steroid use. Also found to have new compressio n fractures L2, L3, L4 - may be amenable to vertebropl asty per acute care notes. On tramadol 50 mg TID and PRN. PSS consult 9/6 - recs for MRI lumbar spine, if fractures are acute they will consider kyphoplast y. MRI pending. Cont PT/OT. History of cerebrovascular accident 625094681 I63.89 I69.354 With left hemiparesi s, expressive aphagia, ataxia. With global weakness as above. Followed by neuro. On ASA, statin. 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 As noted previously taper of steroids per lab and clinical(t o on CTA which seems to suggest Atheroses dz) and once he is out of rehab at home a MRA head could be considered (;perv vascular studies were at [facility] and side to side comparison not possible), asa stain for LDL goal<70 and BP control to normal as you are doing. Radha will call us once he is home to make [place] arrangemen [place] [facility] [place] . He is advised to change urinals to avoid contaminat ion and to discuss about possible immunology consult and PCP for vaccine updates. F/U neuro 03/20- Regular EEG to evaluate for possible seizure activity. Patient's is reporting tremoring, I have no medical evaluation from staff at the SNF, and there is been significan t cognitive decline, per with hallucinat ions and what she describes as delusions. SNF will need to perform neuropsych /cognitive testing. There is a history of mood issues according to ED note that have been stable. Current status from SNF is unclear. SNF to evaluate for possible polymyalgi a rheumatica , etc. as patient is complainin g of joint pains that are progressiv peewee worsening. Patient is currently being treated for giant cell arteritis. Follow-up after EEG. Family knows to call if any questions or concerns. SNF needs to be notified of patient's additional concerns. The notes from the SNF as well as the labs would be helpful. EEG scheduled. Will order neurocog testing. Being followed by rheum for possible GSA, now neuro ? PMR. [id number] KOMAL Olsen [address] [place] [address] 03/24/2023 11:51:19 03/27/2023 14:11:41 Pain of bilateral knee regions 6590622886 82285 M25.561 Xray 03/15 of left knee showed moderate OA. Pt denies pain. Conts on tramadol to 100 mg TID and APAP 650 mg TID. Asthenia 77157470 R53.1 Cont PT/OT. Compression fracture [address] showed mild compressio n deformitie s of superior endplates of T11, T12, and L1. Likely pathologic al s/t exterminator termite chronic high-dose steroid use. Also found to have new compressio n fractures L2, L3, L4 - may be amenable to vertebropl asty per acute care notes. On tramadol 50 mg TID and PRN. PSS consult 02/08 - recs for MRI lumbar spine, if fractures are acute they will consider kyphoplast y. MRI pending. Cont PT/OT. History of cerebrovascular accident 666161987 I63.89 I69.354 With left hemiparesi s, expressive aphagia, ataxia. With global weakness as above. Followed by neuro. On ASA, statin. 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 As noted previously taper of steroids per lab and clinical(t o on CTA which seems to suggest Atheroses dz) and once he is out of rehab at home a MRA head could be considered (;perv vascular studies were at [facility] and side to side comparison not possible), asa stain for LDL goal<70 and BP control to normal as you are doing. Radha will call us once he is home to make the [place] arrangemen [place] [facility] . He is advised to change urinals to avoid contaminat ion and to discuss about possible immunology consult and PCP for vaccine updates. F/U neuro 03/20- Regular EEG to evaluate for possible seizure activity. Patient's is reporting tremoring, I have no medical evaluation from staff at the SNF, and there is been significan t cognitive decline, per with hallucinat ions and what she describes as delusions. SNF will need to perform neuropsych /cognitive testing. There is a history of mood issues according to ED note that have been stable. Current status from SNF is unclear. SNF to evaluate for possible polymyalgi a rheumatica , etc. as patient is complainin g of joint pains that are progressiv peewee worsening. Patient is currently being treated for giant cell arteritis. Follow-up after EEG. Family knows to call if any questions or concerns. SNF needs to be notified of patient's additional concerns. The notes from the SNF as well as the labs would be helpful. EEG scheduled. Neurocog testing pending. [id number] KOMAL Olsen [address] [place] [address] 03/28/2023 10:40:25 03/30/2023 15:48:17 Asthenia 90235831 R53.1 Cont PT/OT. Swelling o f left upper limb 2094362314 7868325 R22.32 Significan tly increased from last assessment . Now with warmth, erythema, pain. Will get STAT US to r/o DVT. [id number] KOMAL Olsen [address] [place] [address] 04/04/2023 09:42:26 04/06/2023 09:09:38 Swelling of left upper limb 6521253230 6040223 R22.32 Stroke affected limb. US 03/29 negative for DVT. Swelling conts to be significan t however, erythema has resolved. Elbow area still warm. Pt reports pain has completely resolved. Reviewed case with Dr. Villegas. Will get xray, CBC with diff. Consider further imaging if does not cont to improve. Asthenia 26392730 R53.1 Cont PT/OT. [id number] KOMAL Olsen [address] [place] [address] 04/11/2023 08:34:26 04/13/2023 15:25:13 Swelling of left upper limb 3793364228 3074089 R22.32 Stroke affected limb. US 03/29 negative for DVT. Swelling improved. No erythema, no pain. Xray 04/04 showed degenerati ve bony spurring. Asthenia 33008629 R53.1 PT reports increased tone right LE. Pt denies any pain. Will defer muscle relaxant at this time. Cont PT/OT. [id number] KOMAL Olsen [address] [place] [address] 04/18/2023 10:17:17 04/19/2023 15:24:51 Swelling of left upper limb 7680203778 6281513 R22.32 Stroke affected limb. US 03/29 negative for DVT. Swelling conts to be improved. Asthenia 06110075 R53.1 Cont PT/OT. History of cerebrovascular accident 239303207 I63.89 I69.354 With left hemiparesi s, expressive aphagia, ataxia. With global weakness as above. Followed by neuro. On ASA, statin. 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 As noted previously taper of steroids per lab and clinical(t o on CTA which seems to suggest Atheroses dz) and once he is out of rehab at home a MRA head could be considered (;perv vascular studies were at [facility] and side to side comparison not possible), asa stain for LDL goal<70 and BP control to normal as you are doing. Radha will call us once he is home to make the [place]AR arrangemen [place] [facility] [place] . He is advised to change urinals to avoid contaminat ion and to discuss about possible immunology consult and PCP for vaccine updates. F/U neuro 03/20- Regular EEG to evaluate for possible seizure activity. Patient's is reporting tremoring, I have no medical evaluation from staff at the SNF, and there is been significan t cognitive decline, per with hallucinat ions and what she describes as delusions. SNF will need to perform neuropsych /cognitive testing. There is a history of mood issues according to ED note that have been stable. Current status from SNF is unclear. SNF to evaluate for possible polymyalgi a rheumatica , etc. as patient is complainin g of joint pains that are progressiv peewee worsening. Patient is currently being treated for giant cell arteritis. Follow-up after EEG. Family knows to call if any questions or concerns. SNF needs to be notified of patient's additional concerns. The notes from the SNF as well as the labs would be helpful. EEG scheduled. Neurocog testing pending. Per , Dr. Tong's report - The EEG did not show seizure or epileptifo rm pattern but it did show diffuse slowing which can be correlated with encephalop athy/diffu se cerebellar dysfunctio n/dementia . We will schedule a follow-up to discuss these findings further and to evaluate for possible dementia/c erebellar dysfunctio n. F/U neuro pending 05/03. [id number] KOMAL Olsen [address] [place] [address] 04/19/2023 09:49:13 04/21/2023 09:26:06 Impaired cognition 112737257 R41.89 Moderate and fluctuates . Likely underlying dementia. Staff reports periods of increased agitation, delusions. On seroquel 12.5/12.5/ 50 mg TID. Will add seroquel 12.5 mg BID PRN x 14 days. Reviewed POC with at bedside. Will check CBC, BMP 04/21. Neuro f/u 05/03 to further evaluate dementia diagnosis. [id number] MD TEENA Phillips [address] [place] [address] 04/21/2023 06:45:32 04/24/2023 13:19:57 Wernicke's disease 94476955 E51.2 with impaired cognitionw ill monitor and support as neededexpe ct decline Essential hypertension 93051701 I10 amlodipine 10 mg dailywill monitor Chronic pain 01508147 G8 9.29 APAP 650 mg tidAPAP 650 mg q6h prngabapen tin 300 mg tidtramado l 100 mg [id number] l 50 mg q6h prnPT/OT prnwill monitor History of giant cell arteritis 0078441771 92420 M31.6 Actemra Actpen 162 mg SC weeklyBact rim DS M,W,F PCP prophylaxi sfu rheumatolo gy History of cerebrovascular accident 253119406 I63.89 I69.354 PT/OT/IMPORTER OR EXPORTER prnatrovas tatin 40 mg dailyASA 81 mg dailywill monitor 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 Vascular dementia 613241 004 F01.53 Moderate and fluctuates . Likely vascular dementia diagnosis. On seroquel 12.5/12.5/ 50 mg TID; seroquel 12.5 mg BID PRN x 14 days- pt has not needed any PRN doses over past week. Neuro f/u 05/03 to further evaluate dementia diagnosis. Toothache 51996737 K08.8 9 No signs of infection on exam. Will monitor. Consider referral to outside dental if pain conts. Pt just saw by [facility]. [id number] KOMAL Olsen [address] [place] [address] 05/02/2023 10:30:18 05/04/2023 16:12:02 Vascular dementia 406964447 F01.53 Moderate and fluctuates . Likely vascular dementia diagnosis. On seroquel 12.5/12.5/ 50 mg TID; seroquel 12.5 mg BID PRN x 14 days- pt has not needed any PRN doses over past 10 days- consider letting order , will discuss with nursing. Neuro f/u pending 05/03 to further evaluate dementia diagnosis. Asthenia 84601169 R53.1 Conts to make slow progress with PT/OT. Toothache 26386659 K08.8 9 No signs of infection on exam. Pt conts this week with pain. Will order dental consult. [id number] KOMAL Olsen [address] [place] [address] 05/09/2023 10:22:49 05/11/2023 12:04:13 Seborrheic dermatitis 44381253 L21.8 To right side of face. Will order hydrocorti sone topical BID until resolved. 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 Toothache 34296484 K08.8 9 No signs of infection on exam. Dental consult pending - trying to arrange community dental appt. [id number] KOMAL Olsen [address] [place] [address] 05/16/2023 10:16:56 05/18/2023 09:44:18 Seborrheic dermatitis 40780761 L21.8 To right side of face. Improved with hydrocorti sone topical BID - will change to PRN. Conjunctivitis 1919267 H 10.021 Improved with erythromyc in ophthalmic right eye QID x 7 days (end 05/18). Toothache 36167509 K08.8 9 Pt conts with significan t pain with chewing. No signs of infection on exam. Dental consult still pending, difficulty getting appt as pt cannot transfer - is omaira dependent. Staff reaching out to another clinic and to local hospitals to see if they have urgent hospital dental hours. Will start augmentin 875/125 mg BID x 10 days. Asthenia 43424199 R53.1 Conts to make slow progress with PT/OT. [id number] KOMAL Olsen [address] [place] [address] 05/23/2023 11:26:32 05/25/2023 14:55:22 Toothache 33306030 K08.89 On augmentin 875/125 mg BID x 10 days (end 05/25). Dental appt tomorrow (05/26). Asthenia 09393295 R53.1 Conts to make slow progress with PT/OT. [id number] KOMAL Olsen [address] [place] [address] 05/31/2023 09:55:46 06/07/2023 10:25:00 Asthenia 76732175 R53.1 Conts to make slow progress with PT/OT. Toothache 70446341 K08.8 9 Pt need extraction of #17 - appt date pending. [id number] KOMAL Olsen [address] [place] [address] 06/13/2023 11:14:08 06/15/2023 13:05:08 Conjunctivitis 9713189 H10.021 Mild right eye. Will start with baby shampoo eye wash BID. Asthenia 96574618 R53.1 At baseline. Toothache 65448351 K08.8 9 Pt need extraction of #17 - appt pending 07/13. Vascular dementia 712990 004 F01.53 Moderate and fluctuates . Likely vascular dementia diagnosis. On seroquel 12.5/12.5/ 50 mg TID. Neuro f/u 06/09- EEG showed general slowing indicative of encephalop athy versus cognitive dysfunctio n. MOCA suggestive of mild dementia. Recs for neuropysch eval. History of cerebrovascular accident 647315050 I63.89 I69.354 With left hemiparesi s, expressive aphagia, ataxia. With global weakness as above. Followed by neuro. On ASA, statin. 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 As noted previously taper of steroids per lab and clinical(t o on CTA which seems to suggest Atheroses dz) and once he is out of rehab at home a MRA head could be considered (;perv vascular studies were at [facility] and side to side comparison not possible), asa stain for LDL goal<70 and BP control to normal as you are doing. Radha will call us once he is home to make [place] [facility] [place] . He is advised to change urinals to avoid contaminat ion and to discuss about possible immunology consult and PCP for vaccine updates. F/U neuro 03/20- Regular EEG to evaluate for possible seizure activity. Patient's is reporting tremoring, I have no medical evaluation from staff at the SNF, and there is been significan t cognitive decline, per with hallucinat ions and what she describes as delusions. SNF will need to perform neuropsych /cognitive testing. There is a history of mood issues according to ED note that have been stable. Current status from SNF is unclear. SNF to evaluate for possible polymyalgi a rheumatica , etc. as patient is complainin g of joint pains that are progressiv peewee worsening. Patient is currently being treated for giant cell arteritis. Follow-up after EEG. Family knows to call if any questions or concerns. SNF needs to be notified of patient's additional concerns. The notes from the SNF as well as the labs would be helpful. EEG scheduled. Neurocog testing pending. Per , Dr. Wumelanie's report - The EEG did not show seizure or epileptifo rm pattern but it did show diffuse slowing which can be correlated with encephalop athy/diffu se cerebellar dysfunctio n/dementia . We will schedule a follow-up to discuss these findings further and to evaluate for possible dementia/c erebellar dysfunctio n. F/U neuro 06/09 as above. Compression fracture [address] showed mild compressio n deformitie s of superior endplates of T11, T12, and L1. Likely pathologic al s/t exterminator termite chronic high-dose steroid use. Also found to have new compressio n fractures L2, L3, L4 - may be amenable to vertebropl asty per acute care notes. On tramadol 50 mg TID and PRN. PSS consult 02/08 - recs for MRI lumbar spine, if fractures are acute they will consider kyphoplast y. MRI 04/03 showed- 1. Mild chronic compressio n deformitie s at T12, L1, L2, L3, and L4,similar in height to the study of 12/14/2022 but now with no associated edema at any level.2. Multilevel degenerati ve changes of the lumbar spine as detailed bylevel above. Most prominentl y, there is moderate to severe centralste nosis at L3-4, and severe right and moderate to severe left neuralfora melia narrowing at L4-5. F/U PSS PRN. Cerebrovas cular accident 967264438 I63.89 On ASA, statin. Neuro following. History of giant cell arteritis 7498310955 60925 M31.6 Presumed diagnosis October 2021. Followed by Dr. Curtis at [facility]. Now off prednisone , this was confirmed by nursing with Rheum. Follow labs. Followed by neurology and rheum. CTA neck/head showed new short segment abnormalit y involving the cavernous right ICA. - neuro consult 10/05- extensive consult - see notes for details. Not clear GCA diagnosis. Off gabapentin . On B12 per neuro. Saw [facility] rheum and neuro 11/23- symptoms of weakness thought to be from recrudesce nce of old symptoms s/t recurrent infections . Lower concern for active GCA given normal ESR and CRP earlier in November. Recs for continued PT/OT, f/u rheum and neuro locally. ID consult for recurrent infections . MRI brain and vessel wall at [facility]. Rheum recs for prednisone taper - now off. Conts on actemra SC injections weekly on . Essential hypertension 05942820 I10 On amlodipine . SBPs 110-130s. Follow BP and labs. Recurrent falls 90647855 2 R29.6 Falls POC. Now omaira. Thyroid st imulating hormone level below reference range 019431291 R94.6 With mildly depressed Free T4 - unclear significan ce. Endo consult pending- on admin list to be reviewed, appt still pending. Insomnia 319056641 G47.0 9 On melatonin 3 mg daily at HS. Wernicke's disease 08478 002 E51.2 On depakote, melatonin, lexapro, seroquel. Psych following here. Alcohol dependence 80014 003 F10.20 With Wernicke's as above. Anemia 256802634 D64.89 Stable. Follow labs. Chronic ob structive pulmonary disease 71284776 J44.9 Stable. Gastroesop hageal reflux disease without esophagitis 062900314 K21.9 On omeprazole . Glaucoma 38373009 H40.9 Gtts as ordered. Metabolic dysfunction-associate d steatohepatitis 597863387 K75.81 With ETOH use disorder as above. [id number] Dorys Kc, [place] [address] 08/07/2023 10:01:25 08/09/2023 08:47:02 Pain of right shoulder region 4769269729 M25.511 With some limited ROM. Cont PT/OT; tramadol 100 mg BID and 50 mg q 6 hours PRN. Will add muscle rub BID and BID PRN. [id number] [place] [address] [address] 08/11/2023 18:24:29 09/19/2023 11:03:22 History of cerebrovascular accident 908464846 I63.89 I69.354 With left hemiparesi s, expressive aphagia, ataxia, and global weakness.C ontinue ASA 81 mg qd and atorvastat in 40 mg qd.Followe d by neuro. Compression fracture 219 18698 T14.8XXD Continues with chronic back pain.Jeanie nue tramadol 50 mg BID and 50 mg q 6 hrs prn, and APAP 650 mg TID and q 6 hrs prn.Monito r sxs. History of giant cell arteritis 5834291020 07396 M31.[address] and rheumConti bea on actemra SC 162 mg weekly.Pre dnisone bursts per specialist s.Monitor for sxs. Essential hypertension 98926442 I10 In good control on amlodipine 10 mg qd.Monitor BP and labs. Thyroid st imulating hormone level below reference range 568281098 R94.6 With low TSH and low FT4 in 10/2022.Lik peewee from chronic illness.En do consult pending. Wernicke's disease 61991 002 E51.2 As above. Alcohol dependence 45578 003 F10.26 F10.21 No longer drinking as in facility. 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 Psych follows [id number] Dorys Kc NURSE LEADER-C TEENA SIM [address] [place] [address] 10/03/2023 11:30:53 10/04/2023 16:29:53 Vascular dementia 471047251 F01.53 On seroquel 12.5/12.5/ 50 mg TID. Neuro f/u 06/09- EEG showed general slowing indicative of encephalop athy versus cognitive dysfunctio n. MOCA suggestive of mild dementia. Supportive care. Expect decline. History of cerebrovascular accident 774940129 I63.89 I69.354 With left hemiparesi s, expressive aphagia, ataxia. With global weakness as above. Followed by neuro. On ASA, statin. Last neuro consult 06/09- recs for neurocog testing pending October 23; and then possible referral to Dr. Juan José Hong for possible Warnicke? K orsakoff syndrome versus possible Lewy body dementia. Compression fracture 219 32696 T14.8XXD On tramadol 50 mg TID and PRN. Cerebrovas cular accident 453789846 I63.89 On ASA, statin. Neuro following. History of giant cell arteritis 5926620815 10842 M31.6 Presumed diagnosis October 2021. Followed by Dr. Curtis at [facility]. Now off prednisone , this was confirmed by nursing with Rheum. Follow labs. Followed by neurology and rheum. CTA neck/head showed new short segment abnormalit y involving the cavernous right ICA. - neuro consult 10/05- extensive consult - see notes for details. Not clear GCA diagnosis. Off gabapentin . On B12 per neuro. Saw [facility] rheum and neuro 11/23- symptoms of weakness thought to be from recrudesce nce of old symptoms s/t recurrent infections . Lower concern for active GCA given normal ESR and CRP earlier in November. Recs for continued PT/OT, f/u rheum and neuro locally. ID consult for recurrent infections . MRI brain and vessel wall at [facility]. Rheum recs for prednisone taper - now off. Conts on actemra SC injections weekly on . Essential hypertension 33120897 I10 On amlodipine . SBPs 110-130s. Follow BP and labs. Recurrent falls 43360023 2 R29.6 Falls POC. Now omaira. Thyroid st imulating hormone level below reference range 328945618 R94.6 With mildly depressed Free T4 - unclear significan ce. Endo consult pending- on admin list to be reviewed, appt still pending. Will repeat TSH and free T4. Insomnia 824657251 G47.0 9 On melatonin 3 mg daily at HS. Wernicke's disease 72656 002 E51.2 On depakote, melatonin, lexapro, seroquel. Psych following here. Alcohol dependence 34305 003 F10.20 Hx of. Anemia 167886426 D64.89 Stable. Follow labs. Chronic ob structive pulmonary disease 78661581 J44.9 Stable. Gastroesop hageal reflux disease without esophagitis 227859051 K21.9 On omeprazole . Glaucoma 96032663 H40.9 Gtts as ordered. Metabolic dysfunction-associate d steatohepatitis 240818036 K75.81 Added to hx. Toothache 22904671 K08.8 9 S/P extraction of #17 earlier this month. [id number] Dorys Kc, RACQUEL-C TEENA SIM [address] [place] [address] 10/27/2023 06:38:36 11/02/2023 14:41:12 Fall 4082039 W19.XXXD Pt had a fall 10/24. CT head - nothing acute. Pt appears at baseline. Falls POC. 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 Psych follows History of cerebrovascular accident 632709884 I63.89 I69.354 Continues with left hemiparesi s, expressive aphagia, ataxia, and global weakness.C ontinue ASA 81 mg qd and atorvastat in 40 mg qd.Followe d by neuro. Compression fracture 219 18935 T14.8XXD Continues with chronic back pain.Jeanie nue tramadol 50 mg BID and 50 mg q 6 hrs prn, and APAP 650 mg TID and q 6 hrs prn.Monito r sxs. Essential hypertension 38315722 I10 Remains in good control on amlodipine 10 mg qd.Monitor BP and labs. Thyroid st imulating hormone level below reference range 071940530 R94.6 TSH WNL in 10/2023.Mon itor prn. Wernicke's disease 74721 002 E51.2 As above. Alcohol dependence 92727 003 F10.26 F10.21 No longer drinking as in facility. Anemia 803318102 D64.89 No recent labs, has been stable.Mon itor periodical ly Chronic ob structive pulmonary disease 28429505 J43.8 No recent exacerbati ons.On no meds.Monit or resp status Gastroesop hageal reflux disease without esophagitis 060548850 K21.9 No current sxs.Takes omeprazole only when he is taking prednisone .Monitor History of giant cell arteritis 5726572317 M31.[address] and rheumJeanie figueredo on actemra SC 162 mg weekly.Pre dnisone bursts per specialist s.Monitor for sxs. [id number] Dorys Kc, NURSE LEADER-C TEENA SIM [address] [place] [address] 01/29/2024 09:21:45 01/31/2024 20:10:09 Vascular dementia 594327325 F01.53 On seroquel 12.5/12.5/ 50 mg TID. Supportive care. Expect decline. History of cerebrovascular accident 858421790 I63.89 I69.354 With left hemiparesi s, expressive aphagia, ataxia. Followed by neuro. On ASA, statin. Compression fracture 219 84923 T14.8XXD On tramadol 50 mg TID and PRN. History of giant cell arteritis 6080459254 M31.6 Presumed diagnosis October 2021. Followed by Dr. Curtis at [facility]. Now off prednisone , this was confirmed by nursing with Rheum. Followed by neurology and rheum. Conts on actemra SC injections weekly on . Essential hypertension 67711035 I10 On amlodipine . SBPs 110-130s. Follow BP and labs. Recurrent falls 54363460 2 R29.6 Falls POC. Now omaira. Insomnia 126899253 G47.0 9 On melatonin 3 mg daily at . Wernicke's disease 94877 002 E51.2 On depakote, melatonin, lexapro, seroquel. Psych following here. Alcohol dependence 21772 003 F10.20 Hx of. Anemia 890205878 D64.89 Stable. Follow labs. Chronic ob structive pulmonary disease 11476307 J44.9 Stable. Gastroesop hageal reflux disease without esophagitis 213239981 K21.9 Monitor for symptoms. Glaucoma 30278909 H40.9 Gtts as ordered. Metabolic dysfunction-associate d steatohepatitis 821241335 K75.81 Added to hx. Thyroid st imulating hormone level below reference range 949624184 R94.6 Resolved. [id number] Dorys Kc, RACQUEL-C TEENA SIM [address] [place] [address] 03/19/2024 11:55:49 03/21/2024 11:11:13 Vascular dementia 555162885 F01.53 On seroquel 12.5/12.5/ 50 mg TID. Supportive care. Expect decline. History of cerebrovascular accident 443887366 I63.89 I69.354 With left hemiparesi s, expressive aphagia, ataxia. Followed by neuro. On ASA, statin. Compression fracture 219 32349 T14.8XXD On tramadol 50 mg TID and PRN. History of giant cell arteritis 7000264638 80473 M31.6 Presumed diagnosis October 2021. Followed by Dr. Curtis at [facility]. Followed by neurology and rheum. Off actemra per rheum. Essential hypertension 97327390 I10 On amlodipine . SBPs 110-130s. Follow BP and labs. Insomnia 086899409 G47.0 9 On melatonin 3 mg daily at HS. Wernicke's disease 06157 002 E51.2 On depakote, melatonin, lexapro, seroquel. Psych following here. Alcohol dependence 10066 003 F10.20 Hx of. Anemia 549637996 D64.89 Stable. Follow labs. Chronic ob structive pulmonary disease 51530376 J44.9 Stable. Gastroesop hageal reflux disease without esophagitis 992406437 K21.9 Monitor for symptoms. Glaucoma 00023554 H40.9 Gtts as ordered. Metabolic dysfunction-associate d steatohepatitis 831435253 K75.81 Added to hx. [id number] KOMAL OlsenLENE TRISTINOR [address] [place] [address] 05/08/2024 10:07:06 05/09/2024 08:20:50 Vascular dementia 319602758 F01.53 On seroquel 25 mg at HS. Supportive care. Expect decline. History of cerebrovascular accident 246350572 I63.89 I69.354 With left hemiparesi s, expressive aphagia, ataxia. Followed by neuro. On ASA, statin. Compression fracture 219 15105 T14.8XXD On tramadol 50 mg TID and PRN. History of giant cell arteritis 9279292372 44716 M31.6 Presumed diagnosis October 2021. Followed by Dr. Curtis at [facility]. Followed by neurology and rheum. Essential hypertension 52210872 I10 On amlodipine . SBPs 110-130s. Follow BP and labs. Insomnia 895696361 G47.0 9 On melatonin 3 mg daily at HS. Wernicke's disease 17884 002 E51.2 On depakote, melatonin, lexapro, seroquel. Psych following here. Alcohol dependence 41664 003 F10.20 Hx of. Anemia 845324185 D64.89 Stable. Follow labs. Chronic ob structive pulmonary disease 75991114 J44.9 Stable. Gastroesop hageal reflux disease without esophagitis 968464302 K21.9 Monitor for symptoms. Glaucoma 02600258 H40.9 Gtts as ordered. Metabolic dysfunction-associate d steatohepatitis 674027550 K75.81 Added to hx. [id number] KOMAL OlsenOR [address] [place] [address] 06/17/2024 10:41:05 06/18/2024 13:32:46 Subconjunctival hemorrhage 63348824 H11.31 No pain, or change in vision. Monitor to resolution . [id number] KOMAL OlsenOR [address] [place] [address] 06/26/2024 10:32:06 06/27/2024 15:12:42 Vascular dementia 025494615 F01.53 On seroquel 25 mg at HS- GDR underway. Supportive care. Expect decline. History of cerebrovascular accident 832504312 I63.89 I69.354 With left hemiparesi s, expressive aphagia, ataxia. Followed by neuro. On ASA, statin. Compression fracture 219 83359 T14.8XXD On tramadol 50 mg TID and PRN. History of giant cell arteritis 1665407952 39492 M31.6 Presumed diagnosis October 2021. Followed by Dr. Curtis at [facility]. Followed by neurology and rheum. Essential hypertension 20417363 I10 On amlodipine . SBPs 120s. Follow BP and labs. Insomnia 285810579 G47.0 9 On melatonin 3 mg daily at HS. Wernicke's disease 26809 002 E51.2 On depakote, melatonin, lexapro, seroquel- GDR. Psych following here. Alcohol dependence 86949 003 F10.20 Hx of. Anemia 249706871 D64.89 Stable. Follow labs. Chronic ob structive pulmonary disease 23887338 J44.9 Stable. Gastroesop hageal reflux disease without esophagitis 994584668 K21.9 Monitor for symptoms. Glaucoma 05594308 H40.9 Gtts as ordered. Metabolic dysfunction-associate d steatohepatitis 190934921 K75.81 Added to hx. [id number] Dorys Kc, RACQUEL-C TEENA SIM [address] [place], [place] [address] 08/16/2024 11:03:06 08/20/2024 10:07:13 History of cerebrovascular accident 246431214 I63.89 I69.354 With left hemiparesi s, expressive aphagia, ataxia. Followed by neuro. On ASA, statin. Vascular dementia 480225 004 F01.53 Supportive care. Expect decline. Compression fracture 219 75962 T14.8XXD Added to hx. History of giant cell arteritis 8196774881 M31.6 Presumed diagnosis October 2021. Followed by Dr. Curtis at [facility]. Last consult 07/18- they are following labs. Followed by neurology and rheum. Essential hypertension 01831692 I10 On amlodipine . SBPs 120-130s. Follow BP and labs. Insomnia 503395031 G47.0 9 On melatonin 3 mg daily at HS. Wernicke's disease 11488 002 E51.2 On depakote, melatonin, lexapro. Psych following. Alcohol dependence 57382 003 F10.20 Hx of. Anemia 539729890 D64.89 Stable. Follow labs. Chronic ob structive pulmonary disease 29661147 J44.9 Stable. Gastroesop hageal reflux disease without esophagitis 319213363 K21.9 Monitor for symptoms. Glaucoma 97758424 H40.9 Gtts as ordered. Metabolic dysfunction-associate d steatohepatitis 236348819 K75.81 Added to hx. [id number] KOMAL Olsen [address] [place] [address] 10/11/2024 11:32:56 10/14/2024 11:15:10 History of cerebrovascular accident 255764190 I63.89 I69.354 With left hemiparesi s, expressive aphagia, ataxia. Followed by neuro. On ASA, statin. Vascular dementia 407682 004 F01.53 Supportive care. Expect decline. History of giant cell arteritis 0297314143 86124 M31.6 Presumed diagnosis October 2021. Followed by Dr. Curtis at [facility]. Followed by neurology and rheum. Essential hypertension 86368208 I10 On amlodipine . SBPs 100-150s, mostly <150. Follow BP and labs. Wernicke's disease 18390 002 E51.2 On depakote, melatonin, lexapro. Psych following. Alcohol dependence 17587 003 F10.20 Hx of. Anemia 956861920 D64.89 Stable. Follow labs. Chronic ob structive pulmonary disease 65282830 J44.9 Stable. Compression fracture 219 29568 T14.8XXD Added to hx. Gastroesop hageal reflux disease without esophagitis 137810974 K21.9 Monitor for symptoms. Glaucoma 11893941 H40.9 Gtts as ordered. Metabolic dysfunction-associate d steatohepatitis 605811149 K75.81 Added to hx. [id number] KOMAL Olsen MAN[place] [address] [place] [address] 10/18/2024 11:38:30 10/22/2024 08:48:49 Edema of lower extremity 909162027 R60.0 Will decrease amlodipine to 5 mg daily. Essential hypertension 53424633 I10 On amlodipine . SBPs 120-130s. Decrease amlodipine to 5 mg daily in setting of LE edema. Daily BPs x 14 days. Follow BP and labs. Health Concerns Section Related Observation LastModified by Organization Detai ls LastModified Time None Recorded Concern Status LastModified by Organization Details LastModified Time None Recorded Advance Directives Directive Y: Payers Insurance Date Sequence Insurance Name Policy Number Policy Bocanegra Covered Member ID Bocanegra Member ID Guarantor Name 07/25/2024 2 [place]ARE [place]: [facility] [employer] Elías Matute [id number] Elías Matute 10/11/2024 1 [place] [facility] [employer] Elías Matute [id number] Elías Matute 07/25/2024 1 [facility] [id number] Elías Matute [id number] Elías Matute 02/24/2023 2 UNSPECIFIED REMIT PAYOR Elías Matute 10/11/2024 2 [place] [facility] Dimitrios Matute [id number] Elías Matute 01/12/2023 2 UNSPECIFIED REMIT PAYOR Elías Matute Notes Date Note Type Note Provider Name and Address Organization Details Recorded Time 06/17/2024 text/html 68-year-old male with PMH of glaucoma, anemia, COPD, GERD, HTN, ETOH use disorder, Wernicke's syndrome, PERSAUD, 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 Patient seen today for report of red left eye. 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 Patient seen today for routine 60-day visit. No concerns per nursing. 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 Patient seen today for routine 60-day visit. No concerns per nursing. 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 Patient seen today for routine 60-day visit. No concerns per nursing. 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 Patient seen today for report of LE edema. KOMAL Olsen [address] , [address], [place], [address], [facility] 10/18/2024 11:43:24
== END 2024-11-14 10:23 | disposition home or self-care (01) ==
LOC: HO.RHES 09:16
PROVIDERS: PCP Family Medicine; Visit Provider Internal Medicine Rheumatology
DX: M31.6 Other giant cell arteritis (principal); S32.000A Wedge compression fracture of unspecified lumbar vertebra, initial encounter for closed fracture; M17.11 Unilateral primary osteoarthritis, right knee
CPT/HCPCS: 99214; G2211

== ENCOUNTER 2025-02-20 09:18 | Outpatient (AMB) | payer MEDICARE, MEDICAID, SELFPAY ==
[2025-02-20 09:34] VITALS: BP 150/100; PULSE 67; O2SAT 98; BMI 24.4
--- NOTE | 2025-02-20 09:34 | MHC.OFFVIS ---
Vital Signs 02/20/25 09:34 Height 6 ft Weight 180 lb BMI 24.4 BP 150/100 H Blood Pressure Location Lt brachial Position Sitting Pulse 67 Pulse Source Pulse Oximeter Pulse Oximetry (%) 98 Oxygen Delivery Method Room Air Intake Visit Reasons: 3 Months Intake Note: Patient presents for follow up for arthritis with Radha.PAtient states thathe has been having numbness on right side of cheek bone and swelling. Accompanied by: Spouse Allergies olanzapine (From Zyprexa) Allergy (Unknown, Verified 02/20/25 09:36) Unknown HPI HPI 3 Months: Details: He is accompanied by his . He was admitted end of December discharged Jan 08 due to dysphagia suspected stroke. Discharged on aspirin and plavix. He was readmitted to [facility] with rectal abscess. He was discharged 01/28/2025 after I&D. He was treated with antibiotics. During his recent hospitalization I spoke with hospitalist who continued to taper prednisone. He is currently on prednisone 35mg daily tapering 5mg every week. He will be tapering to 30 mg daily tomorrow per records obtained from patient's fpc. This morning he developed swelling in his right maxillary sinus region. He also has a runny nose this morning. It is painful to touch. Denies fever, headache, change in vision, scalp tenderness, new joint pain or swelling. Since his hospitalization he has regressed and he has more weakness in his legs. [facility] Medical History (Updated 02/21/25 @ 10:07 by Ej Curtis MD) Perirectal abscess Physical Exam Vital Signs: Last Vital Signs Pulse 67 02/20/25 09:34 BP 150/100 H 02/20/25 09:34 Pulse Ox 98 02/20/25 09:34 Oxygen Delivery Method Room Air 02/20/25 09:34 BMI result Body Mass Index 24.4 Const Other: General: Comfortable CVS: RRR Respiratory: clear to auscultation bilaterally. Good respiratory effort Skin: No lesions seen, soft tissue swelling right maxillary sinus region with tenderness on palpation. MSK: No tenderness of any joint. Right arm range of motion is normal. 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 He is able to abduct left shoulder 30 degrees and uses right hard to assist in abduction up to 45 degrees. Limited full extension of right knee with crepitus and bony hypertrophy noted. He has right knee flexion 100 degrees. Left knee flexion 90 degrees with increase muscle tone due to stroke. 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 In November ESR increase to 75 mm/hr and CRP 0.68 mg/dL. After discussing case with regional sales engineer's Dr. Ospina, the decision was made to treat patient empirically with prednisone to prevent blindness in his left eye. His ocular exam is up-to-date did not reveal any signs of anterior ischemic optic neuritis. Since being on prednisone he was admitted with dysphagia for presumed stroke then readmitted found to have a rectal abscess. His CRP increased to 53.2mg/L, which prompted our office to contact Dimple Rouse to inquire if he had an infection. His initial admission may have been related to the infection. I am concerned that he has sinusitis with right maxillary sinus swelling and new rhinorrhea. He continues to be tapered on prednisone 5 mg every week. I will need to follow up with Dimple Rouse in 1 week in regards to his infection status and consider restarting Actemra for steroid sparing and maintenance. Rheumatology history: Presenting with cerebrovascular occlusive disease and stroke 06/2021 to [facility] with headaches, right temporal pain and scalp tenderness 10/2021. Bilateral temporal artery biopsy with vascular inflammation suggesting GCA. Axillary artery inflammation on CTA chest at [facility] 2021. 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 Subsequently, he developed right eye blindness detected on eye exam 05/[address] Ospina. He developed jaw claudication 07/2022 and prednisone was increased. Actemra subcutaneous injection 01/2022 was changed to IV monthly infusion 10/19/2022 then back to subcutaneous injection for convenience being administered at patient's residents at [facility] with last dose administered 01/2024. Clinically he has remained in remission off of Actemra. He experienced side effects on long-term prednisone including psychosis, agitation, multiple infections, compression fracture of lumbar spine. 11/2024 prednisone restarted due to elevation in ESR and CRP after consultation with Ophthalmology Dr. Ospina to prevent blindness in left eye. Code(s): M31.6 - Other giant cell arteritis Category: Medical Plan: Inflammatory markers ordered Continue prednisone tapering 5 mg every week Radha we will contact clinical staff as Dimple Rouse about new right maxillary sinus swelling and pain with associated rhinorrhea for treatment of acute sinusitis. Follow-up with Dr. Ospina regional sales engineer has been delayed due to recent hospitalizations x2Marcelino Garcia (patient's ) will reschedule appointment. I will follow up with Dimple Rouse in 1 week about patient's infection status. I request that Dimple Rouse continue to be vigiliant in monitoring and treating patient for infection while on prednisone and to communicate with my office when he has an infection. Return to clinic in 3 months (2) Compression fx, lumbar spine: Comment: He had presented to [facility] 11/2022 with back pain and found to have lumbar spine compression fracture, which healed on its own. Likely related to glue corticosteroid use at the time for treatment of GCA. Code(s): S32.000A - Wedge compression fracture of unspecified lumbar vertebra, initial encounter for closed fracture Category: Medical Qualifiers: Encounter type: initial encounter Lumbar vertebra fracture level: unspecified lumbar vertebra Qualified Code(s): S32.000A - Wedge compression fracture of unspecified lumbar vertebra, initial encounter for closed fracture Plan: Bone density ordered in July. I will try to find out why it has not been scheduled. Orders: Orders C Reactive Protein 02/20/25 Z79.899 - Other long filler cigar roller machine (current) drug therapy Erythrocyte Sedimentation Rate 02/20/25 Z79.899 - Other long filler cigar roller machine (current) drug therapy Coding Level of Care Code Est Pt Level 4 (94919) Complex EM visit Add On G2211 Diagnoses Temporal giant cell arteritis M31.6 Compression fracture of lumbar vertebra, unspecified lumbar vertebral level, initial encounter S32.000A Encounter type: initial encounter Lumbar vertebra fracture level: unspecified lumbar vertebra
--- OUTSIDE RECORDS SUMMARY | 2025-02-20 10:49 | XMS_ITS | Encounter Summary ---
Author Organization [facility] Address [address] [place] [phone] Phone Care Team Providers Care Worksite Wellness Practitioner Name Role Phone Rafita Villa MD Primary Care Provider [phone] Ej Curtis MD Unavailable Aguila Villegas MD Primary Care Provider [phone] Encounter Details Date Type Department Care Team (Late st Contact Info) Description 08/30/2021 Procedure Pass [facility], Ct Scan - [address] [address] Social History Tobacco Use Types Packs/Day Years Used Date Smoking Tobacco: Never Assessed Sex and Gender Information Value Date Recorded Sex Assigned at Male 08/30/2021 11:37 AM EDT Legal Sex Male 9:56 PM EDT Gender Identity Male 08/30/2021 11:37 AM EDT Sexual Orientation Not on file documented as of this encounter Functional Status * Calculated C-SSRS Risk Score (Lifetime/Recent) Answer Date of Assessment Author No Risk Indicated 08/30/2021 11:44 AM EDT Radha Paula RN * Gray Suicide Severity Rating Scale (Screener/Recent Self-Report) Question Answer Date of Assessment Author 1. Wish to be (Past 1 Month) No 08/30/2021 11:44 AM EDT Dennis Horan, ROBYN 2. Non-Specific Active Suici ta Thoughts (Past 1 Month) No 08/30/2021 11:44 AM EDT Radha Horan, ROBYN 6. Suicidal Behavior (Lifetime) No 11:44 AM EDT Radha Horan RN documented as of this encounter Plan of Treatment Not on file documented as of this encounter Visit Diagnoses Not on filedocumented in this encounter Additional Health Concerns Infection Onset Date Last Indicated Resolved Time CoV-Risk 08/30/2021 08/30/2021 09/10/2021 1:22 AM EDT CoV-Presumed Comment:Neg test & presumptive (+) CT 35, resolving, no cov recovered b/c antigen outside test 10/17/2021 11/01/2021 11/02/2021 4:13 PM EDT COVID-19 Comment:Pt has been covid + since 10/17. It has been over 20 days. Pt not having Sx. Flag removed. Precautions in place until room has disinfect. 10/17/2021 11/11/2021 11/12/2021 1:28 PM E DT CoV-Presumed Comment:Patient achieved test based resolution 11/02/2021 11/02/2021 11/03/2021 6:51 PM E DT documented as of this encounter Care Teams Worksite Wellness Practitioner Relationship Specialty Start Date End Date Rafita Vilal MD [address] [place] [phone] PCP - General Internal Medicine 08/30/21 11/22/22 Aguila Villegas MD [address] [place] [address] [address], [address] [place] [address] PCP - General Family Medicine 11/23/22 Ej Curtis MD [address] [place] [address] Rheumatology 12/28/21 documented as of this encounter Additional Source Comments The information contained in this document represents components of the legal health record. It is not the complete legal health record.[facility]
--- OUTSIDE RECORDS SUMMARY | 2025-02-20 10:49 | XMS_ITS | Encounter Summary ---
Author Organization [facility] Address [address] [place] [address] Phone Care Team Providers Care Recreation Facility Attendant Name Role Phone Rafita Villa MD Primary Care Provider [phone] Ej Curtis MD Unavailable [phone] Aguila Villegas MD Primary Care Provider [phone] Encounter Details Date Type Department Care Team (Late st Contact Info) Description 11/01/2021 Procedure [place] [facility] [place] [address], [address]nd Floor, [address] [place] [address] Social History Tobacco Use Types Packs/Day Years Used Date Smoking Tobacco: Former Cigarettes Smokeless Tobacco: Never Alcohol Use Standard Drinks/Week Comments Not Currently 0 (1 standard drink = 0.6 oz pur e alcohol) Sex and Gender Information Value Date Recorded Sex Assigned at Male 08/30/2021 11:37 AM EDT Legal Sex Male 9:56 PM EDT Gender Identity Male 08/30/2021 11:37 AM EDT Sexual Orientation Not on file documented as of this encounter Plan of Treatment Not on file documented as of this encounter Visit Diagnoses Not on filedocumented in this encounter Additional Health Concerns Infection Onset Date Last Indicated Resolved Time CoV-Presumed Comment:Neg test & presumptive (+) CT [...] documented as of this encounter Care Teams Recreation Facility Attendant Relationship Specialty Start Date End Date Rafita Villa MD [address] [place] [address] [email or web address] PCP - General Internal Medicine 08/30/21 11/22/22 Aguila Villegas MD [address] [place] [address], [address] [place] [address] PCP - General Family Medicine 11/23/22 Ej Curtis MD [address] [place] [address] Rheumatology 12/28/21 documented as of this encounter Additional Source Comments The information contained in this document represents components of the legal health record. It is not the complete legal health record.[facility]
--- OUTSIDE RECORDS SUMMARY | 2025-02-20 10:49 | XMS_ITS | Encounter Summary ---
Author Organization [facility] Address [address] [place] [address] [place] [address] Phone Care Team Providers Care Floor Worker Well Service Name Role Phone Rafita Villa MD Primary Care Provider [phone] Ej Curtis MD Unavailable [phone] Aguila Villegas MD Primary Care Provider [phone] Encounter Details Date Type Department Care Team (Late st Contact Info) Description 11/05/2021 Procedure Pass [facility] PERIOPERATIVE DEPT [address] [place] [address] Social History Tobacco Use Types Packs/Day Years [...] Infection Onset Date Last Indicated Resolved Time COVID-19 Comment:Pt has been covid + since 10/17. It has been over 20 days. Pt not having Sx. Flag removed. Precautions in place until room has disinfect. 10/17/2021 11/11/2021 11/12/2021 1:28 PM E DT documented as of this encounter Care Teams Floor Worker Well Service Relationship Specialty Start Date End Date Rafita Villa MD [address] [place] [address] [email or web address] PCP - General Internal Medicine 08/30/21 11/22/22 Aguila Villegas MD [address] [place] [address] 204, [address] [place] [address] [email or web address] PCP - General Family Medicine 11/23/22 Ej Curtis MD [address] [place] [address] Rheumatology 12/28/21 documented as of this encounter Additional Source Comments The information contained in this document represents components of the legal health record. It is not the complete legal health record.[facility]
--- OUTSIDE RECORDS SUMMARY | 2025-02-20 10:49 | XMS_ITS | Encounter Summary ---
Author Organization [facility] Address [address] [place] [address] Phone Care Team Providers Care Soft Mud Molder Name Role Phone Rafita Villa MD Primary Care Provider [phone] Ej Curtis MD Unavailable [phone] Aguila Villegas MD Primary Care Provider [phone] Encounter Details Date Type Department Care Team (Late st Contact Info) Description 11/02/2021 Ophth Exam GABRIEL Consult from [address] [address] Hussain Gimenez MD [address] [place] [address] [email or web address] Social History Tobacco Use Types Packs/Day Years [...] documented as of this encounter Care Teams Soft Mud Molder Relationship Specialty Start Date End Date Rafita Villa MD [address] [place] [address] PCP - General Internal Medicine 08/30/21 11/22/22 Aguila Villegas MD [address] [place] [address] 204, [address] [place] [address] PCP - General Family Medicine 11/23/22 Ej Curtis MD [address] [place] [address] Rheumatology 12/28/21 documented as of this encounter Additional Source Comments The information contained in this document represents components of the legal health record. It is not the complete legal health record.[facility]
--- OUTSIDE RECORDS SUMMARY | 2025-02-20 10:49 | XMS_ITS | Clinical Summary ---
Author Organization [facility] Address [address] [place] [phone] Phone Care Team Providers Care L Tacker Name Role Phone Ej Curtis MD Unavailable [phone] Aguila Villegas MD Primary Care Provider [phone] Allergies Active Allergy Reactions Criticality Noted Date Comments Olanzapine Dystonia High 11/01/2021 Reported by at [facility] ED visit 08/30; however has been tolerating 2.5 mg at [facility] Medications aspirin 81 mg chewable tablet Take 81 mg by mouth daily. Active escitalopram oxalate (LEXAPRO) 10 MG tablet Take 10 mg by mouth daily. Active melatonin 3 mg Tab Take 3 mg by mouth nightly at bedtime. Active travoprost (TRAVATAN Z) 0.004 % Drop Place 1 drop into the right eye nightly at bedtime. Active atorvastatin (LIPITOR) 40 MG tablet 1 tablet (40 mg total) by Gastrostomy Tube route daily. 30 tablet 2 Active Additional Information Patient taking differently:40 mgOralDaily, Reported on 01/12/2022 senna (SENOKOT) 8.6 mg tablet Take 2 tablets by mouth daily. Active timolol (TIMOPTIC) 0.5 % ophthalmic solution Place 1 drop into each eye 2 (two) times a day. Active divalproex (DEPAKOTE) [address] tablet Take 1 tablet (500 mg total) by mouth 2 (two) times a day. 2 Active docusate sodium (COLACE) 100 MG capsule Take 2 capsules (200 mg total) by mouth 2 (two) times a day. 2 Active dorzolamide (TRUSOPT) 2 % ophthalmic solution Place 1 drop into each eye 2 (two) times a day. 10 mL 12 2 Active Medication-Free TextIndications :giant cell arteritis Actemra 162 mg subcu weekly Indications: inflammation of the artery in the anabaptism area 0 2 Active predniSONE (DELTASONE) 10 MG tablet Take 3 tablets (30 mg total) by mouth daily. 2 Active QUEtiapine (SEROQUEL) 25 MG tablet Take 1 tablet (25 mg total) by mouth 2 (two) times a day (once in the morning and once in the afternoon). 2 Active Additional Information Patient taking differently: 12.5 mgOral3 times daily, Reported on 11/23/2022 TOCILIZUMAB IV Inject into the vein. 3 Active insulin lispro (HUMALOG U-100 INSULIN) 100 unit/mL injection vial Inject under the skin. 3 Active cyanocobalamin, vitamin B-12, 1000 MCG tablet Take 1,000 mcg by mouth daily. 3 Active guaiFENesin (ROBITUSSIN) 100 mg/5 mL syrup Take 200 mg by mouth. 3 Active omeprazole (PRILOSEC) 20 MG capsule Take 20 mg by mouth daily. 3 Active thiamine (VITAMIN B-1) 100 MG tablet 100 mg. 2 Active gabapentin (NEURONTIN) 100 MG capsule Take 100 mg by mouth daily. 3 Active cholecalciferol (VITAMIN D3) 25 MCG (1,000 unit) tablet Take 1,000 Units by mouth daily. Active calcium carbonate 500 mg (200 mg elemental) chewable tablet Take 1 tablet by mouth daily. Active Active Problems Problem Noted Date Diagnosed Date Expressive aphasia 11/23/2022 11/23/2022 Dysarthria 11/23/2022 11/23/2022 Giant cell arteritis 11/23/2022 11/23/2022 Glaucoma 11/23/2022 11/23/2022 H/O alcohol abuse 11/23/2022 11/23/2022 History of COVID-19 11/23/2022 11/23/2022 History of CVA with residual deficit 11/23/2022 11/23/2022 HTN (hypertension) 11/23/2022 11/23/2022 Left hemiparesis 11/23/2022 11/23/2022 Nonalcoholic steatohepatitis 11/23/2022 Physical deconditioning 11/23/2022 11/24/19 Wernicke's syndrome 11/23/2022 11/23/2022 Long-term current use of tocilizumab 11/23/2022 Immunosuppressed status 11/23/2022 Delirium 10/30/2021 Assessment & Plan (11/29/2021 2:02 PM EDT): Early in hospital stay patient had acute delirium associated with acute stroke. Patient noted to be more restless in the early evening. This was going on long before this hospital stay. At [facility] he was getting lorazepam in the early evening without ill side effects. Now with the prednisone on he has a little bit more restless therefore lorazepam has been ordered twice daily as needed. -On admission neurology added trazodone 25 to 50 mg nightly to help sleep. Patient was continued on his Depakote, home gabapentin, baclofen and melatonin. -Patient remains calm and cooperative and is able to make needs known as dysarthria improves which has improved his ability to communicate with less frustration. - We will continue with current regimen of Depakote, melatonin, gabapentin with as needed trazodone use. Assessment & Plan (10/31/2021 11:18 AM EDT): is more concerned with his bouts of agitation that he is been having for about a month and a subtle weakness in the left lower face for a month then what the speech-language therapist was can return with at that SNF. She has seen a more gradual change. A couple of things have happened in the last month that could be distressing to him as neurologic injury; COVID, and his has gone back to work part-time so he is alone for more hours the day. She is appropriately concerned that this could be related to medication, anxiety at his situation not being at home, and Warnicke's. . COPD (chronic obstructive pulmonary disease) Assessment & Plan (10/29/2021 11:35 PM EDT): -No SOB or wheezing -prn albuterol Resolved Problems Problem Noted Date Diagnosed Date Resolved Date Hemiplegia and hemiparesis f ollowing cerebral infarction affecting left non-dominant side 12/27/2021 11/23/2022 Assessment & Plan (01/12/2022 11:59 AM EDT): -Patient had stroke 06/26, admitted at [facility], discharged to SNF.. Admitted in October to [facility] due to concern that patient had new stroke. Work- up negative for new stroke but concern was that he had vasculitis with elevated ESR CRP. Transferred for work-up [facility]. Diagnosed with giant cell arteritis. Transferred back to [facility] to complete hospitalization-- discharged to [facility] then discharged home 12/22 Patient with increasing needs at home unable to care for him. Patient also noted to have some increased aggression related to frustration regarding his aphasia.. Patient needs assistance with feeding, nonambulatory -In the emergency department, work-up for acute causes of change neg. Head CT negative for acute change -In the ED PT recommending 24/7 assistance and medical lift equipment. Family unable to provide this -Here patient stable with expressive aphasia hemiplegia left, able to make needs known, use urinal independently, feed self once set up for meals and uses call gonzalez appropriately. -Cont aspirin Lipitor baclofen PPI, Vit D3, and calcium supplementation -Case management SW working on discharge planning. Family working on [employer] application -Cont PT Labile type personality benítez ge due to another medical condition 12/27/2021 11/23/2022 Assessment & Plan (01/12/2022 12:01 PM EDT): - reported that pt has been more easily frustrated and prone to agitation following his stroke. He was previously started on Depakote 500 mg twice daily by outpatient neurologist. Was on Zyprexa in past but changed to Seroquel at [facility] due to reported dystonic reaction with Zyprexa. At one point also on Ativan 0.5 mg BID for agitation, discontinued at [facility] due to potential for deliriogenic effects -Pt is also on lexapro gabapentin trazodone melatonin -Seen by psychiatry in consultation 12/28. recommended increasing Seroquel to 25 mg twice daily and as needed and continue 25 mg nightly. -Receiving Seroquel at 9 AM and 1600 and nightly Seroquel at 2100 since 01/02 with good effect. Has not needed any prn doses, so this order was DC'd on 01/10. Discharge planning issues 11/27/2021 Loose stools 11/21/2021 11/29/2021 Assessment & Plan (11/25/2021 8:50 AM EDT): Resolved -Scheduled Imodium 3 times daily around tube feeds. -Monitor closely for constipation. 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 general matcher is Dr. Curtis [facility] [phone]. Dr. Curtis notes that patient has markedly elevated inflammatory markers despite ongoing use of high-dose steroids since November. She contacted hospitalists during this admission She has recommended starting actemra 162 mg subcu weekly to optimize his giant cell arteritis treatment allowing for steroid tapering without relapse of the disease. -Dr. Curtis said pt should not begin a prednisone taper until he starts Actemra. -He should stay on 30 mg daily. -She recommends decreasing prednisone by 5 mg every other week starting 1 week after receiving Actemra. However inflammatory markers should to be checked before prednisone taper started--Start to taper prednisone only if inflammatory markers improved - Dr. Curtis will follow patient closely and asked that we update her (number above). Spoke with 01/06. She said she will receive Actemra in the mail 01/11, she has not brought it in as of 1pm on 01/12 Assessment & Plan (11/25/2021 8:50 AM EDT): Patient has giant cell arteritis. Suspected cause of his stroke back in June. -Prednisone taper as recommended by rheumatology: 60mg daily from 11/04-11/17 50 mg daily from 11/18-12/01 40mg Daily from 12/02 until seen by rheumatology -Vitamin D and calcium while on steroids-PPI -Per rheumatology started on prophylaxis with Bactrim Monday. Famotidine for GI prophylaxis. -Patient to follow-up with rheumatology after discharge. Assessment & Plan (11/09/2021 11:07 PM EDT): . Per rheum, pattern of systemic vasculitis including involvement of verts and posterior cerebral circulation, highly suspicious for GCA, which in hindsight could have caused his prior stroke. TAUS was negative (no halo sign) TABx and procedures performed 11/05 and was consistent preliminarily with giant cell arteritis. Serological studies sent and notable for LEONA 1:40, SS-A/B neg, ANCA (neg), TPO (neg), TSI (pending), SHAINA (low), CCP (<8), HIV neg, HBV neg, HCV (neg), T spot (pending), Lyme (pending), syphilis (neg), 1-3 b-d glucan (neg), serum galactomannan (pending), serum encephalopathy panel (pending). CSF studies sent and notable for nuc 0-> 1, protein 35, glucose 75, w extended panels (Lyme, VZV, MS, galactomannan, encephalitis panels) pending. Plan: - Continue slow prednisone taper, 60 mg for another 10 days, 40mg x 2 weeks, 20mg x 2 weeks. - Continue started on ppx w ca/vit D and bactrim MWF - Continue melatonin/trazodone for sleep hygiene. - Continue ASA - Continue to hold plavix given that prior stroke likely related to GCA. - Follow up [facility] for GCA w rheum as outpt. Rheum to order and administer zolendronate as outpt. Cavitary lesion of lung 11/09/202111/04 Assessment & Plan (01/08/2022 3:14 PM EDT): Diagnosed with pneumonia during admission at [facility]. CT done during this admission showed resolution of pneumonia Assessment & Plan (11/27/2021 8:31 AM EDT): Found to have cavitary lung lesion by CT. Hospitalist team discussed with for ID approval, grisel for linezolid. -Completed Augmentin and Linezolid 11/22. -Repeat CT chest with and without contrast ordered however patient has refused CT on multiple occasions. is unable to convince him to have it done. -Repeat CTwith and without contrast when patient is amenable. Follow-up pulmonary after discharge Assessment & Plan (11/09/2021 11:09 PM EDT): On initial CTA-CAP for vasculitis/ESR evaluation, found cavitary lesion in LLL w air fluid level. Bronchoscopy perfomed with BAL fluid preliminarily growing Corynebacterium. While awaiting microbiological specimen, pt was covered broadly with vanc/cefepime and flagyl. BAL ended up growing abundant Corynebacterium w multiple resistances. ID recommended 2 wks of IV antibiotics with linezolid and augmentin w repeat imaging in 2 wks. Also continued on bactrim MWF for PCP ppx. Plan: - continue linezolid + augmentin x at least 2 wks (consider PICC) - f/u CT chest in 2 wks per ID, depending on result decide length of linezolid/augmentin rx - f/u CT chest in 6-8 wks to determine interval resolution per pulm Acute conjunctivitis of right eye 11/09/2021 11/23/2022 Assessment & Plan (11/25/2021 8:48 AM EDT): Continue refresh ophthalmic solution treatment outlined in [facility] plan. Assessment & Plan (11/09/2021 11:08 PM EDT): Ophtho consulted to evaluate the eye given concerns for infection vs vasculitis vs glaucomatous change. Dilated exam performed 5/31 saw no evidence of vasculitis in the eye. [place] changes more from superficial corneal trauma/abrasion and exposure keratitis. Treated w moxifloxacin drops from 11/03-11/08 and kept on erythromycin ointment OD w artificial tears and lubrifesh ointment OU ongoing. Continued on home glaucoma drops. With therapy eye erythema improved. Plan: - continue home glaucoma drops - continue lubrifresh ointment + artifical tears OU and erythromycin ointment OD Altered mental status 10/31/20212022 Assessment & Plan (11/25/2021 8:49 AM EDT): Resolved. Assessment & Plan (11/09/2021 11:10 PM EDT): Pt throughout [facility] hospitalization with echolalia and perseverative speech, though breaks easily to answer questions and able to make needs known. Deficits possibly related to prior stroke. LP negative. Plan: -Continue seroquel -Continue to hold Zyprexa (dystonia) -Continued on depakote 500 daily, -Melatonin 3 mg qhs, gabapentin 300 BID, and baclofen 5 BID. -Trazodone 25-50 mg added for insomnia on steroids. CVA (cerebral vascular accident) 10/29/2021 11/23/2022 Assessment & Plan (11/27/2021 8:32 AM EDT): Patient has remained stable. Is participating with PT, OT and NICKEL OPERATOR. -Patient continues to improve with more comprehensible speech. Continues to improve daily. -NICKEL OPERATOR-patient remains strict n.p.o. on tube feeds with boluses. -Patient now accepting of his tube feeds as diarrhea has resolved. -NICKEL OPERATOR continues to treat for stimulation of swallowing and communication strategies. Plans to trials the patient can return to normal diet. -Patient is currently on baclofen, gabapentin both started on 11/10 for spasticity. -Neurology was consulted on the day of admission. Plavix DC'd as stroke etiology thought to be secondary to GCA. Patient continued on aspirin. -trazodone for difficulty sleeping. -Continue PT OT and NICKEL OPERATOR. Assessment & Plan (10/31/2021 11:28 AM EDT): -Patient presented from rehab after following up with NICKEL OPERATOR who noticed worsening left side facial droop, increased slurred speech and worsening drool -CT head and CTA head and neck showed no acute intracranial abnormality. Multifocal posterior fossa encephalomalacia, likely representing sequela of prior infarction. 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 Diminutive and irregular appearance of the V3/V4 segment right vertebral artery with severe stenosis. Apparent associated wall thickening of both distal vertebral arteries may reflect sequela of prior dissection or underlying vasculitis/vasculopathy. Moderate to severe stenosis of the bilateral cavernous and supraclinoid ICAs, right greater than left MRI brain delayed till Monday, could not sit still for it Monday, no time to repeat. Vashti, his said he needs ativan for them. Premedicated Monday, looks like we were able to get the images. DW Dr Maloney from stroke service Monday, recommended tertiary transfer. [facility] not accepting. Pt was accepted at [facility] (spoke with Dr Solorio), pending a bed. They recommended getting the MRI as it helps with dispo, no tx empirically. D/W Vashti 10/31, transfer and will sign the form when she gets to the hospital this morning He has had a couple of very low-grade fevers, 100.8. Urinalysis unremarkable, chest x-ray unremarkable for acute disease. No obvious acute other source of infection. Could be vasculitis, watching History of hypertension 10/29/202111/04 Assessment & Plan (01/06/2022 2:01 PM EDT): Prior to stroke had been hypertensive, Continue off antihypertensive, stopped during [facility] hospitalization Blood pressure normal Assessment & Plan (10/31/2021 11:22 AM EDT): -Hold Lisinopril and Norvasc while new stroke is being worked up. BP is fine without so far. Neurology recommended fluid boluses if his mental status showed decline or he was hypotensive as his intracerebral stenosis is worrisome Immunizations Immunization Administration Dates Next Due COVID-19 (Pre-03/27) Moderna Vaccine, mRNA, PF 0 01/13/2022 Influenza Quadrivalent Preservative Free IM 03/05,04/22/2014 Pneumococcal polysaccharide PPSV23 03/16/2017 Tdap 09/25/2009 Social History Tobacco Use Types Packs/Day Years Used Date Smoking Tobacco: Former Cigarettes Smokeless Tobacco: Never Alcohol Use Standard Drinks/Week Comments Not Currently 0 (1 standard drink = 0.6 oz pur e alcohol) Education Answer Date Recorded Are you interested in more education? Not on sarah e 09/30/2022 Are you concerned about learning? Not on file 09/30/2022 No 09/30/2022 No 09/30/2022 Digital Access Answer Date Recorded No 10/31/2022 No 10/31/2022 Reliable internet access at home? Not on file 10/31/2022 Device with a working camera? Not on file Sex and Gender Information Value Date Recorded Sex Assigned at Male 08/30/2021 11:37 AM EDT Legal Sex Male 9:56 PM EDT Gender Identity Male 08/30/2021 11:37 AM EDT Sexual Orientation Not on file Last Filed Vital Signs Vital Sign Reading Time Taken Comments Blood Pressure 113/84 11/23/2022 10:39 AM EDT Pulse 87 11/23/2022 10:39 AM EDT Temperature 35.9 C (96.6 F) 11/23/2022 10:39 AM EDT Respiratory Rate 18 01/13/2022 3:30 PM EDT Oxygen Saturation 97% 11/23/2022 10: 39 AM EDT Inhaled Oxygen Concentration - - Weight 76.5 kg (168 lb 11.2 oz) 01/04/2022 1:00 PM EDT Height 186 cm (6' 1.23 ) 01/04/2022 1:00 PM EDT Body Mass Index 22.12 01/04/2022 1:00 PM EDT Plan of Treatment Health Maintenance Due Date Last Done Comments DEPRESSION SCREENING 1966 SMOKING Hx and SMOKELESS TOBACCO SCREENING 08/09/1967 HEPATITIS A VACCINES (1 of 2 - Risk 2-dose series) 1973 ZOSTER VACCINES (1 of 2) 1973 COLOGUARD 08/09/1999 COLONOSCOPY 08/09/1999 COLORECTAL CANCER SCREENING 08/09/1999 FIT TEST 08/09/1999 FOBT 08/09/1999 SIGMOIDOSCOPY 08/09/1999 VIRTUAL COLONOSCOPY 08/09/1999 RSV VACCINE (1 - Risk 60-74 years 1-dose series) 2014 PNEUMOCOCCAL VACCINES (50+ years) (2 of 2 - PCV) 03/16/2018 03/16/2017 Adult Td,Tdap Booster 09/26/2019 09/25/2009 VALPROIC ACID (DEPAKENE) LEVEL 08/30/2022 08/30/2021 BLOOD PRESSURE 05/25/2023 11/23/2022 INFLUENZA VACCINE (#1) 2025 7, 04/22/2014 COVID-19 VACCINE (2024-2 6 season) 2025 01/13/2022, 10/10/2020, 09/19/2020 LIPID PANEL 10/30/2026 10/30/2021 ABDOMINAL AORTIC ANEURYSM (AAA) SCREENING Completed 11/01/2021 HEPATITIS C SCREENING Completed 11/01/2021 HIB VACCINES Aged Out No longer eligi ble based on patient's age to complete this topic MENINGOCOCCAL VACCINES (ACWY) Aged Out No longer eligible based on patient's age to complete this topic MENINGOCOCCAL VACCINES (B) Aged Out N o longer eligible based on patient's age to complete this topic Medical Devices Not on file Procedures Procedure Name Priority Date/Time Associated Diagnosis Comments HEPATITIS C ANTIBODY, QUALITATIVE Routine 11/01/2021 3:[address] ANGIO ABDOMEN/PELVIS WITH AND WITHOUT CONTRAST Routine 11/01/2021 11:35 AM EDT LIPID PANEL Routine 10/30/2021 6:21 AM EDT VALPROIC ACID STAT 08/30/2021 11:59 AM EDT from Last 3 Months or Most Recently Relevant to Health Maintenance Results * Hepatitis C antibody, qualitative (11/01/2021 3:15 PM EDT) HCV ANTIBODY Negative Negative [facility] Comment:Antibodies to HCV no t detected. Does not exclude the possibility of exposure to HCV. Blood 11/01/2021 3:15 PM EDT 11/01/2021 4:04 PM EDT us Namita Solorio MD, PhD LAB BLOOD ORDERABL ES Final Result [facility] [address] [place] [address] * CT ANGIO ABDOMEN/PELVIS WITH AND WITHOUT CONTRAST (11/01/2021 11:35 AM EDT) Anatomical Region Laterality Modality Abdomen, Abdominal Vasculature C omputed Tomography 11/01/2021 12:5 6 PM EDT Impressions 11/01/2021 2:33 PM EDT * Circumferential wall thickening and enhancement, and subtle surrounding stranding involving the bilateral axillary and common femoral arteries, which may represent vasculitis. No evidence of aortic dissection. * Findings concerning for necrotizing pneumonia in the left lower lobe. Trace left pleural effusion. 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 No interarterial course, intramural course or slitlike orifice. * Ectatic common iliac arteries bilaterally. Findings were discussed on 11/01/2021 1:54 PM with NESSA VALIENTE ATTESTATION: I, Dr. Lyly Guerra as teaching physician, have reviewed the images for this case and if necessary edited the report originally created by Dejon Reyes. Narrative 11/01/2021 2:[address] ANGIO CHEST WITH AND WITHOUT CONTRAST, CT ANGIO ABDOMEN/PELVIS WITH AND WITHOUT CONTRAST CTA CHEST ABDOMEN AND PELVIS BEFORE AND AFTER IV CONTRAST. 3D IMAGES WITH REFORMATTING AND POST-PROCESSING RECONSTRUCTIONS WERE PERFORMED AND INTERPRETED. COMPARISON: XR CHEST PORTABLE ; XR CHEST PORTABLE (accession [id number]), XR CHEST PORTABLE (accession [id number]); head and neck CTA performed October 29, 2021 INDICATIONS: * Thoracic aortic dissection, follow up; Abnormal imaging; concern for medium-large vessel vasculitis, eval aorta (not visualized on prior CTA H/N). Elevated ESR and CRP. VASCULAR FINDINGS: The aortic root is not dilated and the sinotubular junction is dilated but preserved. There is high takeoff of the right coronary artery above the level of the sinotubular junction above the anterior aspect of the right coronary sinus. No interarterial course, intramural course or slitlike orifice. The ascending aorta is normal. There is a left 3 vessel aortic arch. There is circumferential wall thickening and enhancement of the bilateral axillary arteries with minimal surrounding stranding. The bilateral vertebral arteries are small caliber vessels and better evaluated on the head and neck CTA performed October 29, 2021. The descending thoracic aorta is dilated. There are moderate calcified and noncalcified atherosclerotic plaques in the aorta and its major branches. There is no evidence of a flap within the aorta to suggest a dissection. No thoracic aortic devices are evident. No abdominal aortic devices are evident. The celiac artery, SMA, and PEYTON are patent. There is a replaced right hepatic artery arising from the superior mesenteric artery. There are single left and two right renal arteries which are patent. There is no significant stenosis. The bilateral common iliac arteries are ectatic. The bilateral common femoral arteries also show circumferential wall thickening and enhancement. THORACIC AORTA Thoracic aortic measurements were performed using double-oblique short axis multiplanar views. Sinuses of Valsalva: Right 3.7 cm, Left 3.9 cm, Noncoronary 3.9 cm Sinotubular junction: 3.7 x 3.6 cm Ascending aorta: 3.8 x 3.6 cm Aortic arch: 3.1 x 2.8 cm Descending aorta: 2.7 x 2.6 cm Diaphragmatic hiatus: 2.8 x 2.7 cm ABDOMINAL AORTA: Abdominal aortic measurements were performed using double-oblique short axis multiplanar views. Suprarenal Abdominal aorta: 2.1 x 1.9 cm Infrarenal abdominal aorta: 1.8 x 1.8 cm Right common iliac artery: 1.4 x 1.4 cm Left common iliac artery: 1.3 x 1.2 cm VENOUS: There is no venous thrombosis. NON VASCULAR FINDINGS: LUNGS: There is mucus in the distal trachea and bilateral mainstem bronchi and diffuse bronchial thickening. There is patchy groundglass and consolidative opacities in the left lower lobe surrounding a cavitating hypodense rounded opacity with a fluid level. A left lower lobe satellite nodule is also noted. MEDIASTINUM: There are subcentimeter thyroid nodules. No mediastinal or hilar lymphadenopathy by CT size criteria. There is a large burden of coronary artery disease, but this exam was not tailored for coronary evaluation. HEPATOBILIARY: No focal hepatic lesions. No biliary ductal dilatation. SPLEEN: No splenomegaly. PANCREAS: No focal masses or ductal dilatation. ADRENALS: No adrenal nodules. KIDNEYS/URETERS: No hydronephrosis, stones, or solid mass lesions. PELVIC ORGANS/BLADDER: Unremarkable. PERITONEUM / RETROPERITONEUM: No free air or fluid. LYMPH NODES: No lymphadenopathy. GI TRACT: There is a gastrostomy tube in place. No distention or wall thickening. Colonic diverticulosis. BONES AND SOFT TISSUES: Soft tissue density nodularities and foci of air in the anterior abdominal wall subcutaneous tissue were likely related to sites of subcutaneous injection. Procedure Note Lyly Guerra MD - 11/01/2021 CT ANGIO CHEST WITH AND WITHOUT CONTRAST, CT ANGIO ABDOMEN/PELVIS WITH ANDWITHOUT CONTRAST CTA CHEST ABDOMEN AND PELVIS BEFORE AND AFTER IV CONTRAST. 3D IMAGESWITH REFORMATTING AND POST-PROCESSING RECONSTRUCTIONS WERE PERFORMED ANDINTERPRETED. COMPARISON: XR CHEST PORTABLE ; XR CHEST PORTABLE (accession [id number]), XR CHEST PORTABLE ([id number]); head and neck CTA performed October 29, 2021 INDICATIONS: * Thoracic aortic dissection, follow up; Abnormal imaging;concern for medium-large vessel vasculitis, eval aorta (not visualized onprior CTA H/N). Elevated ESR and CRP. VASCULAR FINDINGS: The aortic root is not dilated and the sinotubular junction is dilated butpreserved. There is high takeoff of the right coronary artery above thelevel of the sinotubular junction above the anterior aspect of the rightcoronary sinus. No interarterial course, intramural course or slitlikeorifice. The ascending aorta is normal. There is a left 3 vessel aortic arch. There is circumferential wall thickening and enhancement of the bilateralaxillary arteries with minimal surrounding stranding. The bilateralvertebral arteries are small caliber vessels and better evaluated on thehead and neck CTA performed October 29, 2021. The descending thoracic aorta is dilated. There are moderate calcified and noncalcified atherosclerotic plaques inthe aorta and its major branches. There is no evidence of a flap withinthe aorta to suggest a dissection. No thoracic aortic devices are evident. No abdominal aortic devices are evident. The celiac artery, SMA, and PEYTON are patent. There is a replaced righthepatic artery arising from the superior mesenteric artery. There are single left and two right renal arteries which are patent. Thereis no significant stenosis. The bilateral common iliac arteries are ectatic. The bilateral common femoral arteries also show circumferential wallthickening and enhancement. THORACIC AORTA Thoracic aortic measurements were performed using double-oblique shortaxis multiplanar views. Sinuses of Valsalva: Right 3.7 cm, Left 3.9 cm, Noncoronary 3.9 cm Sinotubular junction: 3.7 x 3.6 cm Ascending aorta: 3.8 x 3.6 cm Aortic arch: 3.1 x 2.8 cm Descending aorta: 2.7 x 2.6 cm Diaphragmatic hiatus: 2.8 x 2.7 cm ABDOMINAL AORTA: Abdominal aortic measurements were performed using double-oblique shortaxis multiplanar views. Suprarenal Abdominal aorta: 2.1 x 1.9 cm Infrarenal abdominal aorta: 1.8 x 1.8 cm Right common iliac artery: 1.4 x 1.4 cm Left common iliac artery: 1.3 x 1.2 cm VENOUS: There is no venous thrombosis. NON VASCULAR FINDINGS: LUNGS: There is mucus in the distal trachea and bilateral mainstem bronchiand diffuse bronchial thickening. There is patchy groundglass andconsolidative opacities in the left lower lobe surrounding a cavitatinghypodense rounded opacity with a fluid level. A left lower lobe satellitenodule is also noted. MEDIASTINUM: There are subcentimeter thyroid nodules. No mediastinal orhilar lymphadenopathy by CT size criteria. There is a large burden ofcoronary artery disease, but this exam was not tailored for coronaryevaluation. HEPATOBILIARY: No focal hepatic lesions. No biliary ductal dilatation. SPLEEN: No splenomegaly. PANCREAS: No focal masses or ductal dilatation. ADRENALS: No adrenal nodules. KIDNEYS/URETERS: No hydronephrosis, stones, or solid mass lesions. PELVIC ORGANS/BLADDER: Unremarkable. PERITONEUM / RETROPERITONEUM: No free air or fluid. LYMPH NODES: No lymphadenopathy. GI TRACT: There is a gastrostomy tube in place. No distention or wallthickening. Colonic diverticulosis. BONES AND SOFT TISSUES: Soft tissue density nodularities and foci of airin the anterior abdominal wall subcutaneous tissue were likely related tosites of subcutaneous injection. IMPRESSION: * Circumferential wall thickening and enhancement, and subtle surroundingstranding involving the bilateral axillary and common femoral arteries,which may represent vasculitis. No evidence of aortic dissection. * Findings concerning for necrotizing pneumonia in the left lower lobe.Trace left pleural effusion. 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 No interarterial course, intramuralcourse or slitlike orifice. * Ectatic common iliac arteries bilaterally. Findings were discussed on 11/01/2021 1:54 PM with NESSA VALIENTE ATTESTATION: I, Dr. Lyly Guerra as teaching physician, have reviewed theimages for this case and if necessary edited the report originally createdby Dejon Reyes. Namita Solorio MD, PhD IMG CT ABD/PELVIS Final Result * (ABNORMAL) Lipid panel (10/30/2021 6:21 AM EDT) HDL 42 mg/dL [facility] Comment: Interpretation <40 mg/dL: Low HDL cholesterol (major risk factor for CHD) Greater than or equal to 60 mg/dL: High HDL cholesterol ( negative risk factor for CHD) HDL - cholesterol is affected by a number of factors, e.g. smoking, excerise, hormones, sex and age. CHOLESTEROL 104 0 - 240 mg/dL [facility] TRIGLYCERIDES 95 30 - 160 mg/dL [facility] LDL 43(L) 50 - 129 mg/dL [facility] Comment: LDL levels in terms of risk for coronary heart disease: <100 mg/dL: Optimal 100-129 mg/dL: Near or above optimal 130-159 mg/dL: Borderline high 160-189 mg/dL: High >190 mg/dL: Very High CARDIAC RISK RATIO 2.5(L) 3.4 - 5.0 C [facility] Blood 10/30/2021 6:21 AM EDT 10/30/2021 7:48 AM EDT us Lacy Stevenson DO LAB BLOOD ORDERABLES Final Re sult [facility] [address] [place], [place] [id number] * (ABNORMAL) Valproic acid (08/30/2021 11:59 AM EDT) VALPROIC ACID <2.8(L) 50.0 - 100.0 ug/mL [facility] Blood 08/30/2021 11:5 9 AM EDT 08/30/2021 12:15 PM EDT us Lily Ramirez MD LAB BLOOD ORDERABLES Final R esult [facility] [address] [place] [address] from Last 3 Months or Most Recently Relevant to Health Maintenance Insurance [facility] HMO [facility] Address: [address] [id number] MEDICARE A [facility] MEDICARE A MEDICARE A [facility] Address: [address] [address] MEDICARE A [facility] MEDICARE A MEDICARE A MEDICARE A [facility] Address: [address] [place] [address] MEDICARE A Advance Directives For more information, please contact: [phone] (9AM - 5PM [facility], Monday-Monday) Documents on File Type Date Recorded Patient Market Development Specialist Expl anation MOLST 12/03/2021 11:36 AM Healthcare Proxy 08/30/2021 signed * Full Code (Latest Code Status on File) Date Activated Date Inactivated Comments 10/31/2021 7:41 PM Question Answer Comments Code Status Confirmed With: Other (specify below ) Code Discussion Comments: MOLST * Full Code Date Activated Date Inactivated Comments 10/31/2021 7:41 PM 10/31/2021 7:41 PM Question Answer Comments Code Status Confirmed With: Other (specify below ) Code Discussion Comments: MOLST * Full Code Date Activated Date Inactivated Comments 10/29/2021 11:09 PM 10/31/2021 7:41 PM Question Answer Comments Code Status Confirmed With: Other (specify below ) Code Discussion Comments: MOLST Healthcare Agents on File Name Relationship Healthcare Agent Relationship Communication Vashti Matute Spouse .Primary Health Care Agent (Proxy form on file) Care Teams L Tacker Relationship Specialty Start Date End Date Aguila Villegas MD [address] [place] [address], [address] [place] [address] [email or web address] PCP - General Family Medicine 11/23/22 Ej Curtis MD Rheumatology 12/28/21 Additional Source Comments The information contained in this document represents components of the legal health record. It is not the complete legal health record.[facility]
--- OUTSIDE RECORDS SUMMARY | 2025-02-20 10:49 | XMS_ITS | Encounter Summary ---
Author Organization [facility] Address [address] [place] [address] Phone Care Team Providers Care Automatic Spinning Lathe Setter Name Role Phone Rafita Villa MD Primary Care Provider [phone] Ej Curtis MD Unavailable [phone] Aguila Villegas MD Primary Care Provider [phone] Encounter Details Date Type Department Care Team (Late st Contact Info) Description 10/29/2021 Procedure Pass [facility], Ct Scan - [address] [address] Social History Tobacco Use Types Packs/Day Years [...] Date of Assessment Author No Risk Indicated 10/31/2021 7:31 PM EDT Yanet Gaivria, ROBYN * [place] Suicide Severity Rating Scale (Screener/Recent Self-Report) Question Answer Date of Assessment Author 1. Wish to be (Past 1 Month) No 022 7:31 PM EDT Yanet Gaviria, ROBYN 2. Non-Specific Active Suici ta Thoughts (Past 1 Month) No 10/31/2021 7:31 PM EDT Katty Gaviria RN 6. Suicidal Behavior (Lifetime) No 7:31 PM EDT Yanet Gaviria, RN documented as of this encounter Plan [...] documented as of this encounter Care Teams Automatic Spinning Lathe Setter Relationship Specialty Start Date End Date Rafita Villa MD [address] [place] [address] [email or web address] PCP - General Internal Medicine 08/30/21 11/22/22 Aguila Villegas MD [address] [place] [address] 204, [address] [place] [address] PCP - General Family Medicine 11/23/22 Ej Curtis MD [address] [place] [phone] Rheumatology 12/28/21 documented as of this encounter Additional Source Comments The information contained in this document represents components of the legal health record. It is not the complete legal health record.[facility]
--- OUTSIDE RECORDS SUMMARY | 2025-02-20 10:49 | XMS_ITS | Encounter Summary ---
Author Organization [facility] Address [address] [place] [address] Phone Care Team Providers Care Covering Machine Operator Helper Name Role Phone Rafita Villa MD Primary Care Provider [phone] Ej Curtis MD Unavailable [phone] Aguila Villegas MD Primary Care Provider [phone] Encounter Details Date Type Department Care Team (Late st Contact Info) Description 10/29/2021 Procedure Pass [facility], Ct Scan - [address] [address] Social History Tobacco Use Types Packs/Day Years [...] Risk Indicated 10/31/2021 7:31 PM EDT Yanet Gaviria, ROBYN * [place] Suicide Severity Rating Scale (Screener/Recent Self-Report) Question [...] documented as of this encounter Care Teams Covering Machine Operator Helper Relationship Specialty Start Date End Date Rafita Villa MD [address] [place] [address] [email or web address] PCP - General Internal Medicine 08/30/21 11/22/22 Aguila Villegas MD [address] [place] [address] 204, [address] [place] [address] PCP - General Family Medicine 11/23/22 Ej Curtis MD [address] [place] [address] Rheumatology 12/28/21 documented as of this encounter Additional Source Comments The information contained in this document represents components of the legal health record. It is not the complete legal health record.[facility]
--- OUTSIDE RECORDS SUMMARY | 2025-02-20 10:49 | XMS_ITS | Encounter Summary ---
Author Organization [facility] Address [address] [place] [address] Phone Care Team Providers Care Manufacturers Service Representative Name Role Phone Rafita Villa MD Primary Care Provider [phone] Ej Curtis MD Unavailable [phone] Aguila Villegas MD Primary Care Provider [phone] Encounter Details Date Type Department Care Team (Late st Contact Info) Description 09/08/2022 Procedure Pass [facility], Ct Scan - [address] [address] Social History Tobacco Use Types Packs/Day Years [...] Diagnoses Not on filedocumented in this encounter Care Teams Manufacturers Service Representative Relationship Specialty Start Date End Date Rafita Villa MD [address] [place] [address] [email or web address] PCP - General Internal Medicine 08/30/21 11/22/22 Aguila Villegas MD [address] [place] [address] 204, [address] [place] [address] [email or web address] PCP - General Family Medicine 11/23/22 Ej Curtis MD [address] [place] [address] Rheumatology 12/28/21 documented as of this encounter Additional Source Comments The information contained in this document represents components of the legal health record. It is not the complete legal health record.[facility]
--- OUTSIDE RECORDS SUMMARY | 2025-02-20 10:49 | XMS_ITS | Encounter Summary ---
Author Organization [facility] Address [address] [place] [address] Phone Care Team Providers Care Permit Technician Name Role Phone Rafita Villa MD Primary Care Provider [phone] Ej Curtis MD Unavailable [phone] Aguila Villegas MD Primary Care Provider Encounter Details Date Type Department Care Team (Late st Contact Info) Description 10/29/2021 Procedure Pass [facility], [address] [address] Social History Tobacco Use Types Packs/Day Years [...] Risk Indicated 10/31/2021 7:31 PM EDT Yanet Gaviria RN * [place] Suicide Severity Rating Scale (Screener/Recent Self-Report) Question Answer Date of Assessment Author 1. Wish to be (Past 1 Month) No 022 7:31 PM EDT Yanet Gaviria, ROBYN 2. Non-Specific Active Suici ta Thoughts (Past 1 Month) No 10/31/2021 7:31 PM EDT Katty Gaviria RN 6. Suicidal Behavior (Lifetime) No 7:31 PM EDT Yanet Gaviria RN documented as of this encounter Plan [...] documented as of this encounter Care Teams Permit Technician Relationship Specialty Start Date End Date Rafita Villa MD [address] [place] [address] [email or web address] PCP - General Internal Medicine 08/30/21 11/22/22 Aguila Villegas MD [address] [place] [address] 204, [address] [place] [address] PCP - General Family Medicine 11/23/22 Ej Curtis MD [address] [place] [address] Rheumatology 12/28/21 documented as of this encounter Additional Source Comments The information contained in this document represents components of the legal health record. It is not the complete legal health record.[facility]
--- OUTSIDE RECORDS SUMMARY | 2025-02-20 10:49 | XMS_ITS | Encounter Summary ---
Author Organization [facility] Address [address] [place] [address] Phone Care Team Providers Care Outpatient Services Director Name Role Phone Rafita Villa MD Primary Care Provider [phone] Ej Curtis MD Unavailable [phone] Aguila Villegas MD Primary Care Provider [phone] Encounter Details Date Type Department Care Team (Late st Contact Info) Description 11/01/2021 Procedure Pass [facility] [place] [address] [facility], 2nd Floor, [address] [place] [address] Social History Tobacco Use Types Packs/Day Years [...] documented as of this encounter Care Teams Outpatient Services Director Relationship Specialty Start Date End Date Rafita Villa MD [address] [place] [address] PCP - General Internal Medicine 08/30/21 11/22/22 Aguila Villegas MD [address] [place] [address] 204, [address] [place] [address] PCP - General Family Medicine 11/23/22 Ej Curtis MD [address] [place] [address] Rheumatology 12/28/21 documented as of this encounter Additional Source Comments The information contained in this document represents components of the legal health record. It is not the complete legal health record.[facility]
--- OUTSIDE RECORDS SUMMARY | 2025-02-20 10:49 | XMS_ITS | Encounter Summary ---
Author Organization [facility] Address [address] [place] [address] Phone Care Team Providers Care Spray Cementer Name Role Phone Rafita Villa MD Primary Care Provider [phone] Ej Curtis MD Unavailable [phone] Aguila Villegas MD Primary Care Provider [phone] Encounter Details Date Type Department Care Team (Late st Contact Info) Description 12/26/2021 Procedure Pass [facility], Ct Scan - [address] [address] Social History Tobacco Use Types Packs/Day Years [...] Score (Lifetime/Recent) Answer Date of Assessment Author Low Risk 12/26/2021 2:16 PM EDT Sadia Campoverde RN * [place] Suicide Severity Rating Scale (Screener/Recent Self-Report) Question Answer Date of Assessment Author 1. Wish to be (Past 1 Month) Yes 022 2:16 PM EDT Hi Campoverde RN 2. Non-Specific Active Suici ta Thoughts (Past 1 Month) Yes 12/26/2021 2:16 PM Hi Stephens RN 3. Active Suicidal Ideation with any Methods (Not Plan) Without Intent to Act (Past 1 Month) No 12/26/2021 2:16 PM Hi Stephens RN 4. Active Suicidal Ideation with Some Intent to Act, Without Specific Plan (Past 1 Month) No 12/26/2021 2:16 PM Hi Stephens RN 5. Active Suicidal Ideation with Specific Plan and Intent (Past 1 Month) No 12/26/2021 2:16 PM Hi Stephens RN 6. Suicidal Behavior (Lifetime) No 2:16 PM Hi Stephens RN documented as of this encounter Plan of Treatment Not on file documented as of this encounter Visit Diagnoses Not on filedocumented in this encounter Care Teams Spray Cementer Relationship Specialty Start Date End Date Rafita Villa MD [address] [place] [address] [email or web address] PCP - General Internal Medicine 08/30/21 11/22/22 Aguila Villegas MD [address] [place] [address], [address] [place] [address] PCP - General Family Medicine 11/23/22 Ej Curtis MD [address] [place] [address] Rheumatology 12/28/21 documented as of this encounter Additional Source Comments The information contained in this document represents components of the legal health record. It is not the complete legal health record.[facility]
--- OUTSIDE RECORDS SUMMARY | 2025-02-20 10:49 | XMS_ITS | Clinical Summary ---
Author Organization [facility] Address [address] [place] [address] Care Team Providers Care Narrative Writer Name Role Phone Unavailable Primary Care Provider [...] DTaP,Tdap,and Td Vaccines (1 - Tdap) 1973 Pneumococcal Vaccine: 50+ Ye ars (1 of 1 - PCV) 2004 Zoster Vaccines (1 of 2) 2004 Depression Screening 06/05/2024 COVID-19 Vaccine (1 - 2023-2 5 season) 2025 Influenza Vaccine (#1) 2025 RSV Immunization Adult Patie nts (1 - 1-dose 75+ series) 2029 HIB [...] patient's age to complete this topic Meningococcal B Vaccine Aged Out No l onger eligible based on patient's age to complete this topic RSV Immunization Patients Un segundo 20 months Aged Out No longer eligible b ased on patient's age to complete this topic Varicella Vaccines Aged Out No longer eligible based on patient's age to complete this topic Advance Directives Documents on File Type Date Recorded Patient Carton Maker Expl anation Health Care Decision (hx) 07/21/2021 AD MADDEN DIRECTIVE Health Care Decision (hx) 07/21/2021 AD MADDEN DIRECTIVE
--- OUTSIDE RECORDS SUMMARY | 2025-02-20 10:49 | XMS_ITS | Encounter Summary ---
Author Organization [facility] Address [address] [place] [address] Phone Care Team Providers Care Veneer Stock Grader Name Role Phone Rafita Villa MD Primary Care Provider [phone] Ej Curtis MD Unavailable [phone] Aguila Villegas MD Primary Care Provider [phone] Encounter Details Date Type Department Care Team (Late st Contact Info) Description 12/26/2021 Procedure Pass [facility], Ct Scan - [address] [address] Social History Tobacco Use Types Packs/Day Years [...] 2:16 PM EDT Sadia Campoverde RN * [place] Suicide Severity Rating Scale (Screener/Recent Self-Report) Question [...] on filedocumented in this encounter Care Teams Veneer Stock Grader Relationship Specialty Start Date End Date Rafita Villa MD [address] [place] [address] [email or web address] PCP - General Internal Medicine 08/30/21 11/22/22 Aguila Villegas MD [address] [place] [address], [address] [place] [address] PCP - General Family Medicine 11/23/22 Ej Curtis MD [address] [place] [address] Rheumatology 12/28/21 documented as of this encounter Additional Source Comments The information contained in this document represents components of the legal health record. It is not the complete legal health record.[facility]
--- OUTSIDE RECORDS SUMMARY | 2025-02-20 10:49 | XMS_ITS | Encounter Summary ---
Author Organization [facility] Address [address] [place] [id number] Phone Care Team Providers Care Dish Person Name Role Phone Rafita Villa MD Primary Care Provider [phone] Ej Curtis MD Unavailable [phone] Aguila Villegas MD Primary Care Provider [phone] Encounter Details Date Type Department Care Team (Late st Contact Info) Description 10/26/2021 Transcribe Orders [facility] [address] [place] [address] Aguila Villegas MD [address] [facility], [address] [place] [address] [email or web address] Obstructive chronic bronchitis without exacerbation (Primary Dx); Alcohol abuse, continuous; Severe acute respiratory syndrome coronavirus 2 (SARS-CoV-2) RNA detected Social History Tobacco Use Types Packs/Day Years [...] Date of Assessment Author No Risk Indicated 10/29/2021 2:54 PM EDT Karen Suarez * [place] Suicide Severity Rating Scale (Screener/Recent Self-Report) Question Answer Date of Assessment Author 1. Wish to be (Past 1 Month) No 022 2:54 PM EDT Start, Karen 2. Non-Specific Active Suici ta Thoughts (Past 1 Month) No 10/29/2021 2:54 PM EDT Start, Karen 6. Suicidal Behavior (Lifetime) No 2:54 PM EDT Start, Karen documented as of this encounter Plan of Treatment Not on file documented as of this encounter Results * (ABNORMAL) CBC (10/26/2021 7:11 AM EDT) WBC 7.83 4.00 - 11.00 K/uL [facility] RBC 3.79(L) 3.90 - 5.69 M/uL [facility] HGB 11.1(L) 12.4 - 17.3 g/dL [facility] HCT 34.9(L) 37.0 - 51.0 % [facility] PLT 324 140 - 430 K/uL [facility] MCV 92.1 78.0 - 97.0 fL [facility] MCH 29.3 25.0 - 33.0 pg [facility] MCHC 31.8(L) 32.0 - 36.0 g/dL [facility] RDW 12.6 11.0 - 15.0 % [facility] MPV 11.6 8.4 - 12.8 fl [facility] NRBC 0.00 0 /100 WBCs [facility] ABSOLUTE NRBC 0.00 0 K/uL [facility] Blood 10/26/2021 7:11 AM EDT 10/26/2021 9:00 AM EDT us Aguila Villegas MD LAB BLOOD ORDERABLES Final Resul t [facility] [address] [place] [address] documented in this encounter Visit Diagnoses Diagnosis Obstructive chronic bronchitis without exacerbation- Primary Alcohol abuse, continuous Nondependent alcohol abuse, continuous drinking behavior Severe acute respiratory syndrome coronavirus 2 (SARS-CoV-2) RNA detected documented in this encounter Additional Health Concerns Infection [...] documented as of this encounter Care Teams Dish Person Relationship Specialty Start Date End Date Rafita Villa MD [address] [place] [id number] PCP - General Internal Medicine 08/30/21 11/22/22 Aguila Villegas MD [address] [place] [address] [address], [address] [place] [address] PCP - General Family Medicine 11/23/22 Ej Curtis MD [address] [place] [address] Rheumatology 12/28/21 documented as of this encounter Additional Source Comments The information contained in this document represents components of the legal health record. It is not the complete legal health record.[facility]
--- OUTSIDE RECORDS SUMMARY | 2025-02-20 10:49 | XMS_ITS | Encounter Summary ---
Author Organization [facility] Address [address] [facility] [address] [place] [phone] Phone Care Team Providers Care Development Professional Name Role Phone Rafita Villa MD Primary Care Provider [phone] Ej Curtis MD Unavailable [phone] Aguila Villegas MD Primary Care Provider [phone] Encounter Details Date Type Department Care Team (Late st Contact Info) Description 12/30/2021 Procedure Pass [facility], Ct Scan - [address] [address] Social History Tobacco Use Types Packs/Day Years [...] on filedocumented in this encounter Care Teams Development Professional Relationship Specialty Start Date End Date Rafita Villa MD [address] [place] [address] [email or web address] PCP - General Internal Medicine 08/30/21 11/22/22 Aguila Villegas MD [address] [place] [address] [address], [address] [place] [address] [email or web address] PCP - General Family Medicine 11/23/22 Ej Curtis MD [address] [place] [phone] Rheumatology 12/28/21 documented as of this encounter Additional Source Comments The information contained in this document represents components of the legal health record. It is not the complete legal health record.[facility]
== END 2025-02-20 10:20 | disposition home or self-care (01) ==
LOC: HO.RHES 09:19
PROVIDERS: PCP Family Medicine; Visit Provider Internal Medicine Rheumatology
DX: M31.6 Other giant cell arteritis (principal); S32.000A Wedge compression fracture of unspecified lumbar vertebra, initial encounter for closed fracture
CPT/HCPCS: 99214; G2211

== ENCOUNTER 2025-02-20 09:18 | Outpatient (REF) | payer MEDICARE, MEDICAID, SELFPAY | END 2025-02-20 09:19 | disposition home or self-care (01) | LOC: HO.HKASLDS 09:18 | PROVIDERS: PCP Family Medicine; Visit Provider Internal Medicine Rheumatology | DX: M31.6 Other giant cell arteritis (principal); S32.000D Wedge compression fracture of unspecified lumbar vertebra, subsequent encounter for fracture with routine healing; X58.XXXD Exposure to other specified factors, subsequent encounter; Z79.899 Other long term (current) drug therapy | CPT/HCPCS: 36415; 85652; 86140; 99212 ==